=== PATIENT | female | born 1960 | race American Indian/Alaskan Native ===

== ENCOUNTER → 2020-08-25 10:45 | Outpatient (BNVA) | payer MEDICAID, SELFPAY | PROVIDERS: PCP Pediatrics; Visit Provider Internal Medicine Pulmonary Disease | DX: Z01.811 Encounter for preprocedural respiratory examination (principal); J44.9 Chronic obstructive pulmonary disease, unspecified; F17.200 Nicotine dependence, unspecified, uncomplicated; Z79.899 Other long term (current) drug therapy | CPT/HCPCS: 99212 ==

== ENCOUNTER → 2020-10-18 13:41 | Outpatient (BNVA) | payer MEDICAID, SELFPAY | PROVIDERS: PCP Pediatrics; Visit Provider Internal Medicine ==

== ENCOUNTER → 2021-01-17 13:11 | Outpatient (BNVA) | payer MEDICAID, SELFPAY | PROVIDERS: PCP Pediatrics; Visit Provider Internal Medicine Pulmonary Disease | DX: J44.9 Chronic obstructive pulmonary disease, unspecified (principal) | CPT/HCPCS: 99212 ==

== ENCOUNTER 2021-02-10 10:52 | Outpatient (REF) | payer MEDICAID, SELFPAY ==
--- NOTE | ~2021-02-10 | MM_ITS ---
EXAMINATION: MM DIAGNOSTIC DIGITAL BREAST TOMOSYNTHESIS, BILATERAL US DIAGNOSTIC ULTRASOUND BREAST, LEFT CLINICAL INFORMATION: Focal area of palpable concern inferomedial left breast, parasternal region. Due for yearly. The lifetime risk of breast cancer based on the Tyrer-Cuzick Model is 5%. COMPARISON: Mammography: 07/10/2019, 08/05/2015. CT chest 01/19/2020. TECHNIQUE: Digital breast tomosynthesis is performed in both the craniocaudal and mediolateral oblique views along with computer-aided detection (CAD). Synthesized 2D images are generated from the tomosynthesis. Additional bilateral exaggerated CC views are obtained. Ultrasound left breast is targeted to the area of clinical concern inferior medial breast and parasternal region. Patient is able to point to area of concern at time of imaging. Grayscale imaging and color Doppler are performed without and with harmonics. FINDINGS: There are scattered areas of fibroglandular density (ACR BI-RADS breast composition Category b). Parenchymal pattern is similar to prior studies. There is no developing density or interval mass or architectural abnormality. No abnormal calcifications. No mammographic correlate for patient's palpable concern. No skin thickening or coarsening of the Michel's ligaments. The skin contours are smooth. No significant changes. Ultrasound demonstrates no cystic or solid mass or architectural abnormality. The chest wall soft tissues appear normal. No skin thickening or edema tracking in soft tissue planes. No rib exostosis seen by ultrasound nor on review of CT chest 2019. Results are discussed with the patient at time of visit. Patient should be managed based on the clinical impression. If clinically indicated, further evaluation may be considered with surgical consult. Decision to proceed with biopsy should be based on clinical grounds and degree of clinical concern. MM/MM tomosynthesis diagnostic BI IMPRESSION: 1. No mammographic evidence of malignancy. 2. Unremarkable targeted left breast ultrasound. ASSESSMENT: BI-RADS 1: Negative RECOMMENDATION: 1. Patient should be managed based on the clinical impression. If clinically indicated, further evaluation may be considered with surgical consult. 2. Otherwise, routine annual screening mammography. This patient's information was entered into a reminder system with a target due date for their next mammogram.
== END 2021-02-10 10:53 | disposition home or self-care (01) ==
LOC: HO.MAMMO 10:52
PROVIDERS: PCP Pediatrics; Visit Provider Pediatrics
DX: N63.24 Unspecified lump in the left breast, lower inner quadrant (principal)
CPT/HCPCS: 76642; 77062; 77066

== ENCOUNTER → 2021-12-26 11:42 | Outpatient (BNVA) | payer MEDICAID, SELFPAY | PROVIDERS: PCP Pediatrics; Visit Provider Internal Medicine Pulmonary Disease | DX: J44.1 Chronic obstructive pulmonary disease with (acute) exacerbation (principal); Z79.899 Other long term (current) drug therapy; Z87.891 Personal history of nicotine dependence | CPT/HCPCS: 99212 ==

== ENCOUNTER 2022-07-03 14:57 | Inpatient (IN) | payer MEDICARE, SELFPAY ==
[2022-07-03] VITALS (10 sets, daily range): BP systolic 128–176; BP diastolic 76–97; PULSE 87–124; RESP 14–30; TEMP 36.7–37.1; O2SAT 89–96; BMI 25.1
--- NOTE | ~2022-07-03 | CT_ITS ---
EXAMINATION: CT ABDOMEN AND PELVIS WITHOUT CONTRAST CLINICAL INFORMATION: Abdominal pain with abnormal x-ray COMPARISON: None TECHNIQUE: Multidetector volumetric imaging was performed from the superior aspect of the liver through the pubic symphysis. Sagittal and coronal reformatted images were obtained on the technologist's workstation. This CT examination was performed using dose optimization techniques as appropriate, variously including the following: *Automated exposure control *Adjustment of mA and/or kV according to patient size (this includes techniques or standardized protocols for targeted exams where dose is matched to indication/reason for exam; i.e. extremities or head) *Use of iterative reconstruction technique DLP: 435 mGy-cm FINDINGS: LUNG BASES: Heart size is normal. Innumerable tree-in-bud type opacities are seen throughout the lungs. There is some mild bronchial thickening and some mild traction bronchiectasis at the lung bases. These findings are new when compared to the prior 09/08/2015 study. Findings are most suggestive of severe inflammatory/airway disease. Metastatic disease is considered to be much less likely. The previously seen air beneath the hemidiaphragm represents air in the hepatic flexure which is interposed between the liver and the diaphragm (Chilaiditi anatomy). This is not a worrisome finding. LIVER, GALLBLADDER, AND BILIARY TREE: The liver is normal in size, shape, and attenuation. No focal hepatic lesion or biliary ductal dilatation is present. The gallbladder is unremarkable with no evidence of radiopaque gallstones, gallbladder wall thickening, or obvious pericholecystic inflammatory changes. PANCREAS: Unremarkable. SPLEEN: Unremarkable. ADRENAL GLANDS: Unremarkable. KIDNEYS AND URETERS: The kidneys are normal in size, shape, and attenuation. A small 0.9 cm mass with calcification present in the mid right kidney most likely a complex Bosniak class II cyst. Interior measures water density. On the 02/01/2011 study, this appeared larger measuring 1.9 cm. There are benign Bosniak class I cysts present in the left kidney, increased in size from 2011. No suspicious solid renal masses. No hydronephrosis, hydroureter, or calculi seen. No perinephric stranding. BLADDER: Decompressed but unremarkable GASTROINTESTINAL TRACT: The small and large bowel are unremarkable aside from some scattered colonic diverticula without diverticulitis.. The appendix is unremarkable. ABDOMINAL WALL: No significant hernia is appreciated. LYMPH NODES: No retroperitoneal lymphadenopathy. VASCULAR: Marked calcific atherosclerotic change present in the infrarenal aorta and common iliac arteries. No aneurysm. PELVIC VISCERA: The uterus and adnexa are unremarkable aside from a small calcification in the uterus on the right which may be secondary to a small fibroid.. OSSEOUS STRUCTURES: Scoliosis convex to left with degenerative changes throughout the spine. CT/CT abdomen pelvis wo IV con IMPRESSION: 1. A cause for the patient's abdominal pain has not been found. 2. There are innumerable tree-in-bud type opacities seen throughout the lungs with some mild bronchial thickening and traction bronchiectasis. Findings are most suggestive of severe inflammatory/airway disease. Metastatic disease is considered to be much less likely. 3. Incidental note made of bilateral benign Bosniak class I and Bosniak class II renal cysts which need no further follow-up, colonic diverticulosis without diverticulitis and degenerative changes in the spine with scoliosis. 4. The previously seen air beneath the hemidiaphragm represents air in the hepatic flexure which is interposed between the liver and the diaphragm (Chilaiditi anatomy). This is not a worrisome finding. Fleischner guidelines were followed.
--- NOTE | ~2022-07-03 | XR_ITS ---
EXAMINATION: XR CHEST CLINICAL INFORMATION: Shortness of breath COMPARISON: Chest x-ray 09/08/2015. TECHNIQUE: Frontal portable view of the chest was obtained. 1651 hours FINDINGS: Diffuse increased interstitial lung markings new since chest x-ray 09/08/2015. This could be due to an acute interstitial process such as interstitial edema or pneumonia versus chronic interstitial lung disease. Heart size is normal. No significant central pulmonary vascular congestion without present. There is no pleural effusion and no pneumothorax. Levoscoliosis of thoracolumbar spine with multilevel degenerative spondylosis. There is a small bubble of gas under the right diaphragm peripherally in the right upper quadrant of abdomen. This appears to be within a bowel loop rather than free air. This is not well evaluated on plain film however. If clinical concern further imaging of the abdomen with CT can be considered. XR/XR chest 1V IMPRESSION: 1. Diffuse increased interstitial lung markings new since chest x-ray 09/08/2015. Acute interstitial process such as interstitial edema or pneumonia versus chronic interstitial lung disease. Short-term follow-up chest x-ray could be helpful. 2. There is a small bubble of gas under the right diaphragm peripherally in the right upper quadrant of abdomen. Clinically correlate.
--- NOTE | 2022-07-03 15:13 | ECG_ITS ---
Test Reason : UPPER RESP Blood Pressure : / mmHG Vent. Rate : 115 BPM Atrial Rate : 115 BPM P-R Int : 118 ms QRS Dur : 116 ms QT Int : 344 ms P-R-T Axes : 086 222 038 degrees QTc Int : 475 ms Sinus tachycardia Right bundle branch block Inferior infarct , age undetermined cannot exclude Anterior infarct , age undetermined Abnormal ECG When compared with ECG of 08-SEP-2015 12:59, Vent. rate has increased BY 48 BPM Right bundle branch block is now Present possibe Anterior infarct is now Present Inferior infarct is now Present Referred By: Tracie Luong Electronically Signed By:ANA SMYTH
--- NOTE | 2022-07-03 15:20 | ED.SOB ---
HPI - SOB/Dyspnea General Chief Complaint: Upper Respiratory Symptoms Stated Complaint: FLU SYMPTOMS FROM MD OFFICE,SEEN @ [facility] PER EMS Time Seen by Provider: 07/03/22 15:05 Source: patient and EMS Mode of arrival: EMS Limitations: no limitations History of Present Illness HPI Narrative: 61-year-old female former smoker (quit about 8 months ago) known history of emphysema and COPD been seen for by Dr. Sanchez patient is on DuoNeb and theophllline with reasonable control of the symptoms. Patient had recent hospitalization at [facility] for hypoxia and flu infection patient was discharged 4 days ago from the hospital on short course of prednisone with no improvement of patient's symptoms went to see her PCP today for shortness of breath found to be hypoxic and tachypneic in the doctor office and was sent to the ED for further evaluation. In the ED patient is tachypneic and 89% on room air and 92% with 3 L of nasal cannula, patient declined CP. Related Data Home Medications Medication Instructions Recorded Confirmed apixaban 5 mg tablet (Eliquis) 1 tab PO BID 07/03/22 07/03/22 budesonide-formoterol HFA 160 2 puff inhalation BID 07/03/22 07/03/22 mcg-4.5 mcg/actuation aerosol inhaler (Symbicort) buprenorphine 8 mg-naloxone 2 mg 2 strip sublingual DAILY 07/03/22 07/03/22 sublingual film fluticasone propionate 50 1 - 2 spray intranasal DAILY PRN 07/03/22 07/03/22 mcg/actuation nasal Nasal Congestion spray,suspension ibuprofen 600 mg tablet 1 tab PO TID PRN Pain, Mild 07/03/22 07/03/22 lisinopril 30 mg tablet 1 tab PO DAILY 07/03/22 07/03/22 omeprazole 20 mg capsule,delayed 1 cap PO DAILY 07/03/22 07/03/22 release tiotropium bromide 18 mcg capsule 1 cap inhalation DAILY 07/03/22 07/03/22 with inhalation device (Spiriva with HandiHaler) Previous Rx's Medication Instructions Recorded albuterol sulfate 90 mcg/actuation 2 puff inhalation Q4-6H PRN for 11/27/21 aerosol inhaler wheezing #8.5 ea theophylline 600 mg 600 mg PO DAILY 30 days #30 tabs 05/01/22 tablet,extended release 24 hr Allergies Allergy/AdvReac Type Severity Reaction Status Date / Time morphine [MORPHINE] Allergy Intermediate VOMITING, Verified 12/26/21 11:46 ITCHING ibuprofen Allergy Unknown Unknown Verified 12/26/21 11:46 Review of Systems Review of Systems: All other systems are reviewed and are negative Constitutional: Reports as per HPI and Reports no additional constitutional complaints Eyes: Reports as per HPI and Reports no additional eye complaints Reports system reviewed and no additional complaints, except as documented Cardiovascular: Reports as per HPI and Reports no additional cardiovascular complaints Respiratory: Reports as per HPI and Reports no additional respiratory complaints Gastrointestinal: Reports as per HPI and Reports no additional gastrointestinal complaints Genitourinary: Reports no additional female genitourinary complaints Musculoskeletal: Reports no additional musculoskeletal complaints Skin/Breast: Reports system reviewed and no additional complaints, except as docu Psychiatric: Reports no additional psychiatric complaints Endocrine: Reports no additional endocrine complaints Hematologic/Lymphatic: Reports no additional hematologic/lymphatic complaints Allergic/Immunologic: Reports no additional allergic/immunologic complaints Reports system reviewed and no additional complaints, except as documented and Reports Abnormal speech present [facility] Past Medical History Medical History COPD exacerbation Ex-smoker for less than 1 year Hypertension Pulmonary embolism Social History Social History Alcohol intake: never Smoked in Last 30 Days: No Use of substances other than those prescribed or required for medical reasons: No Advance Directives: No Advance Directives Information Provided: Yes Physical Exam Vital Signs: Vital Signs: Last Vital Signs Temp 98.0 F 07/03/22 18:26 Pulse 90 07/03/22 20:19 Resp 14 07/03/22 20:19 BP 130/82 07/03/22 18:26 Pulse Ox 93 07/03/22 18:26 O2 Del Method 07/03/22 18:26 O2 Flow Rate 3 07/03/22 18:26 Oxygen Flow Rate 3 07/03/22 15:15 BMI result Body Mass Index 25.1 Vital signs have been reviewed as appeared to be correct. Blood pressure normal. Heart rate elevated, Respiration rate elevated. Temperature normal. Hypoxic on room air. Appearance: Alert. Oriented X3. Mild respiratory acute distress. Head: Normal external exam. Normocephalic. Atraumatic. No Lamb signs noted. No raccoon eyes noted Eyes: PERRLA. EOMI. Conjunctiva and sclera normal. Eyelids normal. ENT: TM's Normal. Pharynx normal. Uvula midline. Moist mucous membranes. No trismus noted. No drooling noted. No muffled voice noted. Neck: Normal inspection. Neck supple. FROM. No adenopathy. Thyroid Normal. No meningeal signs. No neck mass noted. CVS: Normal heart rate and rhythm. Heart sound normal. No murmurs noted. Pulses normal throughout. Respiratory: No respiratory distress. Painless inspiration. Breath sounds normal. No wheezes/rales/rhonchi noted. Chest nontender. No accessory muscle usage noted or decreased air movement noted. Abdomen: Soft and nontender. Bowel sounds normal in all 4 quadrants. No distention noted. No organomegaly noted. No visible injury noted. Back: No CVA tenderness. Full range of motion noted. Skin: Skin warm and dry. Normal skin color. Normal skin turgor. No rashes/lesions/lacerations noted. Extremities: No lower extremity edema. Extremities exhibit normal range of motion. Extremities nontender. Neuro: Oriented X 3. Cranial nerve exam: II-XII are grossly intact No motor deficit. No sensory deficit. Reflexes normal. Course Course Course Narrative: 61-year-old female with COPD exacerbation and hypoxia no supplemental oxygen at home. Patient feels better with bronchodilator and steroids and antibiotic. Incidental air bubble on the x-ray patient is complaining of generalized abdominal pain from coughing no tenderness in particular in the right upper quadrant area, no nausea, no vomiting CT of the abdomen and pelvis is unremarkable. Will admit the patient patient is requiring 3 L of oxygen to keep O2 sat 93%, leukocytosis likely from recent steroid use. Lactic acidosis likely due to prolonged good COPD with hypoxia. Medications Administered Generic Name Dose Route Start Last Admin Trade Name Freq PRN Reason Stop Dose Admin Albuterol/Ipratropium 3 ml 07/03/22 20:00 07/03/22 20:18 Albuterol/Iprat 2.5/0.5mg 3 Ml Ampul.Neb INHALE 3 ml RQ4H WHILE AWAKE JESSICA Administration Discontinued Medications Generic Name Dose Route Start Last Admin Trade Name Freq PRN Reason Stop Dose Admin Albuterol Sulfate 2.5 mg/ 5 mg 07/03/22 15:13 07/03/22 15:47 Albuterol Sulfate 2.5 mg INHALE 07/03/22 15:14 5 mg ONCE ONE Administration Albuterol/Ipratropium 3 ml 07/03/22 15:13 07/03/22 15:47 Albuterol/Iprat 2.5/0.5mg 3 Ml Ampul.Neb INHALE 07/03/22 15:14 3 ml ONCE ONE Administration Guaifenesin/Codeine Phosphate 10 ml 07/03/22 18:25 07/03/22 18:57 Guaifen/Codeine Sf 200/20/10ml 10 Ml Liquid PO 07/03/22 18:26 10 ml ONCE ONE Administration Magnesium Sulfate 2 gm in 50 mls @ 25 mls/hr 07/03/22 15:13 07/03/22 17:07 Magnesium Sulfate/H2o IV 07/03/22 17:12 Infused ONCE ONE Infusion Levofloxacin 750 mg in 150 mls @ 100 mls/hr 07/03/22 15:13 07/03/22 18:56 Levaquin IV 07/03/22 16:42 Infused ONCE ONE Infusion Methylprednisolone Sodium Succinate 125 mg 07/03/22 15:13 07/03/22 15:29 Methylprednisolone Sod Succ 125 Mg/2 Ml Vial IVPUSH 07/03/22 15:14 125 mg ONCE ONE Administration Medical Decision Making Differential Diagnosis Differential Diagnoses: The differential diagnosis associated with the presentation includes (COPD exacerbation/pneumonia/CHF.) Admission/Observation Consideration of admission/observation: Escalation of care including admission/observation considered Consult Healthcare Provider Management of the patient was discussed with: Hospitalist Dr. Mathis Lab Data MDM Lab Attestation statement: I reviewed the patient's lab results. Result Diagrams: 07/03/22 16:19 07/03/22 17:11 Labs: Lab Results 07/03/22 07/03/22 07/03/22 Range/Units 16:19 16:19 16:19 WBC 16.9 H (4.8-10.8) X10*3/uL RBC 6.04 H (4.20-5.50) X10*6/uL Hgb 14.9 (12.0-16.0) g/dl Hct 47.0 (37.0-47.0) % MCV 77.8 L (80.0-98.0) fL MCH 24.7 L (27.0-33.0) pg MCHC 31.7 (31.0-35.0) g/dl RDW 13.7 (11.0-16.0) % Plt Count 396 (160-400) X10*3/uL MPV 9.8 (9.4-12.3) fL Immature Gran % (Auto) 0.8 H (0.0-0.4) % Neut % (Auto) 77.4 H (45-73) % Lymph % (Auto) 10.3 L (20-40) % [place] % (Auto) 11.3 H (2-11) % Eos % (Auto) 0.0 (0-4) % Baso % (Auto) 0.2 (0-2) % Lymph # (Auto) 1.7 (1.2-4.9) X10*3/uL [place] # (Auto) 1.9 H (0.1-1.2) X10*3/uL Eos # (Auto) 0.0 (0.0-0.4) X10*3/uL Baso # (Auto) 0.0 (0.0-0.2) X10*3/uL Abs Immat Gran (auto) 0.14 H (0.00-0.03) X10*3/uL Absolute Neuts (auto) 13.0 H (2.0-8.3) x10*3/uL Absolute Nucleated RBC 0.000 (0.0-0.012) X10*3/uL Nucleated RBC % (auto) 0.0 (0.0-0.2) /100WBC Smear Tech's Comments VERIFIED Sodium (135-145) mmol/L Potassium (3.3-5.1) mmol/L Chloride (96-108) mmol/L Carbon Dioxide (22-29) mmol/L Anion Gap (12-20) BUN (9-16) mg/dL Creatinine (0.5-1.4) mg/dL Estim Creat Clear Calc Estimated GFR Random Glucose (60-115) mg/dL Lactic Acid (0.5-2.0) mmol/L Lactic Acid F/U @ 2Hr (0.5-2.0) mmol/L Calcium (8.4-10.2) mg/dL Total Bilirubin (0.0-1.0) mg/dL Direct Bilirubin (0.0-0.5) mg/dL AST (5-31) U/L ALT (0-31) U/L Alkaline Phosphatase (39-117) U/L Troponin I High Sens 5.6 (<3.5-17.0) ng/L B-Natriuretic Peptide (<100) pg/mL Total Protein (6.5-8.0) g/dL Albumin (3.5-5.0) g/dL Lipase (8-78) U/L Urine Color Urine Appearance Urine pH (5.0-9.0) Ur Specific [place] (1.005-1.025) Urine Protein (Neg-Trace) mg/dL Urine Glucose (UA) (Negative) mg/dL Urine Ketones (Negative) mg/dL Urine Blood (Negative) Urine Nitrite (Negative) Ur Leukocyte Esterase (Negative) Urine RBC (0-2) /HPF Urine WBC (0-5) /HPF Ur Squamous Epith Cells (0-2) /HPF Urine Bacteria (None Seen) Hyaline Casts (0-2) /LPF Influenza Type A (PCR) NEGATIVE (Negative) Influenza Type B (PCR) NEGATIVE (Negative) RSV RNA Qual (PCR) NEGATIVE (Negative) SARS-CoV-2 RNA (RT-PCR) NEGATIVE (Negative) 07/03/22 07/03/22 07/03/22 Range/Units 16:19 17:11 17:12 WBC (4.8-10.8) X10*3/uL RBC (4.20-5.50) X10*6/uL Hgb (12.0-16.0) g/dl Hct (37.0-47.0) % MCV (80.0-98.0) fL MCH (27.0-33.0) pg MCHC (31.0-35.0) g/dl RDW (11.0-16.0) % Plt Count (160-400) X10*3/uL MPV (9.4-12.3) fL Immature Gran % (Auto) (0.0-0.4) % Neut % (Auto) (45-73) % Lymph % (Auto) (20-40) % [place] % (Auto) (2-11) % Eos % (Auto) (0-4) % Baso % (Auto) (0-2) % Lymph # (Auto) (1.2-4.9) X10*3/uL [place] # (Auto) (0.1-1.2) X10*3/uL Eos # (Auto) (0.0-0.4) X10*3/uL Baso # (Auto) (0.0-0.2) X10*3/uL Abs Immat Gran (auto) (0.00-0.03) X10*3/uL Absolute Neuts (auto) (2.0-8.3) x10*3/uL Absolute Nucleated RBC (0.0-0.012) X10*3/uL Nucleated RBC % (auto) (0.0-0.2) /100WBC Smear Tech's Comments Sodium 140 (135-145) mmol/L Potassium 3.4 (3.3-5.1) mmol/L Chloride 100 (96-108) mmol/L Carbon Dioxide 26 (22-29) mmol/L Anion Gap 17 (12-20) BUN 23 H (9-16) mg/dL Creatinine 0.72 (0.5-1.4) mg/dL Estim Creat Clear Calc 72.2 Estimated GFR > 60 Random Glucose 166 H (60-115) mg/dL Lactic Acid 2.3 H* (0.5-2.0) mmol/L Lactic Acid F/U @ 2Hr (0.5-2.0) mmol/L Calcium 8.6 (8.4-10.2) mg/dL Total Bilirubin 0.6 (0.0-1.0) mg/dL Direct Bilirubin 0.3 (0.0-0.5) mg/dL AST 25 (5-31) U/L ALT 30 (0-31) U/L Alkaline Phosphatase 78 (39-117) U/L Troponin I High Sens (<3.5-17.0) ng/L B-Natriuretic Peptide 138 H (<100) pg/mL Total Protein 6.2 L (6.5-8.0) g/dL Albumin 3.6 (3.5-5.0) g/dL Lipase 8 (8-78) U/L Urine Color Urine Appearance Urine pH (5.0-9.0) Ur Specific [place] (1.005-1.025) Urine Protein (Neg-Trace) mg/dL Urine Glucose (UA) (Negative) mg/dL Urine Ketones (Negative) mg/dL Urine Blood (Negative) Urine Nitrite (Negative) Ur Leukocyte Esterase (Negative) Urine RBC (0-2) /HPF Urine WBC (0-5) /HPF Ur Squamous Epith Cells (0-2) /HPF Urine Bacteria (None Seen) Hyaline Casts (0-2) /LPF Influenza Type A (PCR) (Negative) Influenza Type B (PCR) (Negative) RSV RNA Qual (PCR) (Negative) SARS-CoV-2 RNA (RT-PCR) (Negative) 07/03/22 07/03/22 Range/Units 17:12 19:09 WBC (4.8-10.8) X10*3/uL RBC (4.20-5.50) X10*6/uL Hgb (12.0-16.0) g/dl Hct (37.0-47.0) % MCV (80.0-98.0) fL MCH (27.0-33.0) pg MCHC (31.0-35.0) g/dl RDW (11.0-16.0) % Plt Count (160-400) X10*3/uL MPV (9.4-12.3) fL Immature Gran % (Auto) (0.0-0.4) % Neut % (Auto) (45-73) % Lymph % (Auto) (20-40) % [place] % (Auto) (2-11) % Eos % (Auto) (0-4) % Baso % (Auto) (0-2) % Lymph # (Auto) (1.2-4.9) X10*3/uL [place] # (Auto) (0.1-1.2) X10*3/uL Eos # (Auto) (0.0-0.4) X10*3/uL Baso # (Auto) (0.0-0.2) X10*3/uL Abs Immat Gran (auto) (0.00-0.03) X10*3/uL Absolute Neuts (auto) (2.0-8.3) x10*3/uL Absolute Nucleated RBC (0.0-0.012) X10*3/uL Nucleated RBC % (auto) (0.0-0.2) /100WBC Smear Tech's Comments Sodium (135-145) mmol/L Potassium (3.3-5.1) mmol/L Chloride (96-108) mmol/L Carbon Dioxide (22-29) mmol/L Anion Gap (12-20) BUN (9-16) mg/dL Creatinine (0.5-1.4) mg/dL Estim Creat Clear Calc Estimated GFR Random Glucose (60-115) mg/dL Lactic Acid (0.5-2.0) mmol/L Lactic Acid F/U @ 2Hr 3.0 H* (0.5-2.0) mmol/L Calcium (8.4-10.2) mg/dL Total Bilirubin (0.0-1.0) mg/dL Direct Bilirubin (0.0-0.5) mg/dL AST (5-31) U/L ALT (0-31) U/L Alkaline Phosphatase (39-117) U/L Troponin I High Sens (<3.5-17.0) ng/L B-Natriuretic Peptide (<100) pg/mL Total Protein (6.5-8.0) g/dL Albumin (3.5-5.0) g/dL Lipase (8-78) U/L Urine Color Yellow Urine Appearance Clear Urine pH 6.0 (5.0-9.0) Ur Specific [place] 1.025 (1.005-1.025) Urine Protein Trace (Neg-Trace) mg/dL Urine Glucose (UA) Negative (Negative) mg/dL Urine Ketones Negative (Negative) mg/dL Urine Blood Small (1+) H (Negative) Urine Nitrite Negative (Negative) Ur Leukocyte Esterase Negative (Negative) Urine RBC 3-5 H (0-2) /HPF Urine WBC 0-5 (0-5) /HPF Ur Squamous Epith Cells 0-2 (0-2) /HPF Urine Bacteria None Seen (None Seen) Hyaline Casts 0-2 (0-2) /LPF Influenza Type A (PCR) (Negative) Influenza Type B (PCR) (Negative) RSV RNA Qual (PCR) (Negative) SARS-CoV-2 RNA (RT-PCR) (Negative) Independent Interpretation I performed an independent interpretation of an: Plain X-Ray (Chest: No acute pathology.) and CT Scan (Abdomen: No acute pathology.) Radiology Impression Discussion of test interpretation with radiology: I have reviewed the radiologist's reading. Discharge Plan Discharge Clinical Impression: COPD exacerbation, Acidosis, lactic, Hypoxia Patient Disposition: Admitted As Inpatient
[2022-07-03] MEDS: Magnesium Sulfate/H2O 2 GM/50 ML PIGGYBACK IV (15:29)
[2022-07-03] MEDS: methylPREDNISolone Sod Succ 125 MG/2 ML VIAL IVPUSH (15:29)
--- NOTE | 2022-07-03 15:36 | PC.NURSE ---
pt a&ox3, vss - hypertensive, O2 @ 92% on 3L, 20G IV left forearm placed by EMS, medicated per provider order. tech to bedside to draw labs/EKG.
[2022-07-03] MEDS: Albuterol Sulfate 2.5 MG, Albuterol Sulfate (0.083%) 2.5 MG 5 MG INHALE (15:47)
[2022-07-03] MEDS: Albuterol/Iprat 2.5/0.5MG 3 ML AMPUL.NEB INHALE ×2 (15:47→20:18)
[2022-07-03 16:27] LABS: Basophils Percent Auto 0.2 % (0-2); Hemoglobin 14.9 g/dl (12.0-16.0); Imm Gran Abs Auto 0.14 X10*3/uL (0.00-0.03); Imm Gran Pct Auto 0.8 % (0.0-0.4); Lymphocytes Absolute Auto 1.7 X10*3/uL (1.2-4.9); Lymphocytes Percent Auto 10.3 % (20-40); MANUAL DIFF FLAG SCAN; Mean Corpuscular HGB Conc 31.7 g/dl (31.0-35.0); Mean Corpuscular Hemoglobin 24.7 pg (27.0-33.0); Mean Corpuscular Volume 77.8 fL (80.0-98.0); Mean Platelet Volume 9.8 fL (9.4-12.3); Monocytes Absolute Auto 1.9 X10*3/uL (0.1-1.2); Monocytes Percent Auto 11.3 % (2-11); Neutrophils Percent Auto 77.4 % (45-73); Platelet Count 396 X10*3/uL (160-400); Red Blood Count 6.04 X10*6/uL (4.20-5.50); Red Cell Distribution Width 13.7 % (11.0-16.0); SCAN SMEAR FLAG 1; White Blood Count 16.9 X10*3/uL (4.8-10.8)
[2022-07-03 16:47] LABS: Lactic Acid 2.3 mmol/L (0.5-2.0); SLIDE REVIEW VERIFIED
[2022-07-03 16:53] LABS: Troponin-I High Sensitivity 5.6 ng/L (<3.5-17.0)
[2022-07-03] MEDS: levoFLOXacin/D5W 750 MG/150 ML PIGGYBACK 100 MG IV (17:06)
--- NOTE | 2022-07-03 17:15 | MHC.EDTECH ---
PT WAS HOOKED UP TO [facility]ON FOLDER VITAL SIGN TAKEN ,EKG DONE ,LAB DRAW DONE ,URINE SAMPLE TAKEN FLU RSV SWAB TAKEN WAS SENT TO LAB .
[2022-07-03 17:20] LABS: Influenza A PCR NEGATIVE (Negative); Influenza B PCR NEGATIVE (Negative); Resp Syncy Virus RNA Qual PCR NEGATIVE (Negative); SARS COV2 PCR INHOUSE NEGATIVE (Negative)
[2022-07-03 17:21] LABS: Appearance Urine Clear; Color Urine Yellow; Glucose Urine UA Negative (Negative); Leukocyte Esterase Urine Negative (Negative); Nitrite Urine Negative (Negative); Specific Gravity - Urine 1.025 (1.005-1.025); UMIC TRIGGER UACC YES; Urine Blood Small (1+) (Negative); Urine Ketones Negative (Negative); Urine Protein Trace mg/dL (Neg-Trace)
[2022-07-03 17:31] LABS: Bacteria Urine None Seen (None Seen); Hyaline Casts Urine 0-2 /LPF (0-2); Squamous Epithelial Cell Urine 0-2 /HPF (0-2); WBC Urine 0-5 /HPF (0-5)
[2022-07-03 17:37] LABS: Alanine Aminotransferase 30 U/L (0-31); Albumin Level 3.6 g/dL (3.5-5.0); Alkaline Phosphatase 78 U/L (39-117); Anion Gap 17 (12-20); Aspartate Amino Transferase 25 U/L (5-31); Bilirubin Direct 0.3 mg/dL (0.0-0.5); Bilirubin Total 0.6 mg/dL (0.0-1.0); Blood Urea Nitrogen 23 mg/dL (9-16); Calcium 8.6 mg/dL (8.4-10.2); Carbon Dioxide 26 mmol/L (22-29); Chloride 100 mmol/L (96-108); Creatinine Clr Calc Pharmacy 72.2; Estimated Glomerular Filt Rate > 60; Glucose Random 166 mg/dL (60-115); Lipase 8 U/L (8-78); Potassium 3.4 mmol/L (3.3-5.1); Sodium 140 mmol/L (135-145); Total Protein 6.2 g/dL (6.5-8.0)
[2022-07-03 17:42] LABS: B Type Natriuretic Peptide 138 pg/mL (<100)
--- NOTE | 2022-07-03 17:43 | PHA.MEDREC ---
Pharmacy Consult ? Medication Reconciliation Pharmacy has completed the medication reconciliation. spoke with pt
[2022-07-03 18:23] LABS: Reflex Lactate? Lactic Acid Added
--- NOTE | 2022-07-03 18:27 | MHC.EDTECH ---
pt ask for a марина juan said she was not hungry .
[2022-07-03] MEDS: guaiFEN/Codeine SF 200/20/10ML 10 ML LIQUID PO (18:57)
--- NOTE | 2022-07-03 20:01 | P.HPHOSP_ITS ---
History of Present Illness Date of Service: 07/03/22 Chief Complaint: cough, shortness of breath 61-year-old female with past medical history of COPD, PE on Eliquis, hypertension, on naloxone, presents to the hospital with complaints of persistent cough, shortness of breath, and sputum production. Patient reports that about a week ago she was seen at outside hospital and diagnosed with the flu. She was admitted for 3-4 days, discharged on Saturday, reports that slightly felt better after discharge but symptoms returned on Saturday with cough, shortness of breath, and increased sputum production. Patient reports no fever or chill, denies any chest pain, no palpitations, no nausea or vomiting, no diarrhea constipation, no urinary symptoms and no lower extremity edema. Reports low appetite, decreased urine output. Patient reports that while at outside hospital she was treated for COPD but was not sent home on any medications. On arrival to the ED patient hemodynamically stable found to be 89% on room air with tachypnea of 30, tachycardia of 124 Labs are significant for WBC count of 16.9, lactic acid of 2.3, BNP of 138, UA negative for any acute infection Influenza, RSV as well as COVID-[address] shows tree-in-bud type opacities seen throughout the lungs with some mild bronchial thickening and traction bronchiectasis finding suggestive of severe inflammatory airway disease patient will be admitted for further management Review of Systems Review of Systems: Yes all other systems are reviewed and are negative [facility] Medical History (Updated 07/04/22 @ 07:14 by Umesh Smallwood MD) COPD exacerbation Ex-smoker for less than 1 year Hypertension Pulmonary embolism Family History (Updated 07/04/22 @ 07:12 by Umesh Smallwood MD) Mother CAD (coronary artery disease) Social History Alcohol intake: never Smoked in Last 30 Days: No Use of substances other than those prescribed or required for medical reasons: No Advance Directives: No Advance Directives Information Provided: Yes Meds Allergies Allergy/AdvReac Type Severity Reaction Status Date / Time morphine [MORPHINE] Allergy Intermediate VOMITING, Verified 12/26/21 11:46 ITCHING ibuprofen Allergy Unknown Unknown Verified 12/26/21 11:46 Active Medications: Current Medications Acetaminophen (Acetaminophen 325 Mg Tablet) 650 mg PO Q6H PRN PRN Reason: Pain, Mild (Pain Scale 1-3) Albuterol/Ipratropium (Albuterol/Iprat 2.5/0.5mg 3 Ml Ampul.Neb) 3 ml INHALE RQ4H PRN PRN Reason: Shortness of Breath/Wheezing Albuterol/Ipratropium (Albuterol/Iprat 2.5/0.5mg 3 Ml Ampul.Neb) 3 ml INHALE RQ4H WHILE AWAKE [facility] Docusate Sodium (Docusate Sodium 100 Mg Capsule) 100 mg PO DAILY PRN PRN Reason: Constipation Enoxaparin Sodium (Enoxaparin Sodium 40 Mg/0.4 Ml Syringe) 40 mg SUBCUT Q24H JESSICA Vancomycin HCl 1,500 mg/ (Sodium Chloride) 500 mls @ 333.333 mls/hr IV Q12H JESSICA Piperacillin Sod/Tazobactam (Sod 3.375 gm/ Sodium Chloride) 50 mls @ 100 mls/hr IV Q6H [facility] Methylprednisolone Sodium Succinate (Methylprednisolone Sod Succ 40 Mg/Ml Vial) 40 mg IVPUSH Q12H JESSICA Ondansetron HCl (Ondansetron Hcl 4 Mg/2 Ml Vial) 4 mg IVPUSH Q8H PRN PRN Reason: Nausea and Vomiting Pharmacy Consult (Consult Rx Perform Med Rec) 1 each MISCELLANE ONCE PRN PRN Reason: Consult order Pharmacy Consult (Consult Rx Vancomycin Dosing) 1 each MISCELLANE DAILY PRN PRN Reason: Consult order Sodium Chloride (0.9 % Sodium Chloride Flush 3 Ml Syringe) 3 ml IVFLUSH QSHIFT [facility] Home Medications Medication Instructions Recorded Confirmed Last Taken Type apixaban 5 mg tablet (Eliquis) 1 tab PO BID 07/03/22 07/03/22 07/02/22 History budesonide-formoterol HFA 160 2 puff inhalation BID 07/03/22 07/03/22 07/02/22 History mcg-4.5 mcg/actuation aerosol inhaler (Symbicort) buprenorphine 8 mg-naloxone 2 mg 2 strip sublingual DAILY 07/03/22 07/03/22 07/02/22 History sublingual film fluticasone propionate 50 1 - 2 spray intranasal DAILY PRN 07/03/22 07/03/22 Unknown History mcg/actuation nasal Nasal Congestion spray,suspension ibuprofen 600 mg tablet 1 tab PO TID PRN Pain, Mild 07/03/22 07/03/22 07/02/22 History lisinopril 30 mg tablet 1 tab PO DAILY 07/03/22 07/03/22 07/02/22 History omeprazole 20 mg capsule,delayed 1 cap PO DAILY 07/03/22 07/03/22 07/02/22 History release tiotropium bromide 18 mcg capsule 1 cap inhalation DAILY 07/03/22 07/03/22 07/02/22 History with inhalation device (Spiriva with HandiHaler) Physical Exam Vital Signs and Narrative: Vital Signs: Last Vital Signs Temp 98.0 F 07/03/22 18:26 Pulse 112 H 07/03/22 18:26 Resp 15 07/03/22 18:26 BP 130/82 07/03/22 18:26 Pulse Ox 93 07/03/22 18:26 O2 Del Method 07/03/22 18:26 O2 Flow Rate 3 07/03/22 18:26 Oxygen Flow Rate 3 07/03/22 15:15 BMI result Body Mass Index 25.1 Results Labs CBC and Chem 7: 07/04/22 05:25 07/03/22 17:11 Labs: Laboratory Results - last 24 hr 07/03/22 07/03/22 07/03/22 16:19 16:19 16:19 MCV 77.8 L MCH 24.7 L MCHC 31.7 RDW 13.7 Plt Count 396 MPV 9.8 Immature Gran % (Auto) 0.8 H Neut % (Auto) 77.4 H Lymph % (Auto) 10.3 L [place] % (Auto) 11.3 H Eos % (Auto) 0.0 Baso % (Auto) 0.2 Lymph # (Auto) 1.7 [place] # (Auto) 1.9 H Eos # (Auto) 0.0 Baso # (Auto) 0.0 Abs Immat Gran (auto) 0.14 H Absolute Neuts (auto) 13.0 H Absolute Nucleated RBC 0.000 Nucleated RBC % (auto) 0.0 Smear Tech's Comments VERIFIED Anion Gap Estim Creat Clear Calc Estimated GFR Random Glucose Lactic Acid Lactic Acid F/U @ 2Hr Calcium Total Bilirubin Direct Bilirubin AST ALT Alkaline Phosphatase Troponin I High Sens 5.6 B-Natriuretic Peptide Total Protein Albumin Lipase Urine Color Urine Appearance Urine pH Ur Specific [place] Urine Protein Urine Glucose (UA) Urine Ketones Urine Blood Urine Nitrite Ur Leukocyte Esterase Urine RBC Urine WBC Ur Squamous Epith Cells Urine Bacteria Hyaline Casts Influenza Type A (PCR) NEGATIVE Influenza Type B (PCR) NEGATIVE RSV RNA Qual (PCR) NEGATIVE SARS-CoV-2 RNA (RT-PCR) NEGATIVE 07/03/22 07/03/22 07/03/22 16:19 17:11 17:12 MCV MCH MCHC RDW Plt Count MPV Immature Gran % (Auto) Neut % (Auto) Lymph % (Auto) [place] % (Auto) Eos % (Auto) Baso % (Auto) Lymph # (Auto) [place] # (Auto) Eos # (Auto) Baso # (Auto) Abs Immat Gran (auto) Absolute Neuts (auto) Absolute Nucleated RBC Nucleated RBC % (auto) Smear Tech's Comments Anion Gap 17 Estim Creat Clear Calc 72.2 Estimated GFR > 60 Random Glucose 166 H Lactic Acid 2.3 H* Lactic Acid F/U @ 2Hr Calcium 8.6 Total Bilirubin 0.6 Direct Bilirubin 0.3 AST 25 ALT 30 Alkaline Phosphatase 78 Troponin I High Sens B-Natriuretic Peptide 138 H Total Protein 6.2 L Albumin 3.6 Lipase 8 Urine Color Urine Appearance Urine pH Ur Specific [place] Urine Protein Urine Glucose (UA) Urine Ketones Urine Blood Urine Nitrite Ur Leukocyte Esterase Urine RBC Urine WBC Ur Squamous Epith Cells Urine Bacteria Hyaline Casts Influenza Type A (PCR) Influenza Type B (PCR) RSV RNA Qual (PCR) SARS-CoV-2 RNA (RT-PCR) 07/03/22 07/03/22 17:12 19:09 MCV MCH MCHC RDW Plt Count MPV Immature Gran % (Auto) Neut % (Auto) Lymph % (Auto) [place] % (Auto) Eos % (Auto) Baso % (Auto) Lymph # (Auto) [place] # (Auto) Eos # (Auto) Baso # (Auto) Abs Immat Gran (auto) Absolute Neuts (auto) Absolute Nucleated RBC Nucleated RBC % (auto) Smear Tech's Comments Anion Gap Estim Creat Clear Calc Estimated GFR Random Glucose Lactic Acid Lactic Acid F/U @ 2Hr 3.0 H* Calcium Total Bilirubin Direct Bilirubin AST ALT Alkaline Phosphatase Troponin I High Sens B-Natriuretic Peptide Total Protein Albumin Lipase Urine Color Yellow Urine Appearance Clear Urine pH 6.0 Ur Specific [place] 1.025 Urine Protein Trace Urine Glucose (UA) Negative Urine Ketones Negative Urine Blood Small (1+) H Urine Nitrite Negative Ur Leukocyte Esterase Negative Urine RBC 3-5 H Urine WBC 0-5 Ur Squamous Epith Cells 0-2 Urine Bacteria None Seen Hyaline Casts 0-2 Influenza Type A (PCR) Influenza Type B (PCR) RSV RNA Qual (PCR) SARS-CoV-2 RNA (RT-PCR) Imaging Radiologist's Impressions: Impressions Chest X-Ray 07/03/22 16:55 IMPRESSION: 1. Diffuse increased interstitial lung markings new since chest x-ray 09/08/2015. Acute interstitial process such as interstitial edema or pneumonia versus chronic interstitial lung disease. Short-term follow-up chest x-ray could be helpful. 2. There is a small bubble of gas under the right diaphragm peripherally in the right upper quadrant of abdomen. Clinically correlate. Abdomen/Pelvis CT 07/03/22 18:07 IMPRESSION: 1. A cause for the patient's abdominal pain has not been found. 2. There are innumerable tree-in-bud type opacities seen throughout the lungs with some mild bronchial thickening and traction bronchiectasis. Findings are most suggestive of severe inflammatory/airway disease. Metastatic disease is considered to be much less likely. 3. Incidental note made of bilateral benign Bosniak class I and Bosniak class II renal cysts which need no further follow-up, colonic diverticulosis without diverticulitis and degenerative changes in the spine with scoliosis. 4. The previously seen air beneath the hemidiaphragm represents air in the hepatic flexure which is interposed between the liver and the diaphragm (Chilaiditi anatomy). This is not a worrisome finding. Fleischner guidelines were followed. Assessment and Plan (1) Acute respiratory failure with hypoxia: Status: Acute (2) Pneumonia: Qualifiers: Pneumonia type: due to unspecified organism Laterality: bilateral Lung location: unspecified part of lung Qualified Code(s): J18.9 - Pneumonia, unspecified organism Status: Acute (3) COPD with acute exacerbation: Status: Acute (4) Acidosis, lactic: Status: Acute Plan 61-year-old with past medical history of COPD presents to the hospital after being discharged from recent hospital stay at [facility] for treatment of influenza # acute respiratory failure with hypoxia - likely multifactorial secondary to COPD as well as pneumonia - continue oxygen supplement as required - will treat with Solu-Medrol, and breathing treatment - monitor respiratory status, does not use any oxygen at baseline # pneumonia - possibly hospital-acquired given her recent hospital stay versus community- acquired - will treat with IV antibiotics - follow cultures # COPD with acute exacerbation - treat with Solu-Medrol, breathing treatments - monitor respiratory status # lactic acidosis - likely secondary to above - will treat with IV fluids - trend lactic acid # history of PE - continue Eliquis DVT prophylaxis, Eliquis given patient's acute pneumonia requiring IV antibiotics patient require minimum 2 night inpatient hospital stay Time Spent With Patient Time: Total time managing care of this patient today ____ minutes. Quality Stroke Does the patient have a stroke diagnosis?: No VTE Prior VTE?: No VTE Risk Level:: Medical - moderate - high VTE Device Contraindication: Treatment Not Indicated VTE Drug Contraindication: N/A - Med Ordered
[2022-07-03] MEDS: vancomycin HCL 1,500 MG in 0.9 % Sodium Chloride 500 ML 333.33 MG IV (20:44)
--- NOTE | 2022-07-03 20:56 | PC.NURSE ---
pt a&ox3, vss, medicated per provider order, pm doses of suboxone/lisinopril/eliquis held per pt took medication at home. RN-RN report given to overflow, transport contacted.
[2022-07-03] MEDS: Lactated Ringers 1,000 ML 100 ML IVCONT (20:58)
[2022-07-03 21:19] LABS: Reflex Lactate? 2 Y
[2022-07-03 21:55] LABS: ~Lactic Acid-LAB USE ONLY 3.5 mmol/L (0.5-2.0)
[2022-07-03] MEDS: Acetaminophen 325 MG TABLET 650 MG PO (22:10)
[2022-07-03] MEDS: guaiFENesin DM 100/10/5 ML 5 ML SYRUP PO (23:04)
[2022-07-03] MEDS: 0.9 % Sodium Chloride Flush 3 ML SYRINGE IVFLUSH (23:40)
[2022-07-03] MEDS: Piperacillin Sodium/Tazobactam 3.375 GM in 0.9 % Sodium Chloride 50 ML IV (23:40)
[2022-07-04] VITALS (10 sets, daily range): BP systolic 127–182; BP diastolic 70–98; PULSE 76–105; RESP 14–18; TEMP 36.8–37.3; O2SAT 92–96; BMI 25.1
[2022-07-04] MEDS: Piperacillin Sodium/Tazobactam 3.375 GM in 0.9 % Sodium Chloride 50 ML IV ×3 (05:36→17:52)
[2022-07-04] MEDS: methylPREDNISolone Sod Succ 40 MG/ML VIAL IVPUSH ×2 (05:36→17:53)
[2022-07-04] MEDS: Omeprazole 20 MG CAPSULE.DR PO (05:36)
[2022-07-04] MEDS: Lactated Ringers 1,000 ML 100 ML IVCONT ×2 (05:37→17:27)
[2022-07-04 06:47] LABS: MANUAL DIFF FLAG NO
[2022-07-04 06:55] LABS: Basophils Percent Auto 0.1 % (0-2); Hematocrit 40.1 % (37.0-47.0); Hemoglobin 12.7 g/dl (12.0-16.0); Imm Gran Abs Auto 0.12 X10*3/uL (0.00-0.03); Imm Gran Pct Auto 0.9 % (0.0-0.4); Lymphocytes Absolute Auto 1.1 X10*3/uL (1.2-4.9); Lymphocytes Percent Auto 8.2 % (20-40); Mean Corpuscular HGB Conc 31.7 g/dl (31.0-35.0); Mean Corpuscular Hemoglobin 24.8 pg (27.0-33.0); Mean Corpuscular Volume 78.2 fL (80.0-98.0); Mean Platelet Volume 10.1 fL (9.4-12.3); Monocytes Percent Auto 7.5 % (2-11); Neutrophils Absolute Auto 11.3 x10*3/uL (2.0-8.3); Neutrophils Percent Auto 83.3 % (45-73); Platelet Count 359 X10*3/uL (160-400); Red Blood Count 5.13 X10*6/uL (4.20-5.50); Red Cell Distribution Width 13.6 % (11.0-16.0); White Blood Count 13.6 X10*3/uL (4.8-10.8)
[2022-07-04] MEDS: Albuterol/Iprat 2.5/0.5MG 3 ML AMPUL.NEB INHALE ×5 (07:31→21:58)
[2022-07-04 07:56] LABS: Anion Gap 13 (12-20); Blood Urea Nitrogen 22 mg/dL (9-16); Calcium 8.6 mg/dL (8.4-10.2); Carbon Dioxide 30 mmol/L (22-29); Chloride 100 mmol/L (96-108); Creatinine Clr Calc Pharmacy 83.8; Estimated Glomerular Filt Rate > 60; Glucose Random 131 mg/dL (60-115); Potassium 4.4 mmol/L (3.3-5.1); Sodium 139 mmol/L (135-145)
[2022-07-04] MEDS: Apixaban 5 MG TABLET PO ×2 (10:26→21:34)
[2022-07-04] MEDS: Theophylline Anhydrous ER 300 MG TAB.ER.12H 600 MG PO (10:26)
[2022-07-04] MEDS: lisinopriL 10 MG TABLET 30 MG PO (10:26)
[2022-07-04] MEDS: vancomycin HCL 750 MG in 0.9 % Sodium Chloride 250 ML 265 MG IV ×2 (10:27→21:35)
[2022-07-04] MEDS: 0.9 % Sodium Chloride Flush 3 ML SYRINGE IVFLUSH (10:28)
[2022-07-04] MEDS: Buprenorphine/Naloxone 8/2 mg FILM 2 FILM SUBLINGUAL (10:28)
[2022-07-04 10:29] LABS: Creatinine Clr Calc Pharmacy 73.2; Estimated Glomerular Filt Rate > 60
[2022-07-04] MEDS: guaiFENesin DM 100/10/5 ML 5 ML SYRUP PO ×4 (10:34→21:34)
--- NOTE | 2022-07-04 11:10 | MHC.CM.PN ---
This content writer meet with patient. From home prior to hospitalization, no services in the home. Occasionally uses a walker in the home. HCP completed. Vax'd not boosted. D/C plan- home no services, declines VNA. Has family for transport @ d/c.
--- NOTE | 2022-07-04 16:35 | HO.PM.IMPN ---
Subjective Subjective Date of Service: 07/05/22 Interval History: COPD exacerbation, pneumonia Review of Systems Shortness of breath seems similar to yesterday, also has aggressive cough, denies any chest pain or abdominal pain or nausea vomiting. Physical Exam Vital Signs: Vital Signs: Last Vital Signs Temp 98.3 F 07/04/22 06:00 Pulse 92 07/04/22 14:39 Resp 18 07/04/22 14:39 BP 127/70 07/04/22 13:42 Pulse Ox 92 07/04/22 13:42 O2 Del Method 07/04/22 13:42 O2 Flow Rate 2 07/04/22 13:42 Oxygen Flow Rate 3 07/03/22 15:15 BMI result Body Mass Index 25.1 Appearance: Alert.? Oriented X3.? not in distress.? cvs: [id number], [id number] . res: clear to auscultation ,no rhonchii or wheezing abd: no rebound or guarding ,nt, bs present. ext pulses present , no cyanosis . neuro: axo3 , nonfocal. Objective Data Active Medications Acetaminophen (Acetaminophen 325 Mg Tablet) 650 mg PO Q6H PRN PRN Reason: Pain, Mild (Pain Scale 1-3) Last Admin: 07/03/22 22:10 Dose: 650 mg Documented By: GARLAND Albuterol/Ipratropium (Albuterol/Iprat 2.5/0.5mg 3 Ml Ampul.Neb) 3 ml INHALE Q4H PRN PRN Reason: Shortness of Breath/Wheezing Albuterol/Ipratropium (Albuterol/Iprat 2.5/0.5mg 3 Ml Ampul.Neb) 3 ml INHALE RQ4H WHILE AWAKE [facility] Last Admin: 07/04/22 14:38 Dose: 3 ml Documented By: KEELEY Apixaban (Apixaban 5 Mg Tablet) 5 mg PO BID [facility] Last Admin: 07/04/22 10:26 Dose: 5 mg Documented By: ELIJAH Buprenorphine/Naloxone (Buprenorphine/Naloxone 8/2 Mg Film) 2 film SUBLINGUAL DAILY [facility] Last Admin: 07/04/22 10:28 Dose: 2 film Documented By: ELIJAH Docusate Sodium (Docusate Sodium 100 Mg Capsule) 100 mg PO DAILY PRN PRN Reason: Constipation Guaifenesin/Dextromethorphan (Guaifenesin Dm 100/10/5 Ml 5 Ml Syrup) 5 ml PO Q4H PRN PRN Reason: cough Last Admin: 07/04/22 14:55 Dose: 5 ml Documented By: KAREN Piperacillin Sod/Tazobactam (Sod 3.375 gm/ Sodium Chloride) 50 mls @ 100 mls/hr IV Q6H [facility] Last Admin: 07/04/22 13:58 Dose: 100 mls/hr Documented By: NADYA Lactated Ringer's (Lr) 1,000 mls @ 100 mls/hr IVCONT .Q10H [facility] Last Admin: 07/04/22 05:37 Dose: 100 mls/hr Documented By: MORALES Vancomycin HCl 750 mg/ Sodium (Chloride) 265 mls @ 265 mls/hr IV Q12H [facility] Last Infusion: 07/04/22 11:27 Dose: 0 mls/hr Documented By: NADYA Ibuprofen (Ibuprofen 600 Mg Tablet) 600 mg PO TID PRN PRN Reason: Pain, Mild Lisinopril (Lisinopril 10 Mg Tablet) 30 mg PO DAILY [facility]; Protocol Last Admin: 07/04/22 10:26 Dose: 30 mg Documented By: ELIJAH Methylprednisolone Sodium Succinate (Methylprednisolone Sod Succ 40 Mg/Ml Vial) 40 mg IVPUSH Q12H [facility] Last Admin: 07/04/22 05:36 Dose: 40 mg Documented By: MORALES Omeprazole (Omeprazole 20 Mg Capsule.) 20 mg PO DAILY@0630 [facility] Last Admin: 07/04/22 05:36 Dose: 20 mg Documented By: MORALES Ondansetron HCl (Ondansetron Hcl 4 Mg/2 Ml Vial) 4 mg IVPUSH Q8H PRN PRN Reason: Nausea and Vomiting Pharmacy Consult (Consult Rx Perform Med Rec) 1 each MISCELLANE ONCE PRN PRN Reason: Consult order Pharmacy Consult (Consult Rx Vancomycin Dosing) 1 each MISCELLANE DAILY PRN PRN Reason: Consult order Sodium Chloride (0.9 % Sodium Chloride Flush 3 Ml Syringe) 3 ml IVFLUSH QSHIFT [facility] Last Admin: 07/04/22 10:28 Dose: 3 ml Documented By: ELIJAH Theophylline (Theophylline Anhydrous Er 300 Mg Tab.Er.12h) 600 mg PO DAILY [facility] Last Admin: 07/04/22 10:26 Dose: 600 mg Documented By: ELIJAH Labs CBC & Chem 7: 07/04/22 05:25 07/05/22 07:53 Labs: Laboratory Results - last 24 hr 07/03/22 07/03/22 07/03/22 16:19 16:19 16:19 MCV 77.8 L MCH 24.7 L MCHC 31.7 RDW 13.7 Plt Count 396 MPV 9.8 Immature Gran % (Auto) 0.8 H Neut % (Auto) 77.4 H Lymph % (Auto) 10.3 L Summit % (Auto) 11.3 H Eos % (Auto) 0.0 Baso % (Auto) 0.2 Lymph # (Auto) 1.7 Summit # (Auto) 1.9 H Eos # (Auto) 0.0 Baso # (Auto) 0.0 Abs Immat Gran (auto) 0.14 H Absolute Neuts (auto) 13.0 H Absolute Nucleated RBC 0.000 Nucleated RBC % (auto) 0.0 Smear Tech's Comments VERIFIED Anion Gap Estim Creat Clear Calc Estimated GFR Random Glucose Lactic Acid Lactic Acid F/U @ 2Hr Lactic Acid F/U @ 4Hr Calcium Total Bilirubin Direct Bilirubin AST ALT Alkaline Phosphatase Troponin I High Sens 5.6 B-Natriuretic Peptide Total Protein Albumin Lipase Urine Color Urine Appearance Urine pH Ur Specific Leburn Urine Protein Urine Glucose (UA) Urine Ketones Urine Blood Urine Nitrite Ur Leukocyte Esterase Urine RBC Urine WBC Ur Squamous Epith Cells Urine Bacteria Hyaline Casts Influenza Type A (PCR) NEGATIVE Influenza Type B (PCR) NEGATIVE RSV RNA Qual (PCR) NEGATIVE SARS-CoV-2 RNA (RT-PCR) NEGATIVE 07/03/22 07/03/22 07/03/22 16:19 17:11 17:12 MCV MCH MCHC RDW Plt Count MPV Immature Gran % (Auto) Neut % (Auto) Lymph % (Auto) Summit % (Auto) Eos % (Auto) Baso % (Auto) Lymph # (Auto) Summit # (Auto) Eos # (Auto) Baso # (Auto) Abs Immat Gran (auto) Absolute Neuts (auto) Absolute Nucleated RBC Nucleated RBC % (auto) Smear Tech's Comments Anion Gap 17 Estim Creat Clear Calc 72.2 Estimated GFR > 60 Random Glucose 166 H Lactic Acid 2.3 H* Lactic Acid F/U @ 2Hr Lactic Acid F/U @ 4Hr Calcium 8.6 Total Bilirubin 0.6 Direct Bilirubin 0.3 AST 25 ALT 30 Alkaline Phosphatase 78 Troponin I High Sens B-Natriuretic Peptide 138 H Total Protein 6.2 L Albumin 3.6 Lipase 8 Urine Color Urine Appearance Urine pH Ur Specific [place] Urine Protein Urine Glucose (UA) Urine Ketones Urine Blood Urine Nitrite Ur Leukocyte Esterase Urine RBC Urine WBC Ur Squamous Epith Cells Urine Bacteria Hyaline Casts Influenza Type A (PCR) Influenza Type B (PCR) RSV RNA Qual (PCR) SARS-CoV-2 RNA (RT-PCR) 07/03/22 07/03/22 07/03/22 17:12 19:09 21:31 MCV MCH MCHC RDW Plt Count MPV Immature Gran % (Auto) Neut % (Auto) Lymph % (Auto) Summit % (Auto) Eos % (Auto) Baso % (Auto) Lymph # (Auto) Summit # (Auto) Eos # (Auto) Baso # (Auto) Abs Immat Gran (auto) Absolute Neuts (auto) Absolute Nucleated RBC Nucleated RBC % (auto) Smear Tech's Comments Anion Gap Estim Creat Clear Calc Estimated GFR Random Glucose Lactic Acid Lactic Acid F/U @ 2Hr 3.0 H* Lactic Acid F/U @ 4Hr 3.5 H* Calcium Total Bilirubin Direct Bilirubin AST ALT Alkaline Phosphatase Troponin I High Sens B-Natriuretic Peptide Total Protein Albumin Lipase Urine Color Yellow Urine Appearance Clear Urine pH 6.0 Ur Specific Leburn 1.025 Urine Protein Trace Urine Glucose (UA) Negative Urine Ketones Negative Urine Blood Small (1+) H Urine Nitrite Negative Ur Leukocyte Esterase Negative Urine RBC 3-5 H Urine WBC 0-5 Ur Squamous Epith Cells 0-2 Urine Bacteria None Seen Hyaline Casts 0-2 Influenza Type A (PCR) Influenza Type B (PCR) RSV RNA Qual (PCR) SARS-CoV-2 RNA (RT-PCR) 07/04/22 07/04/22 07/04/22 05:25 05:25 07:20 MCV 78.2 L MCH 24.8 L MCHC 31.7 RDW 13.6 Plt Count 359 MPV 10.1 Immature Gran % (Auto) 0.9 H Neut % (Auto) 83.3 H Lymph % (Auto) 8.2 L [place] % (Auto) 7.5 Eos % (Auto) 0.0 Baso % (Auto) 0.1 Lymph # (Auto) 1.1 L [place] # (Auto) 1.0 Eos # (Auto) 0.0 Baso # (Auto) 0.0 Abs Immat Gran (auto) 0.12 H Absolute Neuts (auto) 11.3 H Absolute Nucleated RBC 0.000 Nucleated RBC % (auto) 0.0 Smear Tech's Comments Anion Gap 13 Estim Creat Clear Calc 83.8 Estimated GFR > 60 Random Glucose 131 H Lactic Acid 1.0 Lactic Acid F/U @ 2Hr Lactic Acid F/U @ 4Hr Calcium 8.6 Total Bilirubin Direct Bilirubin AST ALT Alkaline Phosphatase Troponin I High Sens B-Natriuretic Peptide Total Protein Albumin Lipase Urine Color Urine Appearance Urine pH Ur Specific [place]burn Urine Protein Urine Glucose (UA) Urine Ketones Urine Blood Urine Nitrite Ur Leukocyte Esterase Urine RBC Urine WBC Ur Squamous Epith Cells Urine Bacteria Hyaline Casts Influenza Type A (PCR) Influenza Type B (PCR) RSV RNA Qual (PCR) SARS-CoV-2 RNA (RT-PCR) 07/04/22 10:08 MCV MCH MCHC RDW Plt Count MPV Immature Gran % (Auto) Neut % (Auto) Lymph % (Auto) Summit % (Auto) Eos % (Auto) Baso % (Auto) Lymph # (Auto) Summit # (Auto) Eos # (Auto) Baso # (Auto) Abs Immat Gran (auto) Absolute Neuts (auto) Absolute Nucleated RBC Nucleated RBC % (auto) Smear Tech's Comments Anion Gap Estim Creat Clear Calc 73.2 Estimated GFR > 60 Random Glucose Lactic Acid Lactic Acid F/U @ 2Hr Lactic Acid F/U @ 4Hr Calcium Total Bilirubin Direct Bilirubin AST ALT Alkaline Phosphatase Troponin I High Sens B-Natriuretic Peptide Total Protein Albumin Lipase Urine Color Urine Appearance Urine pH Ur Specific [place] Urine Protein Urine Glucose (UA) Urine Ketones Urine Blood Urine Nitrite Ur Leukocyte Esterase Urine RBC Urine WBC Ur Squamous Epith Cells Urine Bacteria Hyaline Casts Influenza Type A (PCR) Influenza Type B (PCR) RSV RNA Qual (PCR) SARS-CoV-2 RNA (RT-PCR) Assessment and Plan (1) Pneumonia: Status: Acute (2) COPD with acute exacerbation: Status: Acute (3) Acute respiratory failure with hypoxia: Status: Acute (4) Acidosis, lactic: Status: Acute Plan 61-year-old? with past medical history of COPD presents to the hospital after being discharged from recent hospital stay at [facility] for treatment of influenza #? acute respiratory failure with hypoxia -? likely multifactorial secondary to COPD as well as pneumonia -? continue oxygen supplement as required -? will treat with Solu-Medrol, and breathing treatment -? monitor respiratory status, does not use any oxygen at baseline #? pneumonia -? possibly hospital-acquired given her recent hospital stay versus community-acquired blood culture 1/2 -gram positive cocci(contaminant) continue IV antibiotics-vanco/zosyn day2, Vanco trough 8.4. -? follow cultures #? COPD with acute exacerbation -? treat with Solu-Medrol, breathing treatments -? monitor respiratory status #? lactic acidosis -? likely secondary to above -? will treat with IV fluids - ? trend lactic acid #? history of PE -? continue Eliquis ?DVT prophylaxis, Eliquis inpatient need :acute respiratory failure with hypoxia sec to pneumonia/copd excerebation-need iv steriods,antibiotics Time Spent With Patient Time: Total time managing care of this patient today ____ minutes. Quality Stroke Does the patient have a stroke diagnosis?: No VTE Prior VTE?: No VTE Risk Level:: Medical - moderate - high VTE Device Contraindication: Treatment Not Indicated VTE Drug Contraindication: N/A - Med Ordered
--- NOTE | 2022-07-04 17:30 | PC.NURSE ---
PT WITH COUGHING SPELLS THROUGH OUT SHIFT, HAS NEEDED TREATMENTS AND COUGH MEDICATION TO HELP RECOVER, ALSO DIPS TO 87 88% REMAINS ON O2 2L SATS 92-94%
[2022-07-04] MEDS: Acetaminophen 325 MG TABLET 650 MG PO (21:34)
[2022-07-05] VITALS (9 sets, daily range): BP systolic 125–178; BP diastolic 64–90; PULSE 76–107; RESP 16–20; TEMP 36.8–37.4; O2SAT 90–97
[2022-07-05] MEDS: Piperacillin Sodium/Tazobactam 3.375 GM in 0.9 % Sodium Chloride 50 ML IV ×5 (01:01→23:26)
[2022-07-05] MEDS: Lactated Ringers 1,000 ML 100 ML IVCONT ×3 (01:33→21:54)
[2022-07-05] MEDS: guaiFENesin DM 100/10/5 ML 5 ML SYRUP PO ×4 (01:33→21:01)
[2022-07-05] MEDS: Omeprazole 20 MG CAPSULE.DR PO (05:52)
[2022-07-05] MEDS: methylPREDNISolone Sod Succ 40 MG/ML VIAL IVPUSH ×2 (05:52→17:17)
[2022-07-05] MEDS: Apixaban 5 MG TABLET PO ×2 (08:25→21:01)
[2022-07-05] MEDS: Buprenorphine/Naloxone 8/2 mg FILM 2 FILM SUBLINGUAL (08:25)
[2022-07-05] MEDS: amLODIPine Besylate 2.5 MG TABLET PO (08:25)
[2022-07-05] MEDS: lisinopriL 10 MG TABLET 30 MG PO (08:25)
[2022-07-05] MEDS: Theophylline Anhydrous ER 300 MG TAB.ER.12H 600 MG PO (08:25)
[2022-07-05] MEDS: Albuterol/Iprat 2.5/0.5MG 3 ML AMPUL.NEB INHALE ×4 (08:26→19:55)
[2022-07-05 08:27] LABS: Vancomycin Trough 8.4 mcg/mL (10.0-20.0)
[2022-07-05 08:31] LABS: Creatinine Clr Calc Pharmacy 75.3; Estimated Glomerular Filt Rate > 60
--- NOTE | 2022-07-05 08:38 | HE.PHANOTE ---
RE VANCO TROUGH WAS 8.4. SCR IMPROVING. WILL INCREASE DOSE TO 1000MG Q12H, SUSPECTED AUC 471, TROUGH 1304. NEXT LEVEL DUE 07/06@1999 DOLORES
[2022-07-05] MEDS: vancomycin HCL 1,000 MG in 0.9 % Sodium Chloride 250 ML 270 MG IV ×2 (10:09→21:04)
--- NOTE | 2022-07-05 11:47 | MHC.CM.PN ---
PATIENT SYMPTOMS NOT IMPROVING NO PLAN FOR DC TODAY
--- NOTE | 2022-07-05 14:44 | HO.PM.IMPN ---
Subjective Subjective Date of Service: 07/05/22 Interval History: copd excerebation,pneumonia Review of Systems still sob with minimal exertion, has cough no fevers Physical Exam Vital Signs: Vital Signs: Last Vital Signs Temp 99.4 F 07/05/22 07:41 Pulse 101 H 07/05/22 11:37 Resp 18 07/05/22 11:37 BP 178/90 H 07/05/22 07:41 Pulse Ox 94 07/05/22 07:41 O2 Del Method 07/05/22 07:41 O2 Flow Rate 2.0 07/05/22 07:41 Oxygen Flow Rate 3 07/03/22 15:15 BMI result Body Mass Index 25.1 Appearance: Alert.? Oriented X3.? not in distress.? cvs: rrr, [id number] . res: diminshed breath sounds at bases,b/l wheezin abd: no rebound or guarding ,nt, bs present. ext pulses present , no cyanosis . neuro: axo3 , nonfocal. Objective Data Active Medications Acetaminophen (Acetaminophen 325 Mg Tablet) 650 mg PO Q6H PRN PRN Reason: Pain, Mild (Pain Scale 1-3) Last Admin: 07/04/22 21:34 Dose: 650 mg Documented By: PEÑA Albuterol/Ipratropium (Albuterol/Iprat 2.5/0.5mg 3 Ml Ampul.Neb) 3 ml INHALE Q4H PRN PRN Reason: Shortness of Breath/Wheezing Last Admin: 07/04/22 21:58 Dose: 3 ml Documented By: VENKAT Albuterol/Ipratropium (Albuterol/Iprat 2.5/0.5mg 3 Ml Ampul.Neb) 3 ml INHALE RQ4H WHILE AWAKE [facility] Last Admin: 07/05/22 11:36 Dose: 3 ml Documented By: NBA Amlodipine Besylate (Amlodipine Besylate 2.5 Mg Tablet) 2.5 mg PO DAILY [facility]; Protocol Last Admin: 07/05/22 08:25 Dose: 2.5 mg Documented By: ASHLEY Apixaban (Apixaban 5 Mg Tablet) 5 mg PO BID [facility] Last Admin: 07/05/22 08:25 Dose: 5 mg Documented By: ASHLEY Buprenorphine/Naloxone (Buprenorphine/Naloxone 8/2 Mg Film) 2 film SUBLINGUAL DAILY [facility] Last Admin: 07/05/22 08:25 Dose: 2 film Documented By: ASHLEY Docusate Sodium (Docusate Sodium 100 Mg Capsule) 100 mg PO DAILY PRN PRN Reason: Constipation Guaifenesin/Dextromethorphan (Guaifenesin Dm 100/10/5 Ml 5 Ml Syrup) 5 ml PO Q4H PRN PRN Reason: cough Last Admin: 07/05/22 05:52 Dose: 5 ml Documented By: PEÑA Piperacillin Sod/Tazobactam (Sod 3.375 gm/ Sodium Chloride) 50 mls @ 100 mls/hr IV Q6H [facility] Last Infusion: 07/05/22 12:30 Dose: 0 mls/hr Documented By: ASHLEY Lactated Ringer's (Lr) 1,000 mls @ 100 mls/hr IVCONT .Q10H [facility] Last Admin: 07/05/22 11:51 Dose: 100 mls/hr Documented By: ASHLEY Vancomycin HCl 1,000 mg/ (Sodium Chloride) 270 mls @ 270 mls/hr IV Q12H [facility] Last Infusion: 07/05/22 11:22 Dose: 0 mls/hr Documented By: ASHLEY Ibuprofen (Ibuprofen 600 Mg Tablet) 600 mg PO TID PRN PRN Reason: Pain, Mild Lisinopril (Lisinopril 10 Mg Tablet) 30 mg PO DAILY [facility]; Protocol Last Admin: 07/05/22 08:25 Dose: 30 mg Documented By: ASHLEY Methylprednisolone Sodium Succinate (Methylprednisolone Sod Succ 40 Mg/Ml Vial) 40 mg IVPUSH Q12H [facility] Last Admin: 07/05/22 05:52 Dose: 40 mg Documented By: PEÑA Omeprazole (Omeprazole 20 Mg Capsule.) 20 mg PO DAILY@0630 [facility] Last Admin: 07/05/22 05:52 Dose: 20 mg Documented By: PEÑA Ondansetron HCl (Ondansetron Hcl 4 Mg/2 Ml Vial) 4 mg IVPUSH Q8H PRN PRN Reason: Nausea and Vomiting Pharmacy Consult (Consult Rx Perform Med Rec) 1 each MISCELLANE ONCE PRN PRN Reason: Consult order Pharmacy Consult (Consult Rx Vancomycin Dosing) 1 each MISCELLANE DAILY PRN PRN Reason: Consult order Sodium Chloride (0.9 % Sodium Chloride Flush 3 Ml Syringe) 3 ml IVFLUSH QSHIFT [facility] Last Admin: 07/05/22 08:25 Dose: Not Given Documented By: ASHLEY Non-Admin Reason: IV Running Theophylline (Theophylline Anhydrous Er 300 Mg Tab.Er.12h) 600 mg PO DAILY [facility] Last Admin: 07/05/22 08:25 Dose: 600 mg Documented By: ASHLEY Labs CBC & Chem 7: 07/04/22 05:25 07/05/22 07:53 Labs: Laboratory Results - last 24 hr 07/05/22 07/05/22 07:53 07:53 Estim Creat Clear Calc 75.3 Estimated GFR > 60 Vancomycin Trough 8.4 L Microbiology Microbiology Results: Microbiology 07/03/22 16:19 Blood Culture - Preliminary Blood - Venous Prelim: GPC Gram Stain only 07/03/22 16:19 Blood Culture - Preliminary Blood - Venous No growth after 24 hours. Assessment and Plan (1) Pneumonia: Status: Acute (2) COPD with acute exacerbation: Status: Acute (3) Acute respiratory failure with hypoxia: Status: Acute (4) Acidosis, lactic: Status: Acute Plan 61-year-old? with past medical history of COPD presents to the hospital after being discharged from recent hospital stay at [facility] for treatment of influenza #? acute respiratory failure with hypoxia -? likely multifactorial secondary to COPD as well as pneumonia -? continue oxygen supplement as required -? will treat with Solu-Medrol, and breathing treatment -? monitor respiratory status, does not use any oxygen at baseline #? pneumonia -? possibly hospital-acquired given her recent hospital stay versus community-acquired [facility] no fevers check nasal mrsa blood culture 1/2 -gram positive cocci continue IV antibiotics-vanco/zosyn day2, Vanco trough 8.4. -? follow cultures #? COPD with acute exacerbation -? treat with Solu-Medrol, breathing treatments -? monitor respiratory status #? lactic acidosis -? likely secondary to above -? will treat with IV fluids - ? trend lactic acid #? history of PE -? continue Eliquis ?DVT prophylaxis, Eliquis inpatient need :acute respiratory failure with hypoxia sec to pneumonia/copd excerebation-need iv steriods,antibiotics Time Spent With Patient Time: Total time managing care of this patient today ____ minutes. Quality Stroke Does the patient have a stroke diagnosis?: No VTE Prior VTE?: No VTE Risk Level:: Medical - moderate - high VTE Device Contraindication: Treatment Not Indicated VTE Drug Contraindication: N/A - Med Ordered
[2022-07-05 17:28] LABS: MRSA Nasal PCR NEGATIVE (Negative); SA Nasal PCR NEGATIVE (Negative)
[2022-07-06 03:28] VITALS: BP 156/85; PULSE 89; RESP 16; TEMP 37.1; O2SAT 94
[2022-07-06] MEDS: Omeprazole 20 MG CAPSULE.DR PO (05:23)
[2022-07-06] MEDS: Piperacillin Sodium/Tazobactam 3.375 GM in 0.9 % Sodium Chloride 50 ML IV (05:23)
[2022-07-06] MEDS: methylPREDNISolone Sod Succ 40 MG/ML VIAL IVPUSH (05:23)
[2022-07-06] MEDS: guaiFENesin DM 100/10/5 ML 5 ML SYRUP PO (05:29)
[2022-07-06 07:17] LABS: Creatinine Clr Calc Pharmacy 75.3; Estimated Glomerular Filt Rate > 60
[2022-07-06 07:40] VITALS: BP 160/95; PULSE 84; RESP 17; TEMP 36.7; O2SAT 92
[2022-07-06] MEDS: Albuterol/Iprat 2.5/0.5MG 3 ML AMPUL.NEB INHALE ×2 (08:06→11:45)
[2022-07-06 08:07] VITALS: PULSE 90; RESP 18; O2SAT 93
[2022-07-06] MEDS: Theophylline Anhydrous ER 300 MG TAB.ER.12H 600 MG PO (08:40)
[2022-07-06] MEDS: 0.9 % Sodium Chloride Flush 3 ML SYRINGE IVFLUSH (08:41)
[2022-07-06] MEDS: lisinopriL 10 MG TABLET 30 MG PO (08:41)
[2022-07-06] MEDS: Buprenorphine/Naloxone 8/2 mg FILM 2 FILM SUBLINGUAL (08:41)
[2022-07-06] MEDS: Apixaban 5 MG TABLET PO (08:41)
[2022-07-06] MEDS: amLODIPine Besylate 2.5 MG TABLET PO (08:41)
--- NOTE | 2022-07-06 10:24 | PM.DS ---
DS: Providers Provider Date of Service: 07/06/22 Date of admission: 07/03/22 19:54 Primary care physician: Unknown Physician DS: Diagnosis Discharge Diagnosis (1) Pneumonia: Status: Acute (2) COPD with acute exacerbation: Status: Acute (3) Acute respiratory failure with hypoxia: Status: Acute (4) Acidosis, lactic: Status: Acute DS: Summary Hospital Course Hospital Course: 61-year-old female with past medical history of COPD, PE on Eliquis, hypertension, on naloxone, presents to the hospital with complaints of persistent cough, shortness of breath, and sputum production.? Patient reports that about a week ago she was seen at outside hospital? and diagnosed with the flu.? She was admitted for 3-4 days, discharged on Saturday, reports that slightly felt better after discharge but symptoms returned on Saturday with cough, shortness of breath, and increased? sputum production.? Patient reports no fever or chill, denies any chest pain, no palpitations, no nausea or vomiting, no diarrhea constipation, no urinary symptoms and no lower extremity edema.? Reports low appetite, decreased urine output. Patient reports that while at outside hospital she was treated for COPD but was not sent home on any medications.? On arrival to the ED patient hemodynamically stable found to be 89% on room air with tachypnea of 30, tachycardia of 124 Labs are significant for WBC count of? 16.9, lactic acid of 2.3, ? BNP of 138, UA? negative for any acute infection Influenza, RSV as well as COVID-19 negative ?abdomen pelvic CT shows tree-in-bud type opacities seen throughout the lungs with some mild bronchial thickening and traction bronchiectasis finding suggestive of severe inflammatory airway disease ?patient will be admitted for further management hospital course:61-year-old? with past medical history of COPD-patient was admitted for COPD exacerbation and pneumonia: Started on IV antibiotics, steroids, nebs-seems improving: Patient will be going home with p.o. steroids and antibiotics. Added nystatin for oral thrush. Please repeat chest imaging in 3-4 week out patiently to see resolution of pneumonia. Above management discussed with the patient in detail. Assessment and plan coordination time spent 50 minute. Time Spent with Patient Time attestation: Total time managing care of this patient today ____ minutes. Discharge coordination time: Greater than 30 minutes Quality: Safe Use of Opioids Does Pt have an Active Cancer Diagnosis on the Problem List?: No Quality: Stroke Does the patient have a stroke diagnosis?: No Physical Exam Vital Signs: Vital Signs: Last Vital Signs Temp 98.1 F 07/06/22 07:40 Pulse 90 07/06/22 08:07 Resp 18 07/06/22 08:07 BP 160/95 H 07/06/22 07:40 Pulse Ox 92 07/06/22 07:40 O2 Del Method 07/06/22 07:40 O2 Flow Rate 2.0 07/05/22 07:41 Oxygen Flow Rate 3 07/03/22 15:15 BMI result Body Mass Index 25.1 Appearance: Alert.? Oriented X3.? not in distress.? oral: has oral thrush. cvs: rrr, [id number] . res: fair air entry,no rales or wheezin abd: no rebound or guarding ,nt, bs present. ext pulses present , no cyanosis . neuro: axo3 , nonfocal. DS: Data Data Completed and Pending Labs on day of discharge: Laboratory Results - last 24 hr 07/05/22 07/06/22 15:38 05:55 Creatinine 0.69 Estim Creat Clear Calc 75.3 Estimated GFR > 60 Nasal Screen MRSA (PCR) NEGATIVE Nasal S. aureus Screen NEGATIVE Nasal MRSA/S.aureus Interp SEE NOTE Preliminary micro results at discharge 07/03/22 16:19 Blood Culture - Preliminary Blood - Venous No growth after 48 hours. Imaging Chest x-ray: Radiologist's impression: ITS Impressions Chest X-Ray 07/03/22 16:55 IMPRESSION: 1. Diffuse increased interstitial lung markings new since chest x-ray 09/08/2015. Acute interstitial process such as interstitial edema or pneumonia versus chronic interstitial lung disease. Short-term follow-up chest x-ray could be helpful. 2. There is a small bubble of gas under the right diaphragm peripherally in the right upper quadrant of abdomen. Clinically correlate. Abdomen/Pelvis CT 07/03/22 18:07 IMPRESSION: 1. A cause for the patient's abdominal pain has not been found. 2. There are innumerable tree-in-bud type opacities seen throughout the lungs with some mild bronchial thickening and traction bronchiectasis. Findings are most suggestive of severe inflammatory/airway disease. Metastatic disease is considered to be much less likely. 3. Incidental note made of bilateral benign Bosniak class I and Bosniak class II renal cysts which need no further follow-up, colonic diverticulosis without diverticulitis and degenerative changes in the spine with scoliosis. 4. The previously seen air beneath the hemidiaphragm represents air in the hepatic flexure which is interposed between the liver and the diaphragm (Chilaiditi anatomy). This is not a worrisome finding. Fleischner guidelines were followed. Discharge Plan Discharge Anticipated Discharge Date/Time: 07/06/22 10:14 Patient Disposition: Home, Self-Care Discharge Diagnosis: copd excerebation,pneumonia Referrals: Physician,Unknown J [Primary Care Provider] - 1 Week Discharge Medications: New doxycycline monohydrate 100 mg Capsule 100 mg PO Q12H Qty: 14 0RF nystatin 100,000 unit/mL suspension 5 ml PO QID Qty: 200 0RF Rx Instructions: swish and swallow prednisone 20 mg tablet 40 mg PO DAILY Qty: 8 0RF amoxicillin-pot clavulanate 875-125 mg Tablet 875 mg PO Q12H Qty: 14 0RF Continued albuterol sulfate 90 mcg/actuation HFA aerosol inhaler 2 puff inhalation Q4-6H PRN (Reason: for wheezing) Qty: 8.5 1RF theophylline 600 mg tablet extended release 24 hr 600 mg PO DAILY 30 Days Qty: 30 12RF lisinopril 30 mg tablet 1 tab PO DAILY omeprazole 20 mg capsule,delayed release(DR/EC) 1 cap PO DAILY ibuprofen 600 mg tablet 1 tab PO TID PRN (Reason: Pain, Mild) fluticasone propionate 50 mcg/actuation spray,suspension 1 - 2 spray intranasal DAILY PRN (Reason: Nasal Congestion) Spiriva with HandiHaler 18 mcg capsule, w/inhalation device 1 cap inhalation DAILY budesonide-formoterol [Symbicort] 160-4.5 mcg/actuation HFA aerosol inhaler 2 puff INHALATION BID buprenorphine-naloxone 8-2 mg film 2 strip sublingual DAILY Eliquis 5 mg tablet 1 tab PO BID Discharge Orders: Discharge Order (Routine); Ordered 07/06/22 Ordered By: Carlo Mathis Diet: Advance to usual diet Activity on Discharge: As tolerated Stand Alone Forms: Patient Portal Discharge page Care Plan Goals: Patient is being treated for COPD exacerbation and pneumonia started on nebs and steroids, antibiotics seems to be improving-going home with p.o. steroids and antibiotics, in addition patient has oral thrush-added nystatin swish and swallow. Health Concerns: as above. Plan of Treatment: As above. Assessment: As above.
[2022-07-06] MEDS: Amoxicillin/Potassium Clav 875 MG TABLET PO (10:31)
[2022-07-06] MEDS: Doxycycline Monohydrate 100 MG CAPSULE PO (10:31)
[2022-07-06] MEDS: Nystatin Oral Susp 500,000 UNIT/5 ML ORAL.SUSP 200000 UNIT BUCCAL (10:50)
--- NOTE | 2022-07-06 11:07 | MHC.CM.PN ---
IMM 07/06/22 Patient is discharged to home today Self-care. She has arranged for family to provide transportation to home.
[2022-07-06 11:45] VITALS: PULSE 92; RESP 17; O2SAT 94
== END 2022-07-06 13:53 | disposition home or self-care (01) | DRG 193 ==
LOC: HO.ED 18:01 → HO.EDOVER 20:24 → HO.S3 07-04 16:49
PROVIDERS: Admitting Provider Internal Medicine; Emergency Provider Emergency Medicine; PCP Pediatrics; Visit Provider Internal Medicine
DX: J18.9 Pneumonia, unspecified organism (principal); J96.01 Acute respiratory failure with hypoxia; J44.0 Chronic obstructive pulmonary disease with (acute) lower respiratory infection; J44.1 Chronic obstructive pulmonary disease with (acute) exacerbation; B37.0 Candidal stomatitis; Z86.711 Personal history of pulmonary embolism; Z87.891 Personal history of nicotine dependence; Z88.5 Allergy status to narcotic agent; Z88.6 Allergy status to analgesic agent; Z79.01 Long term (current) use of anticoagulants; Z79.51 Long term (current) use of inhaled steroids; Z79.899 Other long term (current) drug therapy
CPT/HCPCS: 0241U; 36415; 71045; 74176; 80048; 80076; 80202; 81001; 82565; 83605; 83690; 83880; 84484; 85025; 87040; 87147; 87205; 87640; 87641; 93005; 94640; 99285; J1956; J2543; J2920; J2930; J3370; J3475

== ENCOUNTER 2022-07-13 11:02 | Outpatient (REF) | payer MEDICARE, SELFPAY | END 2022-07-13 11:03 | disposition home or self-care (01) | LOC: HO.XRAY 11:02 | PROVIDERS: PCP Pediatrics; Visit Provider General Practice | DX: J18.9 Pneumonia, unspecified organism (principal); J44.9 Chronic obstructive pulmonary disease, unspecified | CPT/HCPCS: 71046 ==

== ENCOUNTER → 2023-01-11 15:29 | Outpatient (BNVA) | payer MEDICARE, SELFPAY | PROVIDERS: PCP Pediatrics; Visit Provider Internal Medicine Pulmonary Disease | DX: J44.9 Chronic obstructive pulmonary disease, unspecified (principal); R91.8 Other nonspecific abnormal finding of lung field; Z79.899 Other long term (current) drug therapy | CPT/HCPCS: 99212 ==

== ENCOUNTER 2023-02-07 10:01 | Outpatient (REF) | payer MEDICARE, SELFPAY ==
--- NOTE | 2023-02-07 10:59 | PFT_ITS ---
FLOWS: 1. FEV1 75% of predicted at 1.01 L. 2. FVC 59% of predicted at 2.09 L. 3. FEV1 to FVC ratio of 0.49. 4. Positive bronchodilator response. LUNG VOLUMES: 1. Total lung capacity 96% of predicted at 4.72 L. 2. Residual volume 157% of predicted at 2.56 L. 3. Slow vital capacity 65% of predicted at 2.16 L. 4. Expiratory reserve volume 43% of predicted at 0.48 L. 5. Diffusion capacity is mildly decreased. IMPRESSION: Severe obstructive ventilatory defect with positive bronchodilator response. Increased residual volume suggests air trapping. Decreased diffusion capacity suggests emphysema. Samuel Sanchez MD AP/MODL / [id number]
== END 2023-02-07 10:02 | disposition home or self-care (01) ==
LOC: HO.RESP 10:01
PROVIDERS: PCP Pediatrics; Visit Provider Internal Medicine Pulmonary Disease
DX: J44.9 Chronic obstructive pulmonary disease, unspecified (principal)
CPT/HCPCS: 94010; 94729

== ENCOUNTER → 2023-02-07 10:59 | Outpatient (BNV) | payer MEDICARE, SELFPAY | PROVIDERS: PCP Pediatrics; Visit Provider Internal Medicine Pulmonary Disease | DX: J43.9 Emphysema, unspecified (principal) | CPT/HCPCS: 94060; 94727; 94729 ==

== ENCOUNTER 2023-02-08 10:04 | Outpatient (RCR) | payer MEDICARE, SELFPAY ==
[2023-02-08 10:17] VITALS: BP 128/68; PULSE 89
--- NOTE | 2023-02-08 11:35 | MHC.PR.IN ---
[address] [phone] F: [phone] Pulmonary Rehabilitation Individual Treatment Plan Sofy Nguyen is a 62 year old (F) who was referred to the Pulmonary Rehabilitation program by Samuel Sanchez. This patient who has a primary diagnosis of COPD will begin pulmonary rehabilitation with monitored exercise and education to optimize both physical and social performance, autonomy, increase strength and endurance, and control dypsnea. The following information was gathered from the patient: Smoking History Current smoking status: Former Smoker Years smoked: 2019 Last time smoked: 2019 Quit Date: December Assistance with quitting needed: Past Medical History Medical History: Hypertension Chest Pain COPD Pulmonary Embolism Pneumonia Sleep Apnea Bronchitis Depression Anxiety Surgeries: Past Pulmonary Hospitalizations # of hospitalizations in the past year: 2 times # of ER vists due to breathing troubles in the past year: 2 Current Pulmonary Medications Albuterol Spiriva 18 mg daily fluticosone 50mg BID symbicort dialy 2 puffs Eloquis Lorinopril 30 mg ibuprofen 600 mg 2 x dairy Famotidine 1 daily suboxone 2 strips daily Allergy History Allergies: Current Oxygen Use Supplemental Oxygen Device Used: Liter flow: How often: Pulmonary History Cough: Yes: frequent dry cough Sputum: Yes: sporadically Sleep device: No: Referred to sleep for a sleep study Other pulmonary devices: Peak flow meter: No Nebulizer: Yes: Albuterol 3X daily Suction: Ventilator: Secretion clearance: PEP: Influenza vaccine: Yes Pneumonia vaccine: No Patient Questionaire Scores MRC Dyspnea Scale (mRC): 2 CAT Score: 31 PHQ-9 Score: 16 Pulmonary Function Test and Vital Signs Pulmonary Function Test Date of PFT 01/13/2020 FVC Actual 2.34% FVC Predicted 3.56% FEV1 Actual 0.95% FEV1 Predicted 2.90% FEV1/FVC Actual 41% FEV1/FVC Predicted 82% DLCO 13.52 Vital Signs Heart Rate 89 Blood Pressure 128/68 SpO2 92% Respiratory Rate normal respirations Six Minute Walk Test Supplemental Oxygen O2 L/min: 21% FiO2: Resting Vitals SpO2: 92% BP: 92mmHg HR: 89 bpm Total Distance 1285 Number/ Time of Rests (sec) 0 LUCAS 3 METS 2.83 SpO2 92 HR (bpm) 118 MPH 2.08 Meters/Minute 58 Post-walk Vitals SpO2: 98 BP: 130/72 HR: 130 Performance Observations PT walked unassisted at a moderate pace for 6 minutes. No rests. Pt denies any pain/fatigue/dizziness. Pulmonary Rehabilitation Plan Topic Problem Goal Plan Comment Education Knowledge deficit of disease self management strategies Verbalize adequate disease self-management skills Effective control of dyspnea Advanced directives Exacerbation prevention and management Panic Control Respiratory medication Anatomy and physiology of good lung vs. bad lung reviewed. Hypoxia N/A, no s/s of hypoxemia SpO2 >90 Monitor oxygen saturation with rest and exercise PT educated on how to use pulse oximetry. Instructed with verbal teach back. Psychosocial Anxiety Depression Adequate treatment of depression Verbalizes improved psychosocial coping strategies & mechanisms Review screening results Coping techniques Stress management Educated with handout 1. relaxation techniques. 2. How to manage worry. Activities of Daily Living Impaired ADL management Fear of severe dyspnea ADL management and control of dyspnea ADL performance with pacing and pursed lip breathing Educate on pursed lip breathing and pacing with stairs and activity Education will be ongoing with pursed lip breathing technique, and diaphragmatic breathing. Nutrition & Weight Management Lose weight during program Education classes Dash diet overview. Pt states increase in weight due to steroids. Goal is to lose weight during sessions. Tobacco Managment NA MEt. Pt smoke free since 2019. 30 year pack history Medication N/A, pt reports compliance w/ prescribed medications Adherence to prescribed medications Medications purpose Medication side-effects Prescribed medications Educated on spacer teaching. HOw to use/clean/importance of using. Inhaled Medication N/A Demo of MDI with spacer device Spacer teaching completed. Secretion Management Patient demonstrates effective cough and airway clearance Patient demonstrates effective cough and airway clearance PT states persistant dry cough Exercise & Fitness Knowledge deficit of exercise guidelines & safety Pulmonary Rehab 2-3x/week Weight or resistance training 2-3x/week Aerobic Exercise: 30-60mins x 9 weeks Review benefits & core components of exercise program Review how to measure and monitor dyspnea level Review exercise safety guidelines Review frequency and duration of exercise Review exercise intensity LUCAS RPD 3-4/10 Review home exercise guidelines PT currently walks 1/2 mile daily. Pulmonary rehab 2X weekly on Tuesdays and 's minimum of 31 minutes exercise. Treadmill 1.5 3X RPD 3-4 UBE 3X RPD 3-4 Nustep RPD 3-4 3X Diabetes Management Does patient have DM?: No Diabetes Type: Current Blood Glucose Level: Current A1C Level: Self Check: PT not diabetic at this time. Patient's Goals and Concerns Pt has goal to participate in pulmonary rehab to feel better with fatigue and performing ADL's without getting so short of breath. She would like to become more active. . Sap Functional Analyst Review I have reviewed the outcome assessment, treatment plan, goals, and problem list. The treatment plan and goals support the patient's needs and abilities, and thereby recommend that the exercise plan be completed as documented. Special precautions or modifications to the treatment plan include:
[2023-02-12 10:49] VITALS: BP 112/54; BP 132/72
--- NOTE | 2023-03-06 10:07 | MHC.PR.DC ---
[address] [phone] F: [phone] Pulmonary Rehabilitation Discharge Sofy Nguyen is a 62 year old (F) who was referred to the Pulmonary Rehabilitation program by Samuel Sanchez. This patient who has a primary diagnosis of COPD has completed 2 sessions of the pulmonary rehabilitation program with monitored exercise and education to optimize both physical and social performance, autonomy, increase strength and endurance, and control dypsnea. They were evaluated on . Discharge summary and tests are below. Initial MRC Score: 2 Discharge MRC Score: Six Minute Walk Test Initial 6MWT Discharge 6MWT Supplemental Oxygen O2 L/min: 21% FiO2: O2 L/min: FiO2: Resting Vitals SpO2: 92% BP: 92mmHg HR: 89 bpm SpO2: % BP: mmHg HR: bpm Total Distance (ft) 1285 Number/ Time of Rests (sec) 0 LUCAS 3 Walk Vitals SpO2: 92 HR: 118 SpO2: HR: Post-Walk Vitals SpO2: 98 BP: 130/72 HR: 130 SpO2: BP: HR: Performance Observations PT walked unassisted at a moderate pace for 6 minutes. No rests. Pt denies any pain/fatigue/dizziness. Pt not interested in rehab at this time. Exercise Assessment on : Pre-exercise Post-exercise SpO2 Heart Rate LUCAS METS Exercise Assessment on : Pre-exercise Post-exercise SpO2 Heart Rate LUCAS METS Exercise Assessment on : Pre-exercise Post-exercise SpO2 Heart Rate LUCAS METS Topic Education/Progress Progress Comments Education Hypoxia Current oxygen Use: RA Not able to complete. Pt is not interested in pulmonary rehab at this time. Psychosocial PHQ-9 Score: 16 Activities of Daily Living Nutrition and Weight Managment Current weight: 160 BMI: Weight change: Tobacco Stages of Change: Tobacco Use: Cigerettes/Day: Any nicotine replacement: Any cessation medication: Smoking quit date: Smokeless tobacco use and amount: Medications Inhaled Medications Patient verbalizes correct technique of: MDI: DPI: SMI: NEBULIZER: Secretion Management Patient provides adequate return demonstration of: Controlled cough: Bullard cough: Acapella/ PEP Device: CPT: Sputum management: Exercise and Fitness Aerobic Exercise Frequency: Target heart range: Heart rate range: SpO2 Range: LUCAS RPD: Time (minutes): O2 use with exercise: Current HEP: Discharge Assessment: Discharge Reason: Pt has a lot of pain, and is not interested in pulmonary rehab at this time. Discharge Recommendation: :
== END 2023-03-06 10:08 | disposition home or self-care (01) ==
LOC: HO.PR 10:04
PROVIDERS: PCP Pediatrics; Visit Provider Internal Medicine Pulmonary Disease
DX: J44.9 Chronic obstructive pulmonary disease, unspecified (principal)
CPT/HCPCS: 94625

== ENCOUNTER 2023-03-12 10:10 | Outpatient (REF) | payer OTHER, SELFPAY ==
--- NOTE | ~2023-03-12 | CT_ITS ---
EXAMINATION: CT CHEST WITHOUT CONTRAST CLINICAL INFORMATION: Nonspecific abnormal findings of lung mauricio, abnormal chest x-ray COMPARISON: Chest x-ray of 07/13/[address] of 01/19/2020 TECHNIQUE: Multidetector volumetric CT imaging of the chest was done. Axial MIP volume rendering provided. Sagittal and coronal reformatted images were obtained. This CT examination was performed using dose optimization techniques as appropriate, variously including the following: *Automated exposure control *Adjustment of mA and/or kV according to patient size (this includes techniques or standardized protocols for targeted exams where dose is matched to indication/reason for exam; i.e. 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 No pulmonary mass, nodule or consolidation has developed. The trachea and major bronchi are patent. MEDIASTINUM: There is no hilar or mediastinal mass or adenopathy. CORONARY ARTERY CALCIFICATION: Mild to moderate left and right coronary artery calcifications are present. PLEURA: There is no pleural effusion. No pleural mass or thickening. AXILLA: No lymphadenopathy. UPPER ABDOMEN: Unremarkable. OSSEOUS STRUCTURES: Thoracolumbar scoliosis and associated degenerative changes are noted in the spine. There are no suspicious bone lesions. CT/CT chest wo IV con IMPRESSION: 1. Since prior CT of 01/19/2020, no significant change and no suspicious findings. 2. Mild centrilobular emphysema. Fleischner guidelines were followed.
== END 2023-03-12 10:11 | disposition home or self-care (01) ==
LOC: HO.CT 10:10
PROVIDERS: PCP Pediatrics; Visit Provider Internal Medicine Pulmonary Disease
DX: R91.8 Other nonspecific abnormal finding of lung field (principal)
CPT/HCPCS: 71250

== ENCOUNTER 2023-07-10 09:07 | Outpatient (AMB) | payer MEDICARE, SELFPAY ==
[2023-07-10 09:13] VITALS: BP 154/90; PULSE 100; O2SAT 95; BMI 28.9
--- NOTE | 2023-07-10 09:13 | MHC.OFFVIS ---
Intake Vital Signs 07/10/23 09:13 Height 5 ft 3 in Weight 163 lb 2.273 oz BMI 28.9 BP 154/90 H Blood Pressure Location Lt brachial Position Sitting Pulse 100 Pulse Source Doppler Pulse Oximetry (%) 95 Oxygen Delivery Method Room Air Intake Visit Reasons: copd Allergies morphine [MORPHINE] Allergy (Intermediate, Verified 07/10/23 09:14) VOMITING, ITCHING ibuprofen Adverse Reaction (Unknown, Verified 07/10/23 09:14) Unknown HPI copd HPI Details 62-year-old lady,? former 30+ pack-year smoker, quit 2019, followed for severe COPD.? She continues to use Symbicort, albuterol MDI, and?theophylline 400 now with worsening control of her symptoms. She complains of recent exacerbation, not fully back to baseline at this time. [facility] Medical History COPD exacerbation Ex-smoker for less than 1 year Hypertension Pulmonary embolism Family History (Updated 07/04/22 @ 07:12 by Umesh Smallwood MD) Mother CAD (coronary artery disease) Social History Household Members: None Housing: Apartment Do you presently have visiting nurse or other home services: No Alcohol intake: never Patient Tobacco Use Status: Former Tobacco user Quit Date: 10/10 Tobacco use type: Cigarette Years Smoked: 2019 Second Hand Smoke Exposure: No service: No Current occupational status: retired Review of Systems Const Denies daytime sleepiness, Denies excessive sweating, Denies fatigue, Denies fever(s), Denies lethargy, Denies malaise, Denies night sweats, Denies snoring and Denies weight loss Eyes Denies blurry vision and Denies itchy eyes ENT Denies nasal congestion, Denies post nasal drip, Denies sinus pain, Denies sinus pressure and Denies other ( Thrush) Card Denies chest pain, Denies pedal edema, Denies dyspnea, Reports dyspnea on exertion, Denies orthopnea and Denies paroxysmal nocturnal dyspnea Resp Denies cough, Denies hemoptysis, Denies excessive phlegm production, Denies dyspnea, Reports dyspnea on exertion, Denies snoring and Reports wheezing GI Denies abdominal pain and Denies heartburn Musc Denies myalgias, Denies arthralgias and Denies joint swelling Skin/Breast Denies rash Neuro Denies memory loss and Denies seizure-like activity Psych Denies abnormal sleep pattern, Denies anxiety and Denies memory loss Endo Denies excessive sweating, Denies fatigue and Denies heat intolerance Roger/Lymph Denies easy bruising Aller/Immun Denies itchy eyes, Denies seasonal rhinorrhea and Reports wheezing Physical Exam Vital Signs: Last Vital Signs Pulse 100 07/10/23 09:13 BP 154/90 H 07/10/23 09:13 Pulse Ox 95 07/10/23 09:13 Oxygen Delivery Method Room Air 07/10/23 09:13 BMI result Body Mass Index 28.9 Const General: no acute distress and alert Nutritional Appearance: not obese Orientation/consciousness: Other orientation findings ( oriented) HEENT Head: Yes atraumatic Eyes General: appearance normal, both eyes and all related structures Sclerae: sclerae normal EOM: EOMs intact bilaterally Neck Neck: Yes supple Lymphatic: no lymphadenopathy noted Resp Effort & Inspection: normal respiratory effort and no use of accessory muscles Auscultation: clear to auscultation bilaterally Cardio Rate: regular rate Rhythm: regular rhythm Heart sounds: no gallops, no murmurs and no rubs Skin General skin exam: other ( warm) Extrem General: No clubbing, No cyanosis and No edema Office Procedures 6 Minute Walk Time:: 09:25 SPO2 % at rest: 95 Pulse at rest: 103 SPO2 % during excercise: 91 Pulse during excercise: 116 SPO2 % after excercise: 96 Pulse after excercise: 108 Distance in yards walked: 240 Inna Score: 6 Performance Observations:: Sofy walked on level ground without assistance, she walked on room air for the entire walk. She maintained her SPO2 91-95% no supplemental O2 needed. [id number] - 6 Minute Walk Assessment & Plan Assessment & Plan (1) Severe chronic obstructive pulmonary disease: Code(s): J44.9 - Chronic obstructive pulmonary disease, unspecified Plan: Continue current regimen of Symbicort, Spiriva, albuterol MDI. Will treat acute exacerbation with a course of prednisone and azithromycin. (2) Pulmonary nodules: Code(s): R91.8 - Other nonspecific abnormal finding of lung field Plan: Results of CT chest from February of 2023 reviewed, no suspicious nodules at this time. Continue with yearly screening. Orders: Orders AMB 6 minute walk Today J44.9 - Chronic obstructive pulmonary disease, unspecified Medications: Refilled albuterol sulfate 90 mcg/actuation 2 puffs inhalation Q4-6H PRN 8.5 ea 6RF for wheezing Coding Level of Care Code Est Pt Level 4 (78197) Diagnoses Severe chronic obstructive pulmonary disease J44.9 Pulmonary nodules R91.8 CPT Codes Coding ([id number])
[2023-07-10 09:36] VITALS: PULSE 103; O2SAT 95
== END 2023-07-10 09:42 | disposition home or self-care (01) ==
PROVIDERS: PCP Pediatrics; Visit Provider Internal Medicine Pulmonary Disease
DX: J44.9 Chronic obstructive pulmonary disease, unspecified (principal); R91.8 Other nonspecific abnormal finding of lung field
CPT/HCPCS: 94618; 99214

== ENCOUNTER → 2023-07-10 09:07 | Outpatient (BNVA) | payer MEDICARE, SELFPAY | PROVIDERS: PCP Pediatrics; Visit Provider Internal Medicine Pulmonary Disease | DX: J44.9 Chronic obstructive pulmonary disease, unspecified (principal); R91.8 Other nonspecific abnormal finding of lung field | CPT/HCPCS: 94618; 99212 ==

== ENCOUNTER 2023-08-21 13:10 | Emergency (ER) | payer MEDICARE, MEDICAID, SELFPAY ==
--- NOTE | ~2023-08-21 | XR_ITS ---
EXAMINATION: XR CHEST CLINICAL INFORMATION: Shortness of breath COMPARISON: Chest x-ray July 13, 2022 TECHNIQUE: Frontal portable view of the chest was obtained. 1:40 PM FINDINGS: No significant abnormality is noted involving the heart, lungs, mediastinum, bony thorax or soft tissues. XR/XR chest 1V IMPRESSION: Unremarkable examination.
[2023-08-21 13:12] VITALS: BP 161/86; PULSE 135; RESP 20; TEMP 37; O2SAT 94; BMI 29.2
--- NOTE | 2023-08-21 13:13 | ECG_ITS ---
Test Reason : HEART PALPITATIONS Blood Pressure : / mmHG Vent. Rate : 136 BPM Atrial Rate : 136 BPM P-R Int : 132 ms QRS Dur : 120 ms QT Int : 294 ms P-R-T Axes : 079 213 031 degrees QTc Int : 442 ms Poor data quality Sinus tachycardia Possible Left atrial enlargement Possible Right ventricular hypertrophy Inferior infarct (cited on or before 03-JUL-2022) Anterolateral infarct (cited on or before 03-JUL-2022) Marked ST abnormality, possible septal subendocardial injury Abnormal ECG When compared with ECG of 03-JUL-2022 16:56, Poor data quality in current ECG precludes serial comparison Referred By: Stas Goodman Electronically Signed By:CHAUNCEY MUNOZ MD
--- NOTE | 2023-08-21 13:15 | ED_ITS ---
HPI - General Adult General Chief complaint: Arrhythmia/Palpitations Stated complaint: SOB Heart Palpitations Time Seen by Provider: 08/21/23 16:06 Source: patient and family Mode of arrival: ambulatory Limitations: no limitations History of Present Illness HPI narrative: 62-year-old female with a past medical history of severe COPD presents emergency department, with her , for complaints of chest palpitations starting around 830 this morning those increased shortness of breath. She reports she woke around 230 this morning feeling dyspneic. She reports she was able to go back to sleep, however; that she began feeling as if her heart was ?racing? this morning. She states she was hoping that the sensation would resolve itself but when it did not she came in for evaluation. She states symptoms have mildly improved since arriving in the emergency department and she no longer feels palpitations. She denies any current shortness of breath, chest pain, recent illnesses, fever, chills, abdominal pain, nausea, vomiting, constipation, diarrhea, dizziness, lightheadedness, or changing in range of motion Pertinent positives and negatives discussed in HPI Onset (ago): hour(s) Related Data Home Medications Medication Instructions Recorded Confirmed apixaban 5 mg tablet (Eliquis) 1 tab PO BID 07/03/22 07/03/22 budesonide-formoterol HFA 160 2 puff inhalation BID 07/03/22 07/03/22 mcg-4.5 mcg/actuation aerosol inhaler (Symbicort) buprenorphine 8 mg-naloxone 2 mg 2 strip sublingual DAILY 07/03/22 07/03/22 sublingual film fluticasone propionate 50 1 - 2 spray intranasal DAILY PRN 07/03/22 07/03/22 mcg/actuation nasal Nasal Congestion spray,suspension ibuprofen 600 mg tablet 1 tab PO TID PRN Pain, Mild 07/03/22 07/03/22 lisinopril 30 mg tablet 1 tab PO DAILY 07/03/22 07/03/22 omeprazole 20 mg capsule,delayed 1 cap PO DAILY 07/03/22 07/03/22 release tiotropium bromide 18 mcg capsule 1 cap inhalation DAILY 07/03/22 07/03/22 with inhalation device (Spiriva with HandiHaler) Previous Rx's Medication Instructions Recorded amoxicillin 875 mg-potassium 875 mg PO Q12H #14 tabs 07/06/22 clavulanate 125 mg tablet doxycycline monohydrate 100 mg 100 mg PO Q12H #14 caps 07/06/22 capsule nystatin 100,000 unit/mL oral 5 ml PO QID #200 mL 07/06/22 suspension albuterol sulfate 90 mcg/actuation 2 puff inhalation Q4-6H PRN for 07/10/23 aerosol inhaler wheezing #8.5 ea azithromycin 250 mg tablet See Rx Instructions PO .COMPLEX #6 07/11/23 tabs prednisone 20 mg tablet 40 mg (2 x 20 mg) PO DAILY 5 days 07/11/23 #10 tabs theophylline 600 mg 600 mg PO DAILY #30 tabs 07/16/23 tablet,extended release 24 hr Allergies Allergy/AdvReac Type Severity Reaction Status Date / Time morphine [MORPHINE] Allergy Intermediate VOMITING, Verified 08/21/23 13:15 ITCHING ibuprofen AdvReac Unknown Unknown Verified 08/21/23 13:15 Review of Systems 2 Review of Systems: Yes all other systems are reviewed and are negative [facility] Past Medical History Medical History COPD exacerbation Ex-smoker for less than 1 year Hypertension Pulmonary embolism Family History Family History (Updated 07/04/22 @ 07:12 by Umesh Smallwood MD) Mother CAD (coronary artery disease) Social History Social History Household Members: None Housing: Apartment Do you presently have visiting nurse or other home services: No Alcohol intake: never Patient Tobacco Use Status: Former Tobacco user Quit Date: 10/10 Tobacco use type: Cigarette Years Smoked: 2020 Smoked in Last 30 Days: No Second Hand Smoke Exposure: No Use of substances other than those prescribed or required for medical reasons: No Substance Use Type: Former Substance User Advance Directives: Yes Advance Directives on File: Yes Advance Directives Date on File: 07/05/22 service: No Current occupational status: retired Physical Exam ED Vital Signs: Vital Signs - 24 hr 08/21/23 13:12 08/21/23 13:50 08/21/23 16:33 Temperature 98.6 F 98.1 F 97.7 F Pulse Rate 135 H 124 H 96 Respiratory Rate 20 22 H 15 Blood Pressure 161/86 H 142/90 H 116/68 Pulse Oximetry 94 95 97 Oxygen Delivery Method Room Air Room Air Room Air BMI result Body Mass Index 29.2 Nursing notes and vital signs reviewed. GENERAL APPEARANCE: A&0 x 4, generally well appearing, no acute distress HENMT: Normal to inspection, atraumatic, face symmetrical. Normal external ears, nose, and oropharynx clear. EYE: PERRLA, EOM intact, structures appear normal NECK: Supple without lymphadenopathy. No stiffness or restricted ROM. CHEST: Normal to inspection HEART: Normal rate and regular rhythm, normal S1/S2, no M/R/G LUNGS: LS diminished throughout. Able to speak in complete sentences. No crackles, wheezes, or rhonchi auscultated ABDOMEN: Soft, nontender, nondistended. Normal bowel sounds noted BACK: No CVAT, no obvious deformity EXTREMITIES: Moving all extremities without difficulty. No cyanosis, clubbing, or edema. Normal capillary refill. NEUROLOGICAL: Alert and oriented, moving all 4 extremities with equal strength. CN not formally tested but appearing grossly intact. Observed to ambulate with normal gait. Cognition normal SKIN: Warm and dry without any lesions, rash, or visible sores PSYCH: Cooperative, normal affect, normal thought process Course Course Course Narrative: RME: 62 yold female with pmh of COPD presents he has sensation of heart palpitations and SOB. patietn HR 134 in triage. EKG ordered and labs ordered. BRought to the ED Medications Administered Discontinued Medications Generic Name Dose Route Start Last Admin Trade Name Freq PRN Reason Stop Dose Admin Aspirin 325 mg 08/21/23 15:38 08/21/23 15:45 Aspirin Enteric Coated 325 Mg Tablet.Dr LAROSE 08/21/23 15:39 325 mg ONCE ONE Administration Medical Decision Making Medical Decision Making MDM Narrative: Old records reviewed for previous imaging, lab studies, ECGs, and notes and additional HPI obtained from pt's spouse. Patient was assessed the emergency department. No acute distress or toxicity noted. An EKG was completed showing sinus tachycardia with a RBBB at a rate of 136 on initial EKG and repeat EKG with rate reduced to 102 with no signs of acute ischemia or ectopy. Chest x-ray was completed which I have independently interpreted acute infection. Blood work showed mild leukocytosis with WBC 11.7 with evidence of electrolyte imbalance or kidney dysfunction. Troponin was undetectable and heart score was 3, indicating low risk for ACS at this time. Based on HPI, PE, and diagnostics there is a low suspicion at this time for ACS, PE, pneumonia, atrial fibrillation, vtach, sepsis, or malignancy. Patient is safe for discharge at this time with plan for [id number] Tylenol and/or NSAID such as ibuprofen or naproxen for fever/discomfort with dosing as per packaging. HPI, PE, diagnostics, and plan discussed with patient and family with no unanswered questions at this time. Strict return precautions given to return to the emergency department with new, worsening, or concerning emergent symptoms. Recommended to follow-up with there primary care provider in addition to cardiology in 24-48 hours for further treatment and management. Differential Diagnosis Differential Diagnoses: The differential diagnosis associated with the presentation includes But not limited to ACS, PE, pneumonia, COPD exacerbation, CHF, sepsis, malignancy Lab Data 08/21/23 13:27 08/21/23 13:27 Labs: Lab Results 08/21/23 08/21/23 08/21/23 Range/Units 13:26 13:27 13:30 WBC 11.7 H (4.8-10.8) X10*3/uL RBC 6.00 H (4.20-5.50) X10*6/uL Hgb 14.9 (12.0-16.0) g/dl Hct 48.7 H D (37.0-47.0) % MCV 81.2 (80.0-98.0) fL MCH 24.8 L (27.0-33.0) pg MCHC 30.6 L (31.0-35.0) g/dl RDW 13.5 (11.0-16.0) % Plt Count 381 (160-400) X10*3/uL MPV 10.0 (9.4-12.3) fL Immature Gran % (Auto) 0.4 (0.0-0.4) % Neut % (Auto) 76.3 H (45-73) % Lymph % (Auto) 16.9 L (20-40) % [place] % (Auto) 5.6 (2-11) % Eos % (Auto) 0.5 (0-4) % Baso % (Auto) 0.3 (0-2) % Lymph # (Auto) 2.0 (1.2-4.9) X10*3/uL [place] # (Auto) 0.7 (0.1-1.2) X10*3/uL Eos # (Auto) 0.1 (0.0-0.4) X10*3/uL Baso # (Auto) 0.0 (0.0-0.2) X10*3/uL Abs Immat Gran (auto) 0.05 H (0.00-0.03) X10*3/uL Absolute Neuts (auto) 8.9 H (2.0-8.3) x10*3/uL Absolute Nucleated RBC 0.000 (0.0-0.012) X10*3/uL Nucleated RBC % (auto) 0.0 (0.0-0.2) /100WBC PT 14.0 H (11.1-13.3) SEC INR 1.2 H (0.9-1.1) APTT 39.5 H (26.0-36.8) SEC D-Dimer High Sensitivty < 150 NG/ML Sodium 144 (135-145) mmol/L Potassium 3.7 (3.3-5.1) mmol/L Chloride 107 (96-108) mmol/L Carbon Dioxide 25 (22-29) mmol/L Anion Gap 16 (12-20) BUN 10 (9-16) mg/dL Creatinine 0.76 (0.5-1.4) mg/dL Estim Creat Clear Calc 72.4 Estimated GFR > 60 Random Glucose 125 H (60-115) mg/dL Calcium 9.9 D (8.4-10.2) mg/dL Total Bilirubin 0.4 (0.0-1.0) mg/dL AST 12 (5-31) U/L ALT 10 (0-31) U/L Alkaline Phosphatase 82 (39-117) U/L Troponin I High Sens < 2.7 (<3.5-17.0) ng/L B-Natriuretic Peptide 133 H (<100) pg/mL Total Protein 7.6 (6.5-8.0) g/dL Albumin 4.6 (3.5-5.0) g/dL TSH 0.59 (0.32-4.0) uIU/mL Urine Color Yellow Urine Appearance Clear Urine pH 6.0 (5.0-9.0) Ur Specific [place] <= 1.005 (1.005-1.025) Urine Protein Negative (Neg-Trace) mg/dL Urine Glucose (UA) Negative (Negative) mg/dL Urine Ketones Negative (Negative) mg/dL Urine Blood Negative (Negative) Urine Nitrite Negative (Negative) Ur Leukocyte Esterase Negative (Negative) COVID-19 ([facility]) Negative (Negative) COVID-19 Clin Com See Note Influenza Type A ([facility]) Negative (Negative) Influenza Type B ([facility]) Negative (Negative) Influenza A & B Note See Note Discharge Plan Discharge Clinical Impression: Palpitations Patient Disposition: Home, Self-Care Instructions: Heart Palpitations (ED) Additional Instructions: Your seen in the emergency department for concerns of chest palpitations. Your workup showed no evidence pneumonia, heart attack, or active infection. It is recommended that you follow-up with cardiology and contact information has been provided to you. Please call to make an appointment within 24-48 hours. You are safe for discharge at this time with plan for management of fever or discomfort with [id number] Tylenol and/or NSAID such as ibuprofen or naproxen with dosing as per packaging. Please return to the emergency department with new, worsening, or concerning emergent symptoms. Recommended to follow-up with your primary care provider in 24-48 hours for further treatment and management. Thank you for choosing [email or web address]. Prescriptions: No Action prednisone 20 mg tablet 40 mg PO DAILY 5 Days Qty: 10 0RF azithromycin 250 mg tablet See Rx Instructions PO .COMPLEX Qty: 6 0RF Rx Instructions: For 250 mg dose pack: take 500 mg today (day 1), then 250 mg for 4 days (days 2-5) PO theophylline 600 mg tablet extended release 24 hr 600 mg PO DAILY Qty: 30 3RF lisinopril 30 mg tablet 1 tab PO DAILY omeprazole 20 mg capsule,delayed release(DR/EC) 1 cap PO DAILY ibuprofen 600 mg tablet 1 tab PO TID PRN (Reason: Pain, Mild) fluticasone propionate 50 mcg/actuation spray,suspension 1 - 2 spray intranasal DAILY PRN (Reason: Nasal Congestion) Spiriva with HandiHaler 18 mcg capsule, w/inhalation device 1 cap inhalation DAILY budesonide-formoterol [Symbicort] 160-4.5 mcg/actuation HFA aerosol inhaler 2 puff INHALATION BID buprenorphine-naloxone 8-2 mg film 2 strip sublingual DAILY Eliquis 5 mg tablet 1 tab PO BID doxycycline monohydrate 100 mg Capsule 100 mg PO Q12H Qty: 14 0RF amoxicillin-pot clavulanate 875-125 mg Tablet 875 mg PO Q12H Qty: 14 0RF nystatin 100,000 unit/mL suspension 5 ml PO QID Qty: 200 0RF Rx Instructions: swish and swallow albuterol sulfate 90 mcg/actuation HFA aerosol inhaler 2 puff inhalation Q4-6H PRN (Reason: for wheezing) Qty: 8.5 6RF Referrals: Margaux Pena MD [Primary Care Provider] - Bar Moreno MD [Physician] - 08/22/23 Interventions: ED Discharge Assessment Last Done: 08/21/23 19:16 Discharge Date/Time: 08/21/23 19:17 Print Language: Mohawk
[2023-08-21 13:35] LABS: MANUAL DIFF FLAG NO
[2023-08-21 13:37] LABS: Basophils Percent Auto 0.3 % (0-2); Eosinophils Absolute Auto 0.1 X10*3/uL (0.0-0.4); Eosinophils Percent Auto 0.5 % (0-4); Hematocrit 48.7 % (37.0-47.0); Hemoglobin 14.9 g/dl (12.0-16.0); Imm Gran Abs Auto 0.05 X10*3/uL (0.00-0.03); Imm Gran Pct Auto 0.4 % (0.0-0.4); Lymphocytes Percent Auto 16.9 % (20-40); Mean Corpuscular HGB Conc 30.6 g/dl (31.0-35.0); Mean Corpuscular Hemoglobin 24.8 pg (27.0-33.0); Mean Corpuscular Volume 81.2 fL (80.0-98.0); Monocytes Absolute Auto 0.7 X10*3/uL (0.1-1.2); Monocytes Percent Auto 5.6 % (2-11); Neutrophils Absolute Auto 8.9 x10*3/uL (2.0-8.3); Neutrophils Percent Auto 76.3 % (45-73); Platelet Count 381 X10*3/uL (160-400); Red Cell Distribution Width 13.5 % (11.0-16.0); White Blood Count 11.7 X10*3/uL (4.8-10.8)
[2023-08-21 13:40] LABS: Appearance Urine Clear; Color Urine Yellow; Glucose Urine UA Negative (Negative); Leukocyte Esterase Urine Negative (Negative); Nitrite Urine Negative (Negative); Specific Gravity - Urine <= 1.005 (1.005-1.025); Urine Blood Negative (Negative); Urine Ketones Negative (Negative); Urine Protein Negative (Neg-Trace)
[2023-08-21 13:43] LABS: INTERNATIONAL NORM RATIO 1.2 (0.9-1.1)
[2023-08-21 13:46] LABS: Partial Thromboplastin Time 39.5 SEC (26.0-36.8)
[2023-08-21 13:50] VITALS: BP 142/90; PULSE 124; RESP 22; TEMP 36.7; O2SAT 95
[2023-08-21 13:54] LABS: Alanine Aminotransferase 10 U/L (0-31); Albumin Level 4.6 g/dL (3.5-5.0); Alkaline Phosphatase 82 U/L (39-117); Anion Gap 16 (12-20); Aspartate Amino Transferase 12 U/L (5-31); Bilirubin Total 0.4 mg/dL (0.0-1.0); Blood Urea Nitrogen 10 mg/dL (9-16); Calcium 9.9 mg/dL (8.4-10.2); Carbon Dioxide 25 mmol/L (22-29); Chloride 107 mmol/L (96-108); Creatinine Clr Calc Pharmacy 72.4; Estimated Glomerular Filt Rate > 60; Glucose Random 125 mg/dL (60-115); Potassium 3.7 mmol/L (3.3-5.1); Sodium 144 mmol/L (135-145); Total Protein 7.6 g/dL (6.5-8.0)
--- NOTE | 2023-08-21 13:55 | PC.NURSE ---
Pt awake, alert and oriented. Breathing slightly elevated, able to speak in full sentences with no difficulty. Pt reports rapid irregular heart beat, pounding in her chest and chest pressure since 930AM. Pt reports similar episode 1 week ago but resolved on its own. Pt also reports symptoms of SOB intermittent, nausea, general malaise and lower back pain. Pt denies recent illnesses or falls. Pt placed on bedside patient monitor, HR between 110-130.
[2023-08-21 13:56] LABS: IDNOW Serial# 152EDE1D
[2023-08-21 13:57] LABS: COVID-19 Test Negative (Negative); IDNOW Serial# 08D9AD1C; Influenza A Negative (Negative); Influenza B2 Negative (Negative)
[2023-08-21 14:00] LABS: B Type Natriuretic Peptide 133 pg/mL (<100)
[2023-08-21 14:01] LABS: Troponin-I High Sensitivity < 2.7 ng/L (<3.5-17.0)
[2023-08-21 14:15] LABS: TSH reflex Free T4 0.59 uIU/mL (0.32-4.0)
[2023-08-21] MEDS: Aspirin Enteric Coated 325 MG TABLET.DR PO (15:45)
--- NOTE | 2023-08-21 16:20 | ECG_ITS ---
Test Reason : ARRYTHMIA Blood Pressure : / mmHG Vent. Rate : 102 BPM Atrial Rate : 102 BPM P-R Int : 160 ms QRS Dur : 122 ms QT Int : 376 ms P-R-T Axes : 079 212 047 degrees QTc Int : 490 ms Sinus tachycardia Right bundle branch block Inferior infarct (cited on or before 03-JUL-2022) Anterior infarct (cited on or before 03-JUL-2022) Abnormal ECG When compared with ECG of 21-AUG-2023 13:17, Questionable change in initial forces of Anterolateral leads Referred By: Selena Chaudhary Electronically Signed By:CHAUNCEY MUNOZ MD
[2023-08-21 16:33] VITALS: BP 116/68; PULSE 96; RESP 15; TEMP 36.5; O2SAT 97
--- NOTE | 2023-08-21 18:37 | PC.NURSE ---
pt reports feeling overall better, feels hungry at this time, wants to leave. No resp distress noted
[2023-08-21 18:39] LABS: D Dimer High Sensitivity < 150 NG/ML
== END 2023-08-21 19:17 | disposition home or self-care (01) ==
PROVIDERS: Nurse Practitioner Family; Physician Assistant; Student in an Organized Health Care Education/Training Program; Emergency Provider Emergency Medicine; PCP Pediatrics
DX: R00.2 Palpitations (principal); R00.0 Tachycardia, unspecified; I45.10 Unspecified right bundle-branch block; R06.02 Shortness of breath; Z11.52 Encounter for screening for COVID-19; I10 Essential (primary) hypertension; Z86.711 Personal history of pulmonary embolism; Z79.01 Long term (current) use of anticoagulants; F11.20 Opioid dependence, uncomplicated; Z79.899 Other long term (current) drug therapy
CPT/HCPCS: 36415; 71045; 80053; 81003; 83880; 84443; 84484; 85025; 85379; 85610; 85730; 87502; 87635; 93005; 99283; 99285

== ENCOUNTER → 2023-08-21 13:13 | Outpatient (BNV) | payer MEDICARE, SELFPAY | PROVIDERS: Emergency Provider Emergency Medicine; PCP Pediatrics; Visit Provider Internal Medicine Cardiovascular Disease | DX: R00.2 Palpitations (principal); R00.0 Tachycardia, unspecified; I45.10 Unspecified right bundle-branch block | CPT/HCPCS: 93010 ==

== ENCOUNTER 2023-09-10 13:22 | Outpatient (AMB) | payer MEDICARE, SELFPAY ==
--- NOTE | 2023-09-10 13:40 | A.OFFVIS_ITS ---
Intake Vital Signs 09/10/23 13:41 09/10/23 14:11 Height 5 ft 3 in Weight 153 lb 7.068 oz BMI 27.2 BP 140/72 H 128/88 Blood Pressure Location Lt brachial Lt femoral Position Sitting Sitting Pulse 103 H 108 H Pulse Source Pulse Oximeter Intake [place] [facility] [place] (KM[place] Intake Note: pt its here [place] [facility] [place] Palpitations pt states that she its fine. palpitations come and goes. 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 Accompanied by: Self / Same As Patient Allergies morphine [MORPHINE] Allergy (Intermediate, Verified 08/21/23 13:15) VOMITING, ITCHING ibuprofen Adverse Reaction (Unknown, Verified 08/21/23 13:15) Unknown Medication List - Last Reconciled 09/10/23 by Scarlett Herr NP albuterol sulfate 90 mcg/actuation 2 puffs inhalation Q4-6H PRN amlodipine 5 mg PO DAILY apixaban (Eliquis) 1 tab PO BID budesonide-formoterol 160-4.5 mcg/actuation (Symbicort) 2 puffs inhalation BID buprenorphine-naloxone 8-2 mg 2 strips sublingual DAILY fluticasone propionate 50 mcg/actuation 1 - 2 sprays intranasal DAILY PRN ibuprofen 1 tab PO TID PRN lisinopril 1 tab PO DAILY montelukast 10 mg PO DAILY theophylline ER 600 mg PO DAILY tiotropium bromide (Spiriva with HandiHaler) 1 cap inhalation DAILY HPI HPI Comments History of Present Illness Details 62-year-old female presents today. She w as in the emergency department on 08/21/23 for palpitations / tachycardia. They have been going on for about one month where her heart feels like it is beating fast and for the last four months her heart rate has been over 100 bpm. She has a medical history of COPD, Pulmonary embolism, ex-smoker, and HTN. She quit smoking almost 2 years ago. She is on eliquis for a PE which was about 2-3 years ago. She denies dizziness and chest pains. When these episodes occur she feels anxious and short of breath. She drinks 4-5 cups of black tea a day. She reports family history of cardiac problems but only notes HTN and a history of a heart murmur when she was a child. States she seen a tape edge machine operator once before who states he didnt hear a murmur and that was the only visit. [facility] Medical History Sinus tachycardia Pulmonary embolism Hypertension Ex-smoker for less than 1 year COPD exacerbation Family History Mother CAD (coronary artery disease) Sister Cardiomyopathy Brother Cardiomyopathy Pacemaker Heart attack Social History Household Members: None Housing: Apartment Do you presently have visiting nurse or other home services: No Alcohol intake: never Patient Tobacco Use Status: Former Tobacco user Quit Date: 10/10 Tobacco use type: Cigarette Years Smoked: 2019 Second Hand Smoke Exposure: No Substance Use Type: Former Substance User Advance Directives Date on File: 07/05/22 service: No Current occupational status: retired Review of Systems Const Denies chills, Denies fatigue, Denies fever(s), Denies frequent falls, Denies weakness, Denies weight gain and Denies weight loss ENT Denies dizziness Card Denies chest pain, Denies leg edema, Denies lightheadedness, Denies palpitations, Denies dyspnea, Denies dyspnea on exertion and Denies orthopnea Resp Denies cough, Denies dyspnea and Denies dyspnea on exertion GI Denies bloating and Denies change in bowel habits Musc Denies muscle weakness, Denies numbness and Denies tingling Neuro Denies dizziness, Denies frequent falls, Denies numbness, Denies tingling and Denies weakness Endo Denies fatigue and Denies palpitations Physical Exam Vital Signs: Last Vital Signs Pulse 108 H 09/10/23 14:11 BP 128/88 09/10/23 14:11 BMI result Body Mass Index 27.2 Const General: healthy appearing and no acute distress Orientation/consciousness: patient oriented x3 HEENT Head: Yes normal to inspection Eyes General: appearance normal, both eyes and all related structures Neck Neck: Yes normal visual inspection Chest Chest palpation & inspection: normal inspection of the chest Resp Effort & Inspection: normal respiratory effort Auscultation: clear to auscultation bilaterally Cardio Jugular venous distension: no JVD Palpation: normal PMI Rate: regular rate Rhythm: regular rhythm Heart sounds: S1 normal heart sound present, S2 normal heart sound present, no click, no gallops, no murmurs and no rubs GI Inspection: Yes normal to inspection Palpation (GI): Soft to palpation Skin General skin exam: no rashes or lesions noted Neuro General: patient oriented x3 Extrem General: Yes normal to inspection Psych Appearance: grossly normal Assessment & Plan Assessment & Plan (1) Hypertension: Code(s): I10 - Essential (primary) hypertension (2) Palpitations: Code(s): R00.2 - Palpitations Plan Blood pressure on arrival elevated. Rechecked by me and improved. Heart rate elevated. Will get three day holter to assess for arrhythmias. Echocardiogram to assess for any structural abnormality. Sustained high heart rates seek ED care. Avoid caffeine. Log episodes and possible triggers. Stress mitigation and good sleep hygiene discussed. Follow-up after testing. Orders: Orders CA echo transthoracic complete 09/10/23 I10 - Essential (primary) hypertension, R00.2 - Palpitations ECG 3 day holter monitor 09/10/23 R00.2 - Palpitations Coding Level of Care Code New Pt Level 3 (51841) Diagnoses Hypertension I10 Palpitations R00.2
[2023-09-10 13:41] VITALS: BP 140/72; PULSE 103; BMI 27.2
[2023-09-10 14:11] VITALS: BP 128/88; PULSE 108
== END 2023-09-10 14:19 | disposition home or self-care (01) ==
PROVIDERS: PCP Pediatrics; Visit Provider Nurse Practitioner
DX: I10 Essential (primary) hypertension (principal); R00.2 Palpitations
CPT/HCPCS: 99203

== ENCOUNTER → 2023-09-10 13:22 | Outpatient (BNVA) | payer MEDICARE, SELFPAY | PROVIDERS: PCP Pediatrics; Visit Provider Nurse Practitioner | DX: R00.2 Palpitations (principal); I10 Essential (primary) hypertension | CPT/HCPCS: 99202 ==

== ENCOUNTER → 2023-10-10 13:06 | Outpatient (REF) | payer MEDICARE, SELFPAY ==
--- NOTE | 2023-10-10 13:08 | CA_ITS ---
Transthoracic Echocardiogram Patient (Last, First, Middle): Sofy Nguyen R Gender: Female Date of : 1960 Age: 63 Procedure Date: 10/10/2023 Procedure Type: Transthoracic Echocardiogram Location: OP Height: 160.02 cm Weight: 72.58 kg BSA: 1.76 m2 Heart Rate: bpm BP: 138 / 89 mmHg Language Arts Teacher: MIGUEL Referring MD: Scarlett Herr NP Symptoms: R00.2 - Palpitations Study Quality: Adequate ECG Rhythm: Sinus Conclusions: - The left ventricular systolic function is normal. The calculated ejection fraction is 69% by biplane method. - No obvious valvular pathology seen on this study. Findings Left Ventricle Normal left ventricular cavity size. There is normal left ventricular wall thickness. The left ventricular systolic function is normal. The calculated ejection fraction is 69% by biplane method. There is no evidence of regional wall motion abnormalities. Diastolic function is normal for age. LV peak GLS -19.8%. Right Ventricle Normal right ventricular cavity size and systolic function. Atria Both atria are normal in size. Aortic Valve There is a normal trileaflet aortic valve. There is mild calcification of the aortic valve. There is no aortic valve stenosis. There is no aortic valve regurgitation. Mitral Valve The mitral valve appears normal. There is no mitral valve regurgitation. There is no mitral valve stenosis. Pulmonic Valve The pulmonic valve is likely normal. Tricuspid Valve Normal tricuspid valve structure. There is trace tricuspid valve regurgitation. There is no evidence of pulmonary hypertension. Great Vessels The asc aorta is normal in size. Venous The inferior vena cava is normal in size and collapses greater than 50% with inspiration. Pericardium/Pleural There is no evidence of pericardial effusion. Prior Study Comparison No prior study available for comparison. Recommendations, Care & Conclusions No obvious valvular pathology seen on this study. Measurements 2D Linear Measurements IVSd: 1.02 0.6-0.9/0.6-1.0 cm LVIDd: 4.05 3.9-5.3/4.2-5.9 cm LVIDd Index: 2.30 2.4-3.2/2.2-3.1 cm/m2 LVIDs: 2.47 2.0-3.6 cm LVPWd: 1.01 0.7-1.1 cm LA Diam: 3.50 2.7-3.8/3.0-4.0 cm LAIDs Index: 1.99 1.5-2.3 cm/m2 LV Mass: 164.66 67-162/88-224 g LV Mass Index: 93.56 43-95/49-115 g/m2 LVOT Diam: 2.10 3.0+(-)1.3 cm 2D Systolic Function EF 4C: 65.30 >55% EF 2C: 71.60 >55% EF BiP: 68.80 >55% Mitral Valve MV Pk E: 0.77 MV PK A: 0.83 MV Decel Time: 195.00 E/A: 0.90 E'Lateral: 10.20 E'Medial: 7.72 E/E' Med: 10.00 E/E' Lat: 7.60 PHT: 57.00 MVA PHT: 3.86 Decel [place]assen: 3.96 Aortic Valve AoV Pk Omar: 1.66 AoV Mn Omar: 1.00 AoV VTI: 0.31 AoV Pk Grad: 11.00 Aov Mn Grad: 5.00 DENI Cont.VTI: 3.14 LVOT LVOT Pk Omar: 1.49 LVOT Mn Omar: 0.89 LVOT VTI: 0.28 LVOT Pk Grad: 9.00 LVOT Mn Grad: 4.00 LVOT Diam: 2.10 LVOT Area: 3.46 Diastolic Function MV Pk E: 0.77 MV Pk A: 0.83 E/A: 0.90 E'Medial: 7.72 E/E' Med: 10.00 E' Laterial: 10.20 E/E' Lat: 7.60 Right Ventricle TAPSE (mm): 19.10 TVS' Omar: 12.60 Tricuspid Valve RA Press: 3.00 Great Vessels Aorta Sinus of Valsalva: 3.31 2.0-3.[address] [place]: 2.56 1.7-3.4 cm Ao Asc: 3.10 2.1-3.4 cm Updated in Other Vendor System with Status of Final Bar Moreno MD electronically signed on 10/12/2023 10:59:41 AM with status of Final
--- NOTE | 2023-10-10 13:08 | HM_ITS ---
Conclusion: 1. Patient was monitored for total period of 2 days and 21 hours 2. Baseline was normal sinus rhythm with average heart of 85 beats per minute 3. No significant pauses noted 4. Occasional PACs noted 5. Patient reported 1 event as a sharp jab in the chest correlated with sinus rhythm MTDD
== END ==
LOC: HO.CARD 13:06
PROVIDERS: PCP Pediatrics; Visit Provider Nurse Practitioner
DX: R00.2 Palpitations (principal); I10 Essential (primary) hypertension
CPT/HCPCS: 93242; 93306; 93356

== ENCOUNTER → 2023-10-10 13:08 | Outpatient (BNV) | payer MEDICARE, SELFPAY | PROVIDERS: PCP Pediatrics; Visit Provider Internal Medicine | DX: I49.1 Atrial premature depolarization (principal) | CPT/HCPCS: 93244; 93306; 93356 ==

== ENCOUNTER 2023-11-12 13:08 | Outpatient (AMB) | payer MEDICARE, SELFPAY ==
[2023-11-12 13:39] VITALS: BP 138/70; PULSE 100; O2SAT 99; BMI 26.6
--- NOTE | 2023-11-12 13:39 | MHC.OFFVIS ---
Vital Signs 11/12/23 13:39 11/12/23 14:01 Height 5 ft 3 in Weight 149 lb 14.629 oz BMI 26.6 BP 138/70 122/78 Blood Pressure Location Lt brachial Lt brachial Position Sitting Pulse 100 Pulse Source Pulse Oximeter Pulse Oximetry (%) 99 Oxygen Delivery Method Room Air Intake Visit Reasons: 8 wk s/pl holter and echo Intake Note: follow up with holter and echo pt feels good Allergies morphine [MORPHINE] Allergy (Intermediate, Verified 08/21/23 13:15) VOMITING, ITCHING ibuprofen Adverse Reaction (Unknown, Verified 08/21/23 13:15) Unknown HPI Comments Details: 63-year-old female presents today for a follow-up after testing. She reports she has been doing well. She is finishing a course of prednisone due to sciatic pain. She was in the emergency department on 08/21/23 for palpitations / tachycardia. They have been going on for about one month where her heart feels like it is beating fast and for the last four months her heart rate has been over 100 bpm. She has a medical history of COPD, Pulmonary embolism, ex-smoker, and HTN. She quit smoking almost 2 years ago. She is on eliquis for a PE which was about 2-3 years ago. She denies dizziness and chest pains. She states she has still been getting palpitations. [facility] Medical History Sinus tachycardia Pulmonary embolism Hypertension Ex-smoker for less than 1 year COPD exacerbation Family History Mother CAD (coronary artery disease) Sister Cardiomyopathy Brother Cardiomyopathy Pacemaker Heart attack Social History Household Members: None Housing: Apartment Do you presently have visiting nurse or other home services: No Alcohol intake: never Patient Tobacco Use Status: Former Tobacco user Quit Date: 10/10 Tobacco use type: Cigarette Years Smoked: 2019 Second Hand Smoke Exposure: No Substance Use Type: Former Substance User Advance Directives Date on File: 07/05/22 service: No Current occupational status: retired Review of Systems Const Denies weakness ENT Denies dizziness Card Denies chest pain, Denies chest pain with activity, Denies syncope, Denies rapid heart rate, Denies pedal edema, Denies edema, Denies leg edema, Denies lightheadedness, Denies palpitations, Denies dyspnea, Denies dyspnea on exertion and Denies orthopnea Resp Denies cough, Denies dyspnea and Denies dyspnea on exertion GI Denies hematochezia and Denies change in stool character Musc Denies abnormal gait, Denies muscle cramps, Denies muscle weakness, Denies numbness, Denies radiating pain into limb and Denies tingling Neuro Denies abnormal gait, Denies dizziness, Denies syncope, Denies numbness, Denies tingling and Denies weakness Endo Denies palpitations Physical Exam Vital Signs: Last Vital Signs Pulse 100 11/12/23 13:39 BP 122/78 11/12/23 14:01 Pulse Ox 99 11/12/23 13:39 Oxygen Delivery Method Room Air 11/12/23 13:39 BMI result Body Mass Index 26.6 Results Reviewed Results Reviewed: Holter Conclusion: 1. Patient was monitored for total period of 2 days and 21 hours 2. Baseline was normal sinus rhythm with average heart of 85 beats per minute 3. No significant pauses noted 4. Occasional PACs noted 5. Patient reported 1 event as a sharp jab in the chest correlated with sinus rhythm Echo Conclusions: - The left ventricular systolic function is normal. The calculated ejection fraction is 69% by biplane method. - No obvious valvular pathology seen on this study. Assessment & Plan Assessment & Plan (1) Hypertension: Code(s): I10 - Essential (primary) hypertension Category: Medical (2) Sinus tachycardia: Code(s): R00.0 - Tachycardia, unspecified Category: Medical Plan Blood pressure within range today. Heart rate borderline. Sustained high heart rates seek ED care. Avoid caffeine. Log episodes and possible triggers. Stress mitigation and good sleep hygiene discussed. Holter showed average heart rate 85 bpm rare PACs. Echocardiogram showed Normal left ventricular cavity size, normal left ventricular wall thickness. LV systolic function is normal. EF is 69% by biplane method. There is no evidence of regional wall motion abnormalities. Diastolic function is normal for age. Coding Level of Care Code Est Pt Level 3 (32559) Diagnoses Hypertension I10 Sinus tachycardia R00.0
[2023-11-12 14:01] VITALS: BP 122/78
== END 2023-11-12 14:04 | disposition home or self-care (01) ==
PROVIDERS: PCP Pediatrics; Visit Provider Nurse Practitioner
DX: I10 Essential (primary) hypertension (principal); R00.0 Tachycardia, unspecified
CPT/HCPCS: 99213

== ENCOUNTER → 2023-11-12 13:08 | Outpatient (BNVA) | payer MEDICARE, SELFPAY | PROVIDERS: PCP Pediatrics; Visit Provider Nurse Practitioner | DX: I10 Essential (primary) hypertension (principal); R00.0 Tachycardia, unspecified | CPT/HCPCS: 99212 ==

== ENCOUNTER 2023-12-13 10:37 | Outpatient (AMB) | payer MEDICARE, SELFPAY ==
[2023-12-13 10:38] VITALS: BP 130/78; PULSE 111; O2SAT 96; BMI 27.0
--- NOTE | 2023-12-13 10:38 | MHC.OFFVIS ---
Vital Signs 12/13/23 10:38 Height 5 ft 3 in Weight 152 lb 4 oz BMI 27.0 BP 130/78 Blood Pressure Location Lt brachial Position Sitting Pulse 111 H Pulse Source Pulse Oximeter Pulse Oximetry (%) 96 Oxygen Delivery Method Room Air Intake Visit Reasons: shortness of breath and wheeze Allergies morphine [MORPHINE] Allergy (Intermediate, Verified 12/13/23 10:42) VOMITING, ITCHING ibuprofen Adverse Reaction (Unknown, Verified 12/13/23 10:42) Unknown HPI HPI shortness of breath and wheeze: Details: Sofy is a pleasant 63 year old,? former 30+ pack-year smoker, quit 2019, with underlying severe COPD.? At baseline, she uses Symbicort, albuterol MDI, duoneb and?theophylline 600 mg. Today she presents for an acute visit. She reports symptoms started Saturday with worsening dyspnea, wheezing, dry cough. She denies any fever, chills, or sick contacts. She reports using her albuterol MDI and duo neb TID-QID with minimal effect. [facility] Medical History Sinus tachycardia Pulmonary embolism Hypertension Ex-smoker for less than 1 year COPD exacerbation Family History Mother CAD (coronary artery disease) Sister Cardiomyopathy Brother Cardiomyopathy Pacemaker Heart attack Social History Household Members: None Housing: Apartment Do you presently have visiting nurse or other home services: No Alcohol intake: never Patient Tobacco Use Status: Former Tobacco user Quit Date: 10/10 Tobacco use type: Cigarette Years Smoked: 2019 Second Hand Smoke Exposure: No Substance Use Type: Former Substance User Advance Directives Date on File: 07/05/22 service: No Current occupational status: retired Review of Systems Const Denies chills, Denies excessive sweating, Denies fever(s), Denies headache(s) and Denies night sweats Eyes Denies dry eyes, Denies irritation and Denies itchy eyes ENT Reports Normal hearing present, Denies headache(s), Denies nasal congestion, Denies nasal discharge, Denies post nasal drip and Denies sore throat Card Denies chest pain, Denies chest pain at rest, Denies chest pain with activity, Denies claudication, Denies leg edema, Denies orthopnea and Denies paroxysmal nocturnal dyspnea Resp Denies chest congestion, Denies excessive phlegm production, Denies pain on inspiration, Denies pain with cough and Denies stridor Musc Denies myalgias Neuro Reports Normal hearing present and Denies headache(s) Endo Denies excessive sweating Roger/Lymph Denies lymphadenopathy Aller/Immun Denies itchy eyes and Denies seasonal rhinorrhea Physical Exam Vital Signs: Last Vital Signs Pulse 111 H 12/13/23 10:38 BP 130/78 12/13/23 10:38 Pulse Ox 96 12/13/23 10:38 Oxygen Delivery Method Room Air 12/13/23 10:38 BMI result Body Mass Index 27.0 Const General: cooperative, no acute distress, well developed and alert Orientation/consciousness: patient oriented x3 Limitations: no limitations HEENT Head: Yes normal to inspection, Yes normocephalic and Yes atraumatic Ears: hearing grossly normal bilaterally and external ears normal Eyes General: appearance normal, both eyes and all related structures Eyelids: Yes eyelids normal Sclerae: sclerae normal EOM: EOMs intact bilaterally Neck Neck: Yes normal visual inspection and Yes no lymphadenopathy Lymphatic: no lymphadenopathy noted Chest Chest palpation & inspection: normal inspection of the chest Resp Effort & Inspection: normal respiratory effort, able to speak in complete sentences, no audible wheezes, no cough, no stridor, not tachypneic, no tripod positioning and no use of accessory muscles Auscultation: wheezes and diminished lung sounds Cardio Jugular venous distension: no JVD Rate: regular rate Rhythm: regular rhythm Skin Other: warm, dry General skin exam: no rashes or lesions noted Neuro General: patient oriented x3 Cranial nerves: Yes Normal hearing present Cognition (Neuro): normal cognition Gait exam (Neuro): Normal gait present Extrem General: Yes normal to inspection, Yes capillary refill normal, Yes no clubbing, cyanosis or edema and Yes no pedal edema Psych Appearance: grossly normal and well kempt Speech and movement: Normal speech and movement present and Clear speech present Affect: normal affect Attitude: cooperative Thought process: Normal thought process present Thought content: Normal thought content present Insight: Good insight present (Psych) Judgement: Good judgement present (Psych) Assessment & Plan Assessment & Plan (1) Severe chronic obstructive pulmonary disease: Code(s): J44.9 - Chronic obstructive pulmonary disease, unspecified Category: Medical Plan On exam patient with expiratory wheezes throughout, will send in prednisone. Advised to continue current regimen. All questions were answered and patient is in agreement of plan. Will follow up with Dr. Sanchez for regularly scheduled appointment or sooner if needed. Medications: New ipratropium-albuterol 0.5 mg-3 mg(2.5 mg base)/3 mL 3 mL inhalation Q6H PRN 180 mL 3RF wheezing eedrqfoiars-bbtguciij-tasbimby 200-62.5-25 mcg (Trelegy Ellipta) 1 inh inhalation DAILY 60 ea 6RF prednisone see taper instructions; 40 mg Daily x3 days, 30 mg daily x3 days, 20 mg daily x3 days, 10 mg daily x3 days 10 mg PO DIRECTED 30 tabs 0RF Coding Level of Care Code Est Pt Level 3 (40853) Diagnoses Severe chronic obstructive pulmonary disease J44.9
== END 2023-12-13 11:21 | disposition home or self-care (01) ==
PROVIDERS: PCP General Practice; Visit Provider Nurse Practitioner Family
DX: J44.9 Chronic obstructive pulmonary disease, unspecified (principal)
CPT/HCPCS: 99213

== ENCOUNTER → 2023-12-13 10:37 | Outpatient (BNVA) | payer MEDICARE, SELFPAY | PROVIDERS: PCP General Practice; Visit Provider Nurse Practitioner Family | DX: J44.9 Chronic obstructive pulmonary disease, unspecified (principal) | CPT/HCPCS: 99212 ==

== ENCOUNTER 2024-01-06 12:12 | Outpatient (REF) | payer MEDICARE, SELFPAY ==
--- NOTE | ~2024-01-06 | XR_ITS ---
EXAMINATION: XR LUMBOSACRAL SPINE CLINICAL INFORMATION: Low back pain COMPARISON: None available. TECHNIQUE: Three views of the lumbosacral spine. FINDINGS: There is on levoscoliosis of lumbar spine and multilevel degenerative spondylosis with narrowing cough intervertebral disc spaces but no evidence of spondylolysis or listhesis. There are multiple bridging osteophytes mostly on the left. XR/XR lumbar spine 2-3V IMPRESSION: Scoliosis and multilevel degenerative changes.
--- NOTE | ~2024-01-06 | XR_ITS ---
EXAMINATION: XR HIP, LEFT CLINICAL INFORMATION: Left hip pain COMPARISON: None available. TECHNIQUE: Two views of the left hip. FINDINGS: There appears to bone demineralization. Alignment is anatomic. Hip joint space is maintained. No acute fracture or dislocation. Soft tissues are unremarkable. XR/XR hip LT min 2V IMPRESSION: No evidence of acute osseous abnormality.
== END 2024-01-06 12:13 | disposition home or self-care (01) ==
LOC: HO.XRAY 12:12
PROVIDERS: PCP General Practice; Visit Provider Internal Medicine
DX: M54.32 Sciatica, left side (principal); M54.50 Low back pain, unspecified
CPT/HCPCS: 72100; 73502

== ENCOUNTER 2024-01-21 10:59 | Outpatient (AMB) | payer MEDICARE, SELFPAY ==
[2024-01-21 11:05] VITALS: BP 124/62; PULSE 108; O2SAT 95; BMI 26.9
--- NOTE | 2024-01-21 11:05 | A.OFFVIS_ITS ---
Vital Signs 01/21/24 11:05 Height 5 ft 3 in Weight 152 lb 1.903 oz BMI 26.9 BP 124/62 Blood Pressure Location Rt brachial Position Sitting Pulse 108 H Pulse Source Doppler Pulse Oximetry (%) 95 Oxygen Delivery Method Room Air Intake Visit Reasons: COPD Allergies morphine [MORPHINE] Allergy (Intermediate, Verified 12/13/23 10:42) VOMITING, ITCHING ibuprofen Adverse Reaction (Unknown, Verified 12/13/23 10:42) Unknown HPI HPI COPD: Details: 63-year-old lady,? former 30+ pack-year smoker, quit 2019, followed for severe COPD.? She has been switched to Trelegy and continues to use albuterol MDI, duo nebs, and theophylline 600 with reasonable baseline control of his symptoms. Now she complains of an acute exacerbation symptomatic with productive cough and dyspnea. [facility] Medical History Sinus tachycardia Pulmonary embolism Hypertension Ex-smoker for less than 1 year COPD exacerbation Family History Mother CAD (coronary artery disease) Sister Cardiomyopathy Brother Cardiomyopathy Pacemaker Heart attack Social History Household Members: None Housing: Apartment Do you presently have visiting nurse or other home services: No Alcohol intake: never Patient Tobacco Use Status: Former Tobacco user Tobacco use type: Cigarette Years Smoked: 2019 Second Hand Smoke Exposure: No Substance Use Type: Former Substance User Advance Directives Date on File: 07/05/22 service: No Current occupational status: retired Review of Systems Const Denies daytime sleepiness, Denies excessive sweating, Denies fatigue, Denies fever(s), Denies lethargy, Denies malaise, Denies night sweats, Denies snoring a nd Denies weight loss Eyes Denies blurry vision and Denies itchy eyes ENT Denies nasal congestion, Denies post nasal drip, Denies sinus pain, Denies sinus pressure and Denies other ( Thrush) Card Denies chest pain, Denies pedal edema, Denies dyspnea, Reports dyspnea on exertion, Denies orthopnea and Denies paroxysmal nocturnal dyspnea Resp Reports cough, Denies hemoptysis, Reports excessive phlegm production, Denies dyspnea, Reports dyspnea on exertion, Denies snoring and Denies wheezing GI Denies abdominal pain and Denies heartburn Musc Denies myalgias, Denies arthralgias and Denies joint swelling Skin/Breast Denies rash Neuro Denies memory loss and Denies seizure-like activity Psych Denies abnormal sleep pattern, Denies anxiety and Denies memory loss Endo Denies excessive sweating, Denies fatigue and Denies heat intolerance Roger/Lymph Denies easy bruising Aller/Immun Denies itchy eyes, Denies seasonal rhinorrhea and Denies wheezing Physical Exam Vital Signs: Last Vital Signs Pulse 108 H 01/21/24 11:05 BP 124/62 01/21/24 11:05 Pulse Ox 95 01/21/24 11:05 Oxygen Delivery Method Room Air 01/21/24 11:05 BMI result Body Mass Index 26.9 Const General: no acute distress and alert Nutritional Appearance: not obese Orientation/consciousness: Other orientation findings ( oriented) HEENT Head: Yes atraumatic Eyes General: appearance normal, both eyes and all related structures Sclerae: sclerae normal EOM: EOMs intact bilaterally Neck Neck: Yes supple Lymphatic: no lymphadenopathy noted Resp Effort & Inspection: normal respiratory effort and no use of accessory muscles Auscultation: other (Poor bilateral air movement) Cardio Rate: regular rate Rhythm: regular rhythm Heart sounds: no gallops, no murmurs and no rubs Skin General skin exam: other ( warm) Extrem General: No clubbing, No cyanosis and No edema Assessment & Plan Assessment & Plan (1) COPD with acute exacerbation: Code(s): J44.1 - Chronic obstructive pulmonary disease with (acute) exacerbation Category: Medical Plan: Now with an acute exacerbation, will treat with a course of prednisone and azithromycin. Continue baseline regimen of Trelegy, DuoNebs, theophylline, and albuterol MDI. (2) Pulmonary nodules: Code(s): R91.8 - Other nonspecific abnormal finding of lung field Category: Medical Plan: Results of CT chest from February of 2023 reviewed no worrisome nodules at this time. Continue with yearly screening, next in February of 2024, ordered. Orders: Orders CT lung screening 02/21/24 Z87.891 - Personal history of nicotine dependence Medications: New prednisone 40 mg (2 x 20 mg) PO DAILY 10 tabs 0RF azithromycin For 250 mg dose pack: take 500 mg today (day 1), then 250 mg for 4 days (days 2-5) PO 6 tabs 0RF Discontinued prednisone see taper instructions; 40 mg Daily x3 days, 30 mg daily x3 days, 20 mg daily x3 days, 10 mg daily x3 days Discontinued Reason: Doctor's Order 10 mg PO DIRECTED 30 tabs 0RF Coding Level of Care Code Est Pt Level 4 (87404) Diagnoses COPD with acute exacerbation J44.1 Pulmonary nodules R91.8
== END 2024-01-21 11:22 | disposition home or self-care (01) ==
PROVIDERS: PCP General Practice; Visit Provider Internal Medicine Pulmonary Disease
DX: J44.1 Chronic obstructive pulmonary disease with (acute) exacerbation (principal); R91.8 Other nonspecific abnormal finding of lung field
CPT/HCPCS: 99214

== ENCOUNTER → 2024-01-21 10:59 | Outpatient (BNVA) | payer MEDICARE, SELFPAY | PROVIDERS: PCP General Practice; Visit Provider Internal Medicine Pulmonary Disease | DX: J44.1 Chronic obstructive pulmonary disease with (acute) exacerbation (principal); R91.8 Other nonspecific abnormal finding of lung field | CPT/HCPCS: 99212 ==

== ENCOUNTER 2024-02-27 14:32 | Outpatient (REF) | payer OTHER, SELFPAY ==
--- NOTE | ~2024-02-27 | US_ITS ---
EXAMINATION: US VENOUS ULTRASOUND WITH DOPPLER LOWER EXTREMITY, LEFT CLINICAL INFORMATION: Left lower extremity edema COMPARISON: None available. TECHNIQUE: Ultrasound of the deep veins is performed from the hip to the calf with compression sonography and color and pulse Doppler assessment. Spectral analysis with color-flow imaging is performed. FINDINGS: There is normal venous compression and respiratory variation and augmented flow. The visualized common femoral vein, superficial femoral vein, profunda femoral vein, popliteal vein, and the trifurcation region shows no evidence of deep venous thrombosis. There is no significant popliteal fossa cyst. The right common femoral vein appeared normal. If the patient's symptoms persist, followup ultrasound in 5 days 7 days might be of value to exclude proximal propagation from a non-visualized calf vein. US/US venous duplex LE IMPRESSION: No DVT demonstrated in the left lower extremity.
== END 2024-02-27 14:33 | disposition home or self-care (01) ==
LOC: HO.US 14:32
PROVIDERS: PCP General Practice; Visit Provider Student in an Organized Health Care Education/Training Program
DX: R60.0 Localized edema (principal)
CPT/HCPCS: 93971

== ENCOUNTER 2024-03-05 12:15 | Outpatient (REF) | payer OTHER, SELFPAY ==
[2024-03-05 13:09] LABS: MANUAL DIFF FLAG NO
[2024-03-05 13:14] LABS: Basophils Percent Auto 0.2 % (0-2); Hematocrit 46.5 % (37.0-47.0); Hemoglobin 14.8 g/dl (12.0-16.0); Lymphocytes Absolute Auto 1.3 X10*3/uL (1.2-4.9); Lymphocytes Percent Auto 6.3 % (20-40); Mean Corpuscular HGB Conc 31.8 g/dl (31.0-35.0); Mean Corpuscular Hemoglobin 26.3 pg (27.0-33.0); Mean Corpuscular Volume 82.7 fL (80.0-98.0); Mean Platelet Volume 9.8 fL (9.4-12.3); Monocytes Absolute Auto 0.4 X10*3/uL (0.1-1.2); Neutrophils Absolute Auto 18.2 x10*3/uL (2.0-8.3); Neutrophils Percent Auto 89.5 % (45-73); Platelet Count 394 X10*3/uL (160-400); Red Blood Count 5.62 X10*6/uL (4.20-5.50); Red Cell Distribution Width 14.8 % (11.0-16.0); White Blood Count 20.3 X10*3/uL (4.8-10.8)
[2024-03-05 13:23] LABS: D Dimer High Sensitivity < 150 NG/ML
[2024-03-05 13:34] LABS: B Type Natriuretic Peptide 192 pg/mL (<100)
[2024-03-05 13:44] LABS: Alanine Aminotransferase 15 U/L (0-31); Albumin Level 4.2 g/dL (3.5-5.0); Alkaline Phosphatase 67 U/L (39-117); Anion Gap 14 (12-20); Aspartate Amino Transferase 8 U/L (5-31); Bilirubin Total 0.3 mg/dL (0.0-1.0); Blood Urea Nitrogen 14 mg/dL (9-16); Calcium 9.9 mg/dL (8.4-10.2); Carbon Dioxide 32 mmol/L (22-29); Chloride 101 mmol/L (96-108); Estimated Glomerular Filt Rate 60; Glucose Random 136 mg/dL (60-115); Sodium 143 mmol/L (135-145); Total Protein 6.7 g/dL (6.5-8.0)
== END 2024-03-05 12:16 | disposition home or self-care (01) ==
LOC: HO.HHCL 12:15
PROVIDERS: Visit Provider Student in an Organized Health Care Education/Training Program
DX: Z13.89 Encounter for screening for other disorder (principal)
CPT/HCPCS: 36415; 80053; 83880; 85025; 85379

== ENCOUNTER 2024-04-09 10:56 | Outpatient (REF) | payer OTHER, SELFPAY ==
--- NOTE | ~2024-04-09 | CT_ITS ---
EXAMINATION: CT LOW-DOSE SCREENING CHEST WITHOUT CONTRAST CLINICAL INFORMATION: Personal history of nicotine dependence. Former smoker. The patient has a 45 pack-year history of smoking, having quit 4 years ago. COMPARISON: X-ray chest August 21, 2023. CT chest March 12, 2023. TECHNIQUE: Multidetector volumetric CT imaging of the chest is performed on a Siemens SOMATOM Definition scanner without contrast using low dose technique. Additional 2D coronal and sagittal reformatted images and axial 3D maximum intensity projection (MIP) images are generated on the CT workstation. This CT examination was performed using dose optimization techniques as appropriate, variously including the following: *Automated exposure control *Adjustment of mA and/or kV according to patient size (this includes techniques or standardized protocols for targeted exams where dose is matched to indication/reason for exam; i.e. extremities or head) *Use of iterative reconstruction technique TOTAL EXAM DLP: 49 mGy-cm. CTDIvol: 1.40 mGy. FINDINGS: PULMONARY NODULES: No suspicious pulmonary nodules. LUNGS: Lungs bilaterally symmetrically expanded. There is mild diffuse emphysema along with [id number] diffuse bronchial thickening. There are a few areas of inspissated mucus within bronchi for example right lower lobe (5:384). No effusion or pneumothorax. Central airways patent. MEDIASTINUM: No mediastinal, hilar or axillary adenopathy or free fluid collection. CORONARY ARTERY CALCIFICATION: Moderate. THYROID GLAND: Unremarkable to the extent seen. CARDIOVASCULAR STRUCTURES: Aortic and heart size normal. No pericardial effusion. CHEST WALL/AXILLA: Unremarkable. UPPER ABDOMEN: Included portions of the solid organs in the upper abdomen unremarkable on noncontrast imaging. A benign left upper pole 3.0 cm Bosniak class I renal cyst is noted which requires no additional imaging or follow up. No solid renal masses are seen. OSSEOUS STRUCTURES: No suspicious focal findings. CT/CT lung screening IMPRESSION: No finding seen suspicious for malignancy. ASSESSMENT: 1. Lung-RADS Category 1: Negative. There are no nodules or there are definitely benign nodules. N/A 2. Lung-RADS Category S: Negative. There are no clinically significant or potentially clinically significant findings not related to the lungs requiring urgent additional evaluation. RECOMMENDATION: Continued routine annual low-dose CT lung screening in 1 year is recommended. An order for CT CHEST LOW DOSE CANCER SCREENING ([id number]) can be placed. Electronically signed by: Tobias Mcdaniels MD 05/29/2024 04:03 PM WHITNEY CARRASCO
--- NOTE | 2024-04-09 11:49 | CA_ITS ---
Transthoracic Echocardiogram Patient (Last, First, Middle): Sofy Nguyen R Gender: Female Date of : 1960 Age: 63 Procedure Date: 04/09/2024 Procedure Type: Transthoracic Echocardiogram Location: OP Height: 160.02 cm Weight: 72.58 kg BSA: 1.76 m2 Heart Rate: 87 bpm BP: 120 / 76 mmHg Retail Shift Supervisor: SB Referring MD: Pilar Victor MD Product Management Manager: Delroy Matthews MD Symptoms: LOW EXT EDEMA R60.0 ELEVATED BNP R79.89 Study Quality: Fair ECG Rhythm: Sinus Conclusions: - 1. Hyperdynamic LV ejection fraction greater than 70% 2. Normal cardiac valvular Dopplers Findings Left Ventricle Normal left ventricular cavity size. There is normal left ventricular wall thickness. The left ventricular systolic function is hyperdynamic. The visually estimated ejection fraction is >70%. Spectral Doppler is indicative of a normal filling pattern. Right Ventricle Normal right ventricular cavity size and systolic function. Atria Both atria are normal in size. Interatrial shunt cannot be excluded. Aortic Valve The aortic valve was not well visualized. There is mild calcification of the aortic valve. There is no aortic valve stenosis. There is no aortic valve regurgitation. Mitral Valve Normal mitral valve structure and function. There is no mitral valve regurgitation. There is no mitral valve stenosis. Pulmonic Valve The pulmonic valve was not well visualized. Tricuspid Valve Likely normal tricuspid valve structure and function. Tricuspid regurgitation envelope is inadequate for calculation of right ventricular systolic pressure. Normal right atrial pressure. Great Vessels The aorta was not well visualized. The pulmonary artery was not well visualized. There is no dilatation of the ascending aorta measuring 3.10 cm. Venous The inferior vena cava is normal in size and collapses greater than 50% with inspiration. Pericardium/Pleural There is no evidence of pericardial effusion. Prior Study Comparison No significant change compared to prior study dated: 10/10/2023. Measurements 2D Linear Measurements IVSd: 1.00 0.6-0.9/0.6-1.0 cm LVIDd: 4.66 3.9-5.3/4.2-5.9 cm LVIDd Index: 2.65 2.4-3.2/2.2-3.1 cm/m2 LVIDs: 2.70 2.0-3.6 cm LVPWd: 0.85 0.7-1.1 cm LA Diam: 3.00 2.7-3.8/3.0-4.0 cm LAIDs Index: 1.70 1.5-2.3 cm/m2 LV Mass: 181.42 67-162/88-224 g LV Mass Index: 103.08 43-95/49-115 g/m2 LVOT Diam: 2.10 3.0+(-)1.3 cm 2D Systolic Function EF 4C: 71.70 >55% EF 2C: 72.70 >55% EF BiP: 73.00 >55% Mitral Valve MV Pk E: 1.04 MV PK A: 0.67 MV Decel Time: 151.00 E/A: 1.50 E'Lateral: 8.59 E'Medial: 7.18 E/E' Med: 14.50 E/E' Lat: 12.10 PHT: 44.00 MVA PHT: 5.00 Decel Boyle: 6.87 Aortic Valve AoV Pk Omar: 1.62 AoV Pk Grad: 10.00 DENI: 3.86 LVOT LVOT Pk Omar: 1.69 LVOT Mn Omar: 1.08 LVOT VTI: 0.30 LVOT Pk Grad: 11.00 LVOT Mn Grad: 6.00 LVOT Diam: 2.10 LVOT Area: 3.46 Diastolic Function MV Pk E: 1.04 MV Pk A: 0.67 E/A: 1.50 E'Medial: 7.18 E/E' Med: 14.50 E' Laterial: 8.59 E/E' Lat: 12.10 Right Ventricle TAPSE (mm): 21.70 TVS' Omar: 11.70 Tricuspid Valve RA Press: 3.00 Great Vessels Aorta Sinus of Valsalva: 2.90 2.0-3.5 cm Ao Asc: 3.10 2.1-3.4 cm Pulmonary Valve PV Pk Omar: 1.29 Peak PV Grad: 7.00 Updated in Other Vendor System with Status of Final Delroy Matthews MD electronically signed on 04/10/2024 9:37:28 AM with status of Final
== END 2024-04-09 10:57 | disposition home or self-care (01) ==
LOC: HO.CT 10:56
PROVIDERS: PCP General Practice; Visit Provider Internal Medicine Pulmonary Disease
DX: Z12.2 Encounter for screening for malignant neoplasm of respiratory organs (principal); Z87.891 Personal history of nicotine dependence; R79.89 Other specified abnormal findings of blood chemistry; R60.0 Localized edema
CPT/HCPCS: 71271; 93306

== ENCOUNTER → 2024-04-09 11:49 | Outpatient (BNV) | payer OTHER, SELFPAY | PROVIDERS: PCP General Practice; Visit Provider Internal Medicine Cardiovascular Disease | DX: I35.8 Other nonrheumatic aortic valve disorders (principal) | CPT/HCPCS: 93306 ==

== ENCOUNTER 2024-04-27 13:02 | Outpatient (AMB) | payer OTHER, SELFPAY ==
[2024-04-27 13:07] VITALS: BP 122/80; PULSE 93; BMI 26.3
--- NOTE | 2024-04-27 13:07 | MHC.OFFVIS ---
Vital Signs 04/27/24 13:07 Height 5 ft 3 in Weight 148 lb 9.465 oz BMI 26.3 BP 122/80 Blood Pressure Location Lt brachial Position Sitting Pulse 93 Pulse Source Monitor Intake Visit Reasons: f/up Hospitalist Medical Director Required: No Allergies morphine [MORPHINE] Allergy (Intermediate, Verified 04/27/24 13:09) VOMITING, ITCHING ibuprofen Adverse Reaction (Unknown, Verified 04/27/24 13:09) Unknown Medication List - Last Reconciled 04/27/24 by Senait Owens NP-C albuterol sulfate 90 mcg/actuation 2 puffs inhalation Q4-6H PRN amlodipine 5 mg PO DAILY apixaban (Eliquis) 1 tab PO BID buprenorphine-naloxone 8-2 mg 2 strips sublingual DAILY fluticasone propionate 50 mcg/actuation 1 - 2 sprays intranasal DAILY PRN xkrmpbasvqb-hskqkkofc-nbqlslpc 200-62.5-25 mcg (Trelegy Ellipta) 1 inh inhalation DAILY ipratropium-albuterol 0.5 mg-3 mg(2.5 mg base)/3 mL 3 mL inhalation Q6H PRN lisinopril 40 mg PO QAM montelukast 10 mg PO DAILY theophylline ER 600 mg PO DAILY HPI HPI f/up: Details: Sofy is a 63-year-old female with past medical history of hypertension, prior smoking, COPD who has been evaluated for heart palpitations without concerning findings, she now presents for follow-up. Today she reports that she is having some increased shortness of breath which she relates to her COPD. She has notice some swelling in her ankles. Her primary care doctor did a repeat echocardiogram on her for the symptoms. She has not had chest discomfort at rest or with activity. She does feel rapid heart beating at times which does cause her concern. Her daughter noticed that she had some asymmetry to her smile and was concerned that her mother had a stroke. Patient reports no facial numbness, ptosis, speech disturbances, swallowing difficulties, numbness or tingling of her arms and legs. She describes having Botox injections around her eyes 2 weeks ago and wonders if this could have contributed. She has a call out to her provider. She is on Eliquis for prior pulmonary embolism. She has no bleeding issues. She tries to remain active and is able to do a flight of stairs but does have some shortness of breath. She is drinking a total of 3 caffeinated beverages per day. [facility] Medical History Sinus tachycardia Pulmonary embolism Hypertension Ex-smoker for less than 1 year COPD exacerbation Family History Mother CAD (coronary artery disease) Sister Cardiomyopathy Brother Cardiomyopathy Pacemaker Heart attack Social History Household Members: None Housing: Apartment Do you presently have visiting nurse or other home services: No Alcohol intake: never Patient Tobacco Use Status: Former Tobacco user Tobacco use type: Cigarette Years Smoked: 2019 Second Hand Smoke Exposure: No Substance Use Type: Former Substance User Advance Directives Date on File: 07/05/22 service: No Current occupational status: retired Review of Systems Const Details: mouth assymetry All systems reviewed & are unremarkable except as noted in HPI and below ENT Denies dizziness Card Details: ankle swelling Denies chest pain, Denies chest pain at rest, Denies chest pain with activity, Reports rapid heart rate, Denies pedal edema, Denies edema, Denies leg edema, Denies lightheadedness, Denies palpitations, Denies dyspnea, Reports dyspnea on exertion and Denies orthopnea Resp Denies cough, Denies dyspnea and Reports dyspnea on exertion GI Denies hematochezia and Denies change in stool character Musc Denies abnormal gait, Denies limited range of motion, Denies muscle cramps, Denies muscle weakness, Denies numbness, Denies radiating pain into limb, Denies stiffness and Denies tingling Neuro Denies abnormal gait, Denies dizziness, Denies numbness and Denies tingling Endo Denies palpitations Physical Exam Vital Signs: Last Vital Signs Pulse 98 04/27/24 13:07 BP 122/80 04/27/24 13:07 BMI result Body Mass Index 26.3 Const General: cooperative, healthy appearing, comfortable and no acute distress Orientation/consciousness: patient oriented x3 Neck Neck: Yes normal visual inspection and Yes no JVD Resp Other: diminished lung sounds Effort & Inspection: normal respiratory effort Auscultation: no rales, no rhonchi and no wheezes Cardio Jugular venous distension: no JVD Rate: regular rate Rhythm: regular rhythm Heart sounds: S1 normal heart sound present, S2 normal heart sound present, no murmurs and no rubs Neuro General: patient oriented x3 Extrem General: Yes normal to inspection, No no pedal edema and No calf tenderness Psych Appearance: grossly normal Mental Status: mental status grossly normal Speech and movement: Normal speech and movement present Office Procedures EKG Details: Today, read by me, normal sinus rhythm, right bundle branch block, rate 93, QTC 484 millisecond [id number]-[id number], Complete Assessment & Plan Assessment & Plan (1) Palpitations: Code(s): R00.2 - Palpitations Category: Medical Plan: Report of heart palpitations like her heart is beating fast and strong. Evaluation earlier this year with Holter monitor on 10/10/2023 for 3 days shows sinus rhythm with average heart rate 85, heart rate range 62 to 126, occasional PACs, 18.34% of time heart rate greater than 100. An echocardiogram done 10/10/2023 showed EF 69%, no regional wall motion abnormalities and no valve abnormalities. She does have COPD and uses albuterol and is on theophylline each of which can contribute to sinus tachycardia. She currently drinks 3 caffeinated beverages per day. Today she reports that she is still having heart palpitations which are causing her concern. Her description sounds most like sinus tachycardia. She does have a slightly asymmetrical lip line with right side less prominent than left at rest. Her smile is symmetrical. No other neurological type changes reported or observed. She did have Botox injections around her eyes 2 weeks ago for eyelashes that flip inward. There is a possibility this can be contributing to her mouth asymmetry that is seen. Did offer CT scan to assess for remotely possible CVA and she declines. Will order a cardiac event monitor to ensure there is no paroxysmal atrial fibrillation. Instructed to maintain good hydration, get adequate rest, reduce the amount of caffeine intake. Emergency care if needed for sustained rapid palpitations or any new neurological symptoms. Cardiology follow-up 3 months, sooner if needed. (2) Sinus tachycardia: Code(s): R00.0 - Tachycardia, unspecified Category: Medical Plan: As above (3) Hypertension: Code(s): I10 - Essential (primary) hypertension Category: Medical Plan: Well controlled at this time. No med changes made. (4) Severe chronic obstructive pulmonary disease: Code(s): J44.9 - Chronic obstructive pulmonary disease, unspecified Category: Medical Plan: Follows with pulmonology. (5) RBBB: Code(s): I45.10 - Unspecified right bundle-branch block Category: Medical Plan: Noted on EKGs since 2021. Plan Time spent on chart review, documentation, interview and assessment Coding Level of Care Code Est Pt Level 4 (02976) Complex EM visit Add On G2211 Diagnoses Palpitations R00.2 Sinus tachycardia R00.0 Hypertension I10 Severe chronic obstructive pulmonary disease J44.9 RBBB I45.10 CPT Codes EKG - CPT: 56494-[id number], Complete ([id number]) Time Spent (min) 36
== END 2024-04-27 13:43 | disposition home or self-care (01) ==
PROVIDERS: PCP General Practice; Visit Provider Nurse Practitioner Family
DX: R00.2 Palpitations (principal); R00.0 Tachycardia, unspecified; I10 Essential (primary) hypertension; J44.9 Chronic obstructive pulmonary disease, unspecified; I45.10 Unspecified right bundle-branch block
CPT/HCPCS: 93010; 99214; G2211

== ENCOUNTER → 2024-04-27 13:02 | Outpatient (BNVA) | payer OTHER, SELFPAY | PROVIDERS: PCP General Practice; Visit Provider Nurse Practitioner Family | DX: I10 Essential (primary) hypertension (principal); J44.9 Chronic obstructive pulmonary disease, unspecified; R00.2 Palpitations; R00.0 Tachycardia, unspecified; I45.10 Unspecified right bundle-branch block | CPT/HCPCS: 93005; 99212 ==

== ENCOUNTER → 2024-05-06 13:52 | Outpatient (REF) | payer OTHER, SELFPAY ==
--- NOTE | 2024-05-06 13:55 | HM_ITS ---
* Total procedure length 30 days. Wear time 25 days. * Underlying rhythm is sinus with an average rate of 84/Min. About 40% of the time, rate > 100/min. * Rare supraventricular ectopy. Short runs noted. * Ventricular ectopy with a burden of 1.3%. * Symptoms noted include chest pain, shortness of breath. Correlates with sinus rhythm, sinus tachycardia, supraventricular/ventricular ectopy. MTDD
== END ==
LOC: HO.CARD 13:52
PROVIDERS: PCP General Practice; Visit Provider Nurse Practitioner Family
DX: R00.2 Palpitations (principal)
CPT/HCPCS: 93270

== ENCOUNTER → 2024-05-06 13:55 | Outpatient (BNV) | payer OTHER, SELFPAY | PROVIDERS: PCP General Practice; Visit Provider Internal Medicine | DX: I47.10 Supraventricular tachycardia, unspecified (principal) | CPT/HCPCS: 93272 ==

== ENCOUNTER 2024-05-20 14:53 | Outpatient (AMB) | payer OTHER, MEDICAID, SELFPAY ==
--- NOTE | 2024-05-20 15:03 | A.OFFVIS_ITS ---
Vital Signs 05/20/24 15:05 Height 5 ft 3 in Weight 148 lb 12.992 oz BMI 26.4 BP 120/62 Blood Pressure Location Rt brachial Position Sitting Pulse 108 H Pulse Source Doppler Pulse Oximetry (%) 93 Oxygen Delivery Method Room Air Intake Visit Reasons: COPD/CT Follow Up Allergies morphine [MORPHINE] Allergy (Intermediate, Verified 04/27/24 13:09) VOMITING, ITCHING ibuprofen Adverse Reaction (Unknown, Verified 04/27/24 13:09) Unknown HPI HPI COPD/CT Follow Up: Details: 63-year-old lady,? former 30+ pack-year smoker, quit 2019, followed for severe COPD.? She has been switched to Trelegy and continues to use albuterol MDI, duo nebs, and theophylline 600 with reasonable baseline control of her symptoms, though still with complains of dyspnea on exertion. She denies recent acute exacerbations. [facility] Medical History (Updated 05/21/24 @ 10:53 by Samuel Sanchez MD) Sinus tachycardia Pulmonary embolism Hypertension Ex-smoker for less than 1 year COPD exacerbation Family History Mother CAD (coronary artery disease) Sister Cardiomyopathy Brother Cardiomyopathy Pacemaker Heart attack Social History Household Members: None Housing: Apartment Do you presently have visiting nurse or other home services: No Alcohol intake: never Patient Tobacco Use Status: Former Tobacco user Tobacco use type: Cigarette Years Smoked: 2019 Second Hand Smoke Exposure: No Substance Use Type: Former Substance User Advance Directives Date on File: 07/05/22 service: No Current occupational status: retired Review of Systems Const Denies daytime sleepiness, Denies excessive sweating, Denies fatigue, Denies fever(s), Denies lethargy, Denies malaise, Denies night sweats, Denies snoring and Denies weight loss Eyes Denies blurry vision and Denies itchy eyes ENT Denies nasal congestion, Denies post nasal drip, Denies sinus pain, Denies sinus pressure and Denies other ( Thrush) Card Denies chest pain, Denies pedal edema, Denies dyspnea, Reports dyspnea on exertion, Denies orthopnea and Denies paroxysmal nocturnal dyspnea Resp Denies cough, Denies hemoptysis, Denies excessive phlegm production, Denies dyspnea, Reports dyspnea on exertion, Denies snoring and Denies wheezing GI Denies abdominal pain and Denies heartburn Musc Denies myalgias, Denies arthralgias and Denies joint swelling Skin/Breast Denies rash Neuro Denies memory loss and Denies seizure-like activity Psych Denies abnormal sleep pattern, Denies anxiety and Denies memory loss Endo Denies excessive sweating, Denies fatigue and Denies heat intolerance Roger/Lymph Denies easy bruising Aller/Immun Denies itchy eyes, Denies seasonal rhinorrhea and Denies wheezing Physical Exam Vital Signs: Last Vital Signs Pulse 108 H 05/20/24 15:05 BP 120/62 05/20/24 15:05 Pulse Ox 93 05/20/24 15:05 Oxygen Delivery Method Room Air 05/20/24 15:05 BMI result Body Mass Index 26.4 Const General: no acute distress and alert Nutritional Appearance: not obese Orientation/consciousness: Other orientation findings ( oriented) HEENT Head: Yes atraumatic Eyes General: appearance normal, both eyes and all related structures Sclerae: sclerae normal EOM: EOMs intact bilaterally Neck Neck: Yes supple Lymphatic: no lymphadenopathy noted Resp Effort & Inspection: normal respiratory effort and no use of accessory muscles Auscultation: clear to auscultation bilaterally Cardio Rate: regular rate Rhythm: regular rhythm Heart sounds: no gallops, no murmurs and no rubs Skin General skin exam: other ( warm) Extrem General: No clubbing, No cyanosis and No edema Office Procedures 6 Minute Walk Time:: 15:15 SPO2 % at rest: 94 Pulse at rest: 105 SPO2 % during excercise: 91 Pulse during excercise: 115 SPO2 % after excercise: 95 Pulse after excercise: 118 Distance in yards walked: 200 Inna Score: 7 Performance Observations:: Sofy walked on level ground unassisted, she walked on room air the entire walk. She maintained her SPO2 91-93%, no supplemental O2 needed. [address] - 6 Minute Walk Assessment & Plan Assessment & Plan (1) Severe chronic obstructive pulmonary disease: Code(s): J44.9 - Chronic obstructive pulmonary disease, unspecified Category: Medical Plan: Reasonable baseline control on current regimen of Trelegy, DuoNeb, theophylline, and albuterol MDI. Continue current regimen. (2) Dyspnea on exertion: Code(s): R06.09 - Other forms of dyspnea Category: Medical Plan: 6 minute walk test/supplemental oxygen evaluation performed. Patient does not require supplemental oxygen at this time. She does have significant dyspnea with tachycardia. Will request cardiopulmonary exercise test. (3) Personal history of nicotine dependence: Code(s): Z87.891 - Personal history of nicotine dependence Category: Medical Plan: Lung cancer screening CT chest is pending. Orders: Orders CA cardiopulmonary stress test 05/20/24 AMB 6 minute walk 05/20/24 J44.9 - Chronic obstructive pulmonary disease, unspecified Coding Level of Care Code Est Pt Level 4 (65848) Complex EM visit Add On G2211 Diagnoses Severe chronic obstructive pulmonary disease J44.9 Dyspnea on exertion R06.09 Personal history of nicotine dependence Z87.891 CPT Codes Coding ([id number])
[2024-05-20 15:05] VITALS: BP 120/62; PULSE 108; O2SAT 93; BMI 26.4
[2024-05-20 15:33] VITALS: PULSE 105; O2SAT 94
== END 2024-05-20 15:31 | disposition home or self-care (01) ==
LOC: HO.HPS 14:54
PROVIDERS: PCP General Practice; Visit Provider Internal Medicine Pulmonary Disease
DX: J44.9 Chronic obstructive pulmonary disease, unspecified (principal); Z87.891 Personal history of nicotine dependence
CPT/HCPCS: 94618; 99214; G2211

== ENCOUNTER → 2024-05-20 14:53 | Outpatient (BNVA) | payer OTHER, MEDICAID, SELFPAY | PROVIDERS: PCP General Practice; Visit Provider Internal Medicine Pulmonary Disease | DX: J44.9 Chronic obstructive pulmonary disease, unspecified (principal); R06.09 Other forms of dyspnea; Z87.891 Personal history of nicotine dependence | CPT/HCPCS: 94618; 99212 ==

== ENCOUNTER 2024-08-11 10:21 | Outpatient (AMB) | payer OTHER, MEDICAID, SELFPAY ==
[2024-08-11 10:24] VITALS: BP 164/82; PULSE 112; O2SAT 96; BMI 26.4
--- NOTE | 2024-08-11 10:24 | A.OFFVIS_ITS ---
Vital Signs 08/11/24 10:24 Height 5 ft 3 in Weight 149 lb BMI 26.4 BP 164/82 H Blood Pressure Location Rt brachial Position Sitting Pulse 112 H Pulse Source Doppler Pulse Oximetry (%) 96 Oxygen Delivery Method Room Air Intake Visit Reasons: COPD Allergies morphine [MORPHINE] Allergy (Intermediate, Verified 04/27/24 13:09) VOMITING, ITCHING ibuprofen Adverse Reaction (Unknown, Verified 04/27/24 13:09) Unknown HPI HPI COPD: Details: 63-year-old lady,? former 30+ pack-year smoker, quit 2019, followed for severe COPD.? She has been switched to Trelegy and continues to use albuterol MDI, duo nebs, and theophylline 600 with worsening baseline control of her symptoms. Patient denies recent exacerbations. She did complete her lung cancer screening CT chest that did not demonstrate worrisome pulmonary nodules. She did complete her cardiopulmonary exercise testing that showed combined pulmonary and cardiac limitation to her exercise tolerance. [facility] Medical History (Updated 05/21/24 @ 10:53 by Samuel Sanchez MD) Sinus tachycardia Pulmonary embolism Hypertension Ex-smoker for less than 1 year COPD exacerbation Family History Mother CAD (coronary artery disease) Sister Cardiomyopathy Brother Cardiomyopathy Pacemaker Heart attack Social History Household Members: None Housing: Apartment Do you presently have visiting nurse or other home services: No Alcohol intake: never Patient Tobacco Use Status: Former Tobacco user Tobacco use type: Cigarette Years Smoked: 2019 Second Hand Smoke Exposure: No Substance Use Type: Former Substance User Advance Directives Date on File: 07/05/22 service: No Current occupational status: retired Review of Systems Const Denies daytime sleepiness, Denies excessive sweating, Denies fatigue, Denies fever(s), Denies lethargy, Denies malaise, Denies night sweats, Denies snoring and Denies weight loss Eyes Denies blurry vision and Denies itchy eyes ENT Denies nasal congestion, Denies post nasal drip, Denies sinus pain, Denies sinus pressure and Denies other ( Thrush) Card Denies chest pain, Denies pedal edema, Denies dyspnea, Reports dyspnea on exertion, Denies orthopnea and Denies paroxysmal nocturnal dyspnea Resp Denies cough, Denies hemoptysis, Denies excessive phlegm production, Denies dyspnea, Reports dyspnea on exertion, Denies snoring and Denies wheezing GI Denies abdominal pain and Denies heartburn Musc Denies myalgias, Denies arthralgias and Denies joint swelling Skin/Breast Denies rash Neuro Denies memory loss and Denies seizure-like activity Psych Denies abnormal sleep pattern, Denies anxiety and Denies memory loss Endo Denies excessive sweating, Denies fatigue and Denies heat intolerance Roger/Lymph Denies easy bruising Aller/Immun Denies itchy eyes, Denies seasonal rhinorrhea and Denies wheezing Physical Exam Vital Signs: Last Vital Signs Pulse 112 H 08/11/24 10:24 BP 164/82 H 08/11/24 10:24 Pulse Ox 96 08/11/24 10:24 Oxygen Delivery Method Room Air 08/11/24 10:24 BMI result Body Mass Index 26.4 Const General: no acute distress and alert Nutritional Appearance: not obese Orientation/consciousness: Other orientation findings ( oriented) HEENT Head: Yes atraumatic Eyes General: appearance normal, both eyes and all related structures Sclerae: sclerae normal EOM: EOMs intact bilaterally Neck Neck: Yes supple Lymphatic: no lymphadenopathy noted Resp Effort & Inspection: normal respiratory effort and no use of accessory muscles Auscultation: clear to auscultation bilaterally Cardio Rate: regular rate Rhythm: regular rhythm Heart sounds: no gallops, no murmurs and no rubs Skin General skin exam: other ( warm) Extrem General: No clubbing, No cyanosis and No edema Assessment & Plan Assessment & Plan (1) Severe chronic obstructive pulmonary disease: Code(s): J44.9 - Chronic obstructive pulmonary disease, unspecified Category: Medical Plan: Slowly worsening control on essentially maximal inhaled therapy including Trelegy, duo nebs, and albuterol MDI. Patient is also on theophylline. Will add Ohtuvayre. (2) Personal history of nicotine dependence: Code(s): Z87.891 - Personal history of nicotine dependence Category: Medical Plan: Results of lung cancer screening CT chest reviewed, no worrisome nodules, continue with yearly screening, next in March of 2025. Orders: Orders CT lung screening 04/11/25 Z87.891 - Personal history of nicotine dependence Medications: New ensifentrine (Ohtuvayre) 2.5 mL inhalation BID 150 mL 6RF Coding Level of Care Code Est Pt Level 4 (74585) Diagnoses Severe chronic obstructive pulmonary disease J44.9 Personal history of nicotine dependence Z87.891
== END 2024-08-11 10:46 | disposition home or self-care (01) ==
PROVIDERS: PCP General Practice; Visit Provider Internal Medicine Pulmonary Disease
DX: J44.9 Chronic obstructive pulmonary disease, unspecified (principal); Z87.891 Personal history of nicotine dependence
CPT/HCPCS: 99214

== ENCOUNTER → 2024-08-11 10:21 | Outpatient (BNVA) | payer OTHER, MEDICAID, SELFPAY | PROVIDERS: PCP General Practice; Visit Provider Internal Medicine Pulmonary Disease | DX: J44.9 Chronic obstructive pulmonary disease, unspecified (principal); Z79.899 Other long term (current) drug therapy; Z87.891 Personal history of nicotine dependence | CPT/HCPCS: 99212 ==

== ENCOUNTER 2024-10-22 10:34 | Outpatient (REF) | payer MEDICARE, SELFPAY ==
--- NOTE | ~2024-10-22 | MM_ITS ---
EXAMINATION: DXA BONE DENSITY AXIAL HISTORY: Estrogen deficiency TECHNIQUE: [employer] Dual energy absorptiometry (DEXA) of the lumbar spine, total left hip, and femoral neck was performed. COMPARISON: Comparison is made with the prior examination dated 08/05/2015. FINDINGS: The bone mineral density of the lumbar spine is 1.048 with a T-score of -1.1, and a Z-score of 0.4. This is indicative of osteopenia. This represents a BMD change of -13.2% compared to the prior exam. This is statistically significant. The bone mineral density of the left total hip is 0.845 with a T-score of -1.3, and a Z-score of -0.1. This is indicative of osteopenia. This represents a BMD change of -10.6% compared to the prior exam. This is not statistically significant. The bone mineral density of the left femoral neck is 0.781 with a T-score of -1.8, and a Z-score of -0.4. This is indicative of osteopenia. This represents a BMD change of -15.0% compared to the prior exam. FRACTURE RISK: The FRAX index suggests a ten year probability of major osteoporotic fracture of 13.4%, and of hip fracture 2.1%. MM/XR DEXA axial skeleton IMPRESSION: Based on bone mineral density, and according to World Health Organization (WHO) criteria, the diagnosis is consistent with osteopenia. All bone density values are in grams per centimeter squared (g/cm2). Statistically, 68% of repeat scans fall within 1 SD (+/- 0.010 g/cm2 for AP spine L1-L4) and 1 SD (+/- 0.012 g/cm2 for femur total) FRAX is a trademark of the [employer]'s [facility] Metabolic Bone Disease, a World Health Organization (WHO) Collaborating Center. Electronically signed by: Leonardo Barbour MD 10/22/2024 01:03 PM EDT
--- OUTSIDE RECORDS SUMMARY | 2024-10-22 11:42 | XMS_ITS | Encounter Summary ---
Author Organization [employer] Address [address] [place] [address] Care Team Providers Care Furrier Designer Name Role Phone Ashanti Meyer MD Primary Care Provider [phone] Reason for Visit * Reason Onset Date Comments Med request 10/13/2024 Encounter Details Date Type Department Care Team (Late st Contact Info) Description 10/13/2024 Telephone [facility] [address], [place] [phone] Ashanti Meyer MD [address], [place] [phone] Med request Social History Tobacco Use Types Packs/Day Years Used Date Smoking Tobacco: Never Smokeless Tobacco: Never Alcohol Use Standard Drinks/Week Comments Never 0 (1 standard drink = 0.6 oz pur e alcohol) Depression Answer Date Recorded Patient Health Questionnaire-9 Score 14 09/25/2024 Patient Health Questionnaire-9 Score 14 09/25/2024 Last PHQ-9: Questionnaire Data Not on file 0 09/25/2024 Housing Stability Answer Date Recorded What is your housing situation today? I have [place] 11/07/[address] you li ve. Do you have problems with any of the following? None of the above 11/07/2023 Food Insecurity Answer Date Recorded Within the past 12 months, y ou worried that your food would run out before you got money to buy more: Never True 08/13/2024 Within the past 12 months,th e food you bought just didn't last and you didn't have enough money to get more: Never True Transportation Answer Date Recorded In the past 12 months, has l ack of transportation kept you from medical appts, meetings, work or from getting things needed for daily living? No 11/22/2023 Utilities Answer Date Recorded In the past 12 months, has t he electric, gas, oil or water company threatened to shut off services in your home? No 08/13/2024 Depression Answer Date Recorded Patient Health Questionnaire-2 Score 2 09/25/2024 Internet Access Answer Date Recorded Internet Access Q1 Yes 08/13/2024 Internet Access Q2 Not on file 08/13/2024 Comments Unknown Sex and Gender Information Value Date Recorded Sex Assigned at Female 05/21/2022 10:20 AM EDT Legal Sex Female 10:20 AM EDT Gender Identity Female 05/21/2022 10:20 AM EDT Sexual Orientation Straight 05/21/2022 10 :20 AM EDT documented as of this encounter Miscellaneous Notes * Telephone Encounter - Anuradha Garner - 10/13/2024 10:00 AM EDT Tc from pt requesting medication meclizine (Antivert) 25 MG tablet as pt went to pharmacy and was told needs a new script documented in this encounter Plan of Treatment Not on file documented as of this encounter Visit Diagnoses Not on filedocumented in this encounter Additional Health Concerns Assessment Noted Time PHQ-9 Depression Total Score: 14 025 10:15 AM EST documented as of this encounter Care Teams Furrier Designer Relationship Specialty Start Date End Date Ashanti Meyer MD [address] [place] [address] PCP - General Family Medicine 11/19/23 documented as of this encounter
--- OUTSIDE RECORDS SUMMARY | 2024-10-22 11:42 | XMS_ITS | Clinical Summary ---
Author Organization [employer] Address [address] [facility] 7t [place] [address] Care Team Providers Care Butter Liquefier Name Role Phone Ashanti Meyer MD Primary Care Provider [phone] Allergies Active Allergy Reactions Criticality Noted Date Comments Ibuprofen Rash Low 08/03/2010 Morphine 07/16/2012 Other reaction(s): Ibuprofen allergy Pt. state allergy to dose >800 Medications acetaminophen (Tylenol) 500 MG tablet Take 1 tablet by mouth if needed for fever or pain. Every 6 to 8 hours. Not to exceed 8 tablets per 24 hours 12/07/19 22 Active Buprenorphine HCl-Naloxone HCl (Suboxone) 8-[address] 2 Film under the tongue 1 (one) time each day. Active nystatin (Mycostatin) 884499 UNIT/ML suspension SWISH AND SPIT 5MLS BY MOUTH 4 TIMES DAILY NEEDED FOR THRUSH 10/08/19 24 Active amLODIPine (Norvasc) 5 MG tablet Take 1 tablet (5 mg) by mouth Once per day. 90 tablet 3 11/15/19 24 Active gabapentin (Neurontin) 100 MG capsule Take 2 capsules (200 mg) by mouth if needed at bedtime (nerve pain). 180 capsule 3 11/15/19 24 025 Active promethazine- dextromethorp miller (Phenergan-DM ) 6.25-15 MG/5ML syrup TAKE 5 ML ORALLY EVERY 4 HOURS NEEDED 118 mL 3 11/15/19 24 Active cyclobenzapri ne (Flexeril) 5 MG tablet Take 1 tablet (5 mg) by mouth if needed in the morning, at noon, and at bedtime (back pain). 30 tablet 11/22/19 24 Active Additional Information Patient not taking.Reported on 02/25/2024 apixaban (Eliquis) 5 MG tablet TAKE 1 TABLET BY MOUTH TWICE A DAY 180 tablet 3 12/31/19 24 Active Trelegy Ellipta 200-62.5-25 MCG/ACT aerosol powder Inhale 1 puff Once per day. 01/24/20 24 Active montelukast (Singulair) 10 MG tablet TAKE 1 TABLET BY MOUTH DAILY IN EVENING 90 tablet 3 02/07/20 24 Active benzonatate (Tessalon) 100 MG capsule Take 1 capsule (100 mg) by mouth if needed in the morning, at noon, and at bedtime for cough. Do not crush or chew. 30 capsule 3 02/07/20 24 Active albuterol 108 (90 Base) MCG/ACT inhaler Inhale 2 puffs every 4 (four) hours if needed for wheezing. 18 g 2 02/25/20 24 Active fluticasone (Flonase) 50 MCG/ACT nasal spray SPRAY 1 - 2 SPRAY BY INTRANASAL ROUTE EVERY DAY IN EACH NOSTRIL NEEDED 48 mL 1 03/18/20 24 Active theophylline ER (Uniphyl) 600 MG 24 hr tablet TAKE 1 TABLET BY MOUTH EVERY DAY. DO NOT CRUSH OR CHEW. 90 tablet 3 03/19/20 24 Active ibuprofen 600 MG tabletIndicat ions:Pain TAKE 1 TABLET BY MOUTH THREE TIMES A DAY WITH FOOD NEEDED 90 tablet 3 03/26/20 24 Active hydrOXYzine pamoate (Vistaril) 25 MG capsuleIndica tions:Anxiety TAKE 1 CAPSULE BY MOUTH TWICE A DAY NEEDED FOR ANXIETY 180 capsule 1 08/24/19 25 Active lisinopril 40 MG tablet TAKE 1 TABLET BY MOUTH EVERY DAY IN THE MORNING 90 tablet 3 09/08/19 25 Active ipratropium-a lbuterol (Duo-Neb) 0.5-2.5 mg/3 mL nebulizer solution TAKE 3 ML BY NEBULIZATION ROUTE IN THE MORNING, AT NOON AND BEDTIME NEEDED FOR WHEEZING 90 mL 6 09/08/19 25 Active loratadine (Claritin) 10 MG tabletIndicat ions:Middle ear effusion, right Take 1 tablet (10 mg) by mouth Once per day. 30 tablet 11 09/26/19 25 026 Active predniSONE (Deltasone) 20 MG tablet PLEASE SEE ATTACHED FOR DETAILED DIRECTIONS 09/04/19 25 Active Spiriva HandiHaler 18 MCG inhalation capsule INHALE THE CONTENTS OF 1 CAPSULE USING HANDIHALER DEVICE ORALLY ONCE DAILY 09/09/19 25 Active omeprazole (PriLOSEC) [address] capsule TAKE 1 CAPSULE BY MOUTH EVERY DAY BEFORE A MEAL 90 capsule 3 10/07/19 25 Active meclizine (Antivert) 25 MG tablet TAKE 1-2 TABLETS BY MOUTH 3 TIMES A DAY NEEDED FOR DIZZINESS 60 tablet 10/14/19 25 Active omeprazole (PriLOSEC) [address] capsule TAKE 1 CAPSULE BY MOUTH EVERY DAY BEFORE A MEAL 90 capsule 3 10/04/19 24 025 Discontinued carbamide peroxide (Debrox) 6.5 % otic solutionIndic ations:Middle ear effusion, right Administer 5-10 drops into affected ear(s) 2 times daily for 4 days. 30 mL 09/26/19 25 025 meclizine (Antivert) 25 MG tablet TAKE 1 TABLET BY MOUTH 3 TIMES A DAY FOR 5 DAYS NEEDED FOR DIZZINESS 09/14/19 25 025 Discontinued(R eorder (will not trigger notification to Pharmacy)) Hospital, Clinic, or Other Facility Administered Medication Ordered Dose Route Frequency Start Date End Date Status ipratropium-albuterol (Duo-Neb) 0.5-2.5 mg/3 mL nebulizer solution 3 mLIndications:COPD exacerbation ([facility]) 3 mL NEBULIZATION Once 02/25/2024 Active Active Problems Problem Noted Date Diagnosed Date Osteopenia with high risk of fracture 09/25/2024 Other emphysema 09/25/2024 Assessment & Plan (09/25/2024 2:03 PM EST): Slowly worsening control on essentially maximal inhaled therapy including Trelegy, duo nebs, and albuterol MDI. Patient is also on theophylline. History of multiple exacerbations this winter Winded/SOB after minimal exertion Pulm ordered O[place]--> [facility] to deliver [facility] Bilateral lower extremity edema 02/25/2024 Assessment & Plan (02/25/2024 9:04 PM EDT): L>R lower extremity edema , no calf tenderness ,no erythema ,soft TTE 09/2023 LVF wnl, EF 69% Noo obvious valvular pathology , normal RV cavity Pt c/o on AC so seems less likely from DVT,possible venous insuff , fluid retention on ongoing steroids? -Doppler venous STAT US Sciatica of left side 11/28/2023 Assessment & Plan (09/25/2024 2:01 PM EST): Consider acupuncture and other treatments for sciatica Assessment & Plan (02/09/2024 6:37 PM EDT): Patient with waxing and waning symptoms, responsive to steroid courses and then remitting afterwards She is continuing home PT exercises and recommend continuing to do so with small flares Consider MRI or referral to Pain mgmt for consideration of other modalities depending on symptom course in the coming months and interference with patient life Assessment & Plan (01/02/2024 2:29 PM EDT): Patient here with c/o left sided low back pain that radiates to left glute, hip and lower extremity on and off since September, Never before. [facility], symptoms went away completely only to come back in October, exact same symptoms seen by PCP prescribed Prednisone and PT with excellent results, symptoms went away completely after 6 PT sessions ( Insurance will not pay any more sessions ) . This past Saturday pain came back and then went away and 2 days ago back again after bending. Right now pain described as 7/10 . No red flags on neuro exam. Pt is quite tender on her lumbar spine and left hip. Plan: Pt already taking muscle relaxants, tylenol and Ibuprofen around the clock Will Prescribed another Prednisone Taper. Will also obtaain plain films of her lumbar spine and left hip. Rule out compression fractures ( pt COPD numerous steroid courses in the past ) unfortunately her insurance will not cover anymore PT sessions. Pending on medical course and results of initial x-rays further recommendations. Might need an MRI of her LS spine if symptoms fail to improve. There might be a component of radiculitis. She may also need to be seen at [facility] Follow up with PCP if no improvement. Pt agreeable with plan Encounter to establish care with new doctor 10/22 Acidosis, lactic 11/15/2023 Ex-smoker for less than 1 year 11/15/2023 Hypoxia 11/15/2023 Palpitations 11/15/2023 Pulmonary nodules 11/15/2023 Urine incontinence 09/20/2023 Shortness of breath 07/03/2022 Benign essential hypertension 07/27/2015 Buprenorphine dependence 07/27/2015 Pulmonary thromboembolism 07/27/2015 Anxiety 02/02/2013 Tobacco abuse 02/02/2013 Depressive disorder 04/03/2012 Hypertension 04/03/2012 Assessment & Plan (02/25/2024 9:00 PM EDT): Elevated BP today ,possible reactive -advised to monitor BP at home and bring readings to PCP at next apt Resolved Problems Problem Noted Date Diagnosed Date Resolved Date Pneumonia due to infectious organism 07/13/2022 09/25/2024 Severe chronic obstructive pulmonary disease 3 09/25/2024 Assessment & Plan (02/25/2024 9:00 PM EDT): Pt symptoms and physical findings are consistent w COPD exacerbation, Noted mild 1+ pitting edema in left leg and trace in right , no calf tenderness , no erythema here in office rechecked O2 sat bw 89 yo 96% for long period 07/2023 ProBNP 133 mild elevated ,CBC w mild leukocytosis at 11.7 ,normal chem Most likely COPD but w known elevated ProBNP in the past and noted edema in LE that per pt is possible new may need to consider also CHF? , PE? Given pt has been in ED and mx Mds visit for recurrent issue and ongoing SOB rec pt to go to ED to have reevaluation and imaging but pt refuse . Pt states to understand risk but states wants to try outpt management and if not improving by tonight and tomorrow will go to ED.Pt express understanding of risk of quick deterioration from respiratory compromise Covid 19/Flu today neg -EKG today NSR ,sinus tachy HR 109x', QTC 474 PVC ,possible inferior infarct? RBBB -CXR 02/22/2024 done showing mild blunting of left costophrenic angle possible trace effusion . -From cards records EKG 07/2023 NSR Qtc 490, RBBB reported possible inferior infact /anterior infacrt -cards 10/2023 told to be ok , TTE 09/2023 LVF wnl, EF 69% Noo obvious valvular pathology , normal RV cavity , Holter 09/2023 Occasional PACs -Order today D dimer,sputum cx,cbc,chem, probnp-if elevated again ProBNP will refer for TTE again and if D dimer will need CTA -will increase and prolong steroid taper w Prednisone 60 mg x 3 days then drop by 10 mg every 3 days to finish 5 mg for 4 days -so aprox a total of 3 weeks of steroid taper -resume montelukats -I called her pharmacy and confirmed pt can pick pulling machine tender med -refilled theophyline for another 30 days until can get px from national investigative producer -Complete ATB tomorrow -pt recently on Quinolones and Doxy before--if no better will need to consider Levaquin 750 mg daily for actual pseudomonas coverage dose + again doxy for SA, also if no better will need to consider PJP eval on prolong steroid course but hold for now w no actual hypoxemia -Duoneb here x1--exam after and symptoms better after tx here -CXR order today to reveal trace effusion in recent image -sent for CT lung ca screening by her national investigative producer -states for this month schedule already -f w pulm to call to rescheudle for earlier apt -alarm signs and symptoms discussed in length w pt today Assessment & Plan (02/09/2024 6:39 PM EDT): Continue baseline Trelelgy and Theophyline - increase Duoneb usage to every 4-6 hours - if this does not decrease SOB and cough after 24 hours, to begin prednsione 40mg x 5 days - discuss with pulm followup plan and need for antibiotics (doxycycline prescribed) - ER precautions for worsening dyspnea, sats <92%, fever Encounters Date Type Department Care Team Description 10/13/2024 Refill [facility] [address] [place] [address] Ashanti Meyer MD 10/13/2024 Telephone [facility] [address] [place] [address] Ashanti Meyer MD Med request 10/06/2024 Refill [facility] [address] [place] [address] Margaux Pena MD 09/25/2024 9:30 AM EST Office Visit [facility] [address] [place] [phone] Ashanti Meyer MD Other emphysema ([facility]) (Primary Dx); Osteopenia with high risk of fracture; Middle ear effusion, right; Encounter for immunization; Buprenorphine dependence ([facility]); Pulmonary thromboembolism ([facility]); Dietary counseling; Exercise counseling; Overweight; Sciatica of left side 09/25/2024 Travel 09/08/2024 Telephone [facility] [address] [place] [phone] Ashanti Meyer MD Nurse Triage 09/08/[address] [address] Ashanti Meyer MD Med Refill 09/08/2024 Refill [facility] [address] [place] [address] Jesus Manuel Wevaer MD 08/22/2024 Refill [facility] [address] [place] [phone] Ashanti Meyer MD Anxiety 08/13/2024 Patient Outreach [facility] [address] [place] [phone] Ashanti Meyer MD Pre-visit Planning (SDOH screening negative and tobacco screening negative) from Last 3 Months Immunizations Name Administration Dates Next Due Influenza injectable quadriv alent IIV4 with preservative 05/28/2019,06/06/2017 Influenza injectable quadriv alent preservative free 10/03/2023,08/07/2018,07/13/2015 Influenza, IIV3, injectable 04/21/2014, 5 Influenza, seasonal, injecta ble, preservative free 09/25/2024 Moderna Covid-19 Vaccine 12+ 11/21/2020,10/25/19 21 Pfizer Covid-19 Vaccine 12+ 09/25/2024 Pneumococcal Conjugate PCV 20 10/03/2023 TD (adult), 2 Lf tetanus tox oid, preservative free, adsorbed 06/06/2017 Td (adult), unspecified 01/20/2002 Tdap 08/07/2018,01/20/2002 Social History Tobacco Use Types Packs/Day Years Used Date Smoking Tobacco: Never Smokeless Tobacco: Never Tobacco Cessation:Counseling Given: Not Answered Alcohol Use Standard Drinks/Week Comments Never 0 (1 standard drink = 0.6 oz pur e alcohol) Depression Answer Date Recorded Patient Health Questionnaire-9 Score 14 09/25/2024 Patient Health Questionnaire-9 Score 14 09/25/2024 Last PHQ-9: Questionnaire Data Not on file 0 09/25/2024 Housing Stability Answer Date Recorded What is your housing situation today? I have lakeshia abad 11/07/[address] you li [...] Orientation Straight 05/21/2022 10 :20 AM EDT Last Filed Vital Signs Vital Sign Reading Time Taken Comments Blood Pressure 133/82 09/25/2024 9:37 AM EST Pulse 95 09/25/2024 9:37 AM EST Temperature 36.6 ??C (97.9 ??F) 09/25/2024 9:37 AM ES T Respiratory Rate 17 09/25/2024 9:37 AM EST Oxygen Saturation 96% 09/25/2024 9:37 AM EST Inhaled Oxygen Concentration - - Weight 69.5 kg (153 lb 3.2 oz) 09/25/2024 9:37 A M EST Height 160 cm (5' 3 ) 09/25/2024 9:37 AM EST Body Mass Index 27.14 09/25/2024 9:37 AM EST Plan of Treatment Health Maintenance Due Date Last Done Comments CT Colonography 1958 Colonoscopy 1958 Colorectal Cancer Screening 1958 FIT DNA/Cologuard 1958 FIT 1958 FOBT 1958 Sigmoidoscopy 1958 Hepatitis C Screening 1976 Zoster Vaccines (1 of 2) 2008 RSV Patients and Patients Aged 60 years or older (1 - Risk 60-74 years 1-dose series) 2018 Mammogram 02/10/2023 02/10/2021, 07/13/2019 Alcohol/Substance Use Screening 11/14/2024 11/15/2023 Depression Monitoring (PHQ-9) 03/28/2025 09/25/2024, 09/25/2024 SDOH Screening 08/13/2025 08/13/2024 Depression Screening 09/25/2025 09/25/2024, 09/26/19 25 Tobacco Screening 09/25/2025 09/25/2024 Lipid Panel 12/06/2026 12/06/2021 DTaP/Tdap/Td Vaccines (4 - Td or Tdap) 08/07/2028 08/07/2018, 06/06/2017, 01/20/2002, Additional history exists Pneumococcal Vaccine: 50+ Years Completed 10/03/2023 COVID-19 Vaccine Completed 09/25/2024, 09/2020, 10/24/2020 Influenza Vaccine Completed 09/25/2024, , 05/28/2019, Additional history exists HIB Vaccines Aged Out No longer eligi ble based on patient's age to complete this topic HPV Vaccines Aged Out No longer eligi ble based on patient's age to complete this topic Hepatitis A Vaccines Aged Out No long er eligible based on patient's age to complete this topic Hepatitis B Vaccines Aged Out No long er eligible based on patient's age to complete this topic IPV Vaccines Aged Out No longer eligi ble based on patient's age to complete this topic Meningococcal Vaccine Aged Out No clint jona eligible based on patient's age to complete this topic RSV under 20 months Aged Out No longe r eligible based on patient's age to complete this topic Rotavirus Vaccines Aged Out No longer eligible based on patient's age to complete this topic Procedures Procedure Name Priority Date/Time Associated Diagnosis Comments LIPID PANEL, STANDARD Routine 12/06/2021 11:48 AM EDT MAMMOGRAM GENERIC Routine 02/10/2021 11: 00 AM EDT from Last 3 Months or Most Recently Relevant to Health Maintenance Results * (ABNORMAL) LIPID PANEL, STANDARD (12/06/2021 11:48 AM EDT) Chol/HDLC Ratio 4.3 <5.0 (calc) [facility] Cholesterol, Total 217(H) <200 mg/dL [facility] HDL Cholesterol 51 > OR = 50 mg/dL [facility] LDL Cholesterol 146(H) mg/dL (calc) [facility] Comment: Reference range: <100 ?? Desirable range <100 mg/dL for primary prevention; ?? <70 mg/dL for patients with CHD or diabetic patients ?? with > or = 2 CHD risk factors. ?? LDL-C is now calculated using the Jaime ?? calculation, which is a validated novel method providing ?? better accuracy than the Friedewald equation in the ?? estimation of LDL-C. ?? Vinny CARRASCO et al. BASHIR. 2013;310(19): 5765-0113 ?? (http://education.[employer]/faq/CCK644) Non-HDL Cholesterol 166(H) <130 mg/dL (calc) [facility] Comment: For patients with diabetes plus 1 major ASCVD risk ?? factor, treating to a non-HDL-C goal of <100 mg/dL ?? (LDL-C of <70 mg/dL) is considered a therapeutic ?? option. Triglycerides 96 <150 mg/dL [facility] 12/06/2021 11:4 8 AM EDT Margaux Pena MD LAB BLOOD ORDERABLES Final Re sult [facility] [address] * Mammography Report 1 (02/10/2021 11:00 AM EDT) Anatomical Region Laterality Modality Breast Bilateral Mammography 02/10/2021 11:0 0 AM EDT Narrative 02/10/2021 2:10 PM EDT Refer to the Notes tab for result details [facility] Procedure: Mammography Report 1 Procedure Note ProviderRhonda MD - 10/14/2022 Refer to the Notes tab for result details [facility] Procedure: Mammography Report 1 Margaux Pena MD IMG BI PROCEDURES Final Resul t from Last 3 Months or Most Recently Relevant to Health Maintenance Insurance [facility] ST[facility] DUAL COMPLETE Thu [place] Thu Zun[place] Thu [place]un[place] Care Teams Butter Liquefier Relationship Specialty Start Date End Date Ashanti Meyer MD [address] [place] [id number] PCP - General Family Medicine 11/19/23
--- OUTSIDE RECORDS SUMMARY | 2024-10-22 11:42 | XMS_ITS | Encounter Summary ---
Author Organization [employer] Address [address] [facility] 7 [place] [address] Care Team Providers Care Director Nicu Name Role Phone Margaux Pena MD Primary Care Provider [phone] Ashanti Meyer MD Primary Care Provider Reason for Visit * Reason Comments Med Refill Encounter Details Date Type Department Care Team ([facility] st Contact Info) Description 04/07/2023 Refill [facility] [address] [place] [address] Margaux Pena MD [address] [place] [address] Social History Tobacco Use Types Packs/Day Years Used Date Smoking Tobacco: Never Smokeless Tobacco: Never Alcohol Use Standard Drinks/Week Comments Never 0 (1 standard drink = 0.6 oz pur e alcohol) Depression Answer Date Recorded Patient Health Questionnaire-2 Score 0 07/13/2022 Comments Unknown Sex and Gender Information Value Date Recorded Sex Assigned at Female 05/21/2022 10:20 AM EDT Legal Sex Female 10:20 AM EDT Gender Identity Female 05/21/2022 10:20 AM EDT Sexual Orientation Straight 05/21/2022 10 :20 AM EDT documented as of this encounter Plan of Treatment Not on file documented as of this encounter Visit Diagnoses Not on filedocumented in this encounter Care Teams Director Nicu Relationship Specialty Start Date End Date Margaux Pena MD [address] [place] [address] PCP - General Family Medicine 01/20/13 11/18/23 Ashanti Meyer MD [facility] [place] [address] PCP - General Family Medicine 11/19/23 documented as of this encounter
--- OUTSIDE RECORDS SUMMARY | 2024-10-22 11:42 | XMS_ITS | Encounter Summary ---
Author Organization [employer] Address [address] [facility] [address]t [place] [address] Care Team Providers Care Dehorner Name Role Phone Margaux Pena MD Primary Care Provider [phone] Ashanti Meyer MD Primary Care Provider [phone] Reason for Visit * Reason Onset Date Comments Durable Medical Equipment 09/17/2023 Encounter Details Date Type Department Care Team ([facility] st Contact Info) Description 09/17/2023 Telephone [facility] [address] [place], [place] [phone] Margaux Pena MD [address] [place] [address] Durable Medical Equipment Social History Tobacco Use Types Packs/Day Years Used Date Smoking Tobacco: Never Smokeless Tobacco: Never Alcohol Use Standard Drinks/Week Comments Never 0 (1 standard drink = 0.6 oz pur e alcohol) Housing Stability Answer Date Recorded What is your housing situation today? I have lakeshia abad 05/17/[address] you li ve. Do you have problems with any of the following? None of the above 05/17/2023 Food Insecurity Answer Date Recorded Within the past 12 months, y ou worried that your food would run out before you got money to buy more: Never True 05/17/2023 Within the past 12 months,th e food you bought just didn't last and you didn't have enough money to get more: Never True Transportation Answer Date Recorded In the past 12 months, has l ack of transportation kept you from medical appts, meetings, work or from getting things needed for daily living? Yes, it has kept me from medical appointments or getting medications. 04/28/2023 Utilities Answer Date Recorded In the past 12 months, has t he electric, gas, oil or water company threatened to shut off services in your home? No 05/17/2023 Depression Answer Date Recorded Patient Health Questionnaire-2 Score 0 07/13/2022 Comments Unknown Sex and Gender Information Value Date Recorded Sex Assigned at Female 05/21/2022 10:20 AM EDT Legal Sex Female 10:20 AM EDT Gender Identity Female 05/21/2022 10:20 AM EDT Sexual Orientation Straight 05/21/2022 10 :20 AM EDT documented as of this encounter Miscellaneous Notes * Telephone Encounter - Ayaka Victor LPN - 09/20/2023 3:47 PM EST Rx generated faxed to [facility] as requested * Telephone Encounter - Ayaka Victor LPN - 09/18/2023 9:31 AM EST Please review message below and advise. If agreed please provide DX * Telephone Encounter - Gillian Mack - 09/17/2023 1:37 PM EST Jeevan tucker with [facility] requesting DME supplies to be sent to fax [phone] -shower chair -disposable briefs with moderate absorbency with refills documented in this encounter Plan of Treatment Not on file documented as of this encounter Visit Diagnoses Not on filedocumented in this encounter Care Teams Dehorner Relationship Specialty Start Date End Date Margaux Pena MD [address] [place] [id number] PCP - General Family Medicine 01/20/13 11/18/23 Ashanti Meyer MD [address] [place] [address] PCP - General Family Medicine 11/19/23 documented as of this encounter
--- OUTSIDE RECORDS SUMMARY | 2024-10-22 11:42 | XMS_ITS ---
Author Name Brandee Mckeon NP Address [address] [place] [address] Phone [phone] [facility] Care Team Providers Care Grades 1 Thru 6 Visiting Teacher Name Role Phone Brandee Mckeon Unavailable [phone] Unavailable Unavailable Unavailable Nickolas Strong Unavailable [phone] Unavailable Unavailable [phone] YESSY WADE Unavailable [phone] JOSE DE JESUS RING Unavailable [phone] GABI EDWARDS Unavailable MARITZA BREWER Unavailable [phone] Reason for Referral Not Available Allergies, adverse reactions, alerts Allergen Type Reaction Severity Status Onset Date Morphine Allergy to substance (disorder) Unknown Active N/A History of medication use Medication Class Instructions Start Date End Date Ibuprofen 600 mg Tab TAKE 1 TABLET BY [facility] THREE TIMES A DAY WITH FOOD NEEDED 2022-04-23 No Data Available Buprenorphine HCl-Naloxone 8 /2 mg Film DISSOLVE 2 FILMS UNDER THE TONGUE DAILY 2022-06-20 No Data Available Spiriva HandiHaler [address] 1 CA PSULE (18 MCG) INTO INHALER AND INHALE IN THE MORNING 2022-02-27 2022-12-12 Fluticasone Propionate 50 MCG/ACT Suspension SPRAY 1 - 2 SPRAY BY INTRANASAL ROUTE EVERY DAY IN EACH NOSTRIL NEEDED 2022-04-23 No Data Available Omeprazole 20 mg Cap delayed rel TAKE 1 CAPSULE BY MOUTH EVERY DAY BEFORE A MEAL 2021-12-06 No Data Available Benzonatate 200 mg Cap TAKE 1 CAPSULE BY MOUTH 3 TIMES A DAY 2022-06-29 No Data Available Oseltamivir Phosphate 75 mg Cap TAKE 1 CAPSULE BY MOUTH TWICE A DAY 2022-06-29 No Data Available predniSONE 20 mg Tab TAKE 1 TAB BY MOUTH 3X DAILY X5 DAYS, THEN 1 TAB 2X A DAYX2 DAYS, THEN 1 TABLET IN AM X2 DAYS. 2022-06-29 2022-12-12 Ipratropium-Albuterol 0.5-2. 5 (3) MG/3ML Solution Inhalation USE 1 VIAL VIA NEBULIZER 4 TIMES A DAY 2021-12-06 No Data Available Albuterol Sulfate HFA 108 (9 0 Base) MCG/ACT Aerosol Solution INHALE 2 PUFFS BY MOUTH EVERY 4 HOURS NEEDED 2022-03-15 No Data Available Amoxicillin-Pot Clavulanate 875/125 mg Tab TAKE 1 TABLET BY MOUTH EVERY 12 HOURS 2022-07-06 No Data Available Doxycycline Monohydrate 100 mg Cap TAKE 1 CAPSULE BY MOUTH EVERY 12 HOURS 2022-07-06 No Data Available Nystatin 676855 UNIT/ML Suspension TAKE 5 MLS ORALLY 4 TIMES A DAY SWISH AND SWALLOW 2022-07-06 No Data Available Lisinopril 40 mg Tab TAKE 1 TABLET BY [facility] EVERY DAY IN THE MORNING 2022-04-23 No Data Available Theophylline ER 600 mg Tab E R 24hr TAKE 1 TABLET BY MOUTH EVERY DAY FOR 30 DAYS 2022-05-01 No Data Available Eliquis 5 mg Tab [facility] 2022-06-12 No Data Available Acetaminophen Extra Strength 500 mg Tab TAKE 1 TABLET BY MOUTH EVERY 6 TO 8 HOURS NEEDED FOR PAIN /FEVER NO MORE THAN 8 TABS DAILY 2021-12-06 No Data Available hydrOXYzine Pamoate 25 mg Cap TAKE 1 CAP POPPY BY MOUTH TWICE A DAY NEEDED FOR ANXIETY 2022-08-16 No Data Available Cetirizine 10 mg Tab TAKE 1 TABLET BY [facility] EVERY DAY 2021-12-06 No Data Available Azithromycin 250 mg Tab TAKE 2 TABLETS B Y MOUTH TODAY, THEN TAKE 1 TABLET DAILY FOR 4 DAYS 2022-10-25 No Data Available Buprenorphine HCl-Naloxone 8 /2 mg Film Sublingual 1 film buccally 2 times per day 2022-12-12 No Data Available Symbicort 160-4.5 MCG/ACT Aerosol Inhalation inhale 2 puffs by mouth twice daily 2022-12-12 2024-09-08 Acetaminophen 500 mg Tab 1 tablets orall y every 6 hours as needed for pain 2022-12-12 No Data Available Spiriva HandiHaler 18 MCG Ca p Inhalation inhale the contents of once capsule orally once daily 2022-08-01 2024-09-08 Ibuprofen 600 mg Tab 1 tablet orally ashely ry 8 hours with food or milk as needed for pain 2022-12-12 No Data Available Macrobid 100 mg Cap Take 1 tablet PO twi ce daily for 7 days. 2023-01-02 No Data Available Pyridium 100 mg Tab 1 tablets orally 3 t imes per day for 3 days after meals 2023-01-02 No Data Available amLODIPine Besylate 2.5 mg Tab TAKE 1 TABLET DAILY 09-25-15 No Data Available Bactrim DS 800/160 mg Tab Take 1 tablet PO twice daily 2023-01-15 No Data Available [facility] Covid-19 At Home Test Ki t Kit In Vitro test one daily 2023-01-18 No Data Available Augmentin 875mg Tab 1 tablet PO BID x 7days 2023-04-09 No Data Available Promethazine-DM 6.25/15 mg/5 ML Syrup 5 ml orally every 4 hours as needed 2023-04-17 2024-05-13 Amoxicillin-Pot Clavulanate 875/125 mg Tab Take 1 tablet PO twice daily for 5 days 2023-04-17 No Data Available predniSONE 50 mg Tab 1 tablet orally daily x5d 2023-01 No Data Available Azelastine-Fluticasone 137-5 0 MCG/ACT Suspension Nasal SPRAY 1 SPRAY INTO EACH NOSTRIL TWICE A DAY 2023-04-19 2023-09-02 Doxycycline Hyclate 100 mg Cap 1 capsule orally every 12 hours for 10 days 2023-05-02 No Data Available predniSONE 20 mg Tab Take 2 tablets twic e daily for 3 days, 1 tablet twice daily for 2 days, and 1 tablet daily for 2 days. 2023-05-02 No Data Available Doxycycline Hyclate 100 mg Tab Take 1 ta blet PO twice daily for 7 days. 2023-06-18 2023-09-04 Medrol 4 mg Tab Therapy Pack take as directed No Data Available Benzonatate 100 mg Cap Take 1 tablet PO TID as needed for cough. 2023-06-18 2024-09-08 Montelukast Sodium 10 mg Tab 1 tablet or ally QD for allergies and to prevent bronchospasm 2023-06-18 2023-09-02 Cyclobenzaprine 5 mg Tab No Data Available 2023-08-31 No Data Available amLODIPine Besylate 2.5 mg Tab Take 1 tablet daily. 20 14-09-11 2023-09-09 Montelukast Sodium 10 mg Tab TAKE 1 TABL ET BY MOUTH DAILY IN EVENING 2023-09-02 No Data Available amLODIPine Besylate 5 mg Tab TAKE 1 TABLET DAILY 09-09 No Data Available Nystatin 268260 UNIT/ML Suspension Mouth/Throat 5ml PO QID Swish and Spit PRN thrush 2023-10-08 No Data Available Cyclobenzaprine 5 mg Tab 1 tablets orall y 3 times per day as needed pain 2023-10-11 No Data Available Medrol 4 mg Tab Therapy Pack take as directed 2023-11-18 predniSONE 20 mg Tab TAKE 2 TABLETS (40M G) BY MOUTH ONCE DAILY FOR 5 DAYS 2023-10-30 No Data Available Mucinex 600 mg Tab ER 12hr 1 tablets ora lly every 12 hours as needed 2024-05-08 No Data Available Gabapentin 100 mg Cap TAKE 2 CAPSULES BY MOUTH IF NEEDED AT BEDTIME FOR NERVE PAIN 2023-11-15 No Data Available Vvjfcgqb-Noouktoqa-Pmyeojyk 3.5-63074-0.1 Suspension INSTILL 1 DROP INTO BOTH EYES FOUR TIMES A DAY USE FOR 2 WEEKS 2024-04-08 2024-05-13 Trelegy Ellipta 200-62.5-25 MCG/ACT Aerosol Powder Breath Activated INHALE 1 PUFF DAILY 2023-12-13 No Data Available levoFLOXacin 500 mg Tab TAKE 1 TABLET (5 00 MG) BY MOUTH ONCE DAILY FOR 5 DAYS. 2024-02-21 No Data Available predniSONE 20 mg Tab Take 2 tablets twic e daily for 3 days, 1 tablet twice daily for 2 days, and 1 tablet daily for 2 days. 2024-09-04 No Data Available Doxycycline Hyclate 100 mg Cap Take 1 ta b PO q12h x 7 days 2024-09-04 2024-09-17 Spiriva HandiHaler 18 MCG Ca p Inhalation inhale the contents of 1 capsule using handihaler device orally once daily 2024-09-08 No Data Available Benzonatate 100 mg Cap Take 1 tablet TID daily as needed for cough. 2024-09-17 No Data Available Amoxicillin 500 mg Cap 1 capsule orally every 12 hours for 10 days 2024-09-17 No Data Available Meclizine 25 mg Tab TAKE 1 TABLET BY THERESA 3 TIMES A DAY PRN for dizziness 2024-09-14 No Data Available Problem List Problem Status Onset Date Resolved Date GERD (gastroesophageal reflux disease) Active 12-12-23 N/A Chronic pulmonary embolism Active 2022-12-12 N /A Entropion of both lower eyelids Active 2022-12-20 4 N/A UTI (urinary tract infection) Resolved 2023-01-02 2023-05-07 Acute bacterial bronchitis Resolved 2023-04-17 2 Other problems related to [facility] facilities and other health care Active 2023-09-04 N/A Oral yvette Resolved 2023-10-08 2023-11-18 Buprenorphine use Active 2022-12-12 N/A Essential hypertension Active 2022-12-12 N/A Interstitial pulmonary disease, unspecified Active 2022-12-12 N/A ROSANNA (generalized anxiety disorder) Active 12-12 N/A Sciatic leg pain Active 2023-10-11 N/A COPD exacerbation Active 2023-11-13 N/A COPD (chronic obstructive pu lmonary disease) with chronic bronchitisAllergies Active 2022-12-12 N/A Acute pharyngitisAcute pain of both earsCough Active 2024-09-17 N/A Encounters Encounters Type Facility Date of Service Diagnosis/Co mplaint New patient, 30-44min 1 stable chronic or 2 minor; add modifier 95 for video, modifier 93 for [employer] [facility]22 Opioid dependence, uncomplicatedChronic pulmonary embolismChronic obstructive pulmonary disease, unspecifiedInterstitial pulmonary disease, unspecifiedEssential (primary) hypertensionGeneralized anxiety disorderGastro-esophageal reflux disease without esophagitis New patient, 30-44min 1 stable chronic or 2 minor; add modifier 95 for video, modifier 93 for [facility] [employer] [facility] [place] 12[place]12/2022 New patient, 30-44min 1 stable chronic or 2 minor; add modifier 95 for video, modifier 93 [facility] [place] [facility] New patient, 30-44min 1 stable chronic or 2 minor; add modifier 95 for video, modifier 93 for [facility] [employer] [facility] ([place] 12/12/20[place] New patient, 30-44min 1 stable chronic or 2 minor; add modifier 95 for video, modifier 93 for phone [facility] [place] New patient, 30-44min 1 stable chronic or 2 minor; add modifier 95 for video, modifier 93 for phone [facility] [place] New patient, 30-44min 1 stable chronic or 2 minor; add modifier 95 for video, modifier 93 for phone [facility] [place] New patient, 30-44min 1 stable chronic or 2 minor; add modifier 95 for video, modifier 93 for phone [facility] [place]2022 No Data Available [facility] [place]2023 Urinary tract infection, sit e not specifiedUnspecified entropion of right lower eyelidUnspecified entropion of left lower eyelidEssential (primary) hypertension No Data Available [facility] [place]2023 No Data Available [facility] [place]2023 No Data Available [facility] [place]2023 Opioid dependence, uncomplicatedChronic pulmonary embolismChronic obstructive pulmonary disease, unspecifiedInterstitial pulmonary disease, unspecifiedEssential (primary) hypertensionGeneralized anxiety disorderGastro-esophageal reflux disease without esophagitisUrinary tract infection, site not specifiedUnspecified entropion of right lower eyelidUnspecified entropion of left lower eyelid No Data Available [facility] [place]/04[place]2023 No Data Available [facility] [place]/04[place]2023 No Data Available [facility] [place]/04[place]2023 No Data Available [facility] [place]/04[place]2023 No Data Available [facility] [place]04[place]2023 No Data Available [facility] [place]2023 Urinary tract infection, sit e not specified No Data Available [facility] [place]/15/2023 No Data Available [facility] [place]2023 No Data Available [facility] [place]18[place]2023 Opioid dependence, uncomplicatedChronic pulmonary embolismChronic obstructive pulmonary disease, unspecifiedInterstitial pulmonary disease, unspecifiedEssential (primary) hypertensionGeneralized anxiety disorderGastro-esophageal reflux disease without esophagitisUrinary tract infection, site not specifiedUnspecified entropion of right lower eyelidUnspecified entropion of left lower eyelid No Data Available [facility] [place] 01[place]18[place]2023 No Data Available [facility] [place] 01/18[place]2023 No Data Available [facility] [place] 01/18[place]2023 No Data Available [facility] [place]/18/2023 No Data Available [facility] [place]/18[place]2023 No Data Available [facility] [place]/18[place]2023 No Data Available [facility] [place]2023 Acute bronchitis due to othe r specified organismsOth bacterial agents as the cause of diseases classd elswhr No Data Available [facility] [place] 04[place]19[place]2023 Interstitial pulmonary disea se, unspecified No Data Available [facility] [place] 04[place]19[place]2023 No Data Available [facility] [place] 04/19/2023 No Data Available [facility] [place] 05/02[place]2023 Chronic obstructive pulmonar y disease, unspecified No Data Available [facility] [place]2023 Opioid dependence, uncomplicatedChronic pulmonary embolismChronic obstructive pulmonary disease, unspecifiedInterstitial pulmonary disease, unspecifiedEssential (primary) hypertensionGeneralized anxiety disorderGastro-esophageal reflux disease without esophagitisUnspecified entropion of right lower eyelidUnspecified entropion of left lower eyelidAcute bronchitis due to other specified organismsOth bacterial agents as the cause of diseases classd elswhr No Data Available [facility] [place] 05[place]07/2023 No Data Available [facility] [place]/07[place]2023 No Data Available [facility] [place]07/2023 No Data Available [facility] [place] 06[place]18[place]2023 Chronic obstructive pulmonar y disease, unspecifiedAllergy, unspecified, initial encounter No Data Available [facility] 06[place]/2023 Chronic obstructive pulmonar y disease, unspecifiedAllergy, unspecified, initial encounterAcute bronchitis due to other specified organismsOth bacterial agents as the cause of diseases classd elswhr No Data Available [facility] 06[place]19/2023 No Data Available [facility]2023 No Data Available [facility]20[place] No Data Available [facility]20[place] Estab. patient 30-39min; chronic exacerbation, 2 stable chronic or 1 acute illness add add modifier 95 for video, (do not use for phone, instead use [id number]) [facility] [place]2023 Opioid dependence, uncomplicatedChronic pulmonary embolismChronic obstructive pulmonary disease, unspecifiedInterstitial pulmonary disease, unspecifiedAllergy, unspecified, initial encounterEssential (primary) hypertensionGeneralized anxiety disorderGastro-esophageal reflux disease without esophagitisUnspecified entropion of right lower eyelidUnspecified entropion of left lower eyelid Estab. patient 30-39min; chronic exacerbation, 2 stable chronic or 1 acute illness add add modifier 95 for video, (do not use for phone, instead use [id number]) [facility] [place]/20[place] Estab. patient 30-39min; chronic exacerbation, 2 stable chronic or 1 acute illness add add modifier 95 for video, (do not use for phone, instead use [id number]) [facility] [place] Estab. patient 30-39min; chronic exacerbation, 2 stable chronic or 1 acute illness add add modifier 95 for video, (do not use for phone, instead use [id number]) [facility] [place] 09[place]02/20[place] Estab. patient 30-39min; chronic exacerbation, 2 stable chronic or 1 acute illness add add modifier 95 for video, (do not use for phone, instead use [id number]) [facility] [place]/20[place] Estab. patient 30-39min; chronic exacerbation, 2 stable chronic or 1 acute illness add add modifier 95 for video, (do not use for phone, instead use [id number]) [facility]20[place] Estab. patient 30-39min; chronic exacerbation, 2 stable chronic or 1 acute illness add add modifier 95 for video, (do not use for phone, instead use [id number]) [facility] 09[place]/20[place] Estab. patient 30-39min; chronic exacerbation, 2 stable chronic or 1 acute illness add add modifier 95 for video, (do not use for phone, instead use [id number]) [facility] 09/02/2023 No Data Available [facility]/04[place]2023 Essential (primary) hypertensionOther problems related to medical facilities and other health care No Data Available [facility]/04/2023 No Data Available [facility]/04[place]2023 No Data Available [facility] 09[place]04[place]2023 No Data Available [facility]2023 Opioid dependence, uncomplicatedChronic pulmonary embolismChronic obstructive pulmonary disease, unspecifiedAllergy, unspecified, initial encounterInterstitial pulmonary disease, unspecifiedEssential (primary) hypertensionGeneralized anxiety disorderGastro-esophageal reflux disease without esophagitisUnspecified entropion of right lower eyelidUnspecified entropion of left lower eyelidOther problems related to medical facilities and other health care No Data Available [facility]/09/2023 No Data Available [facility] [place]2023 No Data Available [facility] 09/09/2023 No Data Available [facility] [place]2023 No Data Available [facility] [place] 09[place]09/2023 No Data Available [facility] [place]2023 No Data Available [facility]/2023 No Data Available [facility]2023 Essential (primary) hypertensionOther problems related to medical facilities and other health care No Data Available [facility] 10/03/2023 No Data Available [facility] [place]2023 No Data Available [facility] [place]/03[place]2023 No Data Available [facility] [place]/03[place]2023 No Data Available [facility] [place]/03[place]2023 No Data Available [facility] [place] 10[place]08/2023 Candidal stomatitis No Data Available [facility] [place] 10[place]2023 Sciatica, unspecified side No Data Available [facility] [place] 10[place]11/2023 No Data Available [facility] [place] 10[place]/2023 Opioid dependence, uncomplicatedChronic pulmonary embolismChronic obstructive pulmonary disease, unspecifiedAllergy, unspecified, initial encounterInterstitial pulmonary disease, unspecifiedEssential (primary) hypertensionGeneralized anxiety disorderGastro-esophageal reflux disease without esophagitisUnspecified entropion of right lower eyelidUnspecified entropion of left lower eyelidOther problems related to medical facilities and other health careCandidal stomatitisSciatica, unspecified side No Data Available [facility] [place]2023 No Data Available [facility] [place] 10[place]/2023 No Data Available [facility] [place] 10/[place]/2023 No Data Available [facility] [place]2023 No Data Available [facility] [place] 10[place]/2023 No Data Available [facility] [place]20[place] Chronic obstructive pulmonar y disease with (acute) exacerbationSciatica, unspecified side No Data Available [facility] [place]18[place]2023 Chronic obstructive pulmonar y disease with (acute) exacerbationAllergy, unspecified, subsequent encounterEssential (primary) hypertensionSciatica, unspecified sideOther problems related to medical facilities and other health care No Data Available [facility] [place]18[place]2023 No Data Available [facility] [place]/18[place]2023 No Data Available [facility] [place]/18[place]2023 No Data Available [facility] [place] No Data Available [facility] [place]/18[place]2023 No Data Available [facility] [place] Chronic obstructive pulmonar y disease with (acute) exacerbation No Data Available [facility] [place]/08[place]20[place] No Data Available [facility] [place]/08/2024 No Data Available [facility] [place]/08/2024 No Data Available [facility] [place]12/2024 Chronic obstructive pulmonar y disease, unspecifiedAllergy, unspecified, initial encounterEssential (primary) hypertensionOther problems related to medical facilities and other health care No Data Available [facility] [place]12/2024 No Data Available [facility] [place] 05/12/2024 No Data Available [facility] [place] 05/12/2024 No Data Available [facility] [place]20[place] Chronic obstructive pulmonar y disease with (acute) exacerbation No Data Available [facility] [place]/2024 No Data Available [facility] [place] Estab. patient 10-29min; 1 minor problem; add add modifier 95 for video, modifier 93 for phone [facility] [place]04[place]2024 Other specified chronic obstructive pulmonary diseaseAllergy, unspecified, initial encounterOld myocardial infarction Estab. patient 10-29min; 1 minor problem; add add modifier 95 for video, modifier 93 for phone [facility] [place]/04[place]20[place] Estab. patient 10-29min; 1 minor problem; add add modifier 95 for video, modifier 93 for phone [facility] [place]/04/20[place] Estab. patient 10-29min; 1 minor problem; add add modifier 95 for video, modifier 93 for phone [facility] [place]/04/20[place] Estab. patient 20-29min; 1 stable chronic or 2 minor; add add modifier 95 for video, modifier 93 for phone [facility] [place] 09/08/2024 Opioid use, unspecified, uncomplicatedChronic pulmonary embolismInterstitial pulmonary disease, unspecifiedChronic obstructive pulmonary disease, unspecifiedAllergy, unspecified, initial encounterEssential (primary) hypertensionGeneralized anxiety disorderGastro-esophageal reflux disease without esophagitisUnspecified entropion of right lower eyelidUnspecified entropion of left lower eyelidOther problems related to medical facilities and other health careSciatica, unspecified sideChronic obstructive pulmonary disease with (acute) exacerbation Estab. patient 20-29min; 1 stable chronic or 2 minor; add add modifier 95 for video, modifier 93 for phone [facility] [place]20[place] Estab. patient 20-29min; 1 stable chronic or 2 minor; add add modifier 95 for video, modifier 93 for phone [facility] 09/08/20[place] Estab. patient 20-29min; 1 stable chronic or 2 minor; add add modifier 95 for video, modifier 93 for phone [facility] [place] 09/08/2024 Estab. patient 20-29min; 1 stable chronic or 2 minor; add add modifier 95 for video, modifier 93 for phone [facility] [place] 09/08/2024 Estab. patient 20-29min; 1 stable chronic or 2 minor; add add modifier 95 for video, modifier 93 for phone [facility] [place] 09/08/2024 Estab. patient 20-29min; 1 stable chronic or 2 minor; add add modifier 95 for video, modifier 93 for phone [facility] [place]/08/2024 Estab. patient 20-29min; 1 stable chronic or 2 minor; add add modifier 95 for video, modifier 93 for phone [facility] Estab. patient 20-29min; 1 stable chronic or 2 minor; add add modifier 95 for video, modifier 93 for phone [facility] Estab. patient 10-29min; 1 minor problem; add add modifier 95 for video, modifier 93 for phone [facility] 09[place]17[place]2024 Acute pharyngitis, unspecifiedOtalgia, bilateralCough, unspecified Estab. patient 10-29min; 1 minor problem; add add modifier 95 for video, modifier 93 for phone [facility]17[place] Estab. patient 10-29min; 1 minor problem; add add modifier 95 for video, modifier 93 for phone [facility] 09[place]17[place] Estab. patient 10-29min; 1 minor problem; add add modifier 95 for video, modifier 93 for phone [facility] 09[place]21/2024 Acute pharyngitis, unspecifiedOtalgia, bilateralCough, unspecifiedOther problems related to medical facilities and other health care Estab. patient 10-29min; 1 minor problem; add add modifier 95 for video, modifier 93 for phone [facility] 09/21/2024 Estab. patient 10-29min; 1 minor problem; add add modifier 95 for video, modifier 93 for phone [facility] 09[place]24/2024 Chronic obstructive pulmonar y disease, unspecifiedAllergy, unspecified, initial encounterEssential (primary) hypertensionOther problems related to medical facilities and other health careAcute pharyngitis, unspecifiedOtalgia, bilateralCough, unspecified Estab. patient 10-29min; 1 minor problem; add add modifier 95 for video, modifier 93 for phone [facility] 09/24/2024 Vital Signs Date of Collection Vitals 2022-12-12 13:25:57 Height - 160.02 cmWe ight - 68.04 kgBody Mass Index (BMI) - 26.57 kg/m2Pain Scale - 0.0 {score} 2023-01-02 07:08:58 BP Diastolic - 103.0 mm[Hg]BP Systolic - 157.0 mm[Hg] 2023-01-04 07:43:49 BP Diastolic - 100.0 mm[Hg]BP Systolic - 135.0 mm[Hg] 2023-01-18 08:22:37 BP Diastolic - 85.0 mm[Hg]BP Systolic - 122.0 mm[Hg] 2023-09-02 13:20:49 Height - 160.02 cmWe ight - 74.84 kgBody Mass Index (BMI) - 29.23 kg/m2BP Diastolic - 116.0 mm[Hg]BP Systolic - 164.0 mm[Hg] 2023-10-03 11:15:16 BP Diastolic - 87.0 mm[Hg]BP Systolic - 136.0 mm[Hg]Pain Scale - 0.0 {score} 2023-10-30 13:39:59 BP Diastolic - 89.0 mm[Hg]BP Systolic - 134.0 mm[Hg]Pain Scale - 4.0 {score} 2023-11-18 08:01:17 BP Diastolic - 79.0 mm[Hg]BP Systolic - 129.0 mm[Hg]Pain Scale - 4.0 {score} 2024-05-08 12:56:13 BP Diastolic - 89.0 mm[Hg]BP Systolic - 117.0 mm[Hg]Heart Rate - 108.0 /minO2 % BldC Oximetry - 92.0 % 2024-05-12 08:56:03 BP Diastolic - 87.0 mm[Hg]BP Systolic - 128.0 mm[Hg] 2024-07-12 08:06:06 BP Diastolic - 110.0 mm[Hg]BP Systolic - 157.0 mm[Hg]Heart Rate - 118.0 /minO2 % BldC Oximetry - 92.0 % 2024-09-04 12:33:48 Weight - 74.84 kgBod y Mass Index (BMI) - 29.23 kg/m2Pain Scale - 0.0 {score} 2024-09-08 10:26:28 Weight - 74.84 kgBod y Mass Index (BMI) - 29.23 kg/m2BP Diastolic - 85.0 mm[Hg]BP Systolic - 130.0 mm[Hg]Pain Scale - 0.0 {score} 2024-09-17 06:13:37 Pain Scale - 8.0 {sc ore} Social History Social History Social History Observation Description Effec tive Time Current Smoking Status Former smoker 3 Sex Female History of Procedures Procedures Service Procedure code Service date Servicing provider Phone# New patient, 30-44min 1 stable chronic or 2 minor; add modifier 95 for video, modifier 93 for phone [id number] 2022-12-12 No Data Available No Data Available Medication List Documented (1159F) 1159F 2022-12-12 No Data Available No Data Rox ilable Medication Review by prescribing provider or pharmacist documented (1160F) 1160F 2022-12-12 No Data Available No Data Rox ilable Functional Status Assessed (1170F) 1170F 2022-12-12 No Data Available No Data Avail able Pain Assessment - NO pain present (1126F) 1126F 2022-12-12 No Data Available No Data A vailable Advance Care Directive Advance care planning discussion documented in the medical record (1158F) 1158F 2022-12-12 No Data Available No Data Availa ble BMI obtained (3008F) 3008F 2022-12-12 No Data Availab le No Data Available Advance care planning discussed and documented ? advance care plan or surrogate decision-maker was documented in the medical record. (1123F) 1123F 2022-12-12 No Data Available No Data Availa ble No Data Available [id number] 2023-01-02 No Data Available No Data Available SBP >= 140 3077F 2023-01-02 No Data Available No Data Available DBP >=90 3080F 2023-01-02 No Data Available No Data Available No Data Available [id number] 2023-01-04 No Data Available No Data Available Functional Status Assessed (1170F) 1170F 2023-01-04 No Data Available No Data Avail able Pain Assessment - NO pain present (1126F) 1126F 2023-01-04 No Data Available No Data A vailable SBP 130-139 (3075F) 3075F 2023-01-04 No Data Availabl e No Data Available DBP >=90 3080F 2023-01-04 No Data Available No Data Available Advance Care Directive Advance care planning discussion documented in the medical record (1158F) 1158F 2023-01-04 No Data Available No Data Availa ble No Data Available [id number] 2023-01-15 No Data Available No Data Available Medication List Documented (1159F) 1159F 2023-01-15 No Data Available No Data Rox ilable Pain Assessment - NO pain present (1126F) 1126F 2023-01-15 No Data Available No Data A vailable No Data Available [id number] 2023-01-18 No Data Available No Data Available SBP < 130 (3074F) 3074F 2023-01-18 No Data Available No Data Available DBP 80-89 (3079F) 3079F 2023-01-18 No Data Available No Data Available Functional Status Assessed (1170F) 1170F 2023-01-18 No Data Available No Data Avail able Pain Assessment - NO pain present (1126F) 1126F 2023-01-18 No Data Available No Data A vailable Medication List Documented (1159F) 1159F 2023-01-18 No Data Available No Data Rox ilable Advance Care Directive Advance care planning discussion documented in the medical record (1158F) 1158F 2023-01-18 No Data Available No Data Availa ble No Data Available 2023-04-17 No Data Available No Data Available No Data Available 2023-04-19 No Data Available No Data Available Medication List Documented (1159F) 1159F 2023-04-19 No Data Available No Data Rox ilable Pain Assessment - NO pain present (1126F) 1126F 2023-04-19 No Data Available No Data A vailable No Data Available 2023-05-02 No Data Available No Data Available No Data Available 2023-05-07 No Data Available No Data Available Medication List Documented (1159F) 1159F 2023-05-07 No Data Available No Data Rox ilable Functional Status Assessed (1170F) 1170F 2023-05-07 No Data Available No Data Avail able Advance Care Directive Advance care planning discussion documented in the medical record (1158F) 1158F 2023-05-07 No Data Available No Data Availa ble No Data Available 2023-06-18 No Data Available No Data Available No Data Available 2023-06-19 No Data Available No Data Available Medication List Documented (1159F) 1159F 2023-06-19 No Data Available No Data Rxo ilable Functional Status Assessed (1170F) 1170F 2023-06-19 No Data Available No Data Avail able Pain Assessment - NO pain present (1126F) 1126F 2023-06-19 No Data Available No Data A vailable Advance Care Directive Advance care planning discussion documented in the medical record (1158F) 1158F 2023-06-19 No Data Available No Data Availa ble Estab. patient 30-39min; chronic exacerbation, 2 stable chronic or 1 acute illness add add modifier 95 for video, (do not use for phone, instead use [id number]) 36480 2023-09-02 No Data Available No Data Availa ble Functional Status Assessed (1170F) 1170F 2023-09-02 No Data Available No Data Avail able Medication List Documented (1159F) 1159F 2023-09-02 No Data Available No Data Rox ilable Medication Review by prescribing provider or pharmacist documented (1160F) 1160F 2023-09-02 No Data Available No Data Rox ilable BMI obtained (3008F) 3008F 2023-09-02 No Data Availab le No Data Available Advance Care Directive Advance care planning discussion documented in the medical record (1158F) 1158F 2023-09-02 No Data Available No Data Availa ble SBP >= 140 3077F 2023-09-02 No Data Available No Data Available DBP >=90 3080F 2023-09-02 No Data Available No Data Available No Data Available [id number] 2023-09-04 No Data Available No Data Available Medication List Documented (1159F) 1159F 2023-09-04 No Data Available No Data Rox ilable SBP >= 140 3077F 2023-09-04 No Data Available No Data Available DBP >=90 3080F 2023-09-04 No Data Available No Data Available No Data Available [id number] 2023-09-09 No Data Available No Data Available Medication List Documented (1159F) 1159F 2023-09-09 No Data Available No Data Rox ilable SBP >= 140 3077F 2023-09-09 No Data Available No Data Available DBP >=90 3080F 2023-09-09 No Data Available No Data Available Advance Care Directive Advance care planning discussion documented in the medical record (1158F) 1158F 2023-09-09 No Data Available No Data Availa ble Functional Status Assessed (1170F) 1170F 2023-09-09 No Data Available No Data Avail able Pain Assessment - NO pain present (1126F) 1126F 2023-09-09 No Data Available No Data A vailable Advance care planning discussed and documented ? advance care plan or surrogate decision-maker was documented in the medical record. (1123F) 1123F 2023-09-09 No Data Available No Data Availa ble No Data Available [id number] 2023-10-03 No Data Available No Data Available SBP 130-139 (3075F) 3075F 2023-10-03 No Data Availabl e No Data Available DBP 80-89 (3079F) 3079F 2023-10-03 No Data Available No Data Available Pain Assessment - NO pain present (1126F) 1126F 2023-10-03 No Data Available No Data A vailable Medication List Documented (1159F) 1159F 2023-10-03 No Data Available No Data Rox ilable Functional Status Assessed (1170F) 1170F 2023-10-03 No Data Available No Data Avail able No Data Available 2023-10-08 No Data Available No Data Available No Data Available 2023-10-11 No Data Available No Data Available Medication List Documented (1159F) 1159F 2023-10-11 No Data Available No Data Rox ilable No Data Available 2023-10-30 No Data Available No Data Available SBP 130-139 (3075F) 3075F 2023-10-30 No Data Availabl e No Data Available DBP 80-89 (3079F) 3079F 2023-10-30 No Data Available No Data Available Pain Assessment - Pain Documented on a Pain Scale (1125F) 1125F 2023-10-30 No Data Available No Data Rox ilable Medication List Documented (1159F) 1159F 2023-10-30 No Data Available No Data Rox ilable Functional Status Assessed (1170F) 1170F 2023-10-30 No Data Available No Data Avail able No Data Available 2023-11-13 No Data Available No Data Available No Data Available 2023-11-18 No Data Available No Data Available Pain Assessment - Pain Documented on a Pain Scale (1125F) 1125F 2023-11-18 No Data Available No Data Rox ilable Functional Status Assessed (1170F) 1170F 2023-11-18 No Data Available No Data Avail able Medication List Documented (1159F) 1159F 2023-11-18 No Data Available No Data Rox ilable SBP < 130 (3074F) 3074F 2023-11-18 No Data Available No Data Available DBP <80 (3078F) 3078F 2023-11-18 No Data Available No Data Available No Data Available [id number] 2024-05-08 No Data Available No Data Available Medication List Documented (1159F) 1159F 2024-05-08 No Data Available No Data Rox ilable SBP < 130 (3074F) 3074F 2024-05-08 No Data Available No Data Available DBP 80-89 (3079F) 3079F 2024-05-08 No Data Available No Data Available No Data Available [id number] 2024-05-12 No Data Available No Data Available SBP < 130 (3074F) 3074F 2024-05-12 No Data Available No Data Available DBP 80-89 (3079F) 3079F 2024-05-12 No Data Available No Data Available Medication List Documented (1159F) 1159F 2024-05-12 No Data Available No Data Rox ilable No Data Available [id number] 2024-07-12 No Data Available No Data Available SBP >= 140 3077F 2024-07-12 No Data Available No Data Available DBP >=90 3080F 2024-07-12 No Data Available No Data Available Estab. patient 10-29min; 1 minor problem; add add modifier 95 for video, modifier 93 for phone [id number] 2024-09-04 No Data Available No Data Availa ble Medication List Documented (1159F) 1159F 2024-09-04 No Data Available No Data Rox ilable Functional Status Assessed (1170F) 1170F 2024-09-04 No Data Available No Data Avail able Pain Assessment - NO pain present (1126F) 1126F 2024-09-04 No Data Available No Data A vailable Estab. patient 20-29min; 1 stable chronic or 2 minor; add add modifier 95 for video, modifier 93 for phone [id number] 2024-09-08 No Data Available No Data Availa ble Medication List Documented (1159F) 1159F 2024-09-08 No Data Available No Data Rox ilable Medication Review by prescribing provider or pharmacist documented (1160F) 1160F 2024-09-08 No Data Available No Data Rox ilable Functional Status Assessed (1170F) 1170F 2024-09-08 No Data Available No Data Avail able Advance Care Directive Advance care planning discussion documented in the medical record (1158F) 1158F 2024-09-08 No Data Available No Data Availa ble Advance care planning discussed and documented ? advance care plan or surrogate decision-maker was documented in the medical record. (1123F) 1123F 2024-09-08 No Data Available No Data Availa ble Pain Assessment - NO pain present (1126F) 1126F 2024-09-08 No Data Available No Data A vailable SBP 130-139 (3075F) 3075F 2024-09-08 No Data Availabl e No Data Available DBP 80-89 (3079F) 3079F 2024-09-08 No Data Available No Data Available Estab. patient 10-29min; 1 minor problem; add add modifier 95 for video, modifier 93 for phone [id number] 2024-09-17 No Data Available No Data Availa ble Pain Assessment - Pain Documented on a Pain Scale (1125F) 1125F 2024-09-17 No Data Available No Data Rox ilable Medication List Documented (1159F) 1159F 2024-09-17 No Data Available No Data Rox ilable Estab. patient 10-29min; 1 minor problem; add add modifier 95 for video, modifier 93 for phone [id number] 2024-09-21 No Data Available No Data Availa ble Medication List Documented (1159F) 1159F 2024-09-21 No Data Available No Data Rox ilable Estab. patient 10-29min; 1 minor problem; add add modifier 95 for video, modifier 93 for phone [id number] 2024-09-24 No Data Available No Data Availa ble Medication List Documented (1159F) 1159F 2024-09-24 No Data Available No Data Rox ilable Functional Status Functional Category Effective Dates ADL: Bathing Needs Assistanc e , Dressing Independent , Eating Independent , Ambulation Needs Assistance , Transferring Needs Assistance and Toileting Needs Assistance 2022-12-12 IADL: Medication Needs Chana tance , Meal Prep Needs Assistance , Shopping Needs Assistance , Driving or Public Transport Needs Assistance , Housework Needs Assistance and Finances Independent 2022-12-12 Falls in last 6 Months: No 2022-12-12 Social Supports - # of Inter actions with Friends/Family in a typical week: Daily 2022-12-12 Uses shower chair 2023-09-02 Uses cane at times 2023-09-02 Mental Status Status Date Cognition Status: Oriented to Person, Pl kathia and Time 2022-12-12 Forgetful often 2023-09-02 Assessments Date of Service Assessments 2022-12-12 13:25:57 Buprenorphine depend enceChronic pulmonary embolismCOPD (chronic obstructive pulmonary disease) with chronic bronchitisInterstitial pulmonary disease, unspecifiedEssential hypertensionGAD (generalized anxiety disorder)GERD (gastroesophageal reflux disease) 2023-01-02 07:08:58 Follow up plan for a cute symptoms: 01/04/23 f/u with APPUTI (urinary tract infection)Entropion of both lower eyelidsEssential hypertension 2023-01-04 07:43:49 Buprenorphine depend enceTaking Buprenorphine routinely with refills obtained. Will need to slowly wean to avoid withdrawal symptoms.Chronic pulmonary embolismEliquis Continue to follow up with Pulmonology and PCP. Mild bleeding gum here and thereCOPD (chronic obstructive pulmonary disease) with chronic bronchitisAlbuterol Inhaler, Fluticasone, Ipratropium-Albuterol via Nebulizer, Symbicort, Theophylline, SpirivaFormer Smoker Avoid allergens and triggersContinue to follow up with Pulmonology and PCP. Contingency plan:1. Start antibiotic(Azithromycin, doxycycline, or levaquin), prednisone 40 mg *5 days 2. Increase Neb treatments/MDI use to q4h x3 days3. ??Call CB at the first sign of SOB or increased cough and sputum production. ??4. Schedule f/u with primary RESEARCH FELLOW in 1-2 days.??Interstitial pulmonary disease, unspecifiedAlbuterol Inhaler, Fluticasone, Ipratropium-Albuterol via Nebulizer, Symbicort, Theophylline, Spiriva Former Smoker Avoid allergens and triggersContinue to follow up with Pulmonology and PCP.Essential hypertensionLisinopril Recommend low sodium diet. Followed by PCP. 01/02/23 - b/p 157/103 this AM. Is taking lisinopril. Denies any dizziness, confusion, blurry vision, h/a. States has not been sleeping well, very anxious - d/t UTI. Discussed monitoring sodium intake, drink water and increase activity. f/u 01/04/23 with DOMENICO.01/04/23 BP 135/100, not at goal. On lisinopril 40 mg daily. Has been running in this range for 1-2 months. SBP 135-160, DBP over 100 Open to add amlodipine 2.5 mg to regimen, FU in two weeks, want to add today, PCP doesn't call me back ROSANNA (generalized anxiety disorder)Hydroxyzine Continue to follow up with PCP. StableGERD (gastroesophageal reflux disease)Omeprazole Avoid spicy, greasy, fried, fatty foods. Continue to follow up with PCP.UTI (urinary tract infection)Urine smells, pain/pressure when urinating with urination, frequent small amts of urine x 1 month. Drinking water and cranberry juiceWill start nitrofurantoin and pyridium.Wipe front to backFrequent urination and increase water intake. Continue cranberry juiceVoid after sex.No CVA tenderness, nausea but did not start till today (might be something I ate). No chills, no fever, no blood in urine, some lower abd pressure, but no buring, no retention, continue to push fluidsEntropion of both lower eyelidsWears tape on lower lids, otherwise eyelashes poke into eyeballs. Needs referral - having trouble finding someone who is in network and taking new pts.Referred to the oculoplastic surgeon. 2023-01-15 09:01:07 Follow up plan for a cute symptoms:UTI (urinary tract infection) 2023-01-18 08:22:37 Buprenorphine depend enceTaking Buprenorphine routinely with refills obtained. Will need to slowly wean to avoid withdrawal symptoms.Chronic pulmonary embolismEliquis Continue to follow up with Pulmonology and PCP. Mild bleeding gum here and thereCOPD (chronic obstructive pulmonary disease) with chronic bronchitisAlbuterol Inhaler, Fluticasone, Ipratropium-Albuterol via Nebulizer, Symbicort, Theophylline, SpirivaFormer Smoker Avoid allergens and triggersContinue to follow up with Pulmonology and PCP. Contingency plan:1. Start antibiotic(Azithromycin, doxycycline, or levaquin), prednisone 40 mg *5 days 2. Increase Neb treatments/MDI use to q4h x3 days3. ??Call CB at the first sign of SOB or increased cough and sputum production. ??4. Schedule f/u with primary RESEARCH FELLOW in 1-2 days.??Recently seen pulmo.Interstitial pulmonary disease, unspecifiedAlbuterol Inhaler, Fluticasone, Ipratropium-Albuterol via Nebulizer, Symbicort, Theophylline, Spiriva Former Smoker Avoid allergens and triggersContinue to follow up with Pulmonology and PCP.Contingency plan:1. Start antibiotic(Azithromycin, doxycycline, or levaquin) Prednisone 40 mg daily for 5 days 2. Increase Neb treatments/MDI use to q4h x3 days3. ??Call CB at the first sign of SOB or increased cough and sputum production. ??4. Schedule f/u with primary RESEARCH FELLOW in 1-2 days.??Essential hypertensionLisinopril Recommend low sodium diet. Followed by PCP. 01/02/23 - b/p 157/103 this AM. Is taking lisinopril. Denies any dizziness, confusion, blurry vision, h/a. States has not been sleeping well, very anxious - d/t UTI. Discussed monitoring sodium intake, drink water and increase activity. f/u 01/04/23 with DOMENICO.01/04/23 BP 135/100, not at goal. On lisinopril 40 mg daily. Has been running in this range for 1-2 months. SBP 135-160, DBP over 100 Open to add amlodipine 2.5 mg to regimen, FU in two weeks, want to add today, PCP doesn't call me back 01/18/23 very happy with BP control after added amlodipine 2.5 mg. 122/85 stable. Refill, please inform PCP with change.ROSANNA (generalized anxiety disorder)Hydroxyzine Continue to follow up with PCP. StableGERD (gastroesophageal reflux disease)Omeprazole Avoid spicy, greasy, fried, fatty foods. Continue to follow up with PCP.UTI (urinary tract infection)start bactrim and be sure to complete entire coursepyridium prnWipe front to backFrequent urination and increase water intake. Continue cranberry juiceVoid after sex.01/18/23 improved, still lower abd pressure, no pain. No nausea, no vomiting, no fever or chills. No CVA tenderness. Push fluidsEntropion of both lower eyelidsWears tape on lower lids, otherwise eyelashes poke into eyeballs. Needs referral - having trouble finding someone who is in network and taking new pts.Referred to the oculoplastic surgeon. [facility]. [phone], faxed and accept new patients, they called they are also out of network. Will continue to try. 2023-04-17 09:54:25 Follow up plan for a cute symptoms:Acute bacterial bronchitis 2023-04-19 11:20:39 Interstitial pulmona ry disease, unspecifiedAlbuterol Inhaler, Ipratropium-Albuterol via Nebulizer, Symbicort, Theophylline, Spiriva Former Smoker Avoid allergens and triggersContinue to follow up with Pulmonology and PCP.Contingency plan:1. Start antibiotic(Azithromycin, doxycycline, or levaquin) Prednisone 40 mg daily for 5 days 2. Increase Neb treatments/MDI use to q4h x3 days3. ??Call CB at the first sign of SOB or increased cough and sputum production. ??4. Schedule f/u with primary RESEARCH FELLOW in 1-2 days.??Nasal discharge, PND, drips in treachea. Please use nasal rinse, fiber picker Dymista. Continue with mucinex, humidifier. Call us anytime if does not continue to improve. Refilled duo neb. 2023-05-02 08:11:53 Follow up plan for a cute symptoms: 05/07/23 with APPCOPD (chronic obstructive pulmonary disease) with chronic bronchitis 2023-05-07 09:39:55 Buprenorphine depend enceTaking Buprenorphine routinely with refills obtained. Will need to slowly wean to avoid withdrawal symptoms.Chronic pulmonary embolismEliquis Continue to follow up with Pulmonology and PCP. Mild bleeding gum here and thereCOPD (chronic obstructive pulmonary disease) with chronic bronchitisAlbuterol Inhaler, Fluticasone, Ipratropium-Albuterol via Nebulizer, Symbicort, Theophylline, SpirivaFormer Smoker Avoid allergens and triggersContinue to follow up with Pulmonology and PCP. Contingency plan:1. Start antibiotic(Azithromycin, doxycycline, or levaquin), prednisone 40 mg *5 days 2. Increase Neb treatments/MDI use to q4h x3 days3. ??Call CB at the first sign of SOB or increased cough and sputum production. ??4. Schedule f/u with primary RESEARCH FELLOW in 1-2 days.??Recently seen pulmo. 04/19/23 COPD exacerbation was treated on 04/17/23 with augmentin and prednisone. Feeling much better today, no fever, no chills, breathing much better. No wheezing, no SOB, still have some effort when breathing. 05/02/23: Cough/wheeze. States she felt better when she last spoke with DOMENICO but then got worse the next day and has not improved. Will start doxycycline BID, prednisone taper, increase nebs to 4 times daily (only doing BID). F/U with DOMENICO 05/07/23.05/07/23 no cough, no wheezing, no SOB. felt much better, O2 on room air 95%. Neb twice daily. Finishing doxycycline. Samson back to normal Interstitial pulmonary disease, unspecifiedAlbuterol Inhaler, Ipratropium-Albuterol via Nebulizer, Symbicort, Theophylline, Spiriva Former Smoker Avoid allergens and triggersContinue to follow up with Pulmonology and PCP.Essential hypertensionLisinopril Recommend low sodium diet. Followed by PCP. 01/02/23 - b/p 157/103 this AM. Is taking lisinopril. Denies any dizziness, confusion, blurry vision, h/a. States has not been sleeping well, very anxious - d/t UTI. Discussed monitoring sodium intake, drink water and increase activity. f/u 01/04/23 with DOMENICO.01/04/23 BP 135/100, not at goal. On lisinopril 40 mg daily. Has been running in this range for 1-2 months. SBP 135-160, DBP over 100 Open to add amlodipine 2.5 mg to regimen, FU in two weeks, want to add today, PCP doesn't call me back 01/18/23 very happy with BP control after added amlodipine 2.5 mg. 122/85 stable. Refill, please inform PCP with change. 05/07/23 BP slightly elevated to 150s, on oral steroid.ROSANNA (generalized anxiety disorder)Hydroxyzine Continue to follow up with PCP. StableGERD (gastroesophageal reflux disease)Omeprazole Avoid spicy, greasy, fried, fatty foods. Continue to follow up with PCP.Entropion of both lower eyelidsWears tape on lower lids, otherwise eyelashes poke into eyeballs. Needs referral - having trouble finding someone who is in network and taking new pts.Referred to the oculoplastic surgeon. [facility]. [phone], faxed and accept new patients, they called they are also out of network. Will continue to try.Acute bacterial bronchitis04/17/23:- Cont. with Nebulizer q2-3h PRN - Promethazine-DM cough syrup PRN- Extend Augmentin x5 more days. - Prednisone 50mg burst x5d- Follow up scheduled Saturday afternoon with primary DOMENICO. 2023-06-18 09:13:03 Follow up plan for a cute symptoms:COPD (chronic obstructive pulmonary disease) with chronic bronchitisAllergies 2023-06-19 06:16:30 COPD (chronic obstru ctive pulmonary disease) with chronic bronchitisAllergiescontinue plan of care for chronic disease monitoring and managementpt has maintenance and prn plan of carecontinue conservative measures- avoid irritantsfollow up with PCP, pulm as indicated/instructed hx: 04/17/23:- Cont. with Nebulizer q2-3h PRN - Promethazine-DM cough syrup PRN- Extend Augmentin x5 more days. - Prednisone 50mg burst x5d- Follow up scheduled Saturday afternoon with primary DOMENICO.Albuterol Inhaler, Fluticasone, Ipratropium-Albuterol via Nebulizer, Symbicort, Theophylline, SpirivaFormer Smoker Avoid allergens and triggersContinue to follow up with Pulmonology and PCP. Contingency plan:1. Start antibiotic(Azithromycin, doxycycline, or levaquin), prednisone 40 mg *5 days 2. Increase Neb treatments/MDI use to q4h x3 days3. ??Call CB at the first sign of SOB or increased cough and sputum production. ??4. Schedule f/u with primary RESEARCH FELLOW in 1-2 days.??Recently seen pulmo. 04/19/23 COPD exacerbation was treated on 04/17/23 with augmentin and prednisone. Feeling much better today, no fever, no chills, breathing much better. No wheezing, no SOB, still have some effort when breathing. 05/02/23: Cough/wheeze. States she felt better when she last spoke with DOMENICO but then got worse the next day and has not improved. Will start doxycycline BID, prednisone taper, and increase nebs to 4 times daily (only doing BID). 05/07/23 no cough, no wheezing, no SOB. felt much better, O2 on room air 95%. Neb twice daily. Finishing doxycycline. Samson back to normal 06/19/23 productive cough with thick yellow sputum, headache, runny nose, post nasal drip, sore throat, SOB. O2 sat 94-95%. Baseline, taking doxy and medro dosepak. Take with food to decrease chance to upset stomach. call anytime please if fail to continue to improve.Acute bacterial xxhojjjpav82/29/23:- Cont. with Nebulizer q2-3h PRN - Promethazine-DM cough syrup PRN- Prednisone - 2023-09-02 13:20:49 Buprenorphine depend enceChronic pulmonary embolismCOPD (chronic obstructive pulmonary disease) with chronic bronchitisAllergiesInterstitial pulmonary disease, unspecifiedEssential hypertensionGAD (generalized anxiety disorder)GERD (gastroesophageal reflux disease)Entropion of both lower eyelids 2023-09-04 13:35:46 Essential hypertensi onLisinopril and amlodipine. Recommend low sodium diet. Followed by PCP. 01/02/23 - b/p 157/103 this AM. Is taking lisinopril. Denies any dizziness, confusion, blurry vision, h/a. States has not been sleeping well, very anxious - d/t UTI. Discussed monitoring sodium intake, drink water and increase activity. f/u 01/04/23 with DOMENICO.01/04/23 BP 135/100, not at goal. On lisinopril 40 mg daily. Has been running in this range for 1-2 months. SBP 135-160, DBP over 100 Open to add amlodipine 2.5 mg to regimen, FU in two weeks, want to add today, PCP doesn't call me back 01/18/23 very happy with BP control after added amlodipine 2.5 mg. 122/85 stable. Refill, please inform PCP with change. 05/07/23 BP slightly elevated to 150s, on oral steroid. 09/02/23BP remains elevated. Was started on Amlodipine 2.5mg, advised to take an additional dose today as BP is 163/116 during [facility]. Recheck in 1 hour. Educated on symptoms to monitor for such as dizziness, headache, blurred vision, chest pain. Patient denies current symptoms. Reports has been very elevated over the past several weeks. Awaiting a return call from PCP for appt. 09/04/23 seeing PCP in two days, BP 160/100s, sometimes to 110, no headache, no dizziness, no facial flashing. Lisinopril 40 mg daily and amlodipine 2.5 mg daily. Can take lisinopril in pm, amlodipine am. Can increase amlodipine to 5 mg daily, member wish to wait till see PCP. FU appointment made on Saturday, bring BP cuff to PCP and see if accurate, if accurate, and PCP did not increase medication, will increase amlodipine to 5 mg daily ContingencyIf BP over 160/90, headache, facial flashing, can take amlodipine 2.5 mg now, retake in one hour. Call CB for any concerns.Other problems related to medical facilities and other health care.When member to call: 1. If bp is elevated sbp>150; dbp>90 or symptomatic-h/a, dizziness, cp, sob. 2. if there is a fall 3. if BS >300 or BS<90 or symptomatic; i.e., dizzy, off balance , shaky, general weakness. 4. if UTI symptoms arise-urinary frequency, dysuria, low abd pain. 5. if pain in knees increases/ or joint pain increased Please [facility]. [facility] with [facility] as needed for any acute or disease education needs that may arise 11/02.what should be done when the member calls: see each individual diagnosis for contingency plan 2023-09-09 14:31:48 Buprenorphine depend enceTaking Buprenorphine routinely with refills obtained. Will need to slowly wean to avoid withdrawal symptoms.Chronic pulmonary embolismEliquis Continue to follow up with Pulmonology and PCP. Mild bleeding gum here and thereCOPD (chronic obstructive pulmonary disease) with chronic bronchitisAllergiescontinue plan of care for chronic disease monitoring and managementpt has maintenance and prn plan of carecontinue conservative measures- avoid irritantsfollow up with PCP, pulm as indicated/instructed hx: 04/17/23:- Cont. with Nebulizer q2-3h PRN - Promethazine-DM cough syrup PRN- Extend Augmentin x5 more days. - Prednisone 50mg burst x5d- Follow up scheduled Saturday afternoon with primary DOMENICO.Albuterol Inhaler, Fluticasone, Ipratropium-Albuterol via Nebulizer, Symbicort, Theophylline, SpirivaFormer Smoker Avoid allergens and triggersContinue to follow up with Pulmonology and PCP. Contingency plan:1. Start antibiotic(Azithromycin, doxycycline, or levaquin), prednisone 40 mg *5 days 2. Increase Neb treatments/MDI use to q4h x3 days3. ??Call CB at the first sign of SOB or increased cough and sputum production. ??4. Schedule f/u with primary RESEARCH FELLOW in 1-2 days.??Recently seen pulmo. 04/19/23 COPD exacerbation was treated on 04/17/23 with augmentin and prednisone. Feeling much better today, no fever, no chills, breathing much better. No wheezing, no SOB, still have some effort when breathing. 05/02/23: Cough/wheeze. States she felt better when she last spoke with DOMENICO but then got worse the next day and has not improved. Will start doxycycline BID, prednisone taper, and increase nebs to 4 times daily (only doing BID). 05/07/23 no cough, no wheezing, no SOB. felt much better, O2 on room air 95%. Neb twice daily. Finishing doxycycline. Samson back to normal 06/19/23 productive cough with thick yellow sputum, headache, runny nose, post nasal drip, sore throat, SOB. O2 sat 94-95%. Baseline, taking doxy and medro dosepak. Take with food to decrease chance to upset stomach. call anytime please if fail to continue to improve.09/19/23 resolvedInterstitial pulmonary disease, unspecifiedAlbuterol Inhaler, Ipratropium-Albuterol via Nebulizer, Symbicort, Theophylline, Spiriva Former Smoker Avoid allergens and triggersContinue to follow up with Pulmonology and PCP.Essential hypertensionLisinopril and amlodipine. Recommend low sodium diet. Followed by PCP. 01/02/23 - b/p 157/103 this AM. Is taking lisinopril. Denies any dizziness, confusion, blurry vision, h/a. States has not been sleeping well, very anxious - d/t UTI. Discussed monitoring sodium intake, drink water and increase activity. f/u 01/04/23 with DOMENICO.01/04/23 BP 135/100, not at goal. On lisinopril 40 mg daily. Has been running in this range for 1-2 months. SBP 135-160, DBP over 100 Open to add amlodipine 2.5 mg to regimen, FU in two weeks, want to add today, PCP doesn't call me back 01/18/23 very happy with BP control after added amlodipine 2.5 mg. 122/85 stable. Refill, please inform PCP with change. 05/07/23 BP slightly elevated to 150s, on oral steroid. 09/02/23BP remains elevated. Was started on Amlodipine 2.5mg, advised to take an additional dose today as BP is 163/116 during [facility]. Recheck in 1 hour. Educated on symptoms to monitor for such as dizziness, headache, blurred vision, chest pain. Patient denies current symptoms. Reports has been very elevated over the past several weeks. Awaiting a return call from PCP for appt. 09/04/23 seeing PCP in two days, BP 160/100s, sometimes to 110, no headache, no dizziness, no facial flashing. Lisinopril 40 mg daily and amlodipine 2.5 mg daily. Can take lisinopril in pm, amlodipine am. Can increase amlodipine to 5 mg daily, member wish to wait till see PCP. FU appointment made on Saturday, bring BP cuff to PCP and see if accurate, if accurate, and PCP did not increase medication, will increase amlodipine to 5 mg daily 09/09/23 tracked BP for 5 days, still at 155/90, increase amlodipine to 5 mg daily, sent. FU in a month. ContingencyIf BP over 160/90, headache, facial flashing, can take amlodipine 2.5 mg now, retake in one hour. Call CB for any concerns.ROSANNA (generalized anxiety disorder)Hydroxyzine Continue to follow up with PCP. StableGERD (gastroesophageal reflux disease)Omeprazole Avoid spicy, greasy, fried, fatty foods. Continue to follow up with PCP.Entropion of both lower eyelidsWears tape on lower lids, otherwise eyelashes poke into eyeballs. Needs referral - having trouble finding someone who is in network and taking new pts.Referred to the oculoplastic surgeon. [facility]. [phone], faxed and accept new patients, they called they are also out of network. Will continue to try.Other problems related to medical facilities and other health care.When member to call: 1. If bp is elevated sbp>150; dbp>90 or symptomatic-h/a, dizziness, cp, sob. 2. if there is a fall 3. if BS >300 or BS<90 or symptomatic; i.e., dizzy, off balance , shaky, general weakness. 4. if UTI symptoms arise-urinary frequency, dysuria, low abd pain. 5. if pain in knees increases/ or joint pain increased Please remember to call CBContinue to see PCP. Follow-up with [facility] as needed for any acute or disease education needs that may arise 11/02.what should be done when the member calls: see each individual diagnosis for contingency plan 2023-10-03 11:15:16 Essential hypertensi onLisinopril 40 and amlodipine 5. amlodipine is now 5 mg daily. BP under 140/90, or close to it. much better controlled. ContingencyIf BP over 160/90, headache, facial flashing, can take amlodipine 2.5 mg now, retake in one hour. Call CB for any concerns.Other problems related to medical facilities and other health care.When member to call: 1. If bp is elevated sbp>150; dbp>90 or symptomatic-h/a, dizziness, cp, sob. 2. if there is a fall 3. if BS >300 or BS<90 or symptomatic; i.e., dizzy, off balance , shaky, general weakness. 4. if UTI symptoms arise-urinary frequency, dysuria, low abd pain. 5. if pain in knees increases/ or joint pain increased Please remember to call CBContinue to see PCP. [facility] or disease education needs that may arise 11/02.what should be done when the member calls: see each individual diagnosis for contingency plan 2023-10-08 10:43:06 Follow up plan for andrew cute symptoms:Oral yvette 2023-10-11 07:46:36 Sciatic leg painRx M edrol dose packRefilled cyclobenzaprine 5 mg todayAdvised to take cyclobenzaprine at night only and prednisone during the dayDiscussed stretches to reduce sciatic nerve pain and that symptoms can take a week or longer to improveCall CB back if no improvement or any questions/concerns 2023-10-30 13:39:59 Buprenorphine depend enceTaking Buprenorphine routinely with refills obtained. Will need to slowly wean to avoid withdrawal symptoms.Chronic pulmonary embolismEliquis Continue to follow up with Pulmonology and PCP. Mild bleeding gum here and thereCOPD (chronic obstructive pulmonary disease) with chronic bronchitisAllergiescontinue plan of care for chronic disease monitoring and managementpt has maintenance and prn plan of carecontinue conservative measures- avoid irritantsfollow up with PCP, pulm as indicated/instructed hx: 04/17/23:- Cont. with Nebulizer q2-3h PRN - Promethazine-DM cough syrup PRN- Extend Augmentin x5 more days. - Prednisone 50mg burst x5d- Follow up scheduled Saturday afternoon with primary DOMENICO.Albuterol Inhaler, Fluticasone, Ipratropium-Albuterol via Nebulizer, Symbicort, Theophylline, SpirivaFormer Smoker Avoid allergens and triggersContinue to follow up with Pulmonology and PCP. Contingency plan:1. Start antibiotic(Azithromycin, doxycycline, or levaquin), prednisone 40 mg *5 days 2. Increase Neb treatments/MDI use to q4h x3 days3. ??Call CB at the first sign of SOB or increased cough and sputum production. ??4. Schedule f/u with primary RESEARCH FELLOW in 1-2 days.??Recently seen pulmo. 04/19/23 COPD exacerbation was treated on 04/17/23 with augmentin and prednisone. Feeling much better today, no fever, no chills, breathing much better. No wheezing, no SOB, still have some effort when breathing. 05/02/23: Cough/wheeze. States she felt better when she last spoke with DOMENICO but then got worse the next day and has not improved. Will start doxycycline BID, prednisone taper, and increase nebs to 4 times daily (only doing BID). 05/07/23 no cough, no wheezing, no SOB. felt much better, O2 on room air 95%. Neb twice daily. Finishing doxycycline. Samson back to normal 06/19/23 productive cough with thick yellow sputum, headache, runny nose, post nasal drip, sore throat, SOB. O2 sat 94-95%. Baseline, taking doxy and medro dosepak. Take with food to decrease chance to upset stomach. call anytime please if fail to continue to improve.09/19/23 resolvedInterstitial pulmonary disease, unspecifiedAlbuterol Inhaler, Ipratropium-Albuterol via Nebulizer, Symbicort, Theophylline, Spiriva Former Smoker Avoid allergens and triggersContinue to follow up with Pulmonology and PCP.Essential hypertensionLisinopril and amlodipine. amlodipine is now 5 mg daily. BP under 140/90, much better controlled. ContingencyIf BP over 160/90, headache, facial flashing, can take amlodipine 2.5 mg now, retake in one hour. Call CB for any concerns.ROSANNA (generalized anxiety disorder)Hydroxyzine Continue to follow up with PCP. StableGERD (gastroesophageal reflux disease)Omeprazole Avoid spicy, greasy, fried, fatty foods. Continue to follow up with PCP.Entropion of both lower eyelidsWears tape on lower lids, otherwise eyelashes poke into eyeballs. Needs referral - having trouble finding someone who is in network and taking new pts.Referred to the oculoplastic surgeon. [facility]. [phone], faxed and accept new patients, they called they are also out of network. Will continue to try.Other problems related to medical facilities and other health care.When member to call: 1. If bp is elevated sbp>150; dbp>90 or symptomatic-h/a, dizziness, cp, sob. 2. if there is a fall 3. if BS >300 or BS<90 or symptomatic; i.e., dizzy, off balance , shaky, general weakness. 4. if UTI symptoms arise-urinary frequency, dysuria, low abd pain. 5. if pain in knees increases/ or joint pain increased Please remember to call [facility] to see PCP. Follow-up with [facility] as needed for any acute or disease education needs that may arise 11/02.what should be done when the member calls: see each individual diagnosis for contingency planOral candidaPatient using advair inhaler but was not near a place to rinse her mouth. White coating covering tongue, roof of mouth, and cheeks. PResent x 3 days. Tried to rinse often, but not improving.Ordered Nystatin swish and swallow. Advised on use. Instructed if no symptoms improvement in next 24 hours after starting treatment to contact CB.Sciatic leg pain10/30/23 Pain in LBP, shooting down to left buttock and left thigh. Today 10/29. Improved with medrol dosepak 3rd day of medro dose but not enough improvement. Last medro dosepack in September. No fall, no twisting, no injury. Still has hard time ambulating. Wish to seek alternative. STOP medro, start prednisone 40 mg daily for 5 days. Heat pack. Discussed stretches to reduce sciatic nerve pain and that symptoms can take a week or longer to improveCall CB back if no improvement or any questions/concerns 2023-11-13 07:56:34 COPD exacerbationRx Doxycycline, Benzonatate and Promethazine DM Discussed how to take medicationDiscussed treatment options with patient and the Doxycycline works the best for herContinue nebulizer treatments every 4-6 hours Has f/u appt with PCP 11/15/23f/u with LAWRENCE Rollins 11/18/23Sciatic leg pain10/30/23 Pain in LBP, shooting down to left buttock and left thigh. Today 10/29. Improved with medrol dosepak 3rd day of medro dose but not enough improvement. Last medro dosepack in September. No fall, no twisting, no injury. Still has hard time ambulating. Wish to seek alternative. STOP medro, start prednisone 40 mg daily for 5 days. Heat pack. Discussed stretches to reduce sciatic nerve pain and that symptoms can take a week or longer to improveCall CB back if no improvement or any questions/concerns 11/13/23Rx PrednisoneDiscussed how to take medicationThis dose of prednisone works well for her Has PCP appt 11/15/23 2023-11-18 08:01:17 COPD (chronic obstru ctive pulmonary disease) with chronic bronchitisAllergiescontinue plan of care for chronic disease monitoring and managementpt has maintenance and prn plan of carecontinue conservative measures- avoid irritantsfollow up with PCP, pulm as indicated/instructed hx: 04/17/23:- Cont. with Nebulizer q2-3h PRN - Promethazine-DM cough syrup PRN- Extend Augmentin x5 more days. - Prednisone 50mg burst x5d- Follow up scheduled Saturday afternoon with primary DOMENICO.Albuterol Inhaler, Fluticasone, Ipratropium-Albuterol via Nebulizer, Symbicort, Theophylline, SpirivaFormer Smoker Avoid allergens and triggersContinue to follow up with Pulmonology and PCP. Contingency plan:1. Start antibiotic(Azithromycin, doxycycline, or levaquin), prednisone 40 mg *5 days 2. Increase Neb treatments/MDI use to q4h x3 days3. ??Call CB at the first sign of SOB or increased cough and sputum production. ??4. Schedule f/u with primary RESEARCH FELLOW in 1-2 days.??Recently seen pulmo. 04/19/23 COPD exacerbation was treated on 04/17/23 with augmentin and prednisone. Feeling much better today, no fever, no chills, breathing much better. No wheezing, no SOB, still have some effort when breathing. 05/02/23: Cough/wheeze. States she felt better when she last spoke with DOMENICO but then got worse the next day and has not improved. Will start doxycycline BID, prednisone taper, and increase nebs to 4 times daily (only doing BID). 05/07/23 no cough, no wheezing, no SOB. felt much better, O2 on room air 95%. Neb twice daily. Finishing doxycycline. Samson back to normal 06/19/23 productive cough with thick yellow sputum, headache, runny nose, post nasal drip, sore throat, SOB. O2 sat 94-95%. Baseline, taking doxy and medro dosepak. Take with food to decrease chance to upset stomach. call anytime please if fail to continue to improve.09/19/23 resolved 11/18/23 FU on COPD exacerbation. Finished steroid and doxycycline., feeling much better. Recommended to change Symbicort to treztri or trilogy for better COPD control, stated will make appointment with pulmonology to requestEssential hypertensionLisinopril and amlodipine. amlodipine is now 5 mg daily. BP under 140/90, much better controlled. 11/18/23 129/79Contingency If BP over 160/90, headache, facial flashing, can take amlodipine 2.5 mg now, retake in one hour. Call CB for any concerns.Other problems related to medical facilities and other health care.When member to call: 1. If bp is elevated sbp>150; dbp>90 or symptomatic-h/a, dizziness, cp, sob. 2. if there is a fall 3. if BS >300 or BS<90 or symptomatic; i.e., dizzy, off balance , shaky, general weakness. 4. if UTI symptoms arise-urinary frequency, dysuria, low abd pain. 5. if pain in knees increases/ or joint pain increased Please remember to call [facility] to see PCP. [facility] or disease education needs that may arise 11/02.what should be done when the member calls: see each individual diagnosis for contingency planSciatic leg pain10/30/23 Pain in LBP, shooting down to left buttock and left thigh. Today 10/29. Improved with medrol dosepak 3rd day of medro dose but not enough improvement. Last medro dosepack in September. No fall, no twisting, no injury. Still has hard time ambulating. Wish to seek alternative. STOP medro, start prednisone 40 mg daily for 5 days. Heat pack. Discussed stretches to reduce sciatic nerve pain and that symptoms can take a week or longer to improveCall CB back if no improvement or any questions/concerns 11/13/23Rx PrednisoneDiscussed how to take medicationThis dose of prednisone works well for her Has PCP appt went to PCP on 11/15/23 giving another course of steroid sandhya, has not fiber picker yet, and does not know the dose. Samson that as soon as prednisone is stopped, pain returned. Recommended PT, member stated PCP have ordered it. Pain today in left leg -11/28.COPD exacerbationRx Doxycycline, Benzonatate and Promethazine DM Discussed how to take medicationDiscussed treatment options with patient and the Doxycycline works the best for herContinue nebulizer treatments every 4-6 hours Has f/u appt with PCP 11/15/23f/u with LAWRENCE Rollins Recommended to change Symbicort to treztri or trilogy for better COPD control. member offered to have symbicort changed, stated wish to speak to pulm. Please talk to your blast furnace helper for advice. She had a lot of COPD exacerbations in the past year 2024-05-08 12:56:13 Follow up plan for a cute symptoms:COPD exacerbation 2024-05-12 08:56:03 COPD (chronic obstru ctive pulmonary disease) with chronic bronchitisAllergiescontinue plan of care for chronic disease monitoring and managementpt has maintenance and prn plan of carecontinue conservative measures- avoid irritantsfollow up with PCP, pulm as indicated/instructed hx: 04/17/23:- Cont. with Nebulizer q2-3h PRN - Promethazine-DM cough syrup PRN- Extend Augmentin x5 more days. - Prednisone 50mg burst x5d- Follow up scheduled Saturday afternoon with primary DOMENICO.Albuterol Inhaler, Fluticasone, Ipratropium-Albuterol via Nebulizer, Symbicort, Theophylline, SpirivaFormer Smoker Avoid allergens and triggersContinue to follow up with Pulmonology and PCP. Contingency plan:1. Start antibiotic(Azithromycin, doxycycline, or levaquin), prednisone 40 mg *5 days 2. Increase Neb treatments/MDI use to q4h x3 days3. ??Call CB at the first sign of SOB or increased cough and sputum production. ??4. Schedule f/u with primary RESEARCH FELLOW in 1-2 days.??Recently seen pulmo. 04/19/23 COPD exacerbation was treated on 04/17/23 with augmentin and prednisone. Feeling much better today, no fever, no chills, breathing much better. No wheezing, no SOB, still have some effort when breathing. 05/02/23: Cough/wheeze. States she felt better when she last spoke with DOMENICO but then got worse the next day and has not improved. Will start doxycycline BID, prednisone taper, and increase nebs to 4 times daily (only doing BID). 05/07/23 no cough, no wheezing, no SOB. felt much better, O2 on room air 95%. Neb twice daily. Finishing doxycycline. Samson back to normal 06/19/23 productive cough with thick yellow sputum, headache, runny nose, post nasal drip, sore throat, SOB. O2 sat 94-95%. Baseline, taking doxy and medro dosepak. Take with food to decrease chance to upset stomach. call anytime please if fail to continue to improve.09/19/23 resolved 11/18/23 FU on COPD exacerbation. Finished steroid and doxycycline., feeling much better. Recommended to change Symbicort to treztri or trilogy for better COPD control, stated will make appointment with pulmonology to [id number]/22/24 Taking all these RxNew predniSONE 20 mg Tab Take 1 tablet twice daily New levoFLOXacin 500 mg Tab 1 tablet orally daily [id number] Ipratropium-Albuterol 0.5-2.5 (3) MG/3ML Solution Inhalation USE 1 VIAL VIA NEBULIZER 4 TIMES A DAYNew Mucinex 600 mg Tab ER 12hr 1 tablets orally every 12 hours as needed Doing well. No cough, no SOB, no wheezing, able to sleep, no sinus drainage, no chills or fever.Essential hypertensionLisinopril and amlodipine. amlodipine is now 5 mg daily. BP under 140/90, much better controlled. stableContingency If BP over 160/90, headache, facial flashing, can take amlodipine 2.5 mg now, retake in one hour. Call CB for any concerns.Other problems related to medical facilities and other health care.When member to call: 1. If bp is elevated sbp>150; dbp>90 or symptomatic-h/a, dizziness, cp, sob. 2. if there is a fall 3. if BS >300 or BS<90 or symptomatic; i.e., dizzy, off balance , shaky, general weakness. 4. if UTI symptoms arise-urinary frequency, dysuria, low abd pain. 5. if pain in knees increases/ or joint pain increased Please remember to call CBContinue to see PCP. Follow-up with [facility] as needed for any acute or disease education needs that may arise 11/02.what should be done when the member calls: see each individual diagnosis for contingency plan 2024-07-12 08:06:06 COPD exacerbation 2024-09-04 12:33:48 Follow up plan for a cute symptoms:COPD (chronic obstructive pulmonary disease) with chronic bronchitisAllergies 2024-09-08 10:26:28 Other problems relat ed to medical facilities and other health care<Add contingency plans here>Buprenorphine useTaking Buprenorphine routinely with refills obtained. Will need to slowly wean to avoid withdrawal symptoms.Chronic pulmonary embolismEliquis Continue to follow up with Pulmonology and PCP. Mild bleeding gum here and thereInterstitial pulmonary disease, unspecifiedAlbuterol Inhaler, Ipratropium-Albuterol via Nebulizer, Symbicort, Theophylline, Spiriva Former Smoker Avoid allergens and triggersContinue to follow up with Pulmonology and PCP.COPD (chronic obstructive pulmonary disease) with chronic bronchitisAllergiesIpratropium-Albuterol 0.5-2.5 (3) MG/3ML Solution Inhalation sig: USE 1 VIAL VIA NEBULIZER 4 TIMES A DAYTheophylline ER 600 mg Tab ER 24hr sig: TAKE 1 TABLET BY MOUTH EVERY DAY FOR 30 DAYSTrelegy Ellipta 200-62.5-25 MCG/ACT Aerosol Powder Breath Activated sig: INHALE 1 PUFF DAILYMontelukast Sodium 10 mg Tab sig: TAKE 1 TABLET BY MOUTH DAILY IN EVENINGSpiriva, refilled Contingency plan:1. Start antibiotic(Azithromycin, doxycycline, or levaquin), prednisone 40 mg *5 days 2. Increase Neb treatments/MDI use to q4h x3 days3. ??Call CB at the first sign of SOB or increased cough and sputum production. ??4. Schedule f/u with primary RESEARCH FELLOW in 1-2 days.??09/04/24-patient seen for acute visit. She reports a pounding headache, chest congestion, nasal congestion, fatigue, sore throat, Productive cough with yellow mucous. Member states body is aching all over. Has nausea a couple of days ago. Denies diarrhea. Member has had the chills. Feels weak. She reports recent sick contact when her daughter and gd came over to check on her. Patient to increase fluid intake for adequate hydration and to help thin mucus, bland diet if experiences nausea, Rx for prednisone and doxycycline sent to preferred pharmacy. 09/08/24 Prednisone taper and doxycycline received, taking, and improving. Sore throat, cough slowed down. Continue with medication prescribed. Mild SOB, no fever, no chills. Steam, fluids, mucinex.Essential hypertensionLisinopril and amlodipine. amlodipine is now 5 mg daily. BP under 140/90, much better controlled. stableContingency If BP over 160/90, headache, facial flashing, can take amlodipine 2.5 mg now, retake in one hour. Call CB for any concerns.ROSANNA (generalized anxiety disorder)Hydroxyzine Continue to follow up with PCP. Stable, has not taken for long time, mood stableGERD (gastroesophageal reflux disease)Omeprazole Avoid spicy, greasy, fried, fatty foods. Continue to follow up with PCP.Entropion of both lower eyelidsWears tape on lower lids, otherwise eyelashes poke into eyeballs. Needs referral - having trouble finding someone who is in network and taking new pts.Referred to the oculoplastic surgeon. [facility]. [phone], faxed and accept new patients, they called they are also out of network. Will continue to try.Other problems related to medical facilities and other health care.When member to call: 1. If bp is elevated sbp>150; dbp>90 or symptomatic-h/a, dizziness, cp, sob. 2. if there is a fall 3. if BS >300 or BS<90 or symptomatic; i.e., dizzy, off balance , shaky, general weakness. 4. if UTI symptoms arise-urinary frequency, dysuria, low abd pain. 5. if pain in knees increases/ or joint pain increased Please [facility]. [facility] or disease education needs that may arise 11/02.what should be done when the member calls: see each individual diagnosis for contingency planSciatic leg pain10/30/23 Pain in LBP, shooting down to left buttock and left thigh. Today 10/29. Improved with medrol dosepak 3rd day of medro dose but not enough improvement. Last medro dosepack in September. No fall, no twisting, no injury. Still has hard time ambulating. Wish to seek alternative. STOP medro, start prednisone 40 mg daily for 5 days. Heat pack. Discussed stretches to reduce sciatic nerve pain and that symptoms can take a week or longer to improveCall CB back if no improvement or any questions/concerns 09/08/24 No pain.COPD exacerbationpredniSONE 20 mg Tab Take 1 tablet twice daily for 5 days. #10 tablet [id number]-Szu Clavulanate 875/125 mg Tab Take 1 tablet PO twice daily for 7 days #14 tablet [id number] 100 mg Cap Take 1 tablet TID daily as needed for cough. #30 capsule [id number] Q 4 hrs prnRest and hydrate09/08/24 Prednisone taper and doxycycline received, taking, and improving. Sore throat, cough slowed down. Continue with medication prescribed. Mild SOB, no fever, no chills. Steam, fluids, mucinex. 2024-09-17 06:13:37 Acute pharyngitisAcu te pain of both earsCough 2024-09-21 11:07:55 Acute pharyngitisAcu te pain of both earsCoughOther problems related to medical facilities and other health care 2024-09-24 10:21:12 COPD (chronic obstru ctive pulmonary disease) with chronic bronchitisAllergiesIpratropium-Albuterol 0.5-2.5 (3) MG/3ML Solution Inhalation sig: USE 1 VIAL VIA NEBULIZER 4 TIMES A DAYTheophylline ER 600 mg Tab ER 24hr sig: TAKE 1 TABLET BY MOUTH EVERY DAY FOR 30 DAYSTrelegy Ellipta 200-62.5-25 MCG/ACT Aerosol Powder Breath Activated sig: INHALE 1 PUFF DAILYMontelukast Sodium 10 mg Tab sig: TAKE 1 TABLET BY MOUTH DAILY IN EVENINGSpiriva, refilled Contingency plan:1. Start antibiotic(Azithromycin, doxycycline, or levaquin), prednisone 40 mg *5 days 2. Increase Neb treatments/MDI use to q4h x3 days3. ??Call CB at the first sign of SOB or increased cough and sputum production. ??4. Schedule f/u with primary RESEARCH FELLOW in 1-2 days.??09/04/24-patient seen for acute visit. She reports a pounding headache, chest congestion, nasal congestion, fatigue, sore throat, Productive cough with yellow mucous. Member states body is aching all over. Has nausea a couple of days ago. Denies diarrhea. Member has had the chills. Feels weak. She reports recent sick contact when her daughter and gd came over to check on her. Patient to increase fluid intake for adequate hydration and to help thin mucus, bland diet if experiences nausea, Rx for prednisone and doxycycline sent to preferred pharmacy. 09/08/24 Prednisone taper and doxycycline received, taking, and improving. Sore throat, cough slowed down. Continue with medication prescribed. Mild SOB, no fever, no chills. Steam, fluids, mucinex. 09/24/24 Took amoxicillin bid for 10 days, benzonatate. Doing well, no cough, no throat pain, no SOB.Essential hypertensionLisinopril and amlodipine. amlodipine is now 5 mg daily. BP under 140/90, much better controlled. stableContingency If BP over 160/90, headache, facial flashing, can take amlodipine 2.5 mg now, retake in one hour. Call CB for any concerns.Other problems related to medical facilities and other health care.When member to call: 1. If bp is elevated sbp>150; dbp>90 or symptomatic-h/a, dizziness, cp, sob. 2. if there is a fall 3. if BS >300 or BS<90 or symptomatic; i.e., dizzy, off balance , shaky, general weakness. 4. if UTI symptoms arise-urinary frequency, dysuria, low abd pain. 5. if pain in knees increases/ or joint pain increased Please remember to call CBContinue to see PCP. Follow-up with [facility] as needed for any acute or disease education needs that may arise 11/02.what should be done when the member calls: see each individual diagnosis for contingency planAcute pharyngitisAcute pain of both earsCoughAcute encounter 09/17/24:Reports she woke up with sore throat yesterday-continues to have pain/swelling in throat-hard to swallow, nasal congestion. Throat is swollen with white pustules. Also reports pain in both ears, denies any era discharge. Denies difficulty hearing. Was in ER a few days ago for vertigo-suspects she may have been exposed to strep throat at that time. Was given Meclizine for Vertigo and feeling better now. No fever. Has been taking Advil. Reports some wet cough. Tx sent today:Benzonatate 100 mg Cap Take 1 tablet TID daily as needed for coughNew Amoxicillin 500 mg Cap 1 capsule orally every 12 hours for 10 days Advised to increase fluid intake, rest.Warm water and salt gargles.Monitor symptoms. If symptoms worsen, no improvement or any new symptoms develop, please contact us 11/02.Follow up scheduled with DOMENICO on 09/21/2024. 09/24/24 Member reports improvement in symptoms. Sore throat is mild to none, she can now swallow without pain. Denies fever, chills, increased SOB from baseline COPD. Plan of Care Date of Service Plans 2022-12-12 13:25:57 BMI obtained (3008F) Televideo new patient, 30-44min 1 stable chronic or 2 minor; add modifier 95Advance Care Directive Advance care planning discussion documented in the medical record (1158F)Advance care planning discussed and documented ? advance care plan or surrogate decision-maker was documented in the medical record. (1123F)Pain Assessment - NO pain documented (1126F)Medication List Documented (1159F)Medication Review by prescribing provider or pharmacist documented (1160F)Functional Status Assessed (1170F)Continue to see PCP. Follow-up with [facility] as needed for any acute or disease education needs that may arise 11/02.Taking Buprenorphine routinely with refills obtained. Will need to slowly wean to avoid withdrawal symptoms.Eliquis Continue to follow up with Pulmonology and PCP.Albuterol Inhaler, Fluticasone, Ipratropium-Albuterol via Nebulizer, Symbicort, Theophylline, SpirivaFormer Smoker Avoid allergens and triggersContinue to follow up with Pulmonology and PCP.Albuterol Inhaler, Fluticasone, Ipratropium-Albuterol via Nebulizer, Symbicort, Theophylline, Spiriva Former Smoker Avoid allergens and triggersContinue to follow up with Pulmonology and PCP.Lisinopril Recommend low sodium diet. Followed by PCP.Hydroxyzine Continue to follow up with PCP.Omeprazole Avoid spicy, greasy, fried, fatty foods. Continue to follow up with PCP.At least 50% of time spent counseling patient, discussing diagnosis, treatment plan, compliance, and coordinating follow up care. 2023-01-02 07:08:58 Phone (patient, pare nt, or guardian); 11-20 minutes of medical discussion (no modifier 95)Continue to see PCP. Follow-up with [facility] as needed for any acute or disease education needs that may arise 11/02.Urine smells, pain/pressure when urinating with urination, frequent small amts of urine x 1 month. Drinking water and cranberry juiceWill start nitrofurantoin and pyridium.Wipe front to backFrequent urination and increase water intake. Continue cranberry juiceVoid after sex.F/U with primary DOMENICO on 01/04/23.Wears tape on lower lids, otherwise eyelashes poke into eyeballs. Needs referral - having trouble finding someone who is in network and taking new pts.Lisinopril Recommend low sodium diet. Followed by PCP. 01/02/23 - b/p 157/103 this AM. Is taking lisinopril. Denies any dizziness, confusion, blurry vision, h/a. States has not been sleeping well, very anxious - d/t UTI. Discussed monitoring sodium intake, drink water and increase activity. f/u 01/04/23 with DOMENICO. 2023-01-04 07:43:49 New amLODIPine Besyl ate 2.5 mg Tab Take 1 tablet daily. #30 tablet [id number] (patient, parent, or guardian); 11-20 minutes of medical discussion (no modifier 95)Continue to see PCP. Follow-up with [facility] as needed for any acute or disease education needs that may arise 11/02.Remember toContinue seeing providers as recommenedTake all medications as prescribed2:Call me ifYou feel sick or illYou notice a change in behaviorYou have questions or concerns3:Keep it upBeing as independent as possible, but allow caregivers to assist where needed. 2023-01-15 09:01:07 Phone (patient, pare nt, or guardian); 5-10 minutes of medical discussion (no modifier 95)Continue to see PCP. Follow-up with [facility] as needed for any acute or disease education needs that may arise 11/02.start bactrim and be sure to complete entire coursepyridium prnWipe front to backFrequent urination and increase water intake. Continue cranberry juiceVoid after sex. 2023-01-18 08:22:37 Refill amLODIPine Be sylate 2.5 mg Tab Take 1 tablet daily. #90 tablet HYk3Toy [facility] Covid-19 At Home Test Kit Kit In Vitro test one daily #4 each [id number] (patient, parent, or guardian); 11-20 minutes of medical discussion (no modifier 95)Continue to see PCP. Follow-up with [facility] as needed for any acute or disease education needs that may arise 11/02. 2023-04-17 09:54:25 Phone (patient, pare nt, or guardian); 5-10 minutes of medical discussion (no modifier 95)Continue to see PCP. Follow-up with [facility] as needed for any acute or disease education needs that may arise 11/02.04/17/23:- Cont. with Nebulizer q2-3h PRN - Promethazine-DM cough syrup PRN- Extend Augmentin x5 more days. - Prednisone 50mg burst x5d- Follow up scheduled Saturday with primary DOMENICO. 2023-04-19 11:20:39 New Chandana 137-50 M CG/ACT Suspension Nasal 1 spray intranasally 2 times per day in each nostril #1 each [id number] Ipratropium-Albuterol 0.5-2.5 (3) MG/3ML Solution Inhalation USE 1 VIAL VIA NEBULIZER 4 TIMES A DAY #90 milliliter RFx0 Do NOT substitute - OTONIEL.Phone (patient, parent, or guardian); 5-10 minutes of medical discussion (no modifier 95)Continue to see PCP. Follow-up with [facility] as needed for any acute or disease education needs that may arise 11/02. 2023-05-02 08:11:53 Phone (patient, pare nt, or guardian); 5-10 minutes of medical discussion (no modifier 95)Continue to see PCP. Follow-up with [facility] as needed for any acute or disease education needs that may arise 11/02.Albuterol Inhaler, Fluticasone, Ipratropium-Albuterol via Nebulizer, Symbicort, Theophylline, SpirivaFormer Smoker Avoid allergens and triggersContinue to follow up with Pulmonology and PCP. Contingency plan:1. Start antibiotic(Azithromycin, doxycycline, or levaquin), prednisone 40 mg *5 days 2. Increase Neb treatments/MDI use to q4h x3 days3. ??Call CB at the first sign of SOB or increased cough and sputum production. ??4. Schedule f/u with primary RESEARCH FELLOW in 1-2 days.??Recently seen pulmo. 04/19/23 COPD exacerbation was treated on 04/17/23 with augmentin and prednisone. Feeling much better" today, no fever, no chills, breathing much better. No wheezing, no SOB, still have some effort when breathing. 05/02/23: Cough/wheeze. States she felt better when she last spoke with DOMENICO but then got worse the next day and has not improved. Will start doxycycline BID, prednisone taper, increase nebs to 4 times daily (only doing BID). F/U with DOMENICO 05/07/23. 2023-05-07 09:39:55 Phone (patient, pare nt, or guardian); 5-10 minutes of medical discussion (no modifier 95)Continue to see PCP. Follow-up with [facility] as needed for any acute or disease education needs that may arise 11/02. 2023-06-18 09:13:03 Phone (patient, pare nt, or guardian); 5-10 minutes of medical discussion (no modifier 95)Continue to see PCP. Follow-up with [facility] as needed for any acute or disease education needs that may arise 11/02.continue plan of care for chronic disease monitoring and managementpt has maintenance and prn plan of carecontinue conservative measures- avoid irritantsfollow up with PCP, pulm as indicated/instructed. 06/18/2023eRx New Benzonatate 100 mg Cap Take 1 tablet PO TID as needed for cough. #30 capsule [id number] New Montelukast Sodium 10 mg Tab 1 tablet orally QD for allergies and to prevent bronchospasm #30 tablet [id number] New Doxycycline Hyclate 100 mg Tab Take 1 tablet PO twice daily for 7 days. #14 tablet [id number] New Medrol 4 mg Tab Therapy Pack take as directed #21 tab [id number]: 04/17/23:- Cont. with Nebulizer q2-3h PRN - Promethazine-DM cough syrup PRN- Extend Augmentin x5 more days. - Prednisone 50mg burst x5d- Follow up scheduled Saturday afternoon with primary DOMENICO.Albuterol Inhaler, Fluticasone, Ipratropium-Albuterol via Nebulizer, Symbicort, Theophylline, SpirivaFormer Smoker Avoid allergens and triggersContinue to follow up with Pulmonology and PCP. Contingency plan:1. Start antibiotic(Azithromycin, doxycycline, or levaquin), prednisone 40 mg *5 days 2. Increase Neb treatments/MDI use to q4h x3 days3. Call CB at the first sign of SOB or increased cough and sputum production. 4. Schedule f/u with primary RESEARCH FELLOW in 1-2 days. Recently seen pulmo. 04/19/23 COPD exacerbation was treated on 04/17/23 with augmentin and prednisone. Feeling much better today, no fever, no chills, breathing much better. No wheezing, no SOB, still have some effort when breathing. 05/02/23: Cough/wheeze. States she felt better when she last spoke with DOMENICO but then got worse the next day and has not improved. Will start doxycycline BID, prednisone taper, increase nebs to 4 times daily (only doing BID). F/U with DOMENICO 05/07/23.05/07/23 no cough, no wheezing, no SOB. felt much better, O2 on room air 95%. Neb twice daily. Finishing doxycycline. Samson back to normal 2023-06-19 06:16:30 Phone (patient, pare nt, or guardian); 5-10 minutes of medical discussion (no modifier 95)Continue to see PCP. Follow-up with [facility] as needed for any acute or disease education needs that may arise 11/02. 2023-09-02 13:20:49 Medication Review by prescribing provider or pharmacist documented (1160F)Medication List Documented (1159F)Functional Status Assessed (1170F)Advance Care Directive Advance care planning discussion documented in the medical record (1158F)BMI obtained (3008F)sbdbTelevideo 30-39min; chronic exacerbation, 2 stable chronic or 1 acute illness add modifier 95Advance care planning discussed and documented ? advance care plan or surrogate decision-maker was documented in the medical record. (1123F)Advance care planning discussed and documented in the medical record ? beneficiary/patient did not wish to or was unable to provide an advance care plan or name a surrogate decision-maker. (1124F)Pain Assessment - NO pain documented (1126F)Continue to see PCP. Follow-up with [facility] as needed for any acute or disease education needs that may arise.Taking Buprenorphine routinely with refills obtained. Will need to slowly wean to avoid withdrawal symptoms.Eliquis Continue to follow up with Pulmonology and PCP. Mild bleeding gum here and therecontinue plan of care for chronic disease monitoring and managementpt has maintenance and prn plan of carecontinue conservative measures- avoid irritantsfollow up with PCP, pulm as indicated/instructed hx: 04/17/23:- Cont. with Nebulizer q2-3h PRN - Promethazine-DM cough syrup PRN- Extend Augmentin x5 more days. - Prednisone 50mg burst x5d- Follow up scheduled Saturday afternoon with primary DOMENICO.Albuterol Inhaler, Fluticasone, Ipratropium-Albuterol via Nebulizer, Symbicort, Theophylline, SpirivaFormer Smoker Avoid allergens and triggersContinue to follow up with Pulmonology and PCP. Contingency plan:1. Start antibiotic(Azithromycin, doxycycline, or levaquin), prednisone 40 mg *5 days 2. Increase Neb treatments/MDI use to q4h x3 days3. ??Call CB at the first sign of SOB or increased cough and sputum production. ??4. Schedule f/u with primary RESEARCH FELLOW in 1-2 days.??Recently seen pulmo. 04/19/23 COPD exacerbation was treated on 04/17/23 with augmentin and prednisone. Feeling much better today, no fever, no chills, breathing much better. No wheezing, no SOB, still have some effort when breathing. 05/02/23: Cough/wheeze. States she felt better when she last spoke with DOMENICO but then got worse the next day and has not improved. Will start doxycycline BID, prednisone taper, and increase nebs to 4 times daily (only doing BID). 05/07/23 no cough, no wheezing, no SOB. felt much better, O2 on room air 95%. Neb twice daily. Finishing doxycycline. Samson back to normal 06/19/23 productive cough with thick yellow sputum, headache, runny nose, post nasal drip, sore throat, SOB. O2 sat 94-95%. Baseline, taking doxy and medro dosepak. Take with food to decrease chance to upset stomach. call anytime please if fail to continue to improve.Albuterol Inhaler, Ipratropium-Albuterol via Nebulizer, Symbicort, Theophylline, Spiriva Former Smoker Avoid allergens and triggersContinue to follow up with Pulmonology and PCP.Lisinopril Recommend low sodium diet. Followed by PCP. 01/02/23 - b/p 157/103 this AM. Is taking lisinopril. Denies any dizziness, confusion, blurry vision, h/a. States has not been sleeping well, very anxious - d/t UTI. Discussed monitoring sodium intake, drink water and increase activity. f/u 01/04/23 with DOMENICO.01/04/23 BP 135/100, not at goal. On lisinopril 40 mg daily. Has been running in this range for 1-2 months. SBP 135-160, DBP over 100 Open to add amlodipine 2.5 mg to regimen, FU in two weeks, want to add today, PCP doesn't call me back 01/18/23 very happy with BP control after added amlodipine 2.5 mg. 122/85 stable. Refill, please inform PCP with change. 05/07/23 BP slightly elevated to 150s, on oral steroid. 09/02/23BP remains elevated. Was started on Amlodipine 2.5mg, advised to take an additional dose today as BP is 163/116 during ECCA. Recheck in 1 hour. Educated on symptoms to monitor for such as dizziness, headache, blurred vision, chest pain. Patient denies current symptoms. Reports has been very elevated over the past several weeks. Awaiting a return call from PCP for appt.Hydroxyzine Continue to follow up with PCP. StableOmeprazole Avoid spicy, greasy, fried, fatty foods. Continue to follow up with PCP.Wears tape on lower lids, otherwise eyelashes poke into eyeballs. Needs referral - having trouble finding someone who is in network and taking new pts.Referred to the oculoplastic surgeon. [facility]. [phone], faxed and accept new patients, they called they are also out of network. Will continue to try. 2023-09-04 13:35:46 Phone (patient, pare nt, or guardian); 5-10 minutes of medical discussion (no modifier 95)Continue to see PCP. Follow-up with [facility] as needed for any acute or disease education needs that may arise 24/7. 2023-09-09 14:31:48 New amLODIPine Besyl ate 5 mg Tab Take 1 tablet daily. #90 tablet [id number] (patient, parent, or guardian); 5-10 minutes of medical discussion (no modifier 95)Continue to see PCP. Follow-up with [facility] as needed for any acute or disease education needs that may arise 11/02. 2023-10-03 11:15:16 Phone (patient, pare nt, or guardian); 5-10 minutes of medical discussion (no modifier 95)Continue to see PCP. Follow-up with [facility] as needed for any acute or disease education needs that may arise 11/02. 2023-10-08 10:43:06 Phone (patient, pare nt, or guardian); 5-10 minutes of medical discussion (no modifier 95)Continue to see PCP. Follow-up with [facility] as needed for any acute or disease education needs that may arise 11/02.Patient using advair inhaler but was not near a place to rinse her mouth. White coating covering tongue, roof of mouth, and cheeks. PResent x 3 days. Tried to rinse often, but not improving.Ordered Nystatin swish and swallow. Advised on use. Instructed if no symptoms improvement in next 24 hours after starting treatment to contact CB. 2023-10-11 07:46:36 New Cyclobenzaprine 5 mg Tab 1 tablet orally 3 times per day PRN #20 tablet THg5Iik Medrol 4 mg Tab Therapy Pack take as directed #1 packet [id number] (patient, parent, or guardian); 5-10 minutes of medical discussion (no modifier 95)Continue to see PCP. Follow-up with [facility] as needed for any acute or disease education needs that may arise 11/02. 2023-10-30 13:39:59 New Prednisone 40 mg 1 daily x 5 days #5 tablet [id number] (patient, parent, or guardian); 5-10 minutes of medical discussion (no modifier 95)Continue to see PCP. Follow-up with [facility] as needed for any acute or disease education needs that may arise 11/02. 2023-11-13 07:56:34 New Doxycycline Hycl ate 100 mg Tab Take 1 tablet PO twice daily for 10 days. #20 tablet SOm5Zuv Benzonatate 100 mg Cap Take 1 tablet twice daily as needed for cough. #20 capsule LDm7Ari predniSONE 20 mg Tab Take 2 tablet once daily for 5 days. #10 tablet YNg5Kxl Promethazine-DM 6.25/15 mg/5ML Syrup 5 ml orally every 4 hours as needed #150 milliliter YCf7Cqzug (patient, parent, or guardian); 5-10 minutes of medical discussion (no modifier 95)Continue to see PCP. Follow-up with [facility] as needed for any acute or disease education needs that may arise 11/02. 2023-11-18 08:01:17 Phone (patient, pare nt, or guardian); 5-10 minutes of medical discussion (no modifier 95)Continue to see PCP. Follow-up with [facility] as needed for any acute or disease education needs that may arise 11/02. 2024-05-08 12:56:13 Phone (patient, pare nt, or guardian); 5-10 minutes of medical discussion (no modifier 95)Continue to see PCP. Follow-up with [facility] as needed for any acute or disease education needs that may arise 11/02.Member with persistent cough, shortness of breath and increased sputum production x 2 weeksStart levofloxacin 500mg PO QD x 7 daysPrednisone 20mg PO BID x 5 daysRefilled duo-nebs, can continue this and inhaler PRN for shortness of breath and wheezingRx sent for mucinex to help with congestionEncouraged fluids and rest for supportive care.DOMENICO f/u scheduled for 05/12/24Encourage to call back sooner if any new or worsening symptoms. 2024-05-12 08:56:03 Phone (patient, pare nt, or guardian); 5-10 minutes of medical discussion (no modifier 95)Continue to see PCP. Follow-up with [facility] as needed for any acute or disease education needs that may arise 11/02.Doing well. No cough, no SOB, no wheezing, able to sleep 2024-07-12 08:06:06 Phone (patient, pare nt, or guardian); 5-10 minutes of medical discussion (no modifier 95)Continue to see PCP. Follow-up with [facility] as needed for any acute or disease education needs that may arise 11/02.predniSONE 20 mg Tab Take 1 tablet twice daily for 5 days. #10 tablet [id number]-Qwb Clavulanate 875/125 mg Tab Take 1 tablet PO twice daily for 7 days #14 tablet BUs3Aukddmleyoc 100 mg Cap Take 1 tablet TID daily as needed for cough. #30 capsule YUm4Xkxt Q 4 hrs prnRest and hydrate 2024-09-04 12:33:48 Televideo 10-29min; 1 minor problem; add add modifier 95 for video, modifier 93 for phoneContinue to see PCP. Follow-up with [facility] as needed for any acute or disease education needs that may arise 11/02.Contingency plan:1. Start antibiotic(Azithromycin, doxycycline, or levaquin), prednisone 40 mg *5 days 2. Increase Neb treatments/MDI use to q4h x3 days3. ??Call CB at the first sign of SOB or increased cough and sputum production. ??4. Schedule f/u with primary RESEARCH FELLOW in 1-2 days.??05/12/24 Taking all these RxNew predniSONE 20 mg Tab Take 1 tablet twice daily New levoFLOXacin 500 mg Tab 1 tablet orally daily h1Bvlabq Ipratropium-Albuterol 0.5-2.5 (3) MG/3ML Solution Inhalation USE 1 VIAL VIA NEBULIZER 4 TIMES A DAYNew Mucinex 600 mg Tab ER 12hr 1 tablets orally every 12 hours as needed Doing well. No cough, no SOB, no wheezing, able to sleep, no sinus drainage, no chills or fever. 09/04/24-patient seen for acute visit. She reports a pounding headache, chest congestion, nasal congestion, fatigue, sore throat, Productive cough with yellow mucous. Member states body is aching all over. Has nausea a couple of days ago. Denies diarrhea. Member has had the chills. Feels weak. She reports recent sick contact when her daughter and gd came over to check on her. Patient to increase fluid intake for adequate hydration and to help thin mucus, bland diet if experiences nausea, Rx for prednisone and doxycycline sent to preferred pharmacy. 2024-09-08 10:26:28 New Spiriva HandiHal er 18 MCG Cap Inhalation inhale the contents of 1 capsule using handihaler device orally once daily #30 capsule [id number] Status Assessed (1170F)Advance Care Directive Advance care planning discussion documented in the medical record (1158F)Advance care planning discussed and documented ? advance care plan or surrogate decision-maker was documented in the medical record. (1123F)SBP 130-139 (3075F)Estab. patient 20-29min; 1 stable chronic or 2 minor; add add modifier 95 for video, modifier 93 for phoneMedication List Documented (1159F)Medication Review by prescribing provider or pharmacist documented (1160F)Pain Assessment - NO pain present (1126F)DBP 80-89 (3079F)Continue to see PCP. Follow-up with [facility] as needed for any acute or disease education needs that may arise.Call if you have any questions, comments, or concerns.Keep taking your medications as prescribed. 2024-09-17 06:13:37 Televideo 10-29min; 1 minor problem; add add modifier 95 for video, modifier 93 for phonePain Assessment - Pain Documented on a Pain Scale (1125F)Continue to see PCP. Follow-up with [facility] as needed for any acute or disease education needs that may arise 11/02.Acute encounter 09/17/24:Reports she woke up with sore throat yesterday-continues to have pain/swelling in throat-hard to swallow, nasal congestion. Throat is swollen with white pustules. Also reports pain in both ears, denies any era discharge. Denies difficulty hearing. Was in ER a few days ago for vertigo-suspects she may have been exposed to strep throat at that time. Was given Meclizine for Vertigo and feeling better now. No fever. Has been taking Advil. Reports some wet cough. Tx sent today:Benzonatate 100 mg Cap Take 1 tablet TID daily as needed for coughNew Amoxicillin 500 mg Cap 1 capsule orally every 12 hours for 10 days Advised to increase fluid intake, rest.Warm water and salt gargles.Monitor symptoms. If symptoms worsen, no improvement or any new symptoms develop, please contact us 11/02.Follow up scheduled with DOMENICO on 09/21/2024. 2024-09-21 11:07:55 Estab. patient 10-29 min; 1 minor problem; add add modifier 95 for video, modifier 93 for phoneContinue to see PCP. Follow-up with [facility] as needed for any acute or disease education needs that may arise 11/02.Acute encounter 09/17/24:Reports she woke up with sore throat yesterday-continues to have pain/swelling in throat-hard to swallow, nasal congestion. Throat is swollen with white pustules. Also reports pain in both ears, denies any era discharge. Denies difficulty hearing. Was in ER a few days ago for vertigo-suspects she may have been exposed to strep throat at that time. Was given Meclizine for Vertigo and feeling better now. No fever. Has been taking Advil. Reports some wet cough. Tx sent today:Benzonatate 100 mg Cap Take 1 tablet TID daily as needed for coughNew Amoxicillin 500 mg Cap 1 capsule orally every 12 hours for 10 days Advised to increase fluid intake, rest.Warm water and salt gargles.Monitor symptoms. If symptoms worsen, no improvement or any new symptoms develop, please contact us 11/02.Follow up scheduled with DOMENICO on 09/21/2024. 09/21/24 Acute Follow Up: Member reports improvement in symptoms. Sore throat is mild, she can now swallow without severe pain. Pustules resolved. Denies fever, chills, increased SOB from baseline COPD..When member to call: 1. If bp is elevated sbp>150; dbp>90 or symptomatic-h/a, dizziness, cp, sob. 2. if there is a fall 3. if BS >300 or BS<90 or symptomatic; i.e., dizzy, off balance , shaky, general weakness. 4. if UTI symptoms arise-urinary frequency, dysuria, low abd pain. 5. if pain in knees increases/ or joint pain increased [facility] Follow[facility] with [facility] as needed for any acute or disease education needs that may arise 11/02.what should be done when the member calls: see each individual diagnosis for contingency plan 2024-09-24 10:21:12 Refill Meclizine 25 mg Tab TAKE 1 TABLET BY MOUTH 3 TIMES A DAY PRN for dizziness #20 each RFx0 Do NOT substitute - OTONIEL.Estab. patient 10-29min; 1 minor problem; add add modifier 95 for video, modifier 93 for phoneContinue to see PCP. Follow-up with [facility] as needed for any acute or disease education needs that may arise 11/02.Call if you have any questions, comments, or concerns.Keep taking your medications as prescribed. Goals Date Goal 2022-12-12 Continue taking medi cations as directed and keep all follow up appointments with established PCP and Specialist. 2023-01-04 Referral task to ocu loplastic surgeon sent. 2023-01-04 Add amlodipine 2.5 m g daily, FU in two weeks, track BP daily 2023-01-04 .1: 2023-01-15 Fu already scheduled with primary domenico for the 2023-01-18 Sent refill for amlo dipine 2.5 mg 2023-01-18 Asked for COVID kits 2023-01-18 Continue to monitor UTI, if still symptomatic after finishing abx, call anytime. If nausea, fever, chills, pain in back, call anytime. 2023-01-18 Try another surgeon for Entropion repair referral 2023-06-19 Call anytime if fail to improve. Medro may not be enough for member, will increase to prednisone 50 mg daily for 5 days if persist. 2023-09-02 Remember to1. Contin ue seeing provider as recommended2. Take all medication as prescribedCall me if1. You feel sick or ill2. You notice a change in behavior3. You have questions or concernsKeep it up1. Continue allowing family and caregivers to assist with meeting needs2. Remain positive about health. At least 50% of time spent counseling patient, discussing diagnosis, treatment plan, complicance, and coordinating follow up care. 2023-09-04 FU on Saturday, if not changed to amlodipine 10 mg daily, I will increase for member 2023-09-09 Increased amlodipine to 5 mg daily, FU in a month. 2023-10-03 Bp finally in good c ontrol 2023-10-30 STOP medro, start pr ednisone 40 mg daily for 5 days, take early in am. Gentle strech, heat, consider PT once resolved and please let us know if needs referral 2023-11-18 [facility] control, she had a lot of COPD exacerbations in the past year, decided to talk to pulm for advice first. Sciatica pain returned as soon as steroid finished, PCP ordered PT. 2023-11-18 COPD exacerbation go ne, breathing just fine, no cough or SOB. 2024-05-12 Taking all these RxN ew predniSONE 20 mg Tab Take 1 tablet twice daily New levoFLOXacin 500 mg Tab 1 tablet orally daily t4Hrephc Ipratropium-Albuterol 0.5-2.5 (3) MG/3ML Solution Inhalation USE 1 VIAL VIA NEBULIZER 4 TIMES A DAYNew Mucinex 600 mg Tab ER 12hr 1 tablets orally every 12 hours as needed #20 tablet 2024-09-08 Remember to follow u p with PCP and specialists as directed. 2024-09-17 Monitor symptoms. If symptoms worsen, no improvement or any new symptoms develop, please contact us 11/02. 2024-09-17 Follow up scheduled with DOMENICO on 09/21/2024. 2024-09-24 Remember to follow u p with PCP and specialists as directed. Health Concerns Date Concern 2024-09-24 Visit completed via audio by telephone. Patient/Guardian agreed to visit via telehealth.FU 2024-09-24 Most recent hospital stay(s) or ER visit(s) and precipitating factors: 09/14/24 at [facility], URI symptoms 2024-09-24 HEDIS review: brendon mooney 2024-09-24 Took amoxicillin bid for 10 days, benzonatate.
--- OUTSIDE RECORDS SUMMARY | 2024-10-22 11:42 | XMS_ITS | Encounter Summary ---
Author Organization [employer] Address [address] [facility] 7t [place] [address] Care Team Providers Care Product Development Chemist Name Role Phone Ashanti Meyer MD Primary Care Provider [phone] Reason for Visit * Reason Comments Med Refill Encounter Details Date Type Department Care Team ([facility] st Contact Info) Description 07/07/2024 Refill [facility] MED & PEDS [address] [place], [place] [phone] Ashanti Meyer MD [address] [place] [address] Pain Social History Tobacco Use Types Packs/Day Years Used Date Smoking Tobacco: Never Smokeless Tobacco: Never Alcohol Use Standard Drinks/Week Comments Never 0 (1 standard drink = 0.6 oz pur e alcohol) Depression Answer Date Recorded Patient Health Questionnaire-9 Score 10 11/22/2023 Patient Health Questionnaire-9 Score 10 11/22/2023 Last PHQ-9: Questionnaire Data Not on file 0 11/22/2023 Housing Stability Answer Date Recorded What is your housing situation today? I have [place] ab[place] 11/07/[address] you li ve. Do you have problems with any of the following? None of the above 11/07/2023 Food Insecurity Answer Date Recorded Within the past 12 months, y ou worried that your food would run out before you got money to buy more: Often true 11/22/2023 Within the past 12 months,th e food you bought just didn't last and you didn't have enough money to get more: Often true 09/2023 Transportation Answer Date Recorded In the past 12 months, has l ack of transportation kept you from medical appts, meetings, work or from getting things needed for daily living? No 11/22/2023 Utilities Answer Date Recorded In the past 12 months, has t he electric, gas, oil or water company threatened to shut off services in your home? Yes 11/15/2023 Depression Answer Date Recorded Patient Health Questionnaire-2 Score 1 11/22/2023 Comments Unknown Sex and Gender Information Value Date Recorded Sex Assigned at Female 05/21/2022 10:20 AM EDT Legal Sex Female 10:20 AM EDT Gender Identity Female 05/21/2022 10:20 AM EDT Sexual Orientation Straight 05/21/2022 10 :20 AM EDT documented as of this encounter Plan of Treatment Not on file documented as of this encounter Visit Diagnoses Diagnosis Pain Generalized pain documented in this encounter Additional Health Concerns Assessment Noted Time PHQ-9 Depression Total Score: 10 024 1:47 PM EDT documented as of this encounter Care Teams Product Development Chemist Relationship Specialty Start Date End Date Ashanti Meyer MD [address] [place] [address] PCP - General Family Medicine 11/19/23 documented as of this encounter
--- OUTSIDE RECORDS SUMMARY | 2024-10-22 11:42 | XMS_ITS | Encounter Summary ---
Author Organization [employer] Address [address] [facility] [address] [place] [address] Care Team Providers Care Building Custodial Supervisor Name Role Phone Margaux Pena MD Primary Care Provider [phone] Ashanti Meyer MD Primary Care Provider [phone] Reason for Visit * Reason Comments Med Change Request Encounter Details Date Type Department Care Team ([facility] Contact Info) Description 10/25/2022 Refill [facility] MED & PEDS [address] [place], [place] [phone] Margaux Pena MD [address] [place] [address] Social History Tobacco Use Types Packs/Day Years [...] Orientation Straight 05/21/2022 10 :20 AM EDT COVID-19 Exposure Response Date Recorded In the last 10 days, have yo u been in contact with someone who was confirmed or suspected to have Coronavirus/COVID-19? No / Unsure 10/25/2022 10:40 AM EDT documented as of this encounter Plan of Treatment Not on file documented as of this encounter Visit Diagnoses Not on filedocumented in this encounter Care Teams Building Custodial Supervisor Relationship Specialty Start Date End Date Margaux Pena MD [address] [place] [address] PCP - General Family Medicine 01/20/13 11/18/23 Ashanti Meyer MD [address] [place] [address] PCP - General Family Medicine 11/19/23 documented as of this encounter
--- OUTSIDE RECORDS SUMMARY | 2024-10-22 11:42 | XMS_ITS | Encounter Summary ---
Author Organization [employer] Address [address] [facility] 7t [place] [address] Care Team Providers Care Administrative Specialist Name Role Phone Ashanti Meyer MD Primary Care Provider [phone] Reason for Visit * Reason Onset Date Comments Med Refill 09/08/2024 Encounter Details Date Type Department Care Team (Late st Contact Info) Description 09/08/2024 Telephone [facility] MEDICINE [address] [place], [place] [phone] Ashanti Meyer MD [address] [place], [place] [phone] Med Refill Social History Tobacco Use Types Packs/Day Years [...] Recorded Patient Health Questionnaire-2 Score 1 11/22/2023 Internet Access Answer Date Recorded Internet Access [...] encounter Miscellaneous Notes * Telephone Encounter - Gabriela Gordon LPN - 09/08/2024 9:21 AM EST Medication pended to PCP. * Telephone Encounter - Jacob Jeff - 09/08/2024 9:11 AM EST TC from pt requesting medication refill. Medications needing refill : ipratropium-albuterol (Duo-Neb) 0.5-2.5 mg/3 mL nebulizer solution 3 mL To be sent to: [facility]/pharmacy [address] [place] [address] documented in this encounter Plan of Treatment Not on file documented as of this encounter Visit Diagnoses Not on filedocumented in this encounter Additional Health Concerns Assessment Noted Time PHQ-9 Depression Total Score: 10 024 1:47 PM EDT documented as of this encounter Care Teams Administrative Specialist Relationship Specialty Start Date End Date Ashanti Meyer MD [address] [place] [address] PCP - General Family Medicine 11/19/23 documented as of this encounter
--- OUTSIDE RECORDS SUMMARY | 2024-10-22 11:42 | XMS_ITS | Encounter Summary ---
Author Organization [employer] Address [address] [facility] 7 [place] [address] Care Team Providers Care Zookeeper Name Role Phone Margaux Pena MD Primary Care Provider [phone] Ashanti Meyer MD Primary Care Provider [phone] Encounter Details Date Type Department Care Team (Late st Contact Info) Description 08/16/2022 Orders Only [facility] MEDICINE [address] [place] [address] Lorena Hardin LPN Social History Tobacco Use Types Packs/Day Years [...] on filedocumented in this encounter Care Teams Zookeeper Relationship Specialty Start Date End Date aMrgaux Pena MD [address] [place] [address] PCP - General Family Medicine 01/20/13 11/18/23 Ashanti Meyer MD [address] [place] [address] PCP - General Family Medicine 11/19/23 documented as of this encounter
--- OUTSIDE RECORDS SUMMARY | 2024-10-22 11:42 | XMS_ITS | Encounter Summary ---
Author Organization [employer] Address [address] [facility] [address] [place] [address] Care Team Providers Care Roll Winder Name Role Phone Ashanti Meyer MD Primary Care Provider [phone] Reason for Visit * Reason Comments Med Refill Encounter Details Date Type Department Care Team ([facility] Contact Info) Description 03/07/[address] [facility] MED & PEDS [address] [place] [address] Margaux Pena MD [address] [place] [address] Social History Tobacco Use Types Packs/Day Years [...] documented as of this encounter Care Teams Roll Winder Relationship Specialty Start Date End Date Ashanti Meyer MD [address] [place] [address] PCP - General Family Medicine 11/19/23 documented as of this encounter
--- OUTSIDE RECORDS SUMMARY | 2024-10-22 11:42 | XMS_ITS | Encounter Summary ---
Author Organization [employer] Address [address] [facility] [address] [place] [address] Care Team Providers Care Machine Lead Burner Name Role Phone Margaux Pena MD Primary Care Provider [phone] Ashanti Meyer MD Primary Care Provider [phone] Reason for Visit * Reason Comments Med Refill Encounter Details Date Type Department Care Team ([facility] Contact Info) Description 10/08/2023 Refill [facility] MED & PEDS [address] [place], [place] [phone] Margaux Pena MD [address] [place] [address] Social History Tobacco Use Types Packs/Day Years [...] on filedocumented in this encounter Care Teams Machine Lead Burner Relationship Specialty Start Date End Date Margaux Pena MD [address] [place] [address] PCP - General Family Medicine 01/20/13 11/18/23 Ashanti Meyer MD [address] [place] [address] PCP - General Family Medicine 11/19/23 documented as of this encounter
--- OUTSIDE RECORDS SUMMARY | 2024-10-22 11:42 | XMS_ITS | Encounter Summary ---
Author Organization [employer] Address [address] [facility] [address] [place] [address] Care Team Providers Care Press Service Reader Name Role Phone Margaux Pena MD Primary Care Provider [phone] Ashanti Meyer MD Primary Care Provider Reason for Visit * Reason Comments Med Refill Encounter Details Date Type Department Care Team ([facility] st Contact Info) Description 01/18/2023 Refill [facility] MED & PEDS [address] [place], [place] [phone] Ann-Marie Chirinos MD [address] [place], [place] [phone] Anxiety Social History Tobacco Use Types Packs/Day Years [...] as of this encounter Visit Diagnoses Diagnosis Anxiety Anxiety state, unspecified documented in this encounter Care Teams Press Service Reader Relationship Specialty Start Date End Date Margaux Pena MD [address] [place] [address] PCP - General Family Medicine 01/20/13 11/18/23 Ashanti Meyer MD [address] [place] [address] PCP - General Family Medicine 11/19/23 documented as of this encounter
--- OUTSIDE RECORDS SUMMARY | 2024-10-22 11:42 | XMS_ITS | Encounter Summary ---
Author Organization [employer] Address [address] [facility] 7 [place] [address] Care Team Providers Care Extruding Press Adjuster Name Role Phone Margaux Pena MD Primary Care Provider [phone] Ashanti Meyer MD Primary Care Provider [phone] Reason for Visit * Reason Comments Med Refill Encounter Details Date Type Department Care Team ([facility] st Contact Info) Description 04/05/2023 Refill [facility] [address] [place] [address] Margaux Pena MD [address] [place] [address] Social History Tobacco Use Types Packs/Day Years [...] on filedocumented in this encounter Care Teams Extruding Press Adjuster Relationship Specialty Start Date End Date Margaux Pena MD [address] [place] [address] PCP - General Family Medicine 01/20/13 11/18/23 Ashanti Meyer MD [facility] [place] [address] PCP - General Family Medicine 11/19/23 documented as of this encounter
== END 2024-10-22 10:35 | disposition home or self-care (01) ==
LOC: HO.MAMMO 10:34
PROVIDERS: PCP General Practice; Visit Provider General Practice
DX: Z13.820 Encounter for screening for osteoporosis (principal); M85.80 Other specified disorders of bone density and structure, unspecified site; E28.39 Other primary ovarian failure
CPT/HCPCS: 77080

== ENCOUNTER → 2024-10-22 11:00 | Outpatient (BNV) | payer MEDICARE, SELFPAY | PROVIDERS: PCP General Practice; Visit Provider Radiology Diagnostic Radiology | DX: E28.39 Other primary ovarian failure (principal) | CPT/HCPCS: 77080 ==

== ENCOUNTER 2025-01-14 13:46 | Outpatient (AMB) | payer MEDICARE, SELFPAY ==
[2025-01-14 14:00] VITALS: BP 122/67; PULSE 84; O2SAT 95; BMI 27.1
--- NOTE | 2025-01-14 14:00 | A.OFFVIS_ITS ---
Vital Signs 01/14/25 14:00 Height 5 ft 3 in Weight 153 lb BMI 27.1 BP 122/67 Blood Pressure Location Rt brachial Position Sitting Pulse 84 Pulse Source Pulse Oximeter Pulse Oximetry (%) 95 Oxygen Delivery Method Room Air Intake Visit Reasons: copd Allergies morphine (MORPHINE) Allergy (Intermediate, Verified 01/14/25 14:05) VOMITING, ITCHING ibuprofen Adverse Reaction (Unknown, Verified 01/14/25 14:05) Unknown HPI HPI copd: Details: 64-year-old lady,? former 30+ pack-year smoker, quit 2019, followed for severe COPD.? She continues on Trelegy, DuoNebs, Ohtuvayre, and albuterol MDI, though she had difficulties getting refills on her theophylline 600 with reasonable control of her symptoms. Patient denies recent exacerbations. [facility] Medical History (Updated 05/21/24 @ 10:53 by Samuel Sanchez MD) Sinus tachycardia Pulmonary embolism Hypertension Ex-smoker for less than 1 year COPD exacerbation Family History Mother CAD (coronary artery disease) Sister Cardiomyopathy Brother Cardiomyopathy Pacemaker Heart attack Social History Household Members: None Housing: Apartment Do you presently have visiting nurse or other home services: No Alcohol intake: never Patient Tobacco Use Status: Former Tobacco user Tobacco use type: Cigarette Years Smoked: 2019 Second Hand Smoke Exposure: No Substance Use Type: Former Substance User Advance Directives Date on File: 07/05/22 service: No Current occupational status: retired Review of Systems Const Denies daytime sleepiness, Denies excessive sweating, Denies fatigue, Denies fever(s), Denies lethargy, Denies malaise, Denies night sweats, Denies snoring and Denies weight loss Eyes Denies blurry vision and Denies itchy eyes ENT Denies nasal congestion, Denies post nasal drip, Denies sinus pain, Denies sinus pressure and Denies other ( Thrush) Card Denies chest pain, Denies pedal edema, Denies dyspnea, Denies orthopnea and Denies paroxysmal nocturnal dyspnea Resp Denies cough, Denies hemoptysis, Denies excessive phlegm production, Denies dyspnea, Denies snoring and Denies wheezing GI Denies abdominal pain and Denies heartburn Musc Denies myalgias, Denies arthralgias and Denies joint swelling Skin/Breast Denies rash Neuro Denies memory loss and Denies seizure-like activity Psych Denies abnormal sleep pattern, Denies anxiety and Denies memory loss Endo Denies excessive sweating, Denies fatigue and Denies heat intolerance Roger/Lymph Denies easy bruising Aller/Immun Denies itchy eyes, Denies seasonal rhinorrhea and Denies wheezing Physical Exam Vital Signs: Last Vital Signs Pulse 84 01/14/25 14:00 BP 122/67 01/14/25 14:00 Pulse Ox 95 01/14/25 14:00 Oxygen Delivery Method Room Air 01/14/25 14:00 BMI result Body Mass Index 27.1 Const General: no acute distress and alert Nutritional Appearance: not obese Orientation/consciousness: Other orientation findings ( oriented) HEENT Head: Yes atraumatic Eyes General: appearance normal, both eyes and all related structures Sclerae: sclerae normal EOM: EOMs intact bilaterally Neck Neck: Yes supple Lymphatic: no lymphadenopathy noted Resp Effort & Inspection: normal respiratory effort and no use of accessory muscles Auscultation: clear to auscultation bilaterally Cardio Rate: regular rate Rhythm: regular rhythm Heart sounds: no gallops, no murmurs and no rubs Skin General skin exam: other ( warm) Extrem General: No clubbing, No cyanosis and No edema Assessment & Plan Assessment & Plan (1) Severe chronic obstructive pulmonary disease: Code(s): J44.9 - Chronic obstructive pulmonary disease, unspecified Category: Medical Plan: Reasonable control on current regimen of trilogy, duo nebs, theophylline 600, Ohtuvayre, and albuterol MDI. Continue current regimen. (2) Personal history of nicotine dependence: Code(s): Z87.891 - Personal history of nicotine dependence Category: Medical Plan: Results of lung cancer screening CT chest reviewed, no worrisome nodules. Continue with yearly screening, next in March of 2025, ordered. Coding Level of Care Code Est Pt Level 4 (45669) Diagnoses Severe chronic obstructive pulmonary disease J44.9 Personal history of nicotine dependence Z87.891
--- OUTSIDE RECORDS SUMMARY | 2025-01-14 16:38 | XMS_ITS | Encounter Summary ---
Author Organization [employer] Address [address] [facility] [address] [place] [address] Care Team Providers Care Spice Mixer Name Role Phone Ashanti Meyer MD Primary Care Provider [phone] Encounter Details Date Type Department Care Team ([facility] st Contact Info) Description 10/28/2024 Orders Only [facility] [address] [place], [place] [phone] Ashanti Meyer MD [address] [place], [place] [phone] Social History Tobacco Use Types Packs/Day Years [...] as of this encounter Plan of Treatment Upcoming Encounters Date Type Department Care Team (Late st Contact Info) Description 01/26/2025 9:15 AM EDT Procedure Visit [facility] [address] [place] [phone] Ashanti Meyer MD [address] [place] [phone] 03/01/2025 2:00 PM EDT Office Visit [facility] [address] [place] [phone] Ashanti Meyer MD [address] [place] [phone] documented as of this encounter Visit Diagnoses Not on filedocumented in this encounter Additional Health Concerns Assessment Noted Time PHQ-9 Depression Total Score: 14 025 10:15 AM EST documented as of this encounter Care Teams Spice Mixer Relationship Specialty Start Date End Date Ashanti Meyer MD [address] [place] [address] [phone] PCP - General Family Medicine 11/19/23 documented as of this encounter
== END 2025-01-14 14:22 | disposition home or self-care (01) ==
LOC: HO.HPS 13:47
PROVIDERS: PCP General Practice; Visit Provider Internal Medicine Pulmonary Disease
DX: J44.9 Chronic obstructive pulmonary disease, unspecified (principal); Z87.891 Personal history of nicotine dependence
CPT/HCPCS: 99214

== ENCOUNTER → 2025-01-14 13:46 | Outpatient (BNVA) | payer MEDICARE, SELFPAY | PROVIDERS: PCP General Practice; Visit Provider Internal Medicine Pulmonary Disease | DX: J44.9 Chronic obstructive pulmonary disease, unspecified (principal); Z87.891 Personal history of nicotine dependence | CPT/HCPCS: 99212 ==

== ENCOUNTER 2025-02-08 09:49 | Outpatient (REF) | payer MEDICARE, SELFPAY ==
--- NOTE | ~2025-02-08 | MR_ITS ---
EXAMINATION: MR BRAIN WITHOUT IV CONTRAST HISTORY: vertigo, persistent for 7 days with CASTRO TECHNIQUE: Sagittal T1, and axial T1, FLAIR, T2, gradient echo, and diffusion weighted MR images of the brain were obtained. COMPARISON: There are no prior studies available for comparison. FINDINGS: The pituitary is normal in size. The cerebellar tonsils are normally located. There are scattered periventricular and subcortical white matter hyperintensities on the FLAIR and T2-weighted images which are nonspecific, but can be seen in the setting of small vessel ischemic disease. There is no mass effect or midline shift. No intra or extra-axial fluid collections are identified. There are no foci of restricted diffusion. Normal vascular flow voids are noted in the basilar and carotid arteries. There is fluid in the right sphenoid sinus. MR/MR head/brain wo con IMPRESSION: 1. Findings suggestive of small vessel ischemic disease of the white matter. There is no evidence of an acute infarct. 2. Fluid in the right sphenoid sinus, compatible with sinusitis. Electronically signed by: Leonardo Barbour MD 02/08/2025 11:07 AM EDT
--- OUTSIDE RECORDS SUMMARY | 2025-02-08 10:31 | XMS_ITS | Encounter Summary ---
Author Organization [employer] Address [address] [facility] [address] [place] [address] Care Team Providers Care Clinical Review Specialist Name Role Phone Ashanti Meyer MD Primary Care Provider [phone] Encounter Details Date Type Department Care Team ([facility] st Contact Info) Description 10/28/2024 Orders Only [facility] [address] [place], [place] [phone] Ashanti Meyer MD [address] [place], [place] [phone] Social History Tobacco Use Types Packs/Day Years [...] Care Team (Late st Contact Info) Description 03/01/2025 2:00 PM EDT Office Visit [facility] [address] [place] [address] Ashanti Meyer MD [address] [place] [address] documented as of this encounter Visit Diagnoses Not on filedocumented in this encounter Additional Health Concerns Assessment Noted Time PHQ-9 Depression Total Score: 14 025 10:15 AM EST documented as of this encounter Care Teams Clinical Review Specialist Relationship Specialty Start Date End Date Ashanti Meyer MD [address] [place] [address] PCP - General Family Medicine 11/19/23 documented as of this encounter
--- OUTSIDE RECORDS SUMMARY | 2025-02-08 10:31 | XMS_ITS ---
Author Name Brandee Mckeon NP Address [address] [place] [address] Phone [phone] [facility] Care Team Providers Care Trash Man Name Role Phone Brandee Mckeon Unavailable [phone] SOURAV BARRERA Unavailable [phone] Unavailable Unavailable Unavailable Nickolas Strong Unavailable [phone] Unavailable Unavailable [phone] YESSY WADE Unavailable [phone] JOSE DE JESUS RING Unavailable [phone] GABI EDWARDS Unavailable MARITZA BREWER Unavailable [phone] Reason for Referral Not Available Allergies, adverse reactions, alerts Allergen Type Reaction Severity Status Onset Date Morphine Allergy to substance (disorder) Unknown Active N/A History of medication use Medication Class Instructions Start Date End Date Ibuprofen 600 mg Tab TAKE 1 TABLET BY MO UT THREE TIMES A DAY WITH FOOD NEEDED [...] 12 HOURS 2022-07-06 No Data Available Nystatin 248006 UNIT/ML Suspension TAKE 5 MLS ORALLY 4 TIMES A DAY SWISH AND SWALLOW 2022-07-06 No Data Available Lisinopril 40 mg Tab TAKE 1 TABLET BY MO UTH EVERY DAY IN THE MORNING 2022-04-23 No Data Available Theophylline ER 600 mg Tab E R 24hr TAKE 1 TABLET BY MOUTH EVERY DAY FOR 30 DAYS 2022-05-01 No Data Available Eliquis 5 mg Tab TAKE 1 TABLET BY THERESA TH TWICE A DAY 2022-06-12 No Data Available [...] 2.5 mg Tab Take 1 tablet daily. 14-09-11 2023-09-09 Montelukast Sodium 10 mg Tab TAKE 1 TABL ET BY MOUTH DAILY IN EVENING 2023-09-02 No Data Available amLODIPine Besylate 5 mg Tab TAKE 1 TABLET DAILY 09-09 No Data Available Nystatin 155735 UNIT/ML Suspension Mouth/Throat 5ml PO QID Swish [...] FOR NERVE PAIN 2023-11-15 No Data Available Jvrwlkoo-Vdgrfrsoo-Efwcwbef 3.5-44127-6.1 Suspension INSTILL 1 DROP INTO BOTH EYES [...] mg Tab TAKE 1 TABLET BY THERESA TH 3 TIMES A DAY PRN for dizziness 2024-09-14 No Data Available [facility] Drops 6.5 % Solution ADMINISTER 5-10 DROPS INTO AFFECTED EAR(S) 2 TIMES DAILY FOR 4 DAYS 2024-09-25 No Data Available Loratadine 10 mg Tab TAKE 1 TABLET (10 M G) BY MOUTH ONCE PER DAY. 2024-09-25 No Data Available Ohtuvayre 3 mg/2.5ML Suspension No Data Available 2024-08-14 No Data Available CALCIUM 600 MG-VIT D3 10MCG TB TAKE 1 TA BLET BY MOUTH TWICE A DAY 2024-10-28 No Data Available Celecoxib 50 mg Cap TAKE 1 CAPSULE BY MO UTH 2 TIMES DAILY 2024-11-02 No Data Available Problem List Problem Status Onset Date Resolved Date Synopsis GERD (gastroesophageal reflux disease) Active 2022-12-12 N/A Omeprazole Avoid spicy, greasy, fried, fatty foods. Continue to follow up with PCP. Chronic pulmonary embolism Active 2022-12-12 N/A Eliquis Continue to follow up with Pulmonology and PCP. Mild bleeding gum here and there Entropion of both lower eyelids Active 2023-01-02 N/A Wears tape on lo wer lids, otherwise eyelashes poke into eyeballs. Needs referral - having trouble finding someone who is in network and taking new pts.Referred to the oculoplastic surgeon. [facility] [employer] Account Assistant. [phone], faxed and accept new patients, they called they are also out of network. Will continue to try. UTI (urinary tract infection) Resolved 2023-01-02 2023-05-07 start bactrim an d be sure to complete entire coursepyridium prnWipe front to backFrequent urination and increase water intake. Continue cranberry juiceVoid after sex.01/18/23 improved, still lower abd pressure, no pain. No nausea, no vomiting, no fever or chills. No CVA tenderness. Push fluids Acute bacterial bronchitis Resolved 2023-04-17 2023-08-22 2 06/19/23:- Cont. with Nebulizer q2-3h PRN - Promethazine-DM cough syrup PRN- Prednisone - Other problems related to medical facilities and other health care Active 2023-09-04 N/A .When member t o call: 1. If bp is elevated sbp>150; [...] see each individual diagnosis for contingency plan Oral yvette Resolved 2023-10-08 2023-11-18 Patient usin jabier advair inhaler but was not near a place to rinse her mouth. White coating covering tongue, roof of mouth, and cheeks. PResent x 3 days. Tried to rinse often, but not improving.Ordered Nystatin swish and swallow. Advised on use. Instructed if no symptoms improvement in next 24 hours after starting treatment to contact CB. Buprenorphine use Active 2022-12-12 N/A Taking Buprenorphine routinely with refills obtained. Will need to slowly wean to avoid withdrawal symptoms. Essential hypertension Active 2022-12-12 N/A Li sinopril and amlodipine. amlodipine is now 5 mg daily. BP under 140/90, much better controlled. stable ContingencyIf BP over 160/90, headache, facial flashing, can take amlodipine 2.5 mg now, retake in one hour. Call CB for any concerns. Interstitial pulmonary disease, unspecified Active 2022-12-12 N/A Albuterol I nhaler, Ipratropium-Albuterol via Nebulizer, trelegy, Theophylline, Spiriva Former Smoker Avoid allergens and triggersContinue to follow up with Pulmonology and PCP. ROSANNA (generalized anxiety disorder) Active 2022-12-12 N/A Hydroxyzine Cont inue to follow up with PCP. Stable, has not taken for long time, mood stable Sciatic leg pain Active 2023-10-11 N/A 10/30/23 Pain in LBP, shooting down to left [...] no improvement or any questions/concerns 09/08/24 No pain. COPD exacerbation Active 2023-11-13 N/A predniS ONE 20 mg Tab Take 1 tablet twice daily for 5 days. #10 tablet [id number]-Rjd Clavulanate 875/125 mg Tab Take 1 tablet PO twice daily for 7 days #14 tablet [id number] 100 mg Cap Take 1 tablet TID daily as needed for cough. #30 capsule [id number] Q 4 hrs prnRest and hydrate09/08/24 Prednisone taper and doxycycline received, taking, and improving. Sore throat, cough slowed down. Continue with medication prescribed. Mild SOB, no fever, no chills. Steam, fluids, mucinex. COPD (chronic obstructive pulmonary disease) with chronic bronchitisAllergies Active 2022-12-12 N/A Ipra tropium-Albuterol 0.5-2.5 (3) MG/3ML Solution Inhalation sig: USE 1 VIAL VIA NEBULIZER 4 TIMES A DAYTheophylline ER 600 mg Tab ER 24hr sig: TAKE 1 TABLET BY MOUTH EVERY DAY FOR 30 DAYSTrelegy Ellipta 200-62.5-25 MCG/ACT Aerosol Powder Breath Activated sig: INHALE 1 PUFF DAILYMontelukast Sodium 10 mg Tab sig: TAKE 1 TABLET BY MOUTH DAILY IN EVENINGSpiriva, refilled Cont ingency plan:1. Start antibiotic(Azithromycin, doxycycline, or levaquin), prednisone 40 mg *5 days 2. Increase Neb treatments/MDI use to q4h x3 days3. Call CB at the first sign of SOB or increased cough and sputum production. 4. Schedule f/u with primary BAR HOSTESS in 1-2 days. 09/04/24-patient seen for acute visit. She reports [...] well, no cough, no throat pain, no SOB. Acute pharyngitisAcute pain of both earsCough Active 2024-09-17 N/A Acute encounte r 09/17/24:Reports she woke up with sore throat [...] fever, chills, increased SOB from baseline COPD. Encounters Encounters Type Facility Date of Service Diagnosis/Co mplaint New patient, 30-44min 1 stable chronic or 2 minor; add modifier 95 for video, modifier 93 for phone [facility] [place] Opioid dependence, uncomplicatedChronic pulmonary embolismChronic obstructive pulmonary disease, unspecifiedInterstitial pulmonary disease, unspecifiedEssential (primary) hypertensionGeneralized anxiety disorderGastro-esophageal reflux disease without esophagitis New patient, 30-44min 1 stable chronic or 2 minor; add modifier 95 for video, modifier 93 for phone [facility] New patient, 30-44min 1 stable chronic or 2 minor; add modifier 95 for video, modifier 93 for phone [facility] [place] New patient, 30-44min 1 stable chronic or 2 minor; add modifier 95 for video, modifier 93 for phone [facility] [place] [...] phone [facility] [place]2022 No Data Available [facility] [place]2023 Urinary tract infection, sit e not specifiedUnspecified entropion of right lower eyelidUnspecified entropion of left lower eyelidEssential (primary) hypertension No Data Available [facility] [place]/02[place]2023 No Data Available [facility] [place]20[place] No Data Available [facility] [place]2023 Opioid dependence, uncomplicatedChronic pulmonary embolismChronic obstructive pulmonary disease, unspecifiedInterstitial pulmonary disease, unspecifiedEssential (primary) hypertensionGeneralized anxiety disorderGastro-esophageal reflux disease without esophagitisUrinary tract infection, site not specifiedUnspecified entropion of right lower eyelidUnspecified entropion of left lower eyelid No Data Available [facility] [place] 01/04/2023 No Data Available [facility] [place] 01/04/2023 No Data Available [facility] [place] 01[place]04[place]2023 No Data Available [facility] [place]2023 No Data Available [facility] [place]/04[place]2023 No Data Available [facility] [place]/2023 Urinary tract infection, sit e not specified No Data Available [facility] [place] 01/15/2023 No Data Available [facility] [place] 01/15/2023 No Data Available [facility] [place] 01/18/2023 Opioid dependence, uncomplicatedChronic pulmonary embolismChronic obstructive pulmonary disease, unspecifiedInterstitial pulmonary disease, unspecifiedEssential (primary) hypertensionGeneralized anxiety disorderGastro-esophageal reflux disease without esophagitisUrinary tract infection, site not specifiedUnspecified entropion of right lower eyelidUnspecified entropion of left lower eyelid No Data Available [facility] ([place] 01/18/2023 No Data Available [facility] [place] 01/18/2023 No Data Available [facility] [place] 01/18/2023 No Data Available [facility] [place] 01/18/2023 No Data Available [facility] [place] 01/18/2023 No Data Available [facility] [place] 01/18/2023 No Data Available [facility] [place] 04/17/2023 Acute bronchitis due to othe r specified organismsOth bacterial agents as the cause of diseases classd elswhr No Data Available [facility] [place] 04/19/2023 Interstitial pulmonary disea se, unspecified No Data Available [facility] [place] 04/19/[address] [facility] [place] 04[place] [facility] [place]2023 Chronic obstructive pulmonar y disease, unspecified No Data Available [facility] [place]2023 Opioid dependence, uncomplicatedChronic pulmonary embolismChronic obstructive pulmonary disease, unspecifiedInterstitial pulmonary disease, unspecifiedEssential (primary) hypertensionGeneralized anxiety disorderGastro-esophageal reflux disease without esophagitisUnspecified entropion of right lower eyelidUnspecified entropion of left lower eyelidAcute bronchitis due to other specified organismsOth bacterial agents as the cause of diseases classd elswhr No Data Available [facility] [place] 05[place] [facility] [place] [facility] [place] [facility] [place] Chronic obstructive pulmonar y disease, unspecifiedAllergy, unspecified, initial encounter No Data Available [facility] [place]2023 Chronic obstructive pulmonar y disease, unspecifiedAllergy, unspecified, initial encounterAcute bronchitis due to other specified organismsOth bacterial agents as the cause of diseases classd elswhr No Data Available [facility] [place] 06[place] [facility] [place] [facility] [place] 06[place] [facility] [place] Estab. patient 30-39min; chronic exacerbation, 2 stable chronic or 1 acute illness add add modifier 95 for video, (do not use for phone, instead use [id number]) [facility] [place]2023 Opioid dependence, uncomplicatedChronic pulmonary embolismChronic obstructive pulmonary disease, unspecifiedInterstitial pulmonary disease, unspecifiedAllergy, unspecified, initial encounterEssential (primary) hypertensionGeneralized anxiety disorderGastro-esophageal reflux disease without esophagitisUnspecified entropion of right lower eyelidUnspecified entropion of left lower eyelid Estab. patient 30-39min; chronic exacerbation, 2 stable chronic or 1 acute illness add add modifier 95 for video, (do not use for phone, instead use [id number]) [facility] [place] Estab. patient 30-39min; chronic exacerbation, 2 stable chronic or 1 acute illness add add modifier 95 for video, (do not use for phone, instead use [id number]) [facility] [place] Estab. patient 30-39min; chronic exacerbation, 2 stable chronic or 1 acute illness add add modifier 95 for video, (do not use for phone, instead use [id number]) [facility] [place]20[place] Estab. patient 30-39min; chronic exacerbation, 2 stable chronic or 1 acute illness add add modifier 95 for video, (do not use for phone, instead use 09100-52) [facility] [place] Estab. patient 30-39min; chronic exacerbation, 2 stable chronic or 1 acute illness add add modifier 95 for video, (do not use for phone, instead use 86347-25) [facility] [place] Estab. patient 30-39min; chronic exacerbation, 2 stable chronic or 1 acute illness add add modifier 95 for video, (do not use for phone, instead use 11722-11) [facility] [place]20[place] Estab. patient 30-39min; chronic exacerbation, 2 stable chronic or 1 acute illness add add modifier 95 for video, (do not use for phone, instead use 05872-86) [facility] [place] [facility] [place]23 Essential (primary) hypertensionOther problems related to medical facilities and other health care No Data Available [facility] [place] 09/[place] [facility] [place] [facility] [place] 09[place] [facility] [place]2023 Opioid dependence, uncomplicatedChronic pulmonary embolismChronic obstructive pulmonary disease, unspecifiedAllergy, unspecified, initial encounterInterstitial pulmonary disease, unspecifiedEssential (primary) hypertensionGeneralized anxiety disorderGastro-esophageal reflux disease without esophagitisUnspecified entropion of right lower eyelidUnspecified entropion of left lower eyelidOther problems related to medical facilities and other health care No Data Available [facility] [place] No Data Available [facility] [place] No Data Available [facility] [place] No Data Available [facility] [place] No Data Available [facility] [place] No Data Available [facility] [place] No Data Available [facility] [place] No Data Available [facility] [place]23 Essential (primary) hypertensionOther problems related to medical facilities and other health care No Data Available [facility] [place]/03[place]2023 No Data Available [facility] [place]/03[place]2023 No Data Available [facility] [place]/03[place]2023 No Data Available [facility] [place]2023 No Data Available [facility] [place] No Data Available [facility] [place] 10[place]08[place]2023 Candidal stomatitis No Data Available [facility] [place] 10[place]11/2023 Sciatica, unspecified side No Data Available [facility] [place] 10[place]2023 No Data Available [facility] [place] 10[place]30/2023 Opioid dependence, uncomplicatedChronic pulmonary embolismChronic obstructive pulmonary disease, unspecifiedAllergy, unspecified, initial encounterInterstitial pulmonary disease, unspecifiedEssential (primary) hypertensionGeneralized anxiety disorderGastro-esophageal reflux disease without esophagitisUnspecified entropion of right lower eyelidUnspecified entropion of left lower eyelidOther problems related to medical facilities and other health careCandidal stomatitisSciatica, unspecified side No Data Available [facility] [place] 10[place]2023 No Data Available [facility] [place] 10[place]20[place] No Data Available [facility] [place]20[place] No Data Available [facility] [place] No Data Available [facility] [place] No Data Available [facility] [place]20[place] Chronic obstructive pulmonar y disease with (acute) exacerbationSciatica, unspecified side No Data Available [facility] [place]18[place]2023 Chronic obstructive pulmonar y disease with (acute) exacerbationAllergy, unspecified, subsequent encounterEssential (primary) hypertensionSciatica, unspecified sideOther problems related to medical facilities and other health care No Data Available [facility] [...] disease with (acute) exacerbation No Data Available [facility] [place] 05[place] No Data Available [facility] [place] No Data Available [facility] [place] No Data Available [facility] [place]2024 Chronic obstructive pulmonar y disease, unspecifiedAllergy, unspecified, initial encounterEssential (primary) hypertensionOther problems related to medical facilities and other health care No Data Available [facility] [place] 05[place]12[place] No Data Available [facility] [place] No Data Available [facility] [place] No Data Available [facility] [place]20[place] Chronic obstructive pulmonar y disease with (acute) exacerbation No Data Available [facility] [place]/12[place]2024 [facility] [place] Estab. patient 10-29min; 1 minor problem; add add modifier 95 for video, modifier 93 for phone [facility] [place]2024 Other specified chronic obstructive pulmonary diseaseAllergy, unspecified, initial encounterOld myocardial infarction Estab. patient 10-29min; 1 minor problem; add add modifier 95 for video, modifier 93 for phone [facility] [place] Estab. patient 10-29min; 1 minor problem; add add modifier 95 for video, modifier 93 for phone [facility] [place] 09[place]04/20[place] Estab. patient 10-29min; 1 minor problem; add add modifier 95 for video, modifier 93 for phone [facility] [place]/04/20[place] Estab. patient 20-29min; 1 stable chronic or 2 minor; add add modifier 95 for video, modifier 93 for phone [facility] [place] 09/08/2024 Opioid use, unspecified, uncomplicatedChronic pulmonary [...] 95 for video, modifier 93 for phone [facility] [place] 09/08/20[place] Estab. patient 20-29min; 1 stable chronic or 2 minor; add add modifier 95 for video, modifier 93 for phone [facility] [place] 09/08/20[place] Estab. patient 20-29min; 1 stable chronic or 2 minor; add add modifier 95 for video, modifier 93 for phone [facility] [place] 09/08/2024 Estab. patient 20-29min; 1 stable chronic or 2 minor; add add modifier 95 for video, modifier 93 for phone [facility] [place] Estab. patient 20-29min; 1 stable chronic or 2 minor; add add modifier 95 for video, modifier 93 for phone [facility] [place]20[place] Estab. patient 20-29min; 1 stable [...] for phone [facility] [place] 09/17/2024 Estab. patient 10-29min; 1 minor problem; add add modifier 95 for video, modifier 93 for phone [facility] [place] 09/17/2024 Estab. patient 10-29min; 1 minor problem; add add modifier 95 for video, modifier 93 for phone [facility] [place] 09/[place]/2024 Acute pharyngitis, unspecifiedOtalgia, bilateralCough, unspecifiedOther problems related to medical facilities and other health care Estab. patient 10-29min; 1 minor problem; add add modifier 95 for video, modifier 93 for phone [facility] [place] 09/21/2024 Estab. patient 10-29min; 1 minor problem; add add modifier 95 for video, modifier 93 for phone [facility] [place] 09/24/2024 Chronic obstructive pulmonar y disease, unspecifiedAllergy, unspecified, initial encounterEssential (primary) hypertensionOther problems related to medical facilities and other health careAcute pharyngitis, unspecifiedOtalgia, bilateralCough, unspecified Estab. patient 10-29min; 1 minor problem; add add modifier 95 for video, modifier [address] [facility], ([place]) 09/24/2024 Vital Signs Date of Collection Vitals [...] tive Time Current Smoking Status Former smoker 2025-01-20 1 Sex Female History of Procedures Procedures Service Procedure code Service date Servicing provider Phone# New patient, 30-44min 1 stable chronic or 2 minor; add modifier 95 for video, modifier 93 for phone [id number] 2022-12-12 No Data Available No Data Available [...] Available Advance care planning discussed and documented advance care plan or surrogate decision-maker was documented in the medical record. (1123F) 1123F 2022-12-12 No Data Available No Data Availa ble No Data Available [id number] 2023-01-02 No Data Available No Data Available SBP >= 140 3077F 2023-01-02 No Data Available No Data Available DBP >=90 3080F 2023-01-02 No Data Available No Data Available No Data Available [id number] 2023-01-04 No Data Available No Data Available [...] No Data Availa ble No Data Available 2023-01-15 No Data Available No Data Available Medication List Documented (1159F) 1159F 2023-01-15 No Data Available No Data Rox ilable Pain Assessment - NO pain present (1126F) 1126F 2023-01-15 No Data Available No Data A vailable No Data Available 2023-01-18 No Data Available No Data Available [...] No Data Availa ble No Data Available [id number] 2023-06-18 No Data Available No Data Available No Data Available [id number] 2023-06-19 No Data Available No Data Available Medication List Documented (1159F) 1159F 2023-06-19 No Data Available No Data Rox ilable Functional Status Assessed (1170F) 1170F 2023-06-19 [...] (do not use for phone, instead use [id number]) [id number] 2023-09-02 No Data Available No Data Availa [...] Available No Data Available No Data Available [id number] 2023-09-04 No Data Available No Data Available Medication List Documented (1159F) 1159F 2023-09-04 No Data Available No Data Rox ilable SBP >= 140 3077F 2023-09-04 No Data Available No Data Available DBP >=90 3080F 2023-09-04 No Data Available No Data Available No Data Available 2023-09-09 No Data Available No Data Available [...] vailable Advance care planning discussed and documented advance care plan or surrogate decision-maker was documented in the medical record. (1123F) 1123F 2023-09-09 No Data Available No Data Availa ble No Data Available 2023-10-03 No Data Available No Data Available [...] No Data Avail able No Data Available [id number] 2023-10-08 No Data Available No Data Available No Data Available 2023-10-11 No Data Available No Data Available Medication List Documented (1159F) 1159F 2023-10-11 No Data Available No Data Rox ilable No Data Available [id number] 2023-10-30 No Data Available No Data Available [...] Available No Data Available No Data Available 2024-05-08 No Data Available No Data Available Medication List Documented (1159F) 1159F 2024-05-08 No Data Available No Data Rox ilable SBP < 130 (3074F) 3074F 2024-05-08 No Data Available No Data Available DBP 80-89 (3079F) 3079F 2024-05-08 No Data Available No Data Available No Data Available 2024-05-12 No Data Available No Data Available SBP < 130 (3074F) 3074F 2024-05-12 No Data Available No Data Available DBP 80-89 (3079F) 3079F 2024-05-12 No Data Available No Data Available Medication List Documented (1159F) 1159F 2024-05-12 No Data Available No Data Rox ilable No Data Available 2024-07-12 No Data Available No Data Available SBP >= 140 3077F 2024-07-12 No Data Available No Data Available DBP >=90 3080F 2024-07-12 No Data Available No Data Available Estab. patient 10-29min; 1 minor problem; add add modifier 95 for video, modifier 93 for phone [id number] 2024-09-04 No Data Available No Data Availa [...] 95 for video, modifier 93 for phone [id number] 2024-09-08 No Data Available No Data Availa [...] ble Advance care planning discussed and documented advance care plan or surrogate decision-maker was [...] 95 for video, modifier 93 for phone [id number] 2024-09-17 No Data Available No Data Availa ble Pain Assessment - Pain Documented on a Pain Scale (1125F) 1125F 2024-09-17 No Data Available No Data Rox ilable Medication List Documented (1159F) 1159F 2024-09-17 No Data Available No Data Rox ilable Estab. patient 10-29min; 1 minor problem; add add modifier 95 for video, modifier 93 for phone [id number] 2024-09-21 No Data Available No Data Availa ble Medication List Documented (1159F) 1159F 2024-09-21 No Data Available No Data Rox ilable Estab. patient 10-29min; 1 minor problem; add add modifier 95 for video, modifier 93 for phone [id number] 2024-09-24 No Data Available No Data Availa [...] sputum production. 4. Schedule f/u with primary BAR HOSTESS in 1-2 days. Interstitial pulmonary disease, unspecifiedAlbuterol Inhaler, Fluticasone, Ipratropium-Albuterol via [...] sputum production. 4. Schedule f/u with primary BAR HOSTESS in 1-2 days. Recently seen pulmo.Interstitial pulmonary disease, unspecifiedAlbuterol Inhaler, Fluticasone, [...] sputum production. 4. Schedule f/u with primary BAR HOSTESS in 1-2 days. Essential hypertensionLisinopril Recommend low sodium diet. Followed by [...] taking new pts.Referred to the oculoplastic surgeon. [facility] [employer] Account Assistant. [phone], faxed and accept new patients, they called [...] sputum production. 4. Schedule f/u with primary BAR HOSTESS in 1-2 days. Nasal discharge, PND, drips in [place]. 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 Continue with mucinex, humidifier. Call us [...] sputum production. 4. Schedule f/u with primary BAR HOSTESS in 1-2 days. Recently seen pulmo. 04/19/23 [...] air 95%. Neb twice daily. Finishing doxycycline. [place] back to normal Interstitial pulmonary disease, unspecifiedAlbuterol [...] taking new pts.Referred to the oculoplastic surgeon. [facility] [employer] Account Assistant. [phone], faxed and accept new patients, they called they are also out of network. Will continue to try.Acute bacterial bronchitis04/17/23:- Cont. with Nebulizer q2-3h PRN - Promethazine-DM cough syrup PRN- Extend Augmentin x5 more days. - Prednisone 50mg burst x5d- Follow up scheduled Saturday with primary DOMENICO. 2023-06-18 09:13:03 Follow up [...] sputum production. 4. Schedule f/u with primary BAR HOSTESS in 1-2 days. Recently seen pulmo. 04/19/23 [...] air 95%. Neb twice daily. Finishing doxycycline. [place] back to normal 06/19/23 productive cough with thick yellow sputum, headache, runny nose, post nasal drip, sore throat, SOB. O2 sat 94-95%. Baseline, taking doxy and medro dosepak. Take with food to decrease chance to upset stomach. call anytime please if fail to continue to improve.Acute bacterial sgopunetsz74/29/23:- Cont. with Nebulizer q2-3h PRN - Promethazine-DM [...] call CBContinue to see PCP. [facility] [...] sputum production. 4. Schedule f/u with primary BAR HOSTESS in 1-2 days. Recently seen pulmo. 04/19/23 [...] air 95%. Neb twice daily. Finishing doxycycline. [place] back to normal 06/19/23 productive cough with [...] taking new pts.Referred to the oculoplastic surgeon. [facility] [employer] Account Assistant. [phone], faxed and accept new patients, they called [...] joint pain increased [facility]. [facility] as needed for any acute or disease education needs that may arise 11/02.what should be done when the member calls: see each individual diagnosis for contingency plan 2023-10-08 10:43:06 Follow up plan for nadrew doziere symptoms:Oral yvette 2023-10-11 07:46:36 Sciatic leg painRx [...] sputum production. 4. Schedule f/u with primary BAR HOSTESS in 1-2 days. Recently seen pulmo. 04/19/23 [...] air 95%. Neb twice daily. Finishing doxycycline. [place] back to normal 06/19/23 productive cough with [...] taking new pts.Referred to the oculoplastic surgeon. [facility] [employer] Account Assistant. [phone], faxed and accept new patients, they called [...] call CBContinue to see PCP. Follow-up with [facility] as needed for any acute or disease [...] sputum production. 4. Schedule f/u with primary BAR HOSTESS in 1-2 days. Recently seen pulmo. 04/19/23 [...] air 95%. Neb twice daily. Finishing doxycycline. [place] back to normal 06/19/23 productive cough with [...] joint pain increased [facility]. 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 [place] that as soon as prednisone is stopped, [...] speak to pulm. Please talk to your machine ironer for advice. She had a lot of COPD exacerbations in the past year 2024-05-08 12:56:13 Follow up plan for andrew campos symptoms:COPD exacerbation 2024-05-12 08:56:03 COPD (chronic obstru [...] sputum production. 4. Schedule f/u with primary BAR HOSTESS in 1-2 days. Recently seen pulmo. 04/19/23 [...] air 95%. Neb twice daily. Finishing doxycycline. [place] back to normal 06/19/23 productive cough with [...] stated will make appointment with pulmonology to yhlzqjn85/22/24 Taking all these RxNew predniSONE 20 mg Tab Take 1 tablet twice daily New levoFLOXacin 500 mg Tab 1 tablet orally daily u2Cdgrqw Ipratropium-Albuterol 0.5-2.5 (3) MG/3ML Solution Inhalation USE [...] sputum production. 4. Schedule f/u with primary BAR HOSTESS in 1-2 days. 09/04/24-patient seen for acute visit. She reports [...] taking new pts.Referred to the oculoplastic surgeon. [facility] [employer] Account Assistant. [phone], faxed and accept new patients, they called [...] joint pain increased [facility]. Follow[facility] with [facility] [...] twice daily for 5 days. #10 tablet MXy7Xkffgzbmyhj-Gpt Clavulanate 875/125 mg Tab Take 1 tablet PO twice daily for 7 days #14 tablet ENb9Inalrrfxzmc 100 mg Cap Take 1 tablet TID daily as needed for cough. #30 capsule IMi6Vtxb Q 4 hrs prnRest and hydrate09/08/24 Prednisone [...] sputum production. 4. Schedule f/u with primary BAR HOSTESS in 1-2 days. 09/04/24-patient seen for acute visit. She reports [...] call CBContinue to see PCP. Follow-up with [facility] as [...] record (1158F)Advance care planning discussed and documented advance care plan or surrogate decision-maker was [...] Tab Take 1 tablet daily. #30 tablet YOp8Eidxp (patient, parent, or guardian); 11-20 minutes of [...] Tab Take 1 tablet daily. #90 tablet PXg9Dlw [facility] Covid-19 At Home Test Kit Kit In Vitro test one daily #4 each PTt5Ndpzm (patient, parent, or guardian); 11-20 minutes of [...] Saturday with primary DOMENICO. 2023-04-19 11:20:39 New Josesta 137-50 M CG/ACT Suspension Nasal 1 spray intranasally 2 times per day in each nostril #1 each SUp8Urkgvs Ipratropium-Albuterol 0.5-2.5 (3) MG/3ML Solution Inhalation USE [...] sputum production. 4. Schedule f/u with primary BAR HOSTESS in 1-2 days. Recently seen pulmo. 04/19/23 [...] TID as needed for cough. #30 capsule AYo8nIl New Montelukast Sodium 10 mg Tab 1 tablet orally QD for allergies and to prevent bronchospasm #30 tablet PVj3eNv New Doxycycline Hyclate 100 mg Tab Take 1 tablet PO twice daily for 7 days. #14 tablet WKj0sEs New Medrol 4 mg Tab Therapy Pack [...] sputum production. 4. Schedule f/u with primary BAR HOSTESS in 1-2 days. Recently seen pulmo. 04/19/23 [...] air 95%. Neb twice daily. Finishing doxycycline. [place] back to normal 2023-06-19 06:16:30 Phone (patient, [...] modifier 95Advance care planning discussed and documented advance care plan or surrogate decision-maker was documented in the medical record. (1123F)Advance care planning discussed and documented in the medical record beneficiary/patient did not wish to or was unable to provide an advance care plan or name a surrogate decision-maker. (1124F)Pain Assessment - NO pain documented (1126F)Continue to see PCP. [facility] [...] sputum production. 4. Schedule f/u with primary BAR HOSTESS in 1-2 days. Recently seen pulmo. 04/19/23 [...] air 95%. Neb twice daily. Finishing doxycycline. [place] back to normal 06/19/23 productive cough with [...] taking new pts.Referred to the oculoplastic surgeon. [facility] [employer] Account Assistant. [phone], faxed and accept new patients, they called they are also out of network. Will continue to try. 2023-09-04 13:35:46 Phone (patient, pare nt, or guardian); 5-10 minutes of medical discussion (no modifier 95)Continue to see PCP. Follow-up with [facility] as needed for any acute or disease education needs that may arise 11/02. 2023-09-09 14:31:48 New amLODIPine Besyl ate 5 mg Tab Take 1 tablet daily. #90 tablet EPm6Exurc (patient, parent, or guardian); 5-10 minutes of [...] 3 times per day PRN #20 tablet LEz9Dbq Medrol 4 mg Tab Therapy Pack take as directed #1 packet DEw9Ydhlc (patient, parent, or guardian); 5-10 minutes of medical discussion (no modifier 95)Continue to see PCP. Follow-up with [facility] as needed for any acute or disease education needs that may arise 11/02. 2023-10-30 13:39:59 New Prednisone 40 mg 1 daily x 5 days #5 tablet RZg5Moccq (patient, parent, or guardian); 5-10 minutes of medical discussion (no modifier 95)Continue to see PCP. Follow-up with [facility] as needed for any acute or disease education needs that may arise 11/02. 2023-11-13 07:56:34 New Doxycycline Hycl ate 100 mg Tab Take 1 tablet PO twice daily for 10 days. #20 tablet HHr8Sls Benzonatate 100 mg Cap Take 1 tablet twice daily as needed for cough. #20 capsule VVr7Pnz predniSONE 20 mg Tab Take 2 tablet once daily for 5 days. #10 tablet TEw3Amb Promethazine-DM 6.25/15 mg/5ML Syrup 5 ml orally every 4 hours as needed #150 milliliter HBa6Ecntp (patient, parent, or guardian); 5-10 minutes of [...] twice daily for 5 days. #10 tablet ITe6Ecqnlzhwqig-Gxs Clavulanate 875/125 mg Tab Take 1 tablet PO twice daily for 7 days #14 tablet EVm6Tovajkpbgzw 100 mg Cap Take 1 tablet TID daily as needed for cough. #30 capsule WNh5Zmsq Q 4 hrs prnRest and hydrate 2024-09-04 12:33:48 Televideo 10-29min; 1 minor problem; add add modifier 95 for video, modifier 93 for phoneContinue to see PCP. Follow-up with [facility] as needed for any acute or disease education needs that may arise 11/02.Contingency plan:1. Start antibiotic(Azithromycin, doxycycline, or levaquin), prednisone 40 mg *5 days 2. Increase Neb treatments/MDI use to q4h x3 days3. Call CB at the first sign of SOB or increased cough and sputum production. 4. Schedule f/u with primary BAR HOSTESS in 1-2 days. 05/12/24 Taking all these RxNew predniSONE 20 mg Tab Take 1 tablet twice daily New levoFLOXacin 500 mg Tab 1 tablet orally daily o7Kswiya Ipratropium-Albuterol 0.5-2.5 (3) MG/3ML Solution Inhalation USE [...] handihaler device orally once daily #30 capsule TUu9Zntmnobsmj Status Assessed (1170F)Advance Care Directive Advance care planning discussion documented in the medical record (1158F)Advance care planning discussed and documented advance care plan or surrogate decision-maker was documented in the medical record. (1123F)SBP 130-139 (3075F)Estab. patient 20-29min; 1 stable chronic or 2 minor; add add modifier 95 for video, modifier 93 for phoneMedication List Documented (1159F)Medication Review by prescribing provider or pharmacist documented (1160F)Pain Assessment - NO pain present (1126F)DBP 80-89 (3079F)Continue to see PCP. Follow-up with [facility] as needed for any acute or disease education needs that may arise.Call if you have any questions, comments, or concerns.Keep taking your medications as prescribed. 2024-09-17 06:13:37 Televideo 10-29min; 1 minor problem; add add modifier 95 for video, modifier 93 for phonePain Assessment - Pain Documented on a Pain Scale (1125F)Continue to see PCP. Follow-up with [facility] as [...] any new symptoms develop, please contact us 24/.Follow up scheduled with DOMENICO on 09/21/2024. 2024-09-21 11:07:55 Estab. patient 10-29 min; 1 minor problem; add add modifier 95 for video, modifier 93 for phoneContinue to see PCP. [facility] [...] any new symptoms develop, please contact us /.Follow up scheduled with DOMENICO on 09/21/2024. 09/21/24 [...] joint pain increased [facility]. [facility] with [facility] as needed for any acute or disease [...] for phoneContinue to see PCP. Follow-up with [facility] as needed for any acute or disease [...] referral 2023-11-18 Recommended to shivani Vela to [facility] or [facility] for better COPD control, she [...] 500 mg Tab 1 tablet orally daily q0Xyeyvp Ipratropium-Albuterol 0.5-2.5 (3) MG/3ML Solution Inhalation USE [...] ER visit(s) and precipitating factors: 09/14/24 at [facility], URI symptoms 2024-09-24 HEDIS review: brendon mooney 2024-09-24 Took amoxicillin bid for 10 days, benzonatate.
== END 2025-02-08 09:50 | disposition home or self-care (01) ==
LOC: HO.MRI 09:49
PROVIDERS: PCP General Practice; Visit Provider General Practice
DX: R42 Dizziness and giddiness (principal)
CPT/HCPCS: 70551

== ENCOUNTER → 2025-02-08 10:01 | Outpatient (BNV) | payer MEDICARE, SELFPAY | PROVIDERS: PCP General Practice; Visit Provider Radiology Diagnostic Radiology | DX: R42 Dizziness and giddiness (principal) | CPT/HCPCS: 70551 ==

== ENCOUNTER 2025-04-13 09:54 | Outpatient (REF) | payer MEDICARE, SELFPAY ==
--- OUTSIDE RECORDS SUMMARY | 2025-04-13 11:53 | XMS_ITS ---
Author Name Brandee Mckeon NP Address [address] [place] [address] Phone [phone] [facility] [facility] Care Team Providers Care [facility] Nurse Staff Name Role Phone Brandee Mckeon Unavailable [phone] SOURAV BARRERA Unavailable [phone] Unavailable Unavailable Unavailable Nickolas Strong Unavailable [phone] Unavailable Unavailable [phone] YESSY WADE Unavailable [phone] JOSE DE JESUS RING Unavailable [phone] GABI EDWARDS Unavailable MARITZA BREWER Unavailable [phone] Reason for Referral Not Available Allergies, adverse [...] 12 HOURS 2022-07-06 No Data Available Nystatin 520529 UNIT/ML Suspension TAKE 5 MLS ORALLY 4 [...] TABLET DAILY 09-09 No Data Available Nystatin 642510 UNIT/ML Suspension Mouth/Throat 5ml PO QID Swish [...] FOR NERVE PAIN 2023-11-15 No Data Available Rbdkzdcl-Akrvmqpuq-Lyoucqfl [id number] Suspension INSTILL 1 DROP INTO BOTH EYES [...] 25 mg Tab TAKE 1 TABLET BY [facility] 3 TIMES A DAY PRN for dizziness [...] 50 mg Cap TAKE 1 CAPSULE BY [facility] 2 TIMES DAILY 2024-11-02 No Data Available Diflucan 150 mg Tab Take 1 tablet PO. Ma y take 1 tablet 72 hours later if symptoms have not improved. 2025-03-30 No Data Available Sulfamethoxazole-Trimethopri m 800/160 mg Tab Take 1 tablet PO twice daily for 7 days. 2025-03-30 No Data Available Ondansetron 4 mg Tab TAKE 1 TABLET BY [facility] EVERY 8 HOURS NEEDED FOR NAUSEA OR FOR VOMITING FOR UP TO 7 DAYS 2025-01-26 No Data Available clonazePAM 0.5 mg Tab TAKE 1 TABLET (0.5 MG) BY MOUTH IF NEEDED AT BEDTIME (VERTIGO) FOR UP TO 14 DAYS. 2025-01-26 No Data Available Tobramycin-dexAMETHasone 0.3-0.1 % Suspension INSTILL 1 DROP INTO BOTH EYES FOUR TIMES A DAY USE FOR 2-3 WEEKS, THEN STOP 2025-02-02 No Data Available Problem List Problem Status [...] taking new pts.Referred to the oculoplastic surgeon. [facility] [employer] [phone], faxed and accept new patients, they called [...] or chills. No CVA tenderness. Push fluids 03/30/25Increase clear fluids. Wipe from front to back. Do not use perfumed lotions or soaps. Bactrim 800/160 BID x 7 days. Fluconazole as directed. CB is available 11/02 for acute needs. Acute bacterial bronchitis Resolved 2023-04-17 2023-08-22 2 [...] joint pain increased [facility]. Follow-up with [facility] as needed for any acute or disease education needs that may arise 11/02.what should be done when the member calls: see each individual diagnosis for contingency plan Oral yvette Resolved 2023-10-08 2023-11-18 Patient in [place] advair inhaler but was not near [...] twice daily for 5 days. #10 tablet SNz9Jfwojpdqivw-Rwk Clavulanate 875/125 mg Tab Take 1 tablet PO twice daily for 7 days #14 tablet [id number] 100 mg Cap Take 1 tablet TID daily as needed for cough. #30 capsule OTt9Vurt Q 4 hrs prnRest and hydrate09/08/24 Prednisone [...] sputum production. 4. Schedule f/u with primary DIETITIAN HELPER in 1-2 days. 09/04/24-patient seen for acute [...] modifier 95 for video, modifier 93 for [employer] [facility], ([place]/2022 Opioid dependence, uncomplicatedChronic pulmonary embolismChronic obstructive pulmonary disease, unspecifiedInterstitial pulmonary disease, unspecifiedEssential (primary) hypertensionGeneralized anxiety disorderGastro-esophageal reflux disease without esophagitis New patient, 30-44min 1 stable chronic or 2 minor; add modifier 95 for video, modifier 93 for [employer] [facility] [place] 12/12/2022 New patient, 30-44min 1 stable chronic or 2 minor; add modifier 95 for video, modifier 93 for [employer] [facility] ([place] 12/12/2022 New patient, 30-44min 1 stable chronic or 2 minor; add modifier 95 for video, modifier 93 for [employer] [facility] [place] 12/12/2022 New patient, 30-44min 1 stable chronic or 2 minor; add modifier 95 for video, modifier 93 for phone [facility] [place]20[place] New patient, 30-44min 1 stable chronic or 2 minor; add modifier 95 for video, modifier 93 for phone [facility] [place]2022 New patient, 30-44min 1 stable chronic or 2 minor; add modifier 95 for video, modifier 93 for phone [facility] [place]2022 New patient, 30-44min 1 stable chronic or 2 minor; add modifier 95 for video, modifier 93 for phone [facility] [place] 12/[place]/2022 No Data Available [facility] [place]/02/2023 Urinary tract infection, sit e not specifiedUnspecified entropion of right lower eyelidUnspecified entropion of left lower eyelidEssential (primary) hypertension No Data Available [facility] 01/02/2023 No Data Available [facility] [place]02/2023 No Data Available [facility]04[place]2023 Opioid dependence, uncomplicatedChronic pulmonary embolismChronic obstructive pulmonary disease, unspecifiedInterstitial pulmonary disease, unspecifiedEssential (primary) hypertensionGeneralized anxiety disorderGastro-esophageal reflux disease without esophagitisUrinary tract infection, site not specifiedUnspecified entropion of right lower eyelidUnspecified entropion of left lower eyelid No Data Available [facility] [place] 01/04/2023 No Data Available [facility] [place]/04[place]2023 No Data Available [facility] [place] 01/04[place]2023 No Data Available [facility] [place]/04[place]2023 No Data Available [facility] [place]04[place]2023 No Data Available [facility] [place]20[place] Urinary tract infection, sit e not specified No Data Available [facility] [place]/15[place]2023 No Data Available [facility] [place]2023 No Data Available [facility] [place]18[place]2023 Opioid dependence, uncomplicatedChronic pulmonary embolismChronic obstructive pulmonary disease, unspecifiedInterstitial pulmonary disease, unspecifiedEssential (primary) hypertensionGeneralized anxiety disorderGastro-esophageal reflux disease without esophagitisUrinary tract infection, site not specifiedUnspecified entropion of right lower eyelidUnspecified entropion of left lower eyelid No Data Available [facility] [place] 01/18/2023 No Data Available [facility] [place] 01/18/2023 No Data Available [facility] [place] 01/18/2023 No Data Available [facility] [place] 01/18/2023 No Data Available [facility] [place] 01/18/2023 No Data Available [facility] [place] 01/18[place]2023 No Data Available [facility] [place] 04[place]17/2023 Acute bronchitis due to othe r specified organismsOth bacterial agents as the cause of diseases classd elswhr No Data Available [facility] [place] 04/19/2023 Interstitial pulmonary disea se, unspecified No Data Available [facility] [place] 04/19/2023 No Data Available [facility] [place] 04[place]19[place]2023 No Data Available [facility] [place] 05/02/2023 Chronic obstructive pulmonar y disease, unspecified No Data Available [facility] [place]07[place]2023 Opioid dependence, uncomplicatedChronic pulmonary embolismChronic obstructive pulmonary disease, unspecifiedInterstitial pulmonary disease, unspecifiedEssential (primary) hypertensionGeneralized anxiety disorderGastro-esophageal reflux disease without esophagitisUnspecified entropion of right lower eyelidUnspecified entropion of left lower eyelidAcute bronchitis due to other specified organismsOth bacterial agents as the cause of diseases classd elswhr No Data Available [facility] [place] 05/07/2023 No Data Available [facility] [place]/07/2023 No Data Available [facility] [place]2023 No Data Available [facility] [place]18[place]2023 Chronic obstructive pulmonar y disease, unspecifiedAllergy, unspecified, initial encounter No Data Available [facility] [place]2023 Chronic obstructive pulmonar y disease, unspecifiedAllergy, unspecified, initial encounterAcute bronchitis due to other specified organismsOth bacterial agents as the cause of diseases classd elswhr No Data Available [facility] 06/19/2023 No Data Available [facility]/19[place]2023 No Data Available [facility]19[place]2023 No Data Available [facility] 06[place]19/20[place] Estab. patient 30-39min; chronic exacerbation, 2 stable chronic or 1 acute illness add add modifier 95 for video, (do not use for phone, instead use [id number]) [facility]/02/2023 Opioid dependence, uncomplicatedChronic pulmonary embolismChronic obstructive pulmonary disease, unspecifiedInterstitial pulmonary disease, unspecifiedAllergy, unspecified, initial encounterEssential (primary) hypertensionGeneralized anxiety disorderGastro-esophageal reflux disease without esophagitisUnspecified entropion of right lower eyelidUnspecified entropion of left lower eyelid Estab. patient 30-39min; chronic exacerbation, 2 stable chronic or 1 acute illness add add modifier 95 for video, (do not use for phone, instead use 80963-09) [facility] Estab. patient 30-39min; chronic exacerbation, 2 stable chronic or 1 acute illness add add modifier 95 for video, (do not use for phone, instead use [id number]) [facility] 09/02/20[place] Estab. patient 30-39min; chronic exacerbation, 2 stable chronic or 1 acute illness add add modifier 95 for video, (do not use for phone, instead use [id number]) [facility] ([place] 09/02/2023 Estab. patient 30-39min; chronic exacerbation, 2 stable chronic or 1 acute illness add add modifier 95 for video, (do not use for phone, instead use 17957-23) [facility] 09/02/2023 Estab. patient 30-39min; chronic exacerbation, 2 stable chronic or 1 acute illness add add modifier 95 for video, (do not use for phone, instead use 60235-55) [facility] 09[place]02/20[place] Estab. patient 30-39min; chronic exacerbation, 2 stable chronic or 1 acute illness add add modifier 95 for video, (do not use for phone, instead use 14354-60) [facility] 09/02/20[place] Estab. patient 30-39min; chronic exacerbation, 2 stable chronic or 1 acute illness add add modifier 95 for video, (do not use for phone, instead use 60243-56) [facility] [place] 09/02/2023 No Data Available [facility] [place]/04[place]2023 Essential (primary) hypertensionOther problems related to medical facilities and other health care No Data Available [facility] [place]/04[place]2023 No Data Available [facility] [place]/04/2023 No Data Available [facility] 09[place]04/2023 No Data Available [facility] 09/09/2023 Opioid dependence, uncomplicatedChronic pulmonary embolismChronic obstructive pulmonary disease, unspecifiedAllergy, unspecified, initial encounterInterstitial pulmonary disease, unspecifiedEssential (primary) hypertensionGeneralized anxiety disorderGastro-esophageal reflux disease without esophagitisUnspecified entropion of right lower eyelidUnspecified entropion of left lower eyelidOther problems related to medical facilities and other health care No Data Available [facility] [place]/09/2023 No Data Available [facility] [place] 09[place]2023 No Data Available [facility] [place]2023 No Data Available [facility] [place]/09/2023 No Data Available [facility] [place] 09[place]09/2023 No Data Available [facility] [place]/09[place]2023 No Data Available [facility] [place]09/2023 No Data Available [facility] [place]/03/2023 Essential (primary) hypertensionOther problems related to medical facilities and other health care No Data Available [facility] [place]/03[place]2023 No Data Available [facility] [place] 10[place]03[place]2023 No Data Available [facility] [place] 10/03/2023 No Data Available [facility] [place] 10/03[place]2023 No Data Available [facility] [place]/03[place]2023 No Data Available [facility] [place] 10[place]08/2023 Candidal stomatitis No Data Available [facility] [place] 10[place]11/2023 Sciatica, unspecified side No Data Available [facility] [place] 10/11/2023 No Data Available [facility] [place] 10/30/2023 Opioid dependence, uncomplicatedChronic pulmonary embolismChronic obstructive pulmonary disease, unspecifiedAllergy, unspecified, initial encounterInterstitial pulmonary disease, unspecifiedEssential (primary) hypertensionGeneralized anxiety disorderGastro-esophageal reflux disease without esophagitisUnspecified entropion of right lower eyelidUnspecified entropion of left lower eyelidOther problems related to medical facilities and other health careCandidal stomatitisSciatica, unspecified side No Data Available [facility] [place] 10[place]30/2023 No Data Available [facility] [place] 10/30/2023 No Data Available [facility] [place] 10/30/2023 No Data Available [facility] [place]/30/2023 No Data Available [facility] [place] 10[place]30[place]2023 No Data Available [facility] [place]13/2023 Chronic obstructive pulmonar y disease with (acute) exacerbationSciatica, unspecified side No Data Available [facility] [place] 11/18/2023 Chronic obstructive pulmonar y disease with (acute) exacerbationAllergy, unspecified, subsequent encounterEssential (primary) hypertensionSciatica, unspecified sideOther problems related to medical facilities and other health care No Data Available [facility] [place] 11/18/2023 No Data Available [facility] [place]/18[place]2023 No Data Available [facility] [place] 11/18/2023 No Data Available [facility] [place] 11/18/2023 No Data Available [facility] [place] 11/18[place]2023 No Data Available [facility] [place]20[place] Chronic obstructive pulmonar y disease with (acute) exacerbation No Data Available [facility] [place]/08/2024 No Data Available [facility] [place]/08/2024 No Data Available [facility] [place]08[place]2024 No Data Available [facility] [place]12/2024 Chronic obstructive pulmonar y disease, unspecifiedAllergy, unspecified, initial encounterEssential (primary) hypertensionOther problems related to medical facilities and other health care No Data Available [facility] [place] 05/12/2024 No Data Available [facility] [place]/12/2024 No Data Available [facility] [place] 05/12/2024 No Data Available [facility] [place]20[place] Chronic obstructive pulmonar y disease with (acute) exacerbation No Data Available [facility] [place]/12[place]2024 No Data Available [facility] [place] Estab. patient 10-29min; 1 minor problem; add add modifier 95 for video, modifier 93 for phone [facility] [place]04[place]2024 Other specified chronic obstructive pulmonary diseaseAllergy, unspecified, initial encounterOld myocardial infarction Estab. patient 10-29min; 1 minor problem; add add modifier 95 for video, modifier 93 for phone [facility] [place] Estab. patient 10-29min; 1 minor problem; add add modifier 95 for video, modifier 93 for phone [facility] [place]/04/20[place] Estab. patient 10-29min; 1 minor problem; add add modifier 95 for video, modifier 93 for phone [facility] [place]/04/20[place] Estab. patient 20-29min; 1 stable chronic or 2 minor; add add modifier 95 for video, modifier 93 for phone [facility] [place] 09/08/2024 Opioid use, unspecified, uncomplicatedChronic pulmonary [...] for phone [facility] [place]17[place]2024 Acute pharyngitis, unspecifiedOtalgia, bilateralCough, unspecified Estab. patient 10-29min; 1 minor problem; add add modifier 95 for video, modifier 93 for phone [facility] [place] 09/17/20[place] Estab. patient 10-29min; 1 minor problem; add add modifier 95 for video, modifier 93 for [facility] 09/17/2024 Estab. patient 10-29min; 1 minor problem; add add modifier 95 for video, modifier 93 for [facility] 09/21/2024 Acute pharyngitis, unspecifiedOtalgia, bilateralCough, unspecifiedOther problems related to medical facilities and other health care Estab. patient 10-29min; 1 minor problem; add add modifier 95 for video, modifier 93 for [facility] 09/21/2024 Estab. patient 10-29min; 1 minor problem; add add modifier 95 for video, modifier 93 for [facility] 09/24/2024 Chronic obstructive pulmonar y disease, unspecifiedAllergy, unspecified, initial encounterEssential (primary) hypertensionOther problems related to medical facilities and other health careAcute pharyngitis, unspecifiedOtalgia, bilateralCough, unspecified Estab. patient 10-29min; 1 minor problem; add add modifier 95 for video, modifier 93 for [facility] 09/24/2024 Estab. patient 10-29min; 1 minor problem; add add modifier 95 for video, modifier 93 for [facility] 03/30/2025 Urinary tract infection, sit e not specified Estab. patient 10-29min; 1 minor problem; add add modifier 95 for video, modifier 93 for [facility] 03/30/2025 Essential (primary) hyperten amanda Estab. patient 10-29min; 1 minor problem; add add modifier 95 for video, modifier 93 for [facility] 03/30/2025 Essential (primary) hyperten amanda Vital Signs Date of Collection Vitals 2022-12-12 [...] 06:13:37 Pain Scale - 8.0 {sc ore} 2025-03-30 12:57:52 BP Diastolic - 75.0 mm[Hg]BP Systolic - 124.0 mm[Hg]Heart Rate - 74.0 /min Social History Social History Social History Observation Description Effec tive Time Current Smoking Status Former smoker 2025-03-23 3 Sex Female History of Procedures Procedures Service Procedure code Service date Servicing provider Phone# New patient, 30-44min 1 stable chronic or 2 minor; add modifier 95 for video, modifier 93 for phone [id number] 2022-12-12 No Data Available No Data Available [...] No Data Availa ble No Data Available [id number] 2023-01-02 No Data Available No Data Available SBP >= 140 3077F 2023-01-02 No Data Available No Data Available DBP >=90 3080F 2023-01-02 No Data Available No Data Available No Data Available [id number] 2023-01-04 No Data Available No Data Available [...] No Data Availa ble No Data Available 11-28 No Data Available No Data Available No Data Available [id number] 2023-06-19 No Data Available No Data Available [...] (do not use for phone, instead use [id number]) [id number] 2023-09-02 No Data Available No Data Availa [...] Available No Data Available No Data Available [id number] 2023-09-04 No Data Available No Data Available Medication List Documented (1159F) 1159F 2023-09-04 No Data Available No Data Rox ilable SBP >= 140 3077F 2023-09-04 No Data Available No Data Available DBP >=90 3080F 2023-09-04 No Data Available No Data Available No Data Available [id number] 2023-09-09 No Data Available No Data Available [...] No Data Rox ilable No Data Available [id number] 2023-10-30 No Data Available No Data Available [...] 95 for video, modifier 93 for phone [id number] 2024-09-04 No Data Available No Data Availa [...] 95 for video, modifier 93 for phone [id number] 2024-09-08 No Data Available No Data Availa [...] 95 for video, modifier 93 for phone [id number] 2024-09-17 No Data Available No Data Availa ble Pain Assessment - Pain Documented on a Pain Scale (1125F) 1125F 2024-09-17 No Data Available No Data Rox ilable Medication List Documented (1159F) 1159F 2024-09-17 No Data Available No Data Rox ilable Estab. patient 10-29min; 1 minor problem; add add modifier 95 for video, modifier 93 for phone [id number] 2024-09-21 No Data Available No Data Availa ble Medication List Documented (1159F) 1159F 2024-09-21 No Data Available No Data Rox ilable Estab. patient 10-29min; 1 minor problem; add add modifier 95 for video, modifier 93 for phone [id number] 2024-09-24 No Data Available No Data Availa ble Medication List Documented (1159F) 1159F 2024-09-24 No Data Available No Data Rox ilable Estab. patient 10-29min; 1 minor problem; add add modifier 95 for video, modifier 93 for phone [id number] 2025-03-30 No Data Available No Data Availa ble SBP < 130 (3074F) 3074F 2025-03-30 No Data Available No Data Available DBP <80 (3078F) 3078F 2025-03-30 No Data Available No Data Available Functional Status Functional Category Effective Dates ADL: [...] sputum production. 4. Schedule f/u with primary DIETITIAN HELPER in 1-2 days. Interstitial pulmonary disease, unspecifiedAlbuterol [...] sputum production. 4. Schedule f/u with primary DIETITIAN HELPER in 1-2 days. Recently seen pulmo.Interstitial pulmonary [...] sputum production. 4. Schedule f/u with primary DIETITIAN HELPER in 1-2 days. Essential hypertensionLisinopril Recommend low [...] taking new pts.Referred to the oculoplastic surgeon. Only [employer]. [phone], faxed and accept new patients, they called [...] sputum production. 4. Schedule f/u with primary DIETITIAN HELPER in 1-2 days. Nasal discharge, PND, drips in [place]. Please use nasal rinse, hand picker Dymista. Continue with mucinex, humidifier. Call [...] sputum production. 4. Schedule f/u with primary DIETITIAN HELPER in 1-2 days. Recently seen pulmo. 04/19/23 [...] air 95%. Neb twice daily. Finishing doxycycline. [place] back to normal Interstitial pulmonary disease, unspecifiedAlbuterol [...] taking new pts.Referred to the oculoplastic surgeon. Only [employer]. [phone], faxed and accept new patients, they called [...] sputum production. 4. Schedule f/u with primary DIETITIAN HELPER in 1-2 days. Recently seen pulmo. 04/19/23 [...] air 95%. Neb twice daily. Finishing doxycycline. [place] back to normal 06/19/23 productive cough with thick yellow sputum, headache, runny nose, post nasal drip, sore throat, SOB. O2 sat 94-95%. Baseline, taking doxy and medro dosepak. Take with food to decrease chance to upset stomach. call anytime please if fail to continue to improve.Acute bacterial rrdvcdxpyl47/29/23:- Cont. with Nebulizer q2-3h PRN - Promethazine-DM [...] call CBContinue to see PCP. Follow-up with [facility] as needed for any acute or [...] sputum production. 4. Schedule f/u with primary DIETITIAN HELPER in 1-2 days. Recently seen pulmo. 04/19/23 [...] air 95%. Neb twice daily. Finishing doxycycline. [place] back to normal 06/19/23 productive cough with [...] taking new pts.Referred to the oculoplastic surgeon. Only [facility] [employer] [facility]. [phone], faxed and accept new patients, they called [...] joint pain increased [facility]. Follow[facility]up with [facility] as needed for any acute or [...] sputum production. 4. Schedule f/u with primary DIETITIAN HELPER in 1-2 days. Recently seen pulmo. 04/19/23 [...] air 95%. Neb twice daily. Finishing doxycycline. [place] back to normal 06/19/23 productive cough with [...] taking new pts.Referred to the oculoplastic surgeon. Only [employer]. [phone], faxed and accept new patients, they called [...] call CBContinue to see PCP. Follow-up with [facility] as needed for any acute or [...] sputum production. 4. Schedule f/u with primary DIETITIAN HELPER in 1-2 days. Recently seen pulmo. 04/19/23 [...] air 95%. Neb twice daily. Finishing doxycycline. [place] back to normal 06/19/23 productive cough with [...] call CBContinue to see PCP. Follow-up with [facility] as needed for any acute or [...] another course of steroid sandhya, has not hand picker yet, and does not know the dose. [place] that as soon as prednisone is stopped, [...] speak to pulm. Please talk to your crotch piece baster for advice. She had a lot of [...] sputum production. 4. Schedule f/u with primary DIETITIAN HELPER in 1-2 days. Recently seen pulmo. 04/19/23 [...] air 95%. Neb twice daily. Finishing doxycycline. [place] back to normal 06/19/23 productive cough with [...] stated will make appointment with pulmonology to yiuswfx13/22/24 Taking all these RxNew predniSONE 20 mg Tab Take 1 tablet twice daily New levoFLOXacin 500 mg Tab 1 tablet orally daily x7Szdjnw Ipratropium-Albuterol 0.5-2.5 (3) MG/3ML Solution Inhalation USE [...] sputum production. 4. Schedule f/u with primary DIETITIAN HELPER in 1-2 days. 09/04/24-patient seen for acute [...] taking new pts.Referred to the oculoplastic surgeon. Only [employer]. [phone], faxed and accept new patients, they called [...] twice daily for 5 days. #10 tablet CVh1Gaqgsazhxxs-Gyb Clavulanate 875/125 mg Tab Take 1 tablet PO twice daily for 7 days #14 tablet SKs1Cyitwgcfowo 100 mg Cap Take 1 tablet TID daily as needed for cough. #30 capsule ARd0Lnck Q 4 hrs prnRest and hydrate09/08/24 Prednisone [...] sputum production. 4. Schedule f/u with primary DIETITIAN HELPER in 1-2 days. 09/04/24-patient seen for acute [...] fever, chills, increased SOB from baseline COPD. 2025-03-30 12:57:52 Follow up plan for a cute symptoms: CB is available 11/02 for acute needs.UTI (urinary tract infection) Plan of Care Date of Service Plans [...] Assessed (1170F)Continue to see PCP. Follow-up with [facility] as [...] Tab Take 1 tablet daily. #30 tablet WVt1Itsfx (patient, parent, or guardian); 11-20 minutes of medical discussion (no modifier 95)Continue to see PCP. Follow-up with [facility] as needed for any acute or disease education needs that may arise 24/7.Remember toContinue seeing providers as recommenedTake all medications [...] Tab Take 1 tablet daily. #90 tablet LLi5Abw [facility] Covid-19 At Home Test Kit Kit In Vitro test one daily #4 each KYf5Lhdpe (patient, parent, or guardian); 11-20 minutes of [...] Saturday with primary DOMENICO. 2023-04-19 11:20:39 New Dymista 137-50 M CG/ACT Suspension Nasal 1 spray intranasally 2 times per day in each nostril #1 each GRk0Gpackn Ipratropium-Albuterol 0.5-2.5 (3) MG/3ML Solution Inhalation USE [...] sputum production. 4. Schedule f/u with primary DIETITIAN HELPER in 1-2 days. Recently seen pulmo. 04/19/23 [...] TID as needed for cough. #30 capsule PHw6zTp New Montelukast Sodium 10 mg Tab 1 tablet orally QD for allergies and to prevent bronchospasm #30 tablet WWu9nOk New Doxycycline Hyclate 100 mg Tab Take 1 tablet PO twice daily for 7 days. #14 tablet BZl1gYc New Medrol 4 mg Tab Therapy Pack [...] sputum production. 4. Schedule f/u with primary DIETITIAN HELPER in 1-2 days. Recently seen pulmo. 04/19/23 [...] air 95%. Neb twice daily. Finishing doxycycline. [place] back to normal 2023-06-19 06:16:30 Phone (patient, [...] documented (1126F)Continue to see PCP. Follow-up with [facility] as [...] sputum production. 4. Schedule f/u with primary DIETITIAN HELPER in 1-2 days. Recently seen pulmo. 04/19/23 [...] air 95%. Neb twice daily. Finishing doxycycline. [place] back to normal 06/19/23 productive cough with [...] taking new pts.Referred to the oculoplastic surgeon. Only [employer]. [phone], faxed and accept new patients, they called [...] Tab Take 1 tablet daily. #90 tablet BNq4Ffnaf (patient, parent, or guardian); 5-10 minutes of [...] 3 times per day PRN #20 tablet LVe8Xmz Medrol 4 mg Tab Therapy Pack take as directed #1 packet JLv9Typmj (patient, parent, or guardian); 5-10 minutes of medical discussion (no modifier 95)Continue to see PCP. Follow-up with [facility] as needed for any acute or disease education needs that may arise 11/02. 2023-10-30 13:39:59 New Prednisone 40 mg 1 daily x 5 days #5 tablet YPy3Daxyc (patient, parent, or guardian); 5-10 minutes of medical discussion (no modifier 95)Continue to see PCP. Follow-up with [facility] as needed for any acute or disease education needs that may arise 11/02. 2023-11-13 07:56:34 New Doxycycline Hycl ate 100 mg Tab Take 1 tablet PO twice daily for 10 days. #20 tablet EAk7Xph Benzonatate 100 mg Cap Take 1 tablet twice daily as needed for cough. #20 capsule HAv2Dms predniSONE 20 mg Tab Take 2 tablet once daily for 5 days. #10 tablet CCo9Tls Promethazine-DM 6.25/15 mg/5ML Syrup 5 ml orally every 4 hours as needed #150 milliliter FAq7Hjwfo (patient, parent, or guardian); 5-10 minutes of [...] twice daily for 5 days. #10 tablet XWw9Jluunvphbvo-Lwc Clavulanate 875/125 mg Tab Take 1 tablet PO twice daily for 7 days #14 tablet LJj3Kzwlqbyjoos 100 mg Cap Take 1 tablet TID daily as needed for cough. #30 capsule XPv6Zidf Q 4 hrs prnRest and hydrate 2024-09-04 [...] sputum production. 4. Schedule f/u with primary DIETITIAN HELPER in 1-2 days. 05/12/24 Taking all these RxNew predniSONE 20 mg Tab Take 1 tablet twice daily New levoFLOXacin 500 mg Tab 1 tablet orally daily o4Tlzoet Ipratropium-Albuterol 0.5-2.5 (3) MG/3ML Solution Inhalation USE [...] handihaler device orally once daily #30 capsule RRf4Hriusefdug Status Assessed (1170F)Advance Care Directive Advance care [...] /.Follow up scheduled with DOMENICO on 09/21/2024. 2024-09-21 [...] joint pain increased [facility]. [facility] with [facility] as needed for any acute or [...] for phoneContinue to see PCP. [facility] or disease education needs that may arise 11/02.Call if you have any questions, comments, or concerns.Keep taking your medications as prescribed. 2025-03-30 12:57:52 Televideo 10-29min; 1 minor problem; add add modifier 95 for video, modifier 93 for phoneContinue to see PCP. [facility] or disease education needs that may arise 11/02.03/30/25Increase clear fluids. Wipe from front to back. Do not use perfumed lotions or soaps. Bactrim 800/160 BID x 7 days. Fluconazole as directed. CB is available 11/02 for acute needs. Goals Date Goal 2022-12-12 Continue taking medi [...] referral 2023-11-18 Recommended to shivani Vela to treztri or trilogy for better COPD control, she [...] 500 mg Tab 1 tablet orally daily v5Gpwcfx Ipratropium-Albuterol 0.5-2.5 (3) MG/3ML Solution Inhalation USE [...] specialists as directed. Health Concerns Date Concern 2025-03-30 Patient/Guardian agr eelinda to visit via telehealth.Visit completed via:[ ] audio and video; [x] audio only 2025-03-30 Concerns for today's visit: UTISummary: Member reports five days of foul smelling urine, cloudy/dark urine, dysuria, lower abd pain, retention/frequency. She denies flank pain, fever, N/V/D. She has not tried any OTC meds. RN note reviewed.
--- OUTSIDE RECORDS SUMMARY | 2025-04-13 11:54 | XMS_ITS | Encounter Summary ---
Author Organization [employer] Address [address] [place] [address] Care Team Providers Care Batter Out Name Role Phone Ashanti Meyer MD Primary Care Provider [phone] Reason for Visit * Reason Comments Med Refill Encounter Details Date Type Department Care Team ([facility] st Contact Info) Description 01/12/2025 Refill [facility] [address] [place], [place] [id number] Ashanti Meyer MD [address] [place] [address] Social History Tobacco Use Types Packs/Day Years [...] documented as of this encounter Care Teams Batter Out Relationship Specialty Start Date End Date Ashanti Meyer MD [address] [place] [address] PCP - General Family Medicine 11/19/23 documented as of this encounter
--- OUTSIDE RECORDS SUMMARY | 2025-04-13 11:54 | XMS_ITS | Clinical Summary ---
Author Organization [employer] Address [address] [place] [address] 7t [place] [address] Care Team Providers Care Welt Stitcher Name Role Phone Ashanti Meyer MD Primary Care Provider [phone] Allergies Active Allergy Reactions Criticality Noted Date Comments Ibuprofen Rash Low 08/03/2010 Morphine 07/16/2012 Other reaction(s): Ibuprofen allergy Pt. state allergy to dose >800 Medications Buprenorphine HCl-Naloxone HCl (Suboxone) 8-[address] 2 Film under the tongue 1 (one) time each day. Active promethazine-d extromethorpha n (Phenergan-DM) 6.25-15 MG/5ML syrup TAKE 5 ML ORALLY EVERY 4 HOURS NEEDED 118 mL 3 11/15/19 24 Active Trelegy Ellipta 200-62.5-25 MCG/ACT aerosol powder Inhale 1 puff Once per day. 01/24/20 24 Active benzonatate (Tessalon) 100 MG capsule Take 1 capsule (100 mg) by mouth if needed in the morning, at noon, and at bedtime for cough. Do not crush or chew. 30 capsule 3 02/07/20 24 Active hydrOXYzine pamoate (Vistaril) 25 MG capsuleIndicat ions:Anxiety TAKE 1 CAPSULE BY MOUTH TWICE A DAY NEEDED FOR ANXIETY 180 capsule 1 08/24/19 25 Active lisinopril 40 MG tablet TAKE 1 TABLET BY MOUTH EVERY DAY IN THE MORNING 90 tablet 3 09/08/19 25 Active ipratropium-al buterol (Duo-Neb) 0.5-2.5 mg/3 mL nebulizer solution TAKE 3 ML BY NEBULIZATION ROUTE IN THE MORNING, AT NOON AND BEDTIME NEEDED FOR WHEEZING 90 mL 6 09/08/19 25 Active loratadine (Claritin) 10 MG tabletIndicati ons:Middle ear effusion, right Take 1 tablet (10 mg) by mouth Once per day. 30 tablet 11 09/26/19 25 026 Active omeprazole (PriLOSEC) [address] capsule TAKE 1 CAPSULE BY MOUTH EVERY DAY BEFORE A MEAL 90 capsule 3 10/07/19 25 Active Calcium Carb-Cholecalc iferol (Calcium + Vitamin D3) 600-10 MG-MCG tablet Take 1 tablet by mouth 2 times daily. 180 tablet 3 10/29/19 25 Active fluticasone (Flonase) 50 MCG/ACT nasal spray USE 1-2 SPRAYS IN EACH NOSTRIL EVERY DAY NEEDED 48 mL 1 11/03/19 25 Active amLODIPine (Norvasc) 5 MG tablet TAKE 1 TABLET (5 MG) BY MOUTH ONCE PER DAY. 90 tablet 3 11/12/19 25 Active montelukast (Singulair) 10 MG tablet TAKE 1 TABLET BY MOUTH EVERY DAY IN THE EVENING 90 tablet 3 11/12/19 25 Active Ohtuvayre 3 MG/2.5ML suspension 09/30/19 25 Active Glucosamine 500 MG capsule Take 1 capsule (500 mg) by mouth Once per day. 90 capsule 3 11/12/19 25 Active Spiriva HandiHaler [address] 1 capsule (18 mcg) into inhaler and inhale in the morning. INHALE THE CONTENTS OF 1 CAPSULE USING HANDIHALER DEVICE ORALLY ONCE DAILY 30 capsule 3 01/12/20 25 Active clonazePAM (KlonoPIN) 0.5 MG tablet Take 1 tablet (0.5 mg) by mouth if needed at bedtime (vertigo) for up to 14 days. 14 tablet 01/27/20 25 Active Ashish-24 300 MG 24 hr capsule Take 2 capsules by mouth Once per day. 01/19/20 25 Active tobramycin-dex AMETHasone (Tobradex) ophthalmic suspension INSTILL 1 DROP INTO BOTH EYES FOUR TIMES A DAY USE FOR 2-3 WEEKS, THEN STOP 02/03/20 25 Active albuterol 108 (90 Base) MCG/ACT inhaler Inhale 2 puffs every 4 (four) hours if needed for wheezing. 18 g 11 03/01/20 25 Active apixaban (Eliquis) 5 MG tablet TAKE 1 TABLET BY MOUTH TWICE A DAY 180 tablet 1 04/12/20 25 Active apixaban (Eliquis) 5 MG tablet TAKE 1 TABLET BY MOUTH TWICE A DAY 180 tablet 01/12/20 25 025 Discontinued acetaminophen (Tylenol 8 Hour) 650 MG ER tablet TAKE 1 TABLET (650 MG) BY MOUTH EVERY 8 (EIGHT) HOURS IF NEEDED FOR MILD PAIN. DO NOT CRUSH, CHEW, OR SPLIT. 90 tablet 02/25/20 25 025 Active Problems Problem Noted Date Diagnosed Date Vertigo 01/26/2025 Overview (01/26/2025): Likely BPPV, based on response to Avtar maneuver Assessment & Plan (01/26/2025 10:51 AM EDT): Suspect peripheral vertigo as causative agent of patient's symptoms Discontinue Meclizine as it is not helpful Trial Klonopin 0.5mg as night as needed Take Zofran for nausea as needed Continue repositioning maneuvers in bed Formal vestibular therapy referral placed Brain MRI ordered, and to be scheduled if symptoms have not improved after these treatments (medications and vestibular rehab) Acute pain of both shoulders 11/11/2024 Assessment & Plan (11/11/2024 3:53 PM EDT): Likely OA with flare of pain after injections. Patient with limited range of motion and pain interfering with sleep. She prioritizes being alert, and does not want medications with a side effect of being drowsy. She declines further Celebrex challenge. - can continue prn Ibuprofen, added with Tylenol every 8 hours for pain relief - consider glucosamine, prescription sent - trigger point injections discussed for muscular tension - consider xrays and ortho referral as next step, pt would like to to see Dr Roberts at [facility] Osteopenia with high risk of fracture 09/25/2024 [...] September, Never before. Treated with Prednisone by [facility] provider, symptoms went away completely only to [...] if no improvement. Pt agreeable with plan Ex-smoker for less than 1 year 11/15/2023 Hypoxia 11/15/2023 Palpitations 11/15/2023 Pulmonary nodules 11/15/2023 Urine incontinence 09/20/2023 Entropion of both lower eyelids 01/02/2023 ROSANNA (generalized anxiety disorder) 12/12/2022 GERD (gastroesophageal reflux disease) 3 Interstitial pulmonary disease, unspecified 11/20 Opioid use, unspecified, uncomplicated 3 Buprenorphine dependence 07/27/2015 Pulmonary thromboembolism 07/27/2015 Anxiety 02/02/2013 Depressive disorder 04/03/2012 Hypertension 04/03/2012 Assessment & Plan (02/25/2024 9:00 PM EDT): Elevated BP today ,possible reactive -advised to monitor BP at home and bring readings to PCP at next apt Resolved Problems Problem Noted Date Diagnosed Date Resolved Date Encounter to establish care with new doctor 11/19/2023 01/26/2025 Acidosis, lactic 11/15/2023 11/11/2024 Pneumonia due to infectious organism 07/13/2022 09/25/2024 Shortness of breath 07/03/2022 01/27/20 25 Benign essential hypertension 07/27/2015 01/26/2025 Tobacco abuse 02/02/2013 03/01/2025 Severe chronic obstructive pulmonary disease 3 09/25/2024 [...] of 3 weeks of steroid taper -resume [facility] -I called her pharmacy and confirmed pt can grain picker med -refilled theophyline for another 30 days until can get px from court recording monitor -Complete ATB tomorrow -pt recently on Quinolones [...] for CT lung ca screening by her court recording monitor -states for this month schedule already -f [...] Encounters Date Type Department Care Team Description 04/12/2025 Refill [facility] [address] [place] [address] Pilar Guzman MD 04/12/2025 Refill [facility] [address] [place] [address] Ashanti Meyer MD 04/11/2025 Refill [facility] [address] [place] [address] Pilar Vaca MD 03/21/2025 Refill [facility] [address] [place] [address] Pilar Guzman MD 03/01/2025 2:00 PM EDT Office Visit [facility] [address] [place] [address] Ashanti Meyer MD Other emphysema (CMS/HCC) (Primary Dx); Ex-smoker for less than 1 year; Primary hypertension; Interstitial pulmonary disease, unspecified (CMS/HCC); Spasm of left trapezius muscle 03/01/2025 Travel 02/26/2025 Telephone [facility] [address] [place] [address] Ashanti Meyer MD Chart Prep 02/23/2025 Refill [facility] [address] [place] [address] Ashanti Meyer MD 01/26/2025 9:15 AM EDT Procedure Visit [facility] [address] [place] [address] Ashanti Meyer MD Acute pain of both shoulders (Primary Dx); Other emphysema (CMS/HCC); Primary hypertension; Osteopenia with high risk of fracture; Vertigo 01/26/2025 Travel 01/25/2025 Telephone [facility] [address] [place] [address] Ashanti Meyer MD Chart prep 01/12/2025 Refill [facility] [address] [place] [address] Ashanti Meyer MD 01/11/2025 Refill [facility] [address] [place] [address] Ashanti Meyer MD 01/11/2025 Refill [facility] [address] [place] [address] Ashanti Meyer MD from Last 3 Months Immunizations Immunization Administration Dates Next Due Influenza injectable quadriv [...] Access Q2 Not on file 08/13/2024 Comments No Sex and Gender Information Value Date Recorded Sex Assigned at Female 05/21/2022 10:20 AM EDT Legal Sex Female 10:20 AM EDT Gender Identity Female 05/21/2022 10:20 AM EDT Sexual Orientation Straight 05/21/2022 10 :20 AM EDT Last Filed Vital Signs Vital Sign Reading Time Taken Comments Blood Pressure 128/78 03/01/2025 2:03 PM EDT Pulse 95 03/01/2025 2:03 PM EDT Temperature 36.3 C (97.3 F) 03/01/2025 2:03 PM EDT Respiratory Rate 19 03/01/2025 2:03 PM EDT Oxygen Saturation 96% 03/01/2025 2:03 PM EDT Inhaled Oxygen Concentration - - Weight 68.5 kg (151 lb) 03/01/2025 2:03 PM EDT Height 160 cm (5' 3 ) 03/01/2025 2:03 PM EDT Body Mass Index 26.75 03/01/2025 2:03 PM EDT Plan of Treatment Health Maintenance Due Date Last Done Comments CT Colonography 1960 Colonoscopy 1960 FIT DNA/Cologuard 1960 FIT 1960 FOBT 1960 Sigmoidoscopy 1960 Hepatitis C Screening 1976 Zoster Vaccines (1 of 2) 2008 RSV Patients and Patients Aged 60 years or older (1 - Risk 60-74 years 1-dose series) 2018 Mammogram 02/10/2023 02/10/2021, 07/13/2019 Influenza Vaccine (#1) 2025 , 10/03/2023, 05/28/2019, Additional history exists COVID-19 Vaccine ( - season) 2025 09/25/2024, 11/21/2020, 10/24/2020 Depression Monitoring 03/28/2025 09/25/2024, 025 SDOH Screening 08/13/2025 08/13/2024 Alcohol/Substance Use Screening 03/01/2026 03/01/2025 Tobacco Screening 03/01/2026 03/01/2025 Colorectal Cancer Screening 10/20/2026 Postponed from 1960 (Other Medical Reasons) Lipid Panel 12/06/2026 12/06/2021 DTaP/Tdap/Td Vaccines (4 - Td or Tdap) 08/07/2028 08/07/2018, 06/06/2017, 01/20/2002, Additional history exists Pneumococcal Vaccine: 50+ Years Completed 10/03/2023 HIB Vaccines Aged Out No longer eligi [...] patient's age to complete this topic Meningococcal B Vaccine Aged Out No l onger eligible based on patient's age to complete [...] Procedure Name Priority Date/Time Associated Diagnosis Comments GENERAL Routine 03/01/2025 2:31 PM EDT Spasm of left trapezius muscle MR BRAIN WO CONTRAST Routine 02/08/2025 9:45 AM EDT Vertigo GENERAL Routine 01/26/2025 9:45 AM EDT Acute pain of both shoulders LIPID PANEL, STANDARD Routine 12/06/2021 11:48 AM EDT MAMMOGRAM GENERIC Routine 02/10/2021 11: 00 AM EDT from Last 3 Months or Most Recently Relevant to Health Maintenance Results * Trigger Point Injections (03/01/2025 2:31 PM EDT) Narrative Ashanti Meyer MD - 03/01/2025 2:31 PM EDT Ashanti Meyer MD 03/01/2025 2:39 PM Trigger Point Injections Date/Time: 03/01/2025 2:31 PM Performed by: Ashanti Meyer MD Authorized by: Ashanti Meyer MD Consent: Consent obtained: Verbal Consent given by: Patient Procedure risks and benefits discussed: Yes Patient questions answered: Yes Patient agrees, verbalizes understanding, and wants to proceed: Yes [place] protocol: Procedure explained and questions answered to patient or proxy's satisfaction: yes Relevant documents present and verified: yes Patient identity confirmed: Verbally with patient Indications: Indications: L trapezius muscle spasm Pre-procedure details: Procedure prep: 70% alcohol towelette. Sedation: Sedation type: None Anesthesia: Anesthesia method: None Procedure specific details: Points of maximal tenderness and muscle triggering palpated on the Left trapezius muscles, seven points in total on the Left side. 0.3-0.5cc of lidocaine 2% without epi was injected into each point in a stellate manner. Post-procedure details: Procedure completion: Tolerated well, no immediate complications us Ashanti Meyer MD IN CLINIC/BEDSIDE ORDERABLES F inal Result * MR Brain w/o Contrast (02/08/2025 9:45 AM EDT) Anatomical Region Laterality Modality Brain Magnetic Resonan ce 02/08/2025 9:45 AM EDT Narrative 02/08/2025 11:11 AM EDT [address] [address] Magnetic Resonance Report Signed Patient: Sofy Nguyen MR#: [id number] : 1960 Acct:[id number] Age/Sex: 64 / F ADM Date: 02/08/25 Loc: HO.MRI Attending Dr: Ashanti Meyer MD Ordering Physician: Ashanti Meyer Date of Service: 02/08/25 Procedure(s): MR head/brain wo con Accession Number(s): [id number] cc: Ashanti Meyer EXAMINATION: MR BRAIN WITHOUT IV CONTRAST HISTORY: vertigo, persistent for 7 days with CASTRO TECHNIQUE: Sagittal T1, and axial T1, FLAIR, T2, gradient echo, and diffusion weighted MR images of the brain were obtained. COMPARISON: There are no prior studies available for comparison. FINDINGS: The pituitary is normal in size. The cerebellar tonsils are normally located. There are scattered periventricular and subcortical white matter hyperintensities on the FLAIR and T2-weighted images which are nonspecific, but can be seen in the setting of small vessel ischemic disease. There is no mass effect or midline shift. No intra or extra-axial fluid collections are identified. There are no foci of restricted diffusion. Normal vascular flow voids are noted in the basilar and carotid arteries. There is fluid in the right sphenoid sinus. MR/MR head/brain wo con IMPRESSION: 1. Findings suggestive of small vessel ischemic disease of the white matter. There is no evidence of an acute infarct. 2. Fluid in the right sphenoid sinus, compatible with sinusitis. Electronically signed by: Leonardo Barbour MD 02/08/2025 11:07 AM EDT Dictated By: Leonardo Barbour MD Signed By: <Electronically signed by Leonardo Barbour MD in OV> 02/08/25 1107 DD/ 0945 TD/TT: 02/08/25 1030 Diesel Engine Fitter: Procedure Note Donotuseinterpreter, Image - 02/08/2025 [place] [id number] Magnetic Resonance Report Signed Patient: Sofy Nguyen RMR#: [id number] : 1960cct:[id number] Age/Sex: 64 / FADM Date: 02/08/25 Loc: HO.MRI Attending Dr: Ashanti Meyer MD Ordering Physician: Ashanti Meyer Date of Service: 02/08/25 Procedure(s): MR head/brain wo con Accession Number(s): [id number] cc: Ashanti Meyer EXAMINATION: MR BRAIN WITHOUT IV CONTRAST HISTORY: vertigo, persistent for 7 days with CASTRO TECHNIQUE: Sagittal T1, and axial T1, FLAIR, T2, gradient echo, and diffusion weighted MR images of the brain were obtained. COMPARISON: There are no prior studies available for comparison. FINDINGS: The pituitary is normal in size. The cerebellar tonsils are normally located. There are scattered periventricular and subcortical white matter hyperintensities on the FLAIR and T2-weighted images which are nonspecific, but can be seen in the setting of small vessel ischemic disease. There is no mass effect or midline shift. No intra or extra-axial fluid collections are identified. There are no foci of restricted diffusion. Normal vascular flow voids are noted in the basilar and carotid arteries. There is fluid in the right sphenoid sinus. MR/MR head/brain wo con IMPRESSION: 1. Findings suggestive of small vessel ischemic disease of the white matter. There is no evidence of an acute infarct. 2. Fluid in the right sphenoid sinus, compatible with sinusitis. Electronically signed by: Leonardo Barbour MD 02/08/2025 11:07 AM EDT Dictated By: Leonardo Barbour MD Signed By: <Electronically signed by Leonardo Barbour MD in OV> 02/08/25 1107 DD/ 0945 TD/TT: 02/08/25 1030 Diesel Engine Fitter: us Ashanti Meyer MD IMG MRI PROCEDURES Final Resul t * Trigger Point (01/26/2025 9:45 AM EDT) Narrative Ashanti Meyer MD - 01/26/2025 9:45 AM EDT Ashanti Meyer MD 01/26/2025 10:53 AM Trigger Point Date/Time: 01/26/2025 9:45 AM Performed by: Ashanti Meyer MD Authorized by: Ashanti Meyer MD Confirmed correct patient, procedure, site, and patient consented: Yes Consent: Consent obtained: Written Consent given by: Patient Procedure risks and benefits discussed: Yes Patient questions answered: Yes Patient agrees, verbalizes understanding, and wants to proceed: Yes Instructions and paperwork completed: Yes [place] protocol: Procedure explained and questions answered to patient or proxy's satisfaction: yes Relevant documents present and verified: yes Patient identity confirmed: Verbally with patient Indications: Indications: Muscle spasms L trapezius muscle Pre-procedure details: Procedure prep: alcohol 70% Sedation: Sedation type: None Anesthesia: Anesthesia method: None Procedure specific details: Points of maximal tenderness and muscle triggering palpated on the Left trapezius muscle, six points in total on the Left side. 0.3-0.5cc of lidocaine 2% without epi was injected into each point in a stellate manner. Post-procedure details: Procedure completion: Tolerated well, no immediate complications Ashanti Meyer MD IN CLINIC/BEDSIDE ORDERABLES F inal Result * (ABNORMAL) LIPID PANEL, STANDARD (12/06/2021 11:48 AM EDT) Chol/HDLC Ratio 4.3 <5.0 (calc) [facility] Cholesterol, Total 217(H) <200 mg/dL [facility] HDL Cholesterol 51 > OR = 50 mg/dL [facility] LDL Cholesterol 146(H) mg/dL (calc) [facility] Comment: Reference range: <100 Desirable range <100 mg/dL for primary prevention; <70 mg/dL for patients with CHD or diabetic patients with > or = 2 CHD risk factors. LDL-C is now calculated using the Jaime calculation, which is a validated novel method providing better accuracy than the Friedewald equation in the estimation of LDL-C. Vinny SS et al. BASHIR. 2013;310(19): 7500-4742 (http://education.We Cluster.The News Funnel/faq/ZSS146) Non-HDL Cholesterol 166(H) <130 mg/dL (calc) [facility] Comment: For patients with diabetes plus 1 major ASCVD risk factor, treating to a non-HDL-C goal of <100 mg/dL (LDL-C of <70 mg/dL) is considered a therapeutic option. Triglycerides 96 <150 mg/dL [facility] 12/06/2021 11:4 8 AM EDT Margaux Pena MD LAB BLOOD ORDERABLES Final Re sult [facility] [address] * Mammography Report 1 (02/10/2021 11:00 AM EDT) Anatomical Region Laterality Modality Breast Bilateral Mammography 02/10/2021 11:0 0 AM EDT Narrative 02/10/2021 2:10 PM EDT Refer to the Notes tab for result details [facility] Procedure: Mammography Report 1 Procedure Note Provider, MD Rhonda - 10/14/2022 Refer to the Notes tab for result details [facility] Procedure: Mammography Report 1 Margaux Pena MD IMG BI PROCEDURES Final Resul t from Last 3 Months or Most Recently Relevant to Health Maintenance Insurance [facility] STANDARD [facility] [place] [address] [place] [address] [place] [address] [place] [address] Care Teams Welt Stitcher Relationship Specialty Start Date End Date Ashanti Meyer MD [address] [place] [address] [phone] PCP - General Family Medicine 11/19/23
--- OUTSIDE RECORDS SUMMARY | 2025-04-13 11:54 | XMS_ITS | Encounter Summary ---
Author Organization [employer] Address [address] [facility] 7t [place] [address] Care Team Providers Care Pacu Nurse Name Role Phone Ashanti Meyer MD Primary Care Provider Encounter Details Date Type Department Care Team ([facility] st Contact Info) Description 10/28/2024 Orders Only [facility] [address] [place], [place] [phone] Ashanti Meyer MD [address] [place], [place] [phone] Social History Tobacco Use Types Packs/Day Years [...] documented as of this encounter Care Teams Pacu Nurse Relationship Specialty Start Date End Date Ashanti Meyer MD [address] [place] [phone] PCP - General Family Medicine 11/19/23 documented as of this encounter
--- OUTSIDE RECORDS SUMMARY | 2025-04-13 11:54 | XMS_ITS | Encounter Summary ---
Author Organization [employer] Address [address] [facility] [address]t [place] [address] Care Team Providers Care Commercial Driver Name Role Phone Ashanti Meyer MD Primary Care Provider [phone] Reason for Visit * Reason Comments Med Change Request Encounter Details Date Type Department Care Team ([facility] st Contact Info) Description 12/16/2024 Refill [facility] [address] [place], [place] [phone] Ashanti Meyer MD [address] [place], [place] [phone] Social History Tobacco Use Types Packs/Day Years [...] encounter Miscellaneous Notes * Telephone Encounter - Ashanti Meyer MD - 01/04/2025 10:09 AM EDT Please generate PA for theophylline 300mg ER capsules take 2 daily because 600mg ER is on backorderand cannot be obtained locally without known return date documented in this encounter Plan of Treatment Not on file documented as of this encounter Visit Diagnoses Not on filedocumented in this encounter Additional Health Concerns Assessment Noted Time PHQ-9 Depression Total Score: 14 09/25/ 025 10:15 AM EST documented as of this encounter Care Teams Commercial Driver Relationship Specialty Start Date End Date Ashanti Meyer MD [address] [place] [phone] PCP - General Family Medicine 11/19/23 documented as of this encounter
--- OUTSIDE RECORDS SUMMARY | 2025-04-13 11:54 | XMS_ITS | Encounter Summary ---
Author Organization [email or web address] Address [address] [facility] 7 [place] [address] Care Team Providers Care Agent Licensing Clerk Name Role Phone Margaux Pena MD Primary Care Provider [phone] Ashanti Meyer MD Primary Care Provider [phone] Reason for Visit * Reason Onset Date Comments Durable Medical Equipment 09/17/2023 Encounter Details Date Type Department Care Team ([facility] Contact Info) Description 09/17/2023 Telephone [facility] [address] [place], [place] [phone] Margaux Pena MD [address] [place] [address] Durable Medical Equipment Social History Tobacco Use [...] 3:47 PM EST Rx generated faxed to [facility] as requested * Telephone Encounter - Ayaka Victor LPN - 09/18/2023 9:31 AM EST Please review message below and advise. If agreed please provide DX * Telephone Encounter - Gillian Mack - 09/17/2023 1:37 PM EST Jeevan tucker with [facility] requesting DME supplies to be sent to fax [phone] -shower chair -disposable briefs with moderate absorbency with refills documented in this encounter Plan of Treatment Not on file documented as of this encounter Visit Diagnoses Not on filedocumented in this encounter Care Teams Agent Licensing Clerk Relationship Specialty Start Date End Date Margaux Pena MD [address] [place] [address] [phone] PCP - General Family Medicine 01/20/13 11/18/23 Ashanti Meyer MD [address] [place] [phone] PCP - General Family Medicine 11/19/23 documented as of this encounter
--- OUTSIDE RECORDS SUMMARY | 2025-04-13 11:54 | XMS_ITS | Encounter Summary ---
Author Organization [employer] Address [address] [facility] 7t [place] [address] Care Team Providers Care Cyber Threat Analyst Name Role Phone Ashanti Meyer MD Primary Care Provider [phone] Encounter Details Date Type Department Care Team ([facility] st Contact Info) Description 12/16/2024 Orders Only [facility] [address] [place], [place] [phone] Ashanti Meyer MD [address] [place], [place] [phone] Social History Tobacco Use Types Packs/Day Years [...] documented as of this encounter Care Teams Cyber Threat Analyst Relationship Specialty Start Date End Date Ashanti Meyer MD [address] [place] [phone] PCP - General Family Medicine 11/19/23 documented as of this encounter
--- OUTSIDE RECORDS SUMMARY | 2025-04-13 11:54 | XMS_ITS | Encounter Summary ---
Author Organization [employer] Address [address] [place] [address] [place] [address] Care Team Providers Care Clubhouse Attendant Name Role Phone Margaux Pena MD Primary Care Provider [phone] Ashanti Meyer MD Primary Care Provider [phone] Reason for Visit * Reason Comments Med Change Request Encounter Details Date Type Department Care Team ([facility] Contact Info) Description 10/25/2022 Refill [facility] MED & PEDS [address] [place], [place] [phone] Margaux Pena MD 505 [place] [address] Social History Tobacco Use Types Packs/Day Years [...] on filedocumented in this encounter Care Teams Clubhouse Attendant Relationship Specialty Start Date End Date Margaux Pena MD [address] [place] [address] PCP - General Family Medicine 01/20/13 11/18/23 Ashanti Meyer MD [address] [place] [address] PCP - General Family Medicine 11/19/23 documented as of this encounter
--- OUTSIDE RECORDS SUMMARY | 2025-04-13 11:54 | XMS_ITS | Encounter Summary ---
Author Organization [employer] Address 75 [facility] 7 [place] [address] Care Team Providers Care Uncrater Name Role Phone Ashanti Meyer MD Primary Care Provider [phone] Reason for Visit * Reason Onset Date Comments Med request 10/13/2024 Encounter Details Date Type Department Care Team ([facility] Contact Info) Description 10/13/2024 Telephone [facility] MEDICINE 230 [place], [place] [phone] Ashanti Meyre MD 230 [place], [place] [phone] Med request Social History Tobacco Use Types [...] documented as of this encounter Care Teams Uncrater Relationship Specialty Start Date End Date Ashanti Meyer MD [address] [place] [address] PCP - General Family Medicine 11/19/23 documented as of this encounter
--- OUTSIDE RECORDS SUMMARY | 2025-04-13 11:54 | XMS_ITS | Encounter Summary ---
Author Organization [employer] Address [address] [place] [address] [place] [address] Care Team Providers Care Master Esthetician Name Role Phone Margaux Pena MD Primary Care Provider [phone] Ashanti Meyer MD Primary Care Provider [phone] Reason for Visit * Reason Comments Med Refill Encounter Details Date Type Department Care Team ([facility] st Contact Info) Description 04/07/2023 Refill [facility] CHC MED & PEDS 505 [place], [place] [phone] Margaux Pena MD 505 [place] [address] Social History Tobacco Use Types Packs/Day Years [...] on filedocumented in this encounter Care Teams Master Esthetician Relationship Specialty Start Date End Date Margaux Pena MD 505 [place] [address] PCP - General Family Medicine 01/20/13 11/18/23 Ashanti Meyer MD 230 [place] [address] PCP - General Family Medicine 11/19/23 documented as of this encounter
--- OUTSIDE RECORDS SUMMARY | 2025-04-13 11:54 | XMS_ITS | Encounter Summary ---
Author Organization [employer] Address 75 [facility] 7t [place] [address] Care Team Providers Care Assistant Professor Of Education Name Role Phone Ashanti Meyer MD Primary Care Provider Reason for Visit * Reason Comments Med Refill Encounter Details Date Type Department Care Team ([facility] st Contact Info) Description 04/12/2025 Refill [facility] MEDICINE 230 [place], [place] [phone] Ashanti Meyer MD 230 [place], [place] [phone] Social History Tobacco Use Types Packs/Day Years [...] documented as of this encounter Care Teams Assistant Professor Of Education Relationship Specialty Start Date End Date Ashanti Meyer MD [address] [place] [address] PCP - General Family Medicine 11/19/23 documented as of this encounter
--- OUTSIDE RECORDS SUMMARY | 2025-04-13 11:54 | XMS_ITS | Encounter Summary ---
Author Organization [employer] Address [address] [place] [address] Care Team Providers Care Shaping Machine Tender Name Role Phone Margaux Pena MD Primary Care Provider [phone] Ashanti Meyer MD Primary Care Provider [phone] Reason for Visit * Reason Comments Med Refill Encounter Details Date Type Department Care Team ([facility] st Contact Info) Description 10/08/2023 Refill [facility] CHC MED & PEDS 505 [place], [place] [phone] Margaux Pena MD 505 [place] [address] Social History Tobacco Use Types Packs/Day Years [...] on filedocumented in this encounter Care Teams Shaping Machine Tender Relationship Specialty Start Date End Date Margaux Pena MD [address] [place] [address] PCP - General Family Medicine 01/20/13 11/18/23 Ashanti Meyer MD [address] [place] [address] PCP - General Family Medicine 11/19/23 documented as of this encounter
--- OUTSIDE RECORDS SUMMARY | 2025-04-13 11:54 | XMS_ITS | Encounter Summary ---
Author Organization [employer] Address 75 [facility] 7t [place] [address] Care Team Providers Care Belly Dancer Name Role Phone Ashanti Meyer MD Primary Care Provider [phone] Reason for Visit * Reason Onset Date Comments Med Refill 01/04/2025 Encounter Details Date Type Department Care Team ([facility] st Contact Info) Description 01/04/2025 Refill [facility] CHC MED & PEDS [address] [place], [place] [phone] Ashanti Meyer MD 230 [place] [address] Social History Tobacco Use Types Packs/Day Years [...] documented as of this encounter Care Teams Belly Dancer Relationship Specialty Start Date End Date Ashanti Meyer MD 230 [place] [address] PCP - General Family Medicine 11/19/23 documented as of this encounter
--- OUTSIDE RECORDS SUMMARY | 2025-04-13 11:54 | XMS_ITS | Encounter Summary ---
Author Organization [employer] Address 75 [facility] 7t [place] [address] Care Team Providers Care Loading Dock Helper Name Role Phone Ashanti Meyer MD Primary Care Provider [phone] Reason for Visit * Reason Comments Med Refill Encounter Details Date Type Department Care Team ([facility] st Contact Info) Description 03/21/2025 Refill [facility] MEDICINE 230 [place], [place] [phone] Pilar Guzman MD 230 [place], [place] [phone] Social History Tobacco Use Types Packs/Day Years [...] documented as of this encounter Care Teams Loading Dock Helper Relationship Specialty Start Date End Date Ashanti Meyer MD 230 [place] [address] PCP - General Family Medicine 11/19/23 documented as of this encounter
--- OUTSIDE RECORDS SUMMARY | 2025-04-13 11:54 | XMS_ITS | Encounter Summary ---
Author Organization [employer] Address 75 [facility] 7t [place] [address] Care Team Providers Care Elevator Operator Name Role Phone Ashanti Meyer MD Primary Care Provider [phone] Reason for Visit * Reason Comments Med Refill Encounter Details Date Type Department Care Team ([facility] st Contact Info) Description 04/11/2025 Refill [facility] MEDICINE 230 [place], [place] [phone] Pilar Vaca MD 230 [place], [place] [phone] Social History Tobacco Use Types Packs/Day Years [...] documented as of this encounter Care Teams Elevator Operator Relationship Specialty Start Date End Date Ashanti Meyer MD 230 [place] [address] PCP - General Family Medicine 11/19/23 documented as of this encounter
--- OUTSIDE RECORDS SUMMARY | 2025-04-13 11:54 | XMS_ITS | Encounter Summary ---
Author Organization [employer] Address 75 [facility] 7t [place] [address] Care Team Providers Care Battery Assembler Plastic Name Role Phone Ashanti Meyer MD Primary Care Provider [phone] Reason for Visit * Reason Comments Med Refill Encounter Details Date Type Department Care Team ([facility] st Contact Info) Description 04/12/2025 Refill [facility] MEDICINE 230 [place], [place] [phone] Pilar Guzman MD 230 [place], [place] [phone] Social History Tobacco Use Types Packs/Day Years [...] documented as of this encounter Care Teams Battery Assembler Plastic Relationship Specialty Start Date End Date Ashanti Meyer MD 230 [place] [address] PCP - General Family Medicine 11/19/23 documented as of this encounter
--- OUTSIDE RECORDS SUMMARY | 2025-04-13 11:54 | XMS_ITS | Encounter Summary ---
Author Organization [employer] Address 75 [facility] 7t [place] [address] Care Team Providers Care Windmill Mechanic Name Role Phone Ashanti Meyer MD Primary Care Provider [phone] Reason for Visit * Reason Comments Med Refill Encounter Details Date Type Department Care Team ([facility] st Contact Info) Description 07/07/2024 Refill [facility] MED & PEDS [address] [place], [place] [phone] Ashanti Meyer MD 230 [place] [address] Pain Social History Tobacco Use Types Packs/Day [...] documented as of this encounter Care Teams Windmill Mechanic Relationship Specialty Start Date End Date Ashanti Meyer MD [address] [place] [address] PCP - General Family Medicine 11/19/23 documented as of this encounter
--- OUTSIDE RECORDS SUMMARY | 2025-04-13 11:54 | XMS_ITS | Encounter Summary ---
Author Organization [employer] Address 75 [facility] 7 [place] [address] Care Team Providers Care Typing Section Chief Name Role Phone Ashanti Meyer MD Primary Care Provider [phone] Reason for Visit * Reason Onset Date Comments Med Refill 09/08/2024 Encounter Details Date Type Department Care Team ([facility] st Contact Info) Description 09/08/2024 Telephone [facility] MEDICINE 230 [place], [place] [phone] Ashanti Meyer MD 230 [place], [place] [phone] Med Refill Social History Tobacco Use Types [...] solution 3 mL To be sent to: [facility]/pharmacy #[address] [place] [address] documented in this encounter Plan of Treatment Not on file documented as of this encounter Visit Diagnoses Not on filedocumented in this encounter Additional Health Concerns Assessment Noted Time PHQ-9 Depression Total Score: 10 024 1:47 PM EDT documented as of this encounter Care Teams Typing Section Chief Relationship Specialty Start Date End Date Ashanti Meyer MD 230 [place] [address] PCP - General Family Medicine 11/19/23 documented as of this encounter
--- OUTSIDE RECORDS SUMMARY | 2025-04-13 11:54 | XMS_ITS | Encounter Summary ---
Author Organization [employer] Address [address] [place] [address] [place] [address] Care Team Providers Care Credit Review Officer Name Role Phone Margaux Pena MD Primary Care Provider [phone] Ashanti Meyer MD Primary Care Provider [phone] Reason for Visit * Reason Comments Med Refill Encounter Details Date Type Department Care Team ([facility] st Contact Info) Description 04/05/2023 Refill [facility] CHC MED & PEDS 505 [place], [place] [phone] Margaux Pena MD 505 [place] [address] Social History Tobacco Use Types Packs/Day Years [...] on filedocumented in this encounter Care Teams Credit Review Officer Relationship Specialty Start Date End Date Margaux Pena MD 505 [place] [address] PCP - General Family Medicine 01/20/13 11/18/23 Ashanti Meyer MD 230 [place] [address] PCP - General Family Medicine 11/19/23 documented as of this encounter
--- OUTSIDE RECORDS SUMMARY | 2025-04-13 11:54 | XMS_ITS | Encounter Summary ---
Author Organization [employer] Address 75 [facility] 7t [place] [address] Care Team Providers Care Home Aide Name Role Phone Ashanti Meyer MD Primary Care Provider [phone] Reason for Visit * Reason Comments Med Refill Encounter Details Date Type Department Care Team ([facility] Contact Info) Description 03/07/2024 Refill [facility] CHC MED & PEDS 505 [place], [place] [phone] Margaux Pena MD 505 [place] [address] Social History Tobacco Use Types Packs/Day Years [...] documented as of this encounter Care Teams Home Aide Relationship Specialty Start Date End Date Ashanti Meyer MD [address] [place] [address] PCP - General Family Medicine 11/19/23 documented as of this encounter
--- OUTSIDE RECORDS SUMMARY | 2025-04-13 11:54 | XMS_ITS | Encounter Summary ---
Author Organization [employer] Address [address] [place] [address] 7t [place] [address] Care Team Providers Care Soft Metals Hand Engraver Name Role Phone Margaux Pena MD Primary Care Provider [phone] Ashanti Meyer MD Primary Care Provider [phone] Encounter Details Date Type Department Care Team ([facility] st Contact Info) Description 08/16/2022 Orders Only [facility] MEDICINE 230 [place], [place] [phone] Lorena Hardin LPN Social History Tobacco Use [...] on filedocumented in this encounter Care Teams Soft Metals Hand Engraver Relationship Specialty Start Date End Date Margaux Pena MD 505 [place] [address] PCP - General Family Medicine 01/20/13 11/18/23 Ashanti Meyer MD 230 [place] [address] PCP - General Family Medicine 11/19/23 documented as of this encounter
--- OUTSIDE RECORDS SUMMARY | 2025-04-13 11:54 | XMS_ITS | Encounter Summary ---
Author Organization [employer] Address 75 [facility] 7t [place] [address] Care Team Providers Care Marine Fisheries Technician Name Role Phone Ashanti Meyer MD Primary Care Provider [phone] Encounter Details Date Type Department Care Team ([facility] st Contact Info) Description 01/04/2025 Orders Only [facility] MEDICINE 230 [place], [place] [phone] Ashanti Meyer MD 230 [place], [place] [phone] Social History Tobacco Use Types Packs/Day Years [...] documented as of this encounter Care Teams Marine Fisheries Technician Relationship Specialty Start Date End Date Ashanti Meyer MD [address] [place] [address] PCP - General Family Medicine 11/19/23 documented as of this encounter
--- OUTSIDE RECORDS SUMMARY | 2025-04-13 11:54 | XMS_ITS | Encounter Summary ---
Author Organization [employer] Address [address] [place] [address] 7 [place] [address] Care Team Providers Care Senior Talent Acquisition Specialist Name Role Phone Margaux Pena MD Primary Care Provider [phone] Ashanti Meyer MD Primary Care Provider [phone] Reason for Visit * Reason Comments Med Refill Encounter Details Date Type Department Care Team ([facility] st Contact Info) Description 01/18/2023 Refill [facility] CHC MED & PEDS 505 [place], [place] [phone] Ann-Marie Chirinos MD 505 [place] [address] Anxiety Social History Tobacco Use Types Packs/Day [...] unspecified documented in this encounter Care Teams Senior Talent Acquisition Specialist Relationship Specialty Start Date End Date Margaux Pena MD 505 [place] [address] PCP - General Family Medicine 01/20/13 11/18/23 Ashanti Meyer MD 230 [place] [address] PCP - General Family Medicine 11/19/23 documented as of this encounter
--- OUTSIDE RECORDS SUMMARY | 2025-04-13 11:54 | XMS_ITS | Encounter Summary ---
Author Organization [employer] Address 75 [facility] 7t [place] [address] Care Team Providers Care Pension Manager Name Role Phone Ashanti Meyer MD Primary Care Provider [phone] Reason for Visit * Reason Comments Med Change Request Encounter Details Date Type Department Care Team ([facility] st Contact Info) Description 12/15/2024 Refill [facility] MEDICINE 230 [place], [place] [phone] Ashanti Meyer MD 230 [place], [place] [phone] Social History Tobacco Use Types Packs/Day Years [...] Encounter - Ashanti Meyer MD - 01/04/2025 10:21 AM EDT Called and spoke to pharmacist at [facility], she says that 600mg ER is on backorder and is not available,and that 300mg ER requires a PA. I requested PA team to generate a PA for the 300mg ER documented in this encounter Plan of Treatment Not on file documented as of this encounter Visit Diagnoses Not on filedocumented in this encounter Additional Health Concerns Assessment Noted Time PHQ-9 Depression Total Score: 14 025 10:15 AM EST documented as of this encounter Care Teams Pension Manager Relationship Specialty Start Date End Date Ashanti Meyer MD [address] [place] [address] PCP - General Family Medicine 11/19/23 documented as of this encounter
--- OUTSIDE RECORDS SUMMARY | 2025-04-13 11:54 | XMS_ITS | Encounter Summary ---
Author Organization [employer] Address 75 [facility] 7t [place] [address] Care Team Providers Care Zig Zag Spring Machine Operator Name Role Phone Ashanti Meyer MD Primary Care Provider [phone] Reason for Visit * Reason Comments Med Change Request Encounter Details Date Type Department Care Team ([facility] st Contact Info) Description 01/05/2025 Refill [facility] MEDICINE 230 [place], [place] [phone] Ashanti Meyer MD 230 [place], [place] [phone] Social History Tobacco Use Types Packs/Day Years [...] documented as of this encounter Care Teams Zig Zag Spring Machine Operator Relationship Specialty Start Date End Date Ashanti Meyer MD [address] [place] [address] PCP - General Family Medicine 11/19/23 documented as of this encounter
== END 2025-04-13 09:55 | disposition home or self-care (01) ==
LOC: HO.CT 09:54
PROVIDERS: Visit Provider Internal Medicine Pulmonary Disease
DX: Z12.2 Encounter for screening for malignant neoplasm of respiratory organs (principal); Z87.891 Personal history of nicotine dependence
CPT/HCPCS: 71271

== ENCOUNTER → 2025-04-13 09:56 | Outpatient (BNV) | payer MEDICARE, SELFPAY | PROVIDERS: Visit Provider Radiology Diagnostic Radiology | DX: Z87.891 Personal history of nicotine dependence (principal) | CPT/HCPCS: 71271 ==

== ENCOUNTER 2025-05-17 14:06 | Outpatient (AMB) | payer MEDICARE, SELFPAY ==
[2025-05-17 14:07] VITALS: BP 110/72; PULSE 110; O2SAT 96; BMI 26.9
--- NOTE | 2025-05-17 14:07 | A.OFFVIS_ITS ---
Vital Signs 05/17/25 14:07 Height 5 ft 3 in Weight 152 lb 1.903 oz BMI 26.9 BP 110/72 Blood Pressure Location Rt brachial Position Sitting Pulse 110 H Pulse Source Pulse Oximeter Pulse Oximetry (%) 96 Oxygen Delivery Method Room Air Intake Visit Reasons: COPD Allergies morphine (MORPHINE) Allergy (Intermediate, Verified 05/17/25 14:12) VOMITING, ITCHING ibuprofen Adverse Reaction (Unknown, Verified 05/17/25 14:12) Unknown HPI HPI COPD: Details: 64-year-old lady,? former 30+ pack-year smoker, quit 2019, followed for severe COPD.? She continues on Trelegy, DuoNebs, Ohtuvayre, and albuterol MDI, and theophylline 600 with reasonable control of her symptoms. She does complain of recent upper respiratory infection, still somewhat symptomatic with chest tightness and mild dyspnea, but no cough. [facility] Medical History (Updated 05/21/24 @ 10:53 by Samuel Sanchez MD) Sinus tachycardia Pulmonary embolism Hypertension Ex-smoker for less than 1 year COPD exacerbation Family History Mother CAD (coronary artery disease) Sister Cardiomyopathy Brother Cardiomyopathy Pacemaker Heart attack Social History Household Members: None Housing: Apartment Do you presently have visiting nurse or other home services: No Alcohol intake: never Patient Tobacco Use Status: Former Tobacco user Tobacco use type: Cigarette Years Smoked: 2019 Second Hand Smoke Exposure: No Substance Use Type: Former Substance User Advance Directives Date on File: 07/05/22 service: No Current occupational status: retired Review of Systems Const Denies daytime sleepiness, Denies excessive sweating, Denies fatigue, Denies fever(s), Denies lethargy, Denies malaise, Denies night sweats, Denies snoring and Denies weight loss Eyes Denies blurry vision and Denies itchy eyes ENT Denies nasal congestion, Denies post nasal drip, Denies sinus pain, Denies sinus pressure and Denies other ( Thrush) Card Denies chest pain, Denies pedal edema, Denies dyspnea, Denies orthopnea and Denies paroxysmal nocturnal dyspnea Resp Denies cough, Denies hemoptysis, Denies excessive phlegm production, Denies dyspnea, Denies snoring and Denies wheezing GI Denies abdominal pain and Denies heartburn Musc Denies myalgias, Denies arthralgias and Denies joint swelling Skin/Breast Denies rash Neuro Denies memory loss and Denies seizure-like activity Psych Denies abnormal sleep pattern, Denies anxiety and Denies memory loss Endo Denies excessive sweating, Denies fatigue and Denies heat intolerance Roger/Lymph Denies easy bruising Aller/Immun Denies itchy eyes, Denies seasonal rhinorrhea and Denies wheezing Physical Exam Vital Signs: Last Vital Signs Pulse 110 H 05/17/25 14:07 BP 110/72 05/17/25 14:07 Pulse Ox 96 05/17/25 14:07 Oxygen Delivery Method Room Air 05/17/25 14:07 BMI result Body Mass Index 26.9 Const General: no acute distress and alert Nutritional Appearance: not obese Orientation/consciousness: Other orientation findings ( oriented) HEENT Head: Yes atraumatic Eyes General: appearance normal, both eyes and all related structures Sclerae: sclerae normal EOM: EOMs intact bilaterally Neck Neck: Yes supple Lymphatic: no lymphadenopathy noted Resp Effort & Inspection: normal respiratory effort and no use of accessory muscles Auscultation: clear to auscultation bilaterally Cardio Rate: regular rate Rhythm: regular rhythm Heart sounds: no gallops, no murmurs and no rubs Skin General skin exam: other ( warm) Extrem General: No clubbing, No cyanosis and No edema Assessment & Plan Assessment & Plan (1) COPD exacerbation: Code(s): J44.1 - Chronic obstructive pulmonary disease with (acute) exacerbation Category: Medical Plan: Baseline well controlled current regimen of Trelegy, duo nebs, theophylline 6, and albuterol MDI. Continue current regimen. Now at the tail end of exacerbation secondary to URI, will treat with a brief course of prednisone. (2) Personal history of nicotine dependence: Code(s): Z87.891 - Personal history of nicotine dependence Category: Medical Plan: Results of lung cancer screening CT chest from March of 2025 reviewed, no worrisome nodules noted. Continue with yearly screening. Medications: New prednisone 40 mg (2 x 20 mg) PO DAILY 6 tabs 0RF Coding Level of Care Code Est Pt Level 4 (92010) Diagnoses COPD exacerbation J44.1 Personal history of nicotine dependence Z87.891
--- OUTSIDE RECORDS SUMMARY | 2025-05-17 17:45 | XMS_ITS | Encounter Summary ---
Author Organization [employer] Address [address] [place] [address] 7 [place] [address] Care Team Providers Care Loading Machine Tool Setter Name Role Phone Margaux Pena MD Primary Care Provider [phone] Ashanti Meyer MD Primary Care Provider [phone] Reason for Visit * Reason Comments Med Refill Encounter Details Date Type Department Care Team (Late st Contact Info) Description 01/18/[address] [facility] CHC MED & PEDS 505 [place], [place] [phone] Ann-Marie Chirinos MD 505 [place], [place] [phone] Anxiety Social History Tobacco Use Types Packs/Day [...] Care Team (Late st Contact Info) Description 07/27/2025 11:30 AM EST Office Visit [facility] MEDICINE 230 [place], [place] [phone] Ashanti Meyer MD 230 [place], [place] [phone] documented as of this encounter Visit Diagnoses Diagnosis Anxiety Anxiety state, unspecified documented in this encounter Care Teams Loading Machine Tool Setter Relationship Specialty Start Date End Date Margaux Pena MD [address] [place] [address] PCP - General Family Medicine 01/20/13 11/18/23 Ashanti Meyer MD [address] [place] [address] PCP - General Family Medicine 11/19/23 documented as of this encounter
--- OUTSIDE RECORDS SUMMARY | 2025-05-17 17:45 | XMS_ITS | Encounter Summary ---
Author Organization [employer] Address [address] [place] [address] [place] [address] Care Team Providers Care Advice Clerk Name Role Phone Margaux Pena MD Primary Care Provider [phone] Ashanti Meyer MD Primary Care Provider [phone] Reason for Visit * Reason Comments Med Change Request Encounter Details Date Type Department Care Team ([facility] Contact Info) Description 10/25/2022 Refill [facility] [address] [place], [place] [phone] Margaux Pena MD [address] [place] [address] Social History Tobacco Use Types Packs/Day Years [...] Upcoming Encounters Date Type Department Care Team ([facility] Contact Info) Description 07/27/2025 11:30 AM EST Office Visit [facility] [address] [place] [address] Ashanti Meyer MD [address] [place] [address] documented as of this encounter Visit Diagnoses Not on filedocumented in this encounter Care Teams Advice Clerk Relationship Specialty Start Date End Date Margaux Pena MD [address] [place] [phone] PCP - General Family Medicine 01/20/13 11/18/23 Ashanti Meyer MD [address] [place] [address] PCP - General Family Medicine 11/19/23 documented as of this encounter
--- OUTSIDE RECORDS SUMMARY | 2025-05-17 17:45 | XMS_ITS | Encounter Summary ---
Author Organization [employer] Address [address] [place] [address] 7 [place] [address] Care Team Providers Care Quilter Fixer Name Role Phone Margaux Pena MD Primary Care Provider [phone] Ashanti Meyer MD Primary Care Provider [phone] Encounter Details Date Type Department Care Team (Late st Contact Info) Description 08/16/2022 Orders Only [facility] [address] [place] [phone] Lorena Hardin LPN Social History Tobacco Use [...] Description 07/27/2025 11:30 AM EST Office Visit [facility] [address] [place] [address] Ashanti Meyer MD [address] [place] [address] [phone] documented as of this encounter Visit Diagnoses Not on filedocumented in this encounter Care Teams Quilter Fixer Relationship Specialty Start Date End Date Margaux Pena MD [address] [place] [address] PCP - General Family Medicine 01/20/13 11/18/23 Ashanti Meyer MD [address] [place] [address] PCP - General Family Medicine 11/19/23 documented as of this encounter
--- OUTSIDE RECORDS SUMMARY | 2025-05-17 17:45 | XMS_ITS | Encounter Summary ---
Author Organization [employer] Address [address] [facility] 7t [place] [address] Care Team Providers Care Oil Well Driller Name Role Phone Ashanti Meyer MD Primary Care Provider [phone] Encounter Details Date Type Department Care Team ([facility] st Contact Info) Description 10/28/2024 Orders Only [facility] 230 [place], [place] [phone] Ashanti Meyer MD 230 [place], [place] [phone] Social History Tobacco Use Types Packs/Day Years [...] Description 07/27/2025 11:30 AM EST Office Visit [facility] [address] [place] [phone] Ashanti Meyer MD [address] [place] [phone] documented as of this encounter Visit Diagnoses Not on filedocumented in this encounter Additional Health Concerns Assessment Noted Time PHQ-9 Depression Total Score: 14 025 10:15 AM EST documented as of this encounter Care Teams Oil Well Driller Relationship Specialty Start Date End Date Ashanti Meyer MD [address] [place] [phone] PCP - General Family Medicine 11/19/23 documented as of this encounter
--- OUTSIDE RECORDS SUMMARY | 2025-05-17 17:45 | XMS_ITS | Encounter Summary ---
Author Organization [employer] Address [address] [place] [address] Care Team Providers Care Bike Shop Manager Name Role Phone Margaux Pena MD Primary Care Provider [phone] Ashanti Meyer MD Primary Care Provider [phone] Reason for Visit * Reason Comments Med Refill Encounter Details Date Type Department Care Team ([facility] st Contact Info) Description 10/08/2023 Refill [facility] & PEDS [address] [place], [place] [phone] Margaux Pena MD 505 [place] [address] Social History Tobacco Use Types Packs/Day Years [...] Description 07/27/2025 11:30 AM EST Office Visit [facility] [address] [place] [address] [phone] Ashanti Meyer MD [address] [place] [phone] documented as of this encounter Visit Diagnoses Not on filedocumented in this encounter Care Teams Bike Shop Manager Relationship Specialty Start Date End Date Margaux Pena MD 505 [place] [address] PCP - General Family Medicine 01/20/13 11/18/23 Ashanti Meyer MD [address] [place] [address] [phone] PCP - General Family Medicine 11/19/23 documented as of this encounter
--- OUTSIDE RECORDS SUMMARY | 2025-05-17 17:45 | XMS_ITS | Encounter Summary ---
Author Organization [employer] Address 75 [facility] 7 [place] [address] Care Team Providers Care Quality Improvement Specialist Name Role Phone Margaux Pena MD Primary Care Provider [phone] Ashanti Meyer MD Primary Care Provider [phone] Reason for Visit * Reason Onset Date Comments Durable Medical Equipment 09/17/2023 Encounter Details Date Type Department Care Team ([facility] Contact Info) Description 09/17/2023 Telephone [facility] & [facility] 505 [place], [place] [phone] Margaux Pena MD 505 [place] [address] Durable Medical Equipment Social History Tobacco Use [...] 3:47 PM EST Rx generated faxed to [facility] as requested * Telephone Encounter - Ayaka Victor LPN - 09/18/2023 9:31 AM EST Please review message below and advise. If agreed please provide DX * Telephone Encounter - Gillian Mack - 09/17/2023 1:37 PM EST Jeevan tucker with [facility] requesting DME supplies to be sent to fax [phone] -shower chair -disposable briefs with moderate absorbency with refills documented in this encounter Plan of Treatment Upcoming Encounters Date Type Department Care Team (Late st Contact Info) Description 07/27/2025 11:30 AM EST Office Visit [facility] 230 [place], [place] [phone] Ashanti Meyer MD 230 [place] [address] documented as of this encounter Visit Diagnoses Not on filedocumented in this encounter Care Teams Quality Improvement Specialist Relationship Specialty Start Date End Date Margaux Pena MD [address] [place] [address] PCP - General Family Medicine 01/20/13 11/18/23 Ashanti Meyer MD [address] [place] [address] PCP - General Family Medicine 11/19/23 documented as of this encounter
--- OUTSIDE RECORDS SUMMARY | 2025-05-17 17:45 | XMS_ITS | Encounter Summary ---
Author Organization [employer] Address 75 [facility] 7t [place] [address] Care Team Providers Care Certified Emergency Vehicle Technician Name Role Phone Ashanti Meyer MD Primary Care Provider [phone] Encounter Details Date Type Department Care Team ([facility] st Contact Info) Description 05/11/2025 Telephone [facility] [address] [place], [place] [phone] Ashanti Meyer MD [address] [place], [place] [phone] Social History Tobacco Use Types Packs/Day Years [...] encounter Miscellaneous Notes * Telephone Encounter - Kalyani Wills [place] - 05/13/2025 10:22 AM EDT Spoke with pt and informed of message below. * Telephone Encounter - Kalyani Wills [place] - 05/11/2025 1:29 PM EDT Spoke with pt to schedule a follow up appointment with provider, pt is requesting a refill on her allergy medication, please advise. documented in this encounter Plan of Treatment Upcoming Encounters Date Type Department Care Team (Late st Contact Info) Description 07/27/2025 11:30 AM EST Office Visit [facility] [address] [place] [address] Ashanti Meyer MD [address] [place] [address] documented as of this encounter Visit Diagnoses Not on filedocumented in this encounter Additional Health Concerns Assessment Noted Time PHQ-9 Depression Total Score: 14 025 10:15 AM EST documented as of this encounter Care Teams Certified Emergency Vehicle Technician Relationship Specialty Start Date End Date Ashanti Meyer MD [address] [place] [address] PCP - General Family Medicine 11/19/23 documented as of this encounter
--- OUTSIDE RECORDS SUMMARY | 2025-05-17 17:45 | XMS_ITS | Encounter Summary ---
Author Organization [employer] Address [address] [place] [address] [place] [address] Care Team Providers Care Drum Loader And Unloader Name Role Phone Margaux Pena MD Primary Care Provider [phone] Ashanti Meyer MD Primary Care Provider [phone] Reason for Visit * Reason Comments Med Refill Encounter Details Date Type Department Care Team (Late st Contact Info) Description 04/05/2023 Refill [facility]S 505 [place], [place] [phone] Margaux Pena MD 505 [place], [place] [phone] Social History Tobacco Use Types Packs/Day Years [...] Description 07/27/2025 11:30 AM EST Office Visit [facility] [address] [place], [place] [phone] Ashanti Meyer MD 230 [place], [place] [phone] documented as of this encounter Visit Diagnoses Not on filedocumented in this encounter Care Teams Drum Loader And Unloader Relationship Specialty Start Date End Date Margaux Pena MD [address] [place] [phone] PCP - General Family Medicine 01/20/13 11/18/23 Ashanti Meyer MD [address] [place] [address] PCP - General Family Medicine 11/19/23 documented as of this encounter
--- OUTSIDE RECORDS SUMMARY | 2025-05-17 17:45 | XMS_ITS ---
Author Name Brandee Mckeon NP Address [address] [place] [address] Phone [phone] [facility] Care Team Providers Care Special Population Paraprofessional Name Role Phone Brandee Mckeon Unavailable [phone] SOURAV BARRERA Unavailable [phone] Carlie Anthony Unavailable [phone] Nickolas Strong Unavailable [phone] Unavailable Unavailable [phone] YESSY WADE Unavailable [phone] JOSE DE JESUS RING Unavailable [phone] GABI EDWARDS Unavailable MARITZA BREWER Unavailable [phone] Reason for Referral Not Available Allergies, adverse reactions, alerts Allergen Type Reaction Severity Status Onset Date Morphine Allergy to substance (disorder) Unknown Active N/A Doxycycline Hyclate Allergy to substance (disorder) Severe side effects. Mild Active N/A History of medication use Medication [...] 12 HOURS 2022-07-06 No Data Available Nystatin 838414 UNIT/ML Suspension TAKE 5 MLS ORALLY 4 TIMES A DAY SWISH AND SWALLOW 2022-07-06 No Data Available Lisinopril 40 mg Tab TAKE 1 TABLET BY MO UT EVERY DAY IN THE MORNING 2022-04-23 No [...] TABLET DAILY 09-09 No Data Available Nystatin 742198 UNIT/ML Suspension Mouth/Throat 5ml PO QID Swish [...] FOR NERVE PAIN 2023-11-15 No Data Available Sjhcyxku-Hytdctehk-Beheyotl 3.5-96089-5.1 Suspension INSTILL 1 DROP INTO BOTH EYES FOUR TIMES A DAY USE FOR 2 WEEKS 2024-04-08 2024-05-13 Trelegy Ellipta 200-62.5-25 MCG/ACT Aerosol Powder Breath Activated INHALE 1 PUFF DAILY 2023-12-13 No Data Available levoFLOXacin 500 mg Tab TAKE 1 TABLET (5 00 MG) BY MOUTH ONCE DAILY FOR 5 DAYS. 2024-02-21 No Data Available predniSONE 10 mg Tab Take 3 tablets sarah y for 3 days, 2 tablet daily for 3 days, and 1 tablet daily for 3 days, then stop 2024-09-04 No Data Available Doxycycline Hyclate 100 [...] have not improved. 2025-03-30 No Data Available Ondansetron 4 mg Tab TAKE 1 TABLET BY MO UTH EVERY 8 HOURS NEEDED FOR NAUSEA OR [...] WEEKS, THEN STOP 2025-02-02 No Data Available Benzonatate 100 mg Cap Take 1 tablet twi ce daily as needed for cough. 2025-04-28 No Data Available Problem List Problem Status [...] taking new pts.Referred to the oculoplastic surgeon. [facility]. [phone], faxed and accept new patients, they called [...] twice daily for 5 days. #10 tablet INb3Wvxieevgqid-Sij Clavulanate 875/125 mg Tab Take 1 tablet PO twice daily for 7 days #14 tablet ZAw4Kfdizeiiczs 100 mg Cap Take 1 tablet TID daily as needed for cough. #30 capsule APd5Msps Q 4 hrs prnRest and hydrate09/08/24 Prednisone taper and doxycycline received, taking, and improving. Sore throat, cough slowed down. Continue with medication prescribed. Mild SOB, no fever, no chills. Steam, fluids, mucinex. 04/27/25+ flair Continue nebs Q 4 hrs prnStart doxy and prednisone. Notify for worsening wqyncskf36/14/25: Symptoms are improved but her breathing is not at baseline. She went outside to walk her dog and she was very out of breath which is not typical for her. Feels like she is starting to feel better but then feels worse. Continues to have productive cough with sputum. She has completed the azithromycin and the Prednisone burst x5 days. She completed the burst on Saturday. Has pulmonology follow up on 05/12. Denies fever, chest pain, SOB. Confirmed she is still on Eiliquis, less likely PE. 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 Will rx prednisone taper, has required in the past. Discussed that Covid has been ciruculating but due to her duration of symptoms, would not be a candidate for treatment, so having a positive or negative test would not change treatment plan. Monitor for red flag symptoms: fever, chest pain, worsening SOB - may need sooner in person evaluation either by PCP, UC or ER pending her symptoms and severity. COPD (chronic obstructive pulmonary disease) with chronic [...] sputum production. 4. Schedule f/u with primary [facility] in 1-2 days. 09/04/24-patient seen for acute [...] SOB. Acute pharyngitisAcute pain of both earsCough Resolved 2024-09-17 2025-05-04 Acute encounte r 09/17/24:Reports she woke up [...] 95 for video, modifier 93 for phone [facility] [place] Opioid dependence, uncomplicatedChronic pulmonary embolismChronic obstructive pulmonary disease, unspecifiedInterstitial pulmonary disease, unspecifiedEssential (primary) hypertensionGeneralized anxiety disorderGastro-esophageal reflux disease without esophagitis New patient, 30-44min 1 stable chronic or 2 minor; add modifier 95 for video, modifier 93 for phone [facility] [place]2022 New patient, 30-44min 1 stable chronic or 2 minor; add modifier 95 for video, modifier 93 for phone [facility] [place]20[place] New patient, 30-44min 1 stable chronic or 2 minor; add modifier 95 for video, modifier 93 for phone [facility] [place]20[place] New patient, 30-44min 1 stable chronic or 2 minor; add modifier 95 for video, modifier 93 for phone [facility] [place]2022 New patient, 30-44min 1 stable chronic or 2 minor; add modifier 95 for video, modifier 93 for phone [facility] [place]2022 New patient, 30-44min 1 stable chronic or 2 minor; add modifier 95 for video, modifier 93 for phone [facility] [place]/2022 New patient, 30-44min 1 stable chronic or 2 minor; add modifier 95 for video, modifier 93 for phone [facility] [place] 12/12/2022 No Data Available [facility] [place] Urinary tract infection, sit e not specifiedUnspecified entropion of right lower eyelidUnspecified entropion of left lower eyelidEssential (primary) hypertension No Data Available [facility] [place]20[place] No Data Available [facility] No Data Available [facility]2023 Opioid dependence, uncomplicatedChronic pulmonary embolismChronic obstructive pulmonary disease, unspecifiedInterstitial pulmonary disease, unspecifiedEssential (primary) hypertensionGeneralized anxiety disorderGastro-esophageal reflux disease without esophagitisUrinary tract infection, site not specifiedUnspecified entropion of right lower eyelidUnspecified entropion of left lower eyelid No Data Available [facility] [place]/04/2023 No Data Available [facility] [place]/04[place]2023 No Data Available [facility] [place]/04[place]2023 No Data Available [facility] [place]/04[place]2023 No Data Available [facility] [place]/04[place]2023 No Data Available [facility] [place]/15/2023 Urinary tract infection, sit e not specified No Data Available [facility] [place]2023 No Data Available [facility] [place] 01[place]15[place]2023 No Data Available [facility] [place]18[place]2023 Opioid dependence, uncomplicatedChronic pulmonary embolismChronic obstructive pulmonary disease, unspecifiedInterstitial pulmonary disease, unspecifiedEssential (primary) hypertensionGeneralized anxiety disorderGastro-esophageal reflux disease without esophagitisUrinary tract infection, site not specifiedUnspecified entropion of right lower eyelidUnspecified entropion of left lower eyelid No Data Available [facility] [place] 01/18/2023 No Data Available [facility] [place] 01/18[place]2023 No Data Available [facility] [place] 01/18[place]2023 No Data Available [facility] [place] 01/18/2023 No Data Available [facility] [place] 01/18/2023 No Data Available [facility] [place] 01/18/2023 No Data Available [facility] [place] 04[place]17[place]2023 Acute bronchitis due to othe r specified organismsOth bacterial agents as the cause of diseases classd elswhr No Data Available [facility] [place] 04/19/2023 Interstitial pulmonary disea se, unspecified No Data Available [facility] [place] 04[place]19[place]2023 No Data Available [facility] [place] 04[place]19[place]2023 No Data Available [facility] [place] 05[place]2023 Chronic obstructive pulmonar y disease, unspecified No Data Available [facility] [place]07/2023 Opioid dependence, uncomplicatedChronic pulmonary embolismChronic obstructive pulmonary disease, unspecifiedInterstitial pulmonary disease, unspecifiedEssential (primary) hypertensionGeneralized anxiety disorderGastro-esophageal reflux disease without esophagitisUnspecified entropion of right lower eyelidUnspecified entropion of left lower eyelidAcute bronchitis due to other specified organismsOth bacterial agents as the cause of diseases classd elswhr No Data Available [facility] [place]20[place] No Data Available [facility] [place]20[place] No Data Available [facility] [place] 05[place]20[place] No Data Available [facility] [place] 06[place]18[place]2023 Chronic obstructive pulmonar y disease, unspecifiedAllergy, unspecified, initial encounter No Data Available [facility] [place] 06[place]19[place]2023 Chronic obstructive pulmonar y disease, unspecifiedAllergy, unspecified, initial encounterAcute bronchitis due to other specified organismsOth bacterial agents as the cause of diseases classd elswhr No Data Available [facility] 06[place]19[place]2023 No Data Available [facility] [place] No Data Available [facility] No Data Available [facility] [place]19[place]20[place] Estab. patient 30-39min; chronic exacerbation, 2 stable chronic or 1 acute illness add add modifier 95 for video, (do not use for phone, instead use [id number]) [facility]2023 Opioid dependence, uncomplicatedChronic pulmonary embolismChronic obstructive pulmonary disease, unspecifiedInterstitial pulmonary disease, unspecifiedAllergy, unspecified, initial encounterEssential (primary) hypertensionGeneralized anxiety disorderGastro-esophageal reflux disease without esophagitisUnspecified entropion of right lower eyelidUnspecified entropion of left lower eyelid Estab. patient 30-39min; chronic exacerbation, 2 stable chronic or 1 acute illness add add modifier 95 for video, (do not use for phone, instead use 40364-95) [facility] Estab. patient 30-39min; chronic exacerbation, 2 stable chronic or 1 acute illness add add modifier 95 for video, (do not use for phone, instead use 84630-97) [facility] [place] 09[place]02[place]20[place] Estab. patient 30-39min; chronic exacerbation, 2 stable chronic or 1 acute illness add add modifier 95 for video, (do not use for phone, instead use 35559-86) [facility] [place] 09[place]20[place] Estab. patient 30-39min; chronic exacerbation, 2 stable chronic or 1 acute illness add add modifier 95 for video, (do not use for phone, instead use [id number]) [facility] [place]20[place] Estab. patient 30-39min; chronic exacerbation, 2 stable chronic or 1 acute illness add add modifier 95 for video, (do not use for phone, instead use 12204-09) [facility] [place]20[place] Estab. patient 30-39min; chronic exacerbation, 2 stable chronic or 1 acute illness add add modifier 95 for video, (do not use for phone, instead use 21666-69) [facility] [place] 09[place]20[place] Estab. patient 30-39min; chronic exacerbation, 2 stable chronic or 1 acute illness add add modifier 95 for video, (do not use for phone, instead use 23836-81) [facility] [place] 09/02/2023 No Data Available [facility] [place]/04/2023 Essential (primary) hypertensionOther problems related to medical facilities and other health care No Data Available [facility] [place] 09/04/2023 No Data Available [facility] [place] 09[place]04[place]2023 No Data Available [facility] [place] 09[place]04[place]20[place] No Data Available [facility] [place]2023 Opioid dependence, uncomplicatedChronic pulmonary embolismChronic obstructive pulmonary disease, unspecifiedAllergy, unspecified, initial encounterInterstitial pulmonary disease, unspecifiedEssential (primary) hypertensionGeneralized anxiety disorderGastro-esophageal reflux disease without esophagitisUnspecified entropion of right lower eyelidUnspecified entropion of left lower eyelidOther problems related to medical facilities and other health care No Data Available [facility] [place]/09/2023 No Data [...] disease with (acute) exacerbation No Data Available [facility] [place]20[place] No Data Available [facility] [place]20[place] Estab. patient 10-29min; 1 minor problem; add add modifier 95 for video, modifier 93 for phone [facility] [place] 09/04/2024 Other specified chronic obstructive pulmonary diseaseAllergy, unspecified, initial encounterOld myocardial infarction Estab. patient 10-29min; 1 minor problem; add add modifier 95 for video, modifier 93 for phone [facility] [place] 09/04/20[place] Estab. patient 10-29min; 1 minor problem; add add modifier 95 for video, modifier 93 for phone [facility] [place] 09/04/2024 Estab. patient 10-29min; 1 minor problem; add add modifier 95 for video, modifier 93 for phone [facility] [place] 09/04/2024 Estab. patient 20-29min; 1 stable chronic or 2 minor; add add modifier 95 for video, modifier 93 for phone [facility] [place] 09/08/2024 Opioid use, unspecified, uncomplicatedChronic pulmonary [...] 95 for video, modifier 93 for phone [facility] [place] 09/08/20[place] Estab. patient 20-29min; 1 stable chronic or 2 minor; add add modifier 95 for video, modifier 93 for phone [facility] [place] 09/08/2024 Estab. patient 20-29min; 1 stable chronic or 2 minor; add add modifier 95 for video, modifier 93 for phone [facility] [place] 09/08/2024 Estab. patient 20-29min; 1 stable chronic or 2 minor; add add modifier 95 for video, modifier 93 for phone [facility] [place] 09[place]08[place] Estab. patient [...] [facility] [place] Estab. patient 10-29min; 1 minor [...] for phone [facility] [place] 09/21/2024 Acute pharyngitis, unspecifiedOtalgia, bilateralCough, unspecifiedOther problems related to medical facilities and other health care Estab. patient 10-29min; 1 minor problem; add add modifier 95 for video, modifier 93 for phone [facility] [place] 09/21/2024 Estab. patient 10-29min; 1 minor problem; add add modifier 95 for video, modifier 93 for phone [facility] [place] 09/24/2024 Chronic obstructive pulmonar y disease, unspecifiedAllergy, unspecified, initial encounterEssential (primary) hypertensionOther problems related to medical facilities and other health careAcute pharyngitis, unspecifiedOtalgia, bilateralCough, unspecified Estab. patient 10-29min; 1 minor problem; add add modifier 95 for video, modifier 93 for phone [facility] [place] 09/24/20[place] Estab. patient 10-29min; 1 minor problem; add add modifier 95 for video, modifier 93 for phone [facility] [place] 03/30/2025 Urinary tract infection, sit e not specified Estab. patient 10-29min; 1 minor problem; add add modifier 95 for video, modifier 93 for phone [facility] [place] 03/30/2025 Estab. patient 10-29min; 1 minor problem; add add modifier 95 for video, modifier 93 for [facility] [place] 03/30/2025 Estab. patient 10-29min; 1 minor problem; add add modifier 95 for video, modifier 93 for phone [facility] [place] 04/27/2025 Chronic obstructive pulmonar y disease with (acute) exacerbation Estab. patient 10-29min; 1 minor problem; add add modifier 95 for video, modifier 93 for phone [facility] [place] 04/27/2025 Estab. patient 10-29min; 1 minor problem; add add modifier 95 for video, modifier 93 for [facility] [place] 04/27/2025 Estab. patient 10-29min; 1 minor problem; add add modifier 95 for video, modifier 93 for [facility], ([place]) 05/04/2025 Chronic obstructive pulmonar y disease with (acute) exacerbationOther problems related to medical facilities and other health care Vital Signs Date of Collection Vitals 2022-12-12 [...] - 124.0 mm[Hg]Heart Rate - 74.0 /min 2025-04-27 09:45:13 BP Diastolic - 88.0 mm[Hg]BP Systolic - 136.0 mm[Hg]Heart Rate - 109.0 /minO2 % BldC Oximetry - 94.0 % Social History Social History Social History Observation Description Effec tive Time Current Smoking Status Former smoker 2025-04-22 5 Sex Female History of Procedures Procedures Service Procedure code Service date Servicing provider Phone# New patient, 30-44min 1 stable chronic or 2 minor; add modifier 95 for video, modifier 93 for phone [id number] 2022-12-12 No Data Available No Data Available [...] No Data Availa ble No Data Available [id number] 2023-01-02 No Data Available No Data Available SBP >= 140 3077F 2023-01-02 No Data Available No Data Available DBP >=90 3080F 2023-01-02 No Data Available No Data Available No Data Available [id number] 2023-01-04 No Data Available No Data Available [...] No Data Availa ble No Data Available [id number] 2023-01-15 No Data Available No Data Available [...] 1159F 2023-01-18 No Data Available No Data Rxo ilable Advance Care Directive Advance care planning [...] Available No Data Available No Data Available [id number] 2023-06-19 No Data Available No Data Available [...] (do not use for phone, instead use [id number]) [id number] 2023-09-02 No Data Available No Data Availa [...] Available No Data Available No Data Available [id number] 2023-09-04 No Data Available No Data Available Medication List Documented (1159F) 1159F 2023-09-04 No Data Available No Data Rox ilable SBP >= 140 3077F 2023-09-04 No Data Available No Data Available DBP >=90 3080F 2023-09-04 No Data Available No Data Available No Data Available [id number] 2023-09-09 No Data Available No Data Available [...] 95 for video, modifier 93 for phone [id number] 2024-09-04 No Data Available No Data Availa [...] 95 for video, modifier 93 for phone [id number] 2024-09-08 No Data Available No Data Availa [...] 95 for video, modifier 93 for phone [id number] 2024-09-17 No Data Available No Data Availa ble Pain Assessment - Pain Documented on a Pain Scale (1125F) 1125F 2024-09-17 No Data Available No Data Rox ilable Medication List Documented (1159F) 1159F 2024-09-17 No Data Available No Data Rox ilable Estab. patient 10-29min; 1 minor problem; add add modifier 95 for video, modifier 93 for phone [id number] 2024-09-21 No Data Available No Data Availa ble Medication List Documented (1159F) 1159F 2024-09-21 No Data Available No Data Rox ilable Estab. patient 10-29min; 1 minor problem; add add modifier 95 for video, modifier 93 for phone [id number] 2024-09-24 No Data Available No Data Availa ble Medication List Documented (1159F) 1159F 2024-09-24 No Data Available No Data Rox ilable Estab. patient 10-29min; 1 minor problem; add add modifier 95 for video, modifier 93 for phone [id number] 2025-03-30 No Data Available No Data Availa ble SBP < 130 (3074F) 3074F 2025-03-30 No Data Available No Data Available DBP <80 (3078F) 3078F 2025-03-30 No Data Available No Data Available Estab. patient 10-29min; 1 minor problem; add add modifier 95 for video, modifier 93 for phone [id number] 2025-04-27 No Data Available No Data Availa ble SBP 130-139 (3075F) 3075F 2025-04-27 No Data Availabl e No Data Available DBP 80-89 (3079F) 3079F 2025-04-27 No Data Available No Data Available Estab. patient 10-29min; 1 minor problem; add add modifier 95 for video, modifier 93 for phone [id number] 2025-05-04 No Data Available No Data Availa ble Functional Status Functional Category Effective Dates ADL: [...] sputum production. 4. Schedule f/u with primary [facility]MI[facility] in 1-2 days. Interstitial pulmonary disease, unspecifiedAlbuterol [...] sputum production. 4. Schedule f/u with primary CHEMI[facility] in 1-2 days. Recently seen pulmo.Interstitial pulmonary [...] sputum production. 4. Schedule f/u with primary CHEMI[facility] in 1-2 days. Essential hypertensionLisinopril Recommend low [...] taking new pts.Referred to the oculoplastic surgeon. [facility]. [phone], faxed and accept new patients, they called they are also out of network. Will continue to try. 2023-04-17 09:54:25 Follow up plan for andrew campos symptoms:Acute bacterial bronchitis 2023-04-19 11:20:39 Interstitial pulmona [...] sputum production. 4. Schedule f/u with primary CHEMI[facility]ERO[facility] in 1-2 days. Nasal discharge, PND, drips in [place]. Please use nasal rinse, scrap picker Dymista. Continue with mucinex, humidifier. Call [...] sputum production. 4. Schedule f/u with primary [facility]MI[facility] in 1-2 days. Recently seen pulmo. 04/19/23 [...] air 95%. Neb twice daily. Finishing doxycycline. [place] back to normal Interstitial pulmonary disease, unspecifiedAlbuterol [...] taking new pts.Referred to the oculoplastic surgeon. [facility]. [phone], faxed and accept new patients, they called [...] sputum production. 4. Schedule f/u with primary CHEMI[facility]EROIDS in 1-2 days. Recently seen pulmo. 04/19/23 [...] air 95%. Neb twice daily. Finishing doxycycline. [place] back to normal 06/19/23 productive cough with thick yellow sputum, headache, runny nose, post nasal drip, sore throat, SOB. O2 sat 94-95%. Baseline, taking doxy and medro dosepak. Take with food to decrease chance to upset stomach. call anytime please if fail to continue to improve.Acute bacterial kiieamxbop19/29/23:- Cont. with Nebulizer q2-3h PRN - Promethazine-DM [...] Follow up scheduled Saturday afternoon with primary DOMENIOC.Albuterol Inhaler, Fluticasone, Ipratropium-Albuterol via Nebulizer, Symbicort, Theophylline, SpirivaFormer Smoker Avoid allergens and triggersContinue to follow up with Pulmonology and PCP. Contingency plan:1. Start antibiotic(Azithromycin, doxycycline, or levaquin), prednisone 40 mg *5 days 2. Increase Neb treatments/MDI use to q4h x3 days3. Call CB at the first sign of SOB or increased cough and sputum production. 4. Schedule f/u with primary [facility]MI[facility] in 1-2 days. Recently seen pulmo. 04/19/23 [...] air 95%. Neb twice daily. Finishing doxycycline. [place] back to normal 06/19/23 productive cough with [...] stable. Refill, please inform PCP with change. 10/17/23 BP slightly elevated to 150s, on oral [...] taking new pts.Referred to the oculoplastic surgeon. [facility]. [phone], faxed and accept new patients, they called [...] joint pain increased [facility]. Follow-up with [facility] as needed for any acute or disease [...] joint pain increased [facility]. Follow[facility] with [facility] as needed for any acute or disease education needs that may arise 11/02.what should be done when the member calls: see each individual diagnosis for contingency plan 2023-10-08 10:43:06 Follow up plan for andrew campos symptoms:Oral yvette 2023-10-11 07:46:36 Sciatic leg painRx [...] sputum production. 4. Schedule f/u with primary CHEMIST STEROIDS in 1-2 days. Recently seen pulmo. 04/19/23 [...] air 95%. Neb twice daily. Finishing doxycycline. [place] back to normal 06/19/23 productive cough with [...] taking new pts.Referred to the oculoplastic surgeon. [facility] [employer]. [phone], faxed and accept new patients, they called [...] sputum production. 4. Schedule f/u with primary CHEMIST STEROIDS in 1-2 days. Recently seen pulmo. 04/19/23 [...] air 95%. Neb twice daily. Finishing doxycycline. [place] back to normal 06/19/23 productive cough with [...] another course of steroid sandhya, has not scrap picker yet, and does not know the dose. [place] that as soon as prednisone is stopped, pain returned. Recommended PT, member stated PCP have ordered it. Pain today in left leg -11/28.COPD exacerbationRx Doxycycline, Benzonatate and Promethazine DM Discussed how to take medicationDiscussed treatment options with patient and the Doxycycline works the best for herContinue nebulizer treatments every 4-6 hours Has f/u appt with PCP 11/15/23f/u with LAWRENCE Rollins 11/17/ Recommended to change Symbicort to treztri or trilogy for better COPD control. member offered to have symbicort changed, stated wish to speak to pulm. Please talk to your soiled linen distributor for advice. She had a lot of [...] sputum production. 4. Schedule f/u with primary CHEMIST STEROIDS in 1-2 days. Recently seen pulmo. 04/19/23 [...] air 95%. Neb twice daily. Finishing doxycycline. [place] back to normal 06/19/23 productive cough with [...] stated will make appointment with pulmonology to maxaawq40/22/24 Taking all these RxNew predniSONE 20 mg Tab Take 1 tablet twice daily New levoFLOXacin 500 mg Tab 1 tablet orally daily n4Rtpgvd Ipratropium-Albuterol 0.5-2.5 (3) MG/3ML Solution Inhalation USE [...] call CBContinue to see PCP. Follow-up with [facility] as needed for any acute or disease [...] sputum production. 4. Schedule f/u with primary CHEMIST STEROIDS in 1-2 days. 09/04/24-patient seen for acute [...] taking new pts.Referred to the oculoplastic surgeon. [facility] [employer]. [phone], faxed and accept new patients, they called [...] call CBContinue to see PCP. Follow-up with [facility] as needed for any acute or [...] twice daily for 5 days. #10 tablet ICr0Ssavhjvtgiz-Phw Clavulanate 875/125 mg Tab Take 1 tablet PO twice daily for 7 days #14 tablet IRp1Zpcfjooshwu 100 mg Cap Take 1 tablet TID daily as needed for cough. #30 capsule BBh3Acxn Q 4 hrs prnRest and hydrate09/08/24 Prednisone [...] sputum production. 4. Schedule f/u with primary CHEMIST STEROIDS in 1-2 days. 09/04/24-patient seen for acute [...] call CBContinue to see PCP. Follow-up with [facility] as needed for any acute or disease [...] 11/02 for acute needs.UTI (urinary tract infection) 2025-04-27 09:45:13 COPD exacerbation 2025-05-04 07:03:25 COPD exacerbationOth er problems related to medical facilities and other health care Plan of Care Date of Service Plans [...] Assessed (1170F)Continue to see PCP. Follow-up with [facility] as [...] Tab Take 1 tablet daily. #30 tablet HFn5Zticp (patient, parent, or guardian); 11-20 minutes of [...] assist where needed. 2023-01-15 09:01:07 Phone (patient, reginald nt, or guardian); 5-10 minutes of medical [...] Tab Take 1 tablet daily. #90 tablet PSa6Nin [facility] Covid-19 At Home Test Kit Kit In Vitro test one daily #4 each PFl0Eadvv (patient, parent, or guardian); 11-20 minutes of [...] up scheduled Saturday afternoon with primary DOMENICO. 2023-04-19 11:20:39 Doron Ellington 137-50 M CG/ACT Suspension Nasal 1 spray intranasally 2 times per day in each nostril #1 each AMz4Heefke Ipratropium-Albuterol 0.5-2.5 (3) MG/3ML Solution Inhalation USE 1 VIAL VIA NEBULIZER 4 TIMES A DAY #90 milliliter RFx0 Do NOT substitute - OTONIEL.Phone (patient, parent, or guardian); 5-10 minutes of medical discussion (no modifier 95)Continue to see PCP. Follow-up with [facility] as needed for any acute or disease education needs that may arise 11/02. 2023-05-02 08:11:53 Phone (patient, reginald varghese, or guardian); 5-10 minutes of medical discussion (no modifier 95)Continue to see PCP. Follow-up with [facility] as needed for any acute or disease [...] sputum production. 4. Schedule f/u with primary CHEMIST STEROIDS in 1-2 days. Recently seen pulmo. 04/19/23 [...] TID as needed for cough. #30 capsule DRs0eOe New Montelukast Sodium 10 mg Tab 1 tablet orally QD for allergies and to prevent bronchospasm #30 tablet WSn9jWf New Doxycycline Hyclate 100 mg Tab Take 1 tablet PO twice daily for 7 days. #14 tablet XGv5qQb New Medrol 4 mg Tab Therapy Pack [...] sputum production. 4. Schedule f/u with primary CHEMIST STEROIDS in 1-2 days. Recently seen pulmo. 04/19/23 [...] air 95%. Neb twice daily. Finishing doxycycline. [place] back to normal 2023-06-19 06:16:30 Phone (patient, [...] sputum production. 4. Schedule f/u with primary CHEMIST STEROIDS in 1-2 days. Recently seen pulmo. 04/19/23 [...] air 95%. Neb twice daily. Finishing doxycycline. [place] back to normal 06/19/23 productive cough with [...] taking new pts.Referred to the oculoplastic surgeon. [facility] [employer]. [phone], faxed and accept new patients, they called [...] Tab Take 1 tablet daily. #90 tablet ZNh5Lfozy (patient, parent, or guardian); 5-10 minutes of [...] 3 times per day PRN #20 tablet DLk3Cnh Medrol 4 mg Tab Therapy Pack take as directed #1 packet IFc8Sloif (patient, parent, or guardian); 5-10 minutes of medical discussion (no modifier 95)Continue to see PCP. Follow-up with [facility] as needed for any acute or disease education needs that may arise 11/02. 2023-10-30 13:39:59 New Prednisone 40 mg 1 daily x 5 days #5 tablet TTv3Lwolz (patient, parent, or guardian); 5-10 minutes of medical discussion (no modifier 95)Continue to see PCP. Follow-up with [facility] as needed for any acute or disease education needs that may arise 11/02. 2023-11-13 07:56:34 New Doxycycline Hycl ate 100 mg Tab Take 1 tablet PO twice daily for 10 days. #20 tablet SYp0Mxu Benzonatate 100 mg Cap Take 1 tablet twice daily as needed for cough. #20 capsule AYe7Aqp predniSONE 20 mg Tab Take 2 tablet once daily for 5 days. #10 tablet DVo0Ypa Promethazine-DM 6.25/15 mg/5ML Syrup 5 ml orally every 4 hours as needed #150 milliliter JWq9Fqbqm (patient, parent, or guardian); 5-10 minutes of [...] twice daily for 5 days. #10 tablet VCm1Ftqptdlmlmc-Uyq Clavulanate 875/125 mg Tab Take 1 tablet PO twice daily for 7 days #14 tablet PTh2Mcfkvuauqny 100 mg Cap Take 1 tablet TID daily as needed for cough. #30 capsule BFv5Hztr Q 4 hrs prnRest and hydrate 2024-09-04 [...] sputum production. 4. Schedule f/u with primary CHEMIST STEROIDS in 1-2 days. 05/12/24 Taking all these RxNew predniSONE 20 mg Tab Take 1 tablet twice daily New levoFLOXacin 500 mg Tab 1 tablet orally daily v5Vyoqli Ipratropium-Albuterol 0.5-2.5 (3) MG/3ML Solution Inhalation USE [...] handihaler device orally once daily #30 capsule VYg4Niaphxybyz Status Assessed (1170F)Advance Care Directive Advance care [...] Scale (1125F)Continue to see PCP. Follow-up with [facility] as needed for any acute or [...] for phoneContinue to see PCP. Follow-up with [facility] as needed for any acute or [...] joint pain increased [facility]. [facility] as needed for any acute or disease [...] CB is available 11/02 for acute needs. 2025-04-27 09:45:13 Televideo 10-29min; 1 minor problem; add add modifier 95 for video, modifier 93 for phoneContinue to see PCP. Follow-up with [facility] as needed for any acute or disease education needs that may arise 11/02.04/27/25+ flair Continue nebs Q 4 hrs prnStart doxy and prednisone. Notify for worsening symptoms 2025-05-04 07:03:25 Estab. patient 10-29 min; 1 minor problem; add add modifier 95 for video, modifier 93 for phoneContinue to see PCP. Follow-up with [facility] as needed for any acute or disease education needs that may arise 11/02.predniSONE 20 mg Tab Take 1 tablet twice daily for 5 days. #10 tablet PFt3Tomtwinupei-Lvn Clavulanate 875/125 mg Tab Take 1 tablet PO twice daily for 7 days #14 tablet CJd2Nhzjzudtoux 100 mg Cap Take 1 tablet TID daily as needed for cough. #30 capsule JTl3Kyvy Q 4 hrs prnRest and hydrate09/08/24 Prednisone taper and doxycycline received, taking, and improving. Sore throat, cough slowed down. Continue with medication prescribed. Mild SOB, no fever, no chills. Steam, fluids, mucinex. 04/27/25+ flair Continue nebs Q 4 hrs prnStart doxy and prednisone. Notify for worsening /14/25: Symptoms are improved but her breathing is not at baseline. She went outside to walk her dog and she was very out of breath which is not typical for her. Feels like she is starting to feel better but then feels worse. Continues to have productive cough with sputum. She has completed the azithromycin and the Prednisone burst x5 days. She completed the burst on Saturday. Has pulmonology follow up on 05/12. Denies fever, chest pain, SOB. Confirmed she is still on Eiliquis, less likely PE. 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 Will rx prednisone taper, has required in the past. Discussed that Covid has been ciruculating but due to her duration of symptoms, would not be a candidate for treatment, so having a positive or negative test would not change treatment plan. Monitor for red flag symptoms: fever, chest pain, worsening SOB - may need sooner in person evaluation either by PCP, UC or ER pending her symptoms and severity..When member to call: 1. If bp is elevated sbp>150; dbp>90 or symptomatic-h/a, dizziness, cp, sob. 2. if there is a fall 3. if BS >300 or BS<90 or symptomatic; i.e., dizzy, off balance , shaky, general weakness. 4. if UTI symptoms arise-urinary frequency, dysuria, low abd pain. 5. if pain in knees increases/ or joint pain increased [facility]. Follow-up with [facility] as needed for any acute or disease education needs that may arise 11/02.what should be done when the member calls: see each individual diagnosis for contingency plan Goals Date Goal 2022-12-12 Continue taking medi [...] referral 2023-11-18 Recommended to shivani Vela to trezi or trilogy for better COPD control, she [...] 500 mg Tab 1 tablet orally daily h2Qnreof Ipratropium-Albuterol 0.5-2.5 (3) MG/3ML Solution Inhalation USE [...] specialists as directed. Health Concerns Date Concern 2025-05-04 Patient/Guardian caroline fletcher to visit via telehealth.Visit completed via:[ ] audio and video; [x] audio only 2025-05-04 Concerns for today's visit:No acute concerns or needs 2025-05-04 Most recent hospital stay or ER visit:No ER visits or hospitalizations documented in [facility] in 90 days.Member denies ER visits or hospitalizations in last 90 days. 2025-05-04 Open HEDIS Measures: No open measures
--- OUTSIDE RECORDS SUMMARY | 2025-05-17 17:45 | XMS_ITS | Encounter Summary ---
Author Organization [employer] Address [address] [place] [address] Care Team Providers Care Software Writer Name Role Phone Ashanti Meyer MD Primary Care Provider [phone] Reason for Visit * Reason Comments Med Refill Encounter Details Date Type Department Care Team ([facility] st Contact Info) Description 03/21/2025 Refill [facility] [address] [place], [place] [phone] Pilar Guzman MD [address] [place], [place] [phone] Social History Tobacco Use Types Packs/Day Years [...] Description 07/27/2025 11:30 AM EST Office Visit [facility] [address] [place] [address] Ashanti Meyer MD [address] [place] [address] documented as of this encounter Visit Diagnoses Not on filedocumented in this encounter Additional Health Concerns Assessment Noted Time PHQ-9 Depression Total Score: 14 025 10:15 AM EST documented as of this encounter Care Teams Software Writer Relationship Specialty Start Date End Date Ashanit Meyer MD [address] [place] [phone] PCP - General Family Medicine 11/19/23 documented as of this encounter
--- OUTSIDE RECORDS SUMMARY | 2025-05-17 17:45 | XMS_ITS | Encounter Summary ---
Author Organization [employer] Address [address] [place] [address] [place] [address] Care Team Providers Care Package Center Supervisor Name Role Phone Margaux Pena MD Primary Care Provider Ashanti Meyer MD Primary Care Provider [phone] Reason for Visit * Reason Comments Med Refill Encounter Details Date Type Department Care Team (Late st Contact Info) Description 04/07/2023 Refill [facility] [address] [place], [place] [phone] Margaux Pena MD [address] [place], [place] [phone] Social History Tobacco Use Types Packs/Day Years [...] Description 07/27/2025 11:30 AM EST Office Visit [facility] [address] [place], [place] [phone] Ashanti Meyer MD [address] [place], [place] [phone] documented as of this encounter Visit Diagnoses Not on filedocumented in this encounter Care Teams Package Center Supervisor Relationship Specialty Start Date End Date Margaux Pena MD [address] [place] [id number] PCP - General Family Medicine 01/20/13 11/18/23 Ashanti Meyer MD [address] [place] [id number] PCP - General Family Medicine 11/19/23 documented as of this encounter
--- OUTSIDE RECORDS SUMMARY | 2025-05-17 17:46 | XMS_ITS | Encounter Summary ---
Author Organization [employer] Address [address] [facility] [address] [place] [address] Care Team Providers Care Physics Faculty Member Name Role Phone Ashanti Meyer MD Primary Care Provider [phone] Reason for Visit * Reason Comments Med Refill Encounter Details Date Type Department Care Team ([facility] st Contact Info) Description 04/12/2025 Refill [facility] [address] [place], [place] [phone] Pilar Guzman MD [address] [place], [place] [phone] Social History Tobacco Use Types Packs/Day Years [...] Description 07/27/2025 11:30 AM EST Office Visit [facility] [address] [place] [address] Ashanti Meyer MD [address] [place] [address] documented as of this encounter Visit Diagnoses Not on filedocumented in this encounter Additional Health Concerns Assessment Noted Time PHQ-9 Depression Total Score: 14 025 10:15 AM EST documented as of this encounter Care Teams Physics Faculty Member Relationship Specialty Start Date End Date Ashanti Meyer MD [address] [place] [id number] PCP - General Family Medicine 11/19/23 documented as of this encounter
--- OUTSIDE RECORDS SUMMARY | 2025-05-17 17:46 | XMS_ITS | Encounter Summary ---
Author Organization [employer] Address [address] [facility] [address] [place] [address] Care Team Providers Care Horse Trekking Guide Name Role Phone Ashanti Meyer MD Primary Care Provider [phone] Encounter Details Date Type Department Care Team ([facility] st Contact Info) Description 12/16/2024 Orders Only [facility] [address] [place], [place] [phone] Ashanti Meyer MD [address] [place], [place] [phone] Social History Tobacco Use Types Packs/Day Years [...] Description 07/27/2025 11:30 AM EST Office Visit [facility] [address] [place] [phone] Ashanti Meyer MD [address] [place] [address] documented as of this encounter Visit Diagnoses Not on filedocumented in this encounter Additional Health Concerns Assessment Noted Time PHQ-9 Depression Total Score: 14 025 10:15 AM EST documented as of this encounter Care Teams Horse Trekking Guide Relationship Specialty Start Date End Date Ashanti Meyer MD [address] [place] [id number] PCP - General Family Medicine 11/19/23 documented as of this encounter
--- OUTSIDE RECORDS SUMMARY | 2025-05-17 17:46 | XMS_ITS | Encounter Summary ---
Author Organization [employer] Address [address] [facility] [address] [place] [address] Care Team Providers Care Store Sales Consultant Name Role Phone Ashanti Meyer MD Primary Care Provider [phone] Reason for Visit * Reason Onset Date Comments Med request 10/13/2024 Encounter Details Date Type Department Care Team ([facility] Contact Info) Description 10/13/[address] [facility] [address] [place], [place] [phone] Ashanti Meyer MD [address] [place], [place] [phone] Med request Social History Tobacco Use Types [...] Description 07/27/2025 11:30 AM EST Office [address] [facility] [address] [place] [address] Ashanti Meyer MD [address] [place] [address] documented as of this encounter Visit Diagnoses Not on filedocumented in this encounter Additional Health Concerns Assessment Noted Time PHQ-9 Depression Total Score: 14 025 10:15 AM EST documented as of this encounter Care Teams Store Sales Consultant Relationship Specialty Start Date End Date Ashanti Meyer MD [address] [place] [phone] PCP - General Family Medicine 11/19/23 documented as of this encounter
--- OUTSIDE RECORDS SUMMARY | 2025-05-17 17:46 | XMS_ITS | Clinical Summary ---
Author Organization [employer] Address [address] [place] [address] 7t [place] [address] Care Team Providers Care Baker Apprentice Name Role Phone Ashanti Meyer MD Primary Care Provider [phone] Allergies Active Allergy Reactions Criticality Noted Date Comments Ibuprofen Rash Low 08/03/2010 Morphine 07/16/2012 Other reaction(s): Ibuprofen allergy Pt. state allergy to dose >800 Medications Buprenorphine HCl-Naloxone HCl (Suboxone) 8-[address] 2 Film under the tongue 1 (one) time each day. Active promethazine- dextromethorp miller (Phenergan-DM ) 6.25-15 MG/5ML syrup TAKE 5 ML ORALLY EVERY 4 HOURS NEEDED 118 mL 3 11/15/19 24 Active Trelegy Ellipta 200-62.5-25 MCG/ACT aerosol powder Inhale 1 puff Once per day. 01/24/20 24 Active lisinopril 40 MG tablet TAKE 1 TABLET BY MOUTH EVERY DAY IN THE MORNING 90 tablet 3 09/08/19 25 Active ipratropium-a lbuterol (Duo-Neb) 0.5-2.5 mg/3 mL nebulizer solution TAKE 3 ML BY NEBULIZATION ROUTE IN THE MORNING, AT NOON AND BEDTIME NEEDED FOR WHEEZING 90 mL 6 09/08/19 25 Active omeprazole (PriLOSEC) [address] capsule TAKE 1 CAPSULE BY MOUTH EVERY DAY BEFORE A MEAL 90 capsule 3 10/07/19 25 Active Calcium Carb-Cholecal ciferol (Calcium + Vitamin D3) 600-10 MG-MCG tablet Take 1 tablet by mouth 2 times daily. 180 tablet 3 10/29/19 25 Active amLODIPine (Norvasc) 5 MG tablet TAKE 1 TABLET (5 MG) BY MOUTH ONCE PER DAY. 90 tablet 3 11/12/19 25 Active Ohtuvayre 3 MG/2.5ML suspension 09/30/19 Active Glucosamine 500 MG capsule Take 1 [...] capsules by mouth Once per day. 01/19/20 Active tobramycin-de xAMETHasone (Tobradex) ophthalmic suspension INSTILL 1 DROP INTO [...] DAY 180 tablet 1 04/12/20 25 Active fluticasone (Flonase) 50 MCG/ACT nasal spray Administer 1 spray into each nostril Once per day. Shake gently. Before first use, prime pump. After use, clean tip and replace cap. 48 mL 3 05/12/20 25 Active loratadine (Claritin) 10 MG tabletIndicat ions:Middle ear effusion, right Take 1 tablet (10 mg) by mouth Once per day. 90 tablet 3 05/12/20 25 026 Active montelukast (Singulair) 10 MG tablet TAKE 1 TABLET BY MOUTH EVERY DAY IN THE EVENING 90 tablet 3 05/12/20 25 Active benzonatate (Tessalon) 100 MG capsule Take 1 capsule (100 mg) by mouth if needed in the morning, at noon, and at bedtime for cough. Do not crush or chew. 30 capsule 3 02/07/20 24 025 Discontinued(T herapy completed) hydrOXYzine pamoate (Vistaril) 25 MG capsuleIndica tions:Anxiety TAKE 1 CAPSULE BY MOUTH TWICE A DAY NEEDED FOR ANXIETY 180 capsule 1 08/24/19 025 Discontinued(T herapy completed) loratadine (Claritin) 10 MG tabletIndicat ions:Middle ear effusion, right Take 1 tablet (10 mg) by mouth Once per day. 30 tablet 11 09/26/19 025 Discontinued(R eorder (will not trigger notification to Pharmacy)) fluticasone (Flonase) 50 MCG/ACT nasal spray USE 1-2 SPRAYS IN EACH NOSTRIL EVERY DAY NEEDED 48 mL 1 11/03/19 025 Discontinued(R eorder (will not trigger notification to Pharmacy)) montelukast (Singulair) 10 MG tablet TAKE 1 TABLET BY MOUTH EVERY DAY IN THE EVENING 90 tablet 3 11/12/19 025 Discontinued(R eorder (will not trigger notification to Pharmacy)) acetaminophen (Tylenol 8 Hour) 650 MG ER tablet TAKE 1 TABLET (650 MG) BY MOUTH EVERY 8 (EIGHT) HOURS IF NEEDED FOR MILD PAIN. DO NOT CRUSH, CHEW, OR SPLIT. 90 tablet 1 04/13/20 Active Problems Problem Noted Date Diagnosed Date Keratoconjunct sicca, not specified as Sjogren's , unsp eye 04/23/2025 Vertigo 01/26/2025 Overview (01/26/2025): Likely BPPV, based [...] like to to see Dr Roberts at [facility] Osteopenia with high risk of fracture 09/25/2024 [...] September, Never before. Treated with Prednisone by [facility] provider, symptoms went away completely only to [...] Opioid use, unspecified, uncomplicated 3 Buprenorphine dependence ([facility]) 07/27/2015 Pulmonary thromboembolism ([facility]) 07/27/2015 Anxiety 02/02/2013 Depressive disorder 04/03/2012 Hypertension [...] Tobacco abuse 02/02/2013 03/01/2025 Severe chronic obstructive p ulmonary disease (CMS/HCC) 09/24/2012 09/25/2024 Assessment & Plan (02/25/2024 9:00 PM [...] called her pharmacy and confirmed pt can fiber picker med -refilled theophyline for another 30 days until can get px from trouble lineman -Complete ATB tomorrow -pt recently on Quinolones [...] for CT lung ca screening by her trouble lineman -states for this month schedule already -f [...] Encounters Date Type Department Care Team Description 05/12/2025 Orders Only [facility] [address] [place] [address] Ashanti Meyer MD Middle ear effusion, right 05/11/2025 Telephone [facility] [address] [place] [address] Ashanti Meyer MD 04/12/2025 Refill [facility] [address] [place] [address] Pilar Guzman MD 04/12/2025 Refill [facility] [address] [place] [address] Ashanti Meyer MD 04/11/2025 Refill [facility] [address] [place] [address] Pilar Vaca MD 03/21/2025 Refill [facility] [address] [place] [address] Pilar Guzman MD 03/01/2025 2:00 PM EDT Office Visit [facility] [address] [place] [address] Ashanti Meyer MD Other emphysema (CMS/HCC) (Primary Dx); Ex-smoker for less than 1 year; Primary hypertension; Interstitial pulmonary disease, unspecified (CMS/HCC); Spasm of left trapezius muscle 03/01/2025 Travel 02/26/2025 Telephone [facility] [address] [place] [address] Ashanti Meyer MD Chart Prep 02/23/2025 Refill [facility] [address] [place] [address] Ashanti Meyer MD from Last 3 Months [...] 03/01/2025 2:03 PM EDT Plan of Treatment Upcoming Encounters Date Type Department Care Team (Late st Contact Info) Description 07/27/2025 11:30 AM EST Office Visit [facility] [address] [place] [address] Ashanti Meyer MD [address] [place] [address] Health Maintenance Due Date Last Done Comments [...] 05/28/2019, Additional history exists COVID-19 Vaccine ( season) 2025 09/25/2024, 11/21/2020, 10/24/2020 Depression Monitoring [...] PM EDT Spasm of left trapezius muscle LIPID PANEL, STANDARD Routine 12/06/2021 11:48 AM EDT MAMMOGRAM GENERIC Routine 02/10/2021 11: 00 AM EDT from Last 3 Months or Most Recently Relevant to Health Maintenance Results * Trigger Point Injections (03/01/2025 2:31 PM EDT) Ashanti Plata MD - 03/01/2025 2:31 PM EDT Ashanti Meyer MD 03/01/2025 2:39 PM Trigger Point Injections Date/Time: 03/01/2025 2:31 PM Performed by: Ashanti Meyer MD Authorized by: Ashanti Meyer MD Consent: Consent obtained: Verbal Consent given by: Patient Procedure risks and benefits discussed: Yes Patient questions answered: Yes Patient agrees, verbalizes understanding, and wants to proceed: Yes [place] protocol: Procedure explained and questions answered to [...] factors. LDL-C is now calculated using the Vinny-Martin calculation, which is a validated novel method providing better accuracy than the Friedewald equation in the estimation of LDL-C. Vinny SS et al. BASHIR. 2013;310(19): 7908-1461 (http://[employer].Chartbeat/faq/CUY677) Non-HDL Cholesterol 166(H) <130 mg/dL (calc) [facility] Comment: For patients with diabetes plus 1 major ASCVD risk factor, treating to a non-HDL-C goal of <100 mg/dL (LDL-C of <70 mg/dL) is considered a therapeutic option. Triglycerides 96 <150 mg/dL [facility] 12/06/2021 11:4 8 AM EDT us Margaux Pena MD LAB BLOOD ORDERABLES Final Re sult [facility] [address] * Mammography Report 1 (02/10/2021 11:00 AM EDT) Anatomical Region Laterality Modality Breast Bilateral Mammography 02/10/2021 11:0 0 AM EDT Narrative 02/10/2021 2:10 PM EDT Refer to the Notes tab for result details [facility] Procedure: Mammography Report 1 Procedure Note ProviderRhonda MD - 10/14/2022 Refer to the Notes tab for result details [facility] Procedure: Mammography Report 1 us Margaux Pena MD IMG BI PROCEDURES Final Resul t from Last 3 Months or Most Recently Relevant to Health Maintenance Insurance [facility] STANDARD [facility] DUAL COMPLETE [place] Care Teams Baker Apprentice Relationship Specialty Start Date End Date Ashanti Meyer MD [address] [place] [phone] PCP - General Family Medicine 11/19/23
--- OUTSIDE RECORDS SUMMARY | 2025-05-17 17:46 | XMS_ITS | Encounter Summary ---
Author Organization [employer] Address [address] [facility] 7t [place] [address] Care Team Providers Care Smokehouse Operator Name Role Phone Ashanti Meyer MD Primary Care Provider [phone] Reason for Visit * Reason Onset Date Comments Med Refill 01/04/2025 Encounter Details Date Type Department Care Team ([facility] st Contact Info) Description 01/04/2025 Refill [facility] PEDS [address] [place], [place] [phone] Ashanti Meyer MD [address] [place] [address] Social History Tobacco Use Types Packs/Day Years [...] Description 07/27/2025 11:30 AM EST Office Visit [facility] [address] [place] [address] Ashanti Meyer MD [address] [place] [address] documented as of this encounter Visit Diagnoses Not on filedocumented in this encounter Additional Health Concerns Assessment Noted Time PHQ-9 Depression Total Score: 14 025 10:15 AM EST documented as of this encounter Care Teams Smokehouse Operator Relationship Specialty Start Date End Date Ashanti Meyer MD [address] [place] [address] PCP - General Family Medicine 11/19/23 documented as of this encounter
--- OUTSIDE RECORDS SUMMARY | 2025-05-17 17:46 | XMS_ITS | Encounter Summary ---
Author Organization [employer] Address [address] [facility] 7t [place] [address] Care Team Providers Care Residential Program Director Name Role Phone Ashanti Meyer MD Primary Care Provider [phone] Reason for Visit * Reason Comments Med Change Request Encounter Details Date Type Department Care Team ([facility] st Contact Info) Description 01/05/2025 Refill [facility] [address] [place], [place] [phone] Ashanti Meyer MD [address] [place], [place] [phone] Social History Tobacco Use Types Packs/Day Years [...] Description 07/27/2025 11:30 AM EST Office Visit [facility] [address] [place] [address] Ashanti Meyer MD [address] [place] [address] documented as of this encounter Visit Diagnoses Not on filedocumented in this encounter Additional Health Concerns Assessment Noted Time PHQ-9 Depression Total Score: 14 025 10:15 AM EST documented as of this encounter Care Teams Residential Program Director Relationship Specialty Start Date End Date Ashanti Meyer MD [address] [place] [address] PCP - General Family Medicine 11/19/23 documented as of this encounter
--- OUTSIDE RECORDS SUMMARY | 2025-05-17 17:46 | XMS_ITS | Encounter Summary ---
Author Organization [employer] Address [address] [facility] 7t [place] [address] Care Team Providers Care Medical Physics Teacher Name Role Phone Ashanti Meyer MD Primary Care Provider [phone] Reason for Visit * Reason Comments Med Change Request Encounter Details Date Type Department Care Team ([facility] st Contact Info) Description 12/15/2024 Refill [facility] [address] [place], [place] [phone] Ashanti Meyer MD [address] [place], [place] [phone] Social History Tobacco Use Types Packs/Day Years [...] EDT Called and spoke to pharmacist at [facility], she says that 600mg ER is [...] [facility] [address] [place] [address] Ashanti Meyer MD [address] [place] [address] documented as of this encounter Visit Diagnoses Not on filedocumented in this encounter Additional Health Concerns Assessment Noted Time PHQ-9 Depression Total Score: 14 025 10:15 AM EST documented as of this encounter Care Teams Medical Physics Teacher Relationship Specialty Start Date End Date Ashanti Meyer MD [address] [place] [address] PCP - General Family Medicine 11/19/23 documented as of this encounter
--- OUTSIDE RECORDS SUMMARY | 2025-05-17 17:46 | XMS_ITS | Encounter Summary ---
Author Organization [employer] Address [address] [facility] 7t [place] [address] Care Team Providers Care End Packer Name Role Phone Ashanti Meyer MD Primary Care Provider [phone] Encounter Details Date Type Department Care Team ([facility] st Contact Info) Description 05/12/2025 Orders Only [facility] [address] [place], [place] [phone] Ashanti Meyer MD [address] [place], [place] [phone] Middle ear effusion, right Social History Tobacco Use Types Packs/Day Years [...] Description 07/27/2025 11:30 AM EST Office Visit [facility] [address] [place] [address] Ashanti Meyer MD [address] [place] [address] documented as of this encounter Visit Diagnoses Diagnosis Middle ear effusion, right documented in this encounter Additional Health Concerns Assessment Noted Time PHQ-9 Depression Total Score: 14 025 10:15 AM EST documented as of this encounter Care Teams End Packer Relationship Specialty Start Date End Date Ashanti Meyer MD [address] [place] [phone] PCP - General Family Medicine 11/19/23 documented as of this encounter
--- OUTSIDE RECORDS SUMMARY | 2025-05-17 17:46 | XMS_ITS | Encounter Summary ---
Author Organization [employer] Address [address] [facility] 7t [place] [address] Care Team Providers Care Braille Typist Name Role Phone Ashanti Meyer MD Primary Care Provider [phone] Reason for Visit * Reason Comments Med Refill Encounter Details Date Type Department Care Team ([facility] Contact Info) Description 03/07/2024 Refill [facility] MED & PEDS [address] [place], [place] [phone] Margaux Pena MD [address] [place] [address] Social History Tobacco Use Types Packs/Day Years [...] Description 07/27/2025 11:30 AM EST Office Visit [facility] [address] [place] [address] Ashanti Meyer MD [address] [place] [address] documented as of this encounter Visit Diagnoses Not on filedocumented in this encounter Additional Health Concerns Assessment Noted Time PHQ-9 Depression Total Score: 10 024 1:47 PM EDT documented as of this encounter Care Teams Braille Typist Relationship Specialty Start Date End Date Ashanti Meyer MD [address] [place] [address] PCP - General Family Medicine 11/19/23 documented as of this encounter
--- OUTSIDE RECORDS SUMMARY | 2025-05-17 17:46 | XMS_ITS | Encounter Summary ---
Author Organization [employer] Address [address] [facility] 7t [place] [address] Care Team Providers Care Pull Through Hooker Name Role Phone Ashanti Meyer MD Primary Care Provider [phone] Encounter Details Date Type Department Care Team ([facility] st Contact Info) Description 01/04/2025 Orders Only [facility] MED[facility]INE [address] [place], [place] [phone] Ashanti Meyer MD [address] [place], [place] [phone] Social History Tobacco Use Types Packs/Day Years [...] Description 07/27/2025 11:30 AM EST Office Visit [facility] [address] [place] [address] Ashanti Meyer MD [address] [place] [address] documented as of this encounter Visit Diagnoses Not on filedocumented in this encounter Additional Health Concerns Assessment Noted Time PHQ-9 Depression Total Score: 14 025 10:15 AM EST documented as of this encounter Care Teams Pull Through Hooker Relationship Specialty Start Date End Date Ashanti Meyer MD [address] [place] [address] PCP - General Family Medicine 11/19/23 documented as of this encounter
--- OUTSIDE RECORDS SUMMARY | 2025-05-17 17:46 | XMS_ITS | Encounter Summary ---
Author Organization [employer] Address [address] [facility] 7t [place] [address] Care Team Providers Care Picture Enlarger Name Role Phone Ashanti Meyer MD Primary Care Provider Reason for Visit * Reason Comments Med Refill Encounter Details Date Type Department Care Team ([facility] st Contact Info) Description 01/12/2025 Refill [facility] MED & PEDS [address] [place], [place] [phone] Ashanti Meyer MD [address] [place] [address] Social History Tobacco Use Types Packs/Day Years [...] Description 07/27/2025 11:30 AM EST Office Visit [facility] [address] [place] [address] Ashanti Meyer MD [address] [place] [address] documented as of this encounter Visit Diagnoses Not on filedocumented in this encounter Additional Health Concerns Assessment Noted Time PHQ-9 Depression Total Score: 14 025 10:15 AM EST documented as of this encounter Care Teams Picture Enlarger Relationship Specialty Start Date End Date Ashanti Meyer MD [address] [place] [address] PCP - General Family Medicine 11/19/23 documented as of this encounter
--- OUTSIDE RECORDS SUMMARY | 2025-05-17 17:46 | XMS_ITS | Encounter Summary ---
Author Organization [employer] Address [address] [facility] 7 [place] [address] Care Team Providers Care Seam Rubber Name Role Phone Ashanti Meyer MD Primary Care Provider [phone] Reason for Visit * Reason Onset Date Comments Med Refill 09/08/2024 Encounter Details Date Type Department Care Team ([facility] st Contact Info) Description 09/08/2024 Telephone [facility] [address] [place], [place] [phone] Ashanti Meyer MD [address] [place], [place] [phone] Med Refill Social History Tobacco Use Types [...] solution 3 mL To be sent to: [facility]/pharmacy [address] [place] [address] documented in this encounter Plan of Treatment Upcoming Encounters Date Type Department Care Team (Late st Contact Info) Description 07/27/2025 11:30 AM EST Office Visit [facility] [address] [place] [address] Ashanti Meyer MD [address] [place] [address] documented as of this encounter Visit Diagnoses Not on filedocumented in this encounter Additional Health Concerns Assessment Noted Time PHQ-9 Depression Total Score: 10 024 1:47 PM EDT documented as of this encounter Care Teams Seam Rubber Relationship Specialty Start Date End Date Ashanti Meyer MD [address] [place] [address] PCP - General Family Medicine 11/19/23 documented as of this encounter
--- OUTSIDE RECORDS SUMMARY | 2025-05-17 17:46 | XMS_ITS | Encounter Summary ---
Author Organization [employer] Address [address] [facility] 7t [place] [address] Care Team Providers Care Medical Accounting Clerk Name Role Phone Ashanti Meyer MD Primary Care Provider [phone] Reason for Visit * Reason Comments Med Refill Encounter Details Date Type Department Care Team ([facility] st Contact Info) Description 07/07/[address] [facility] & PEDS [address] [place], [place] [phone] Ashanti Meyer MD [address] [place] [address] Pain Social History Tobacco Use Types Packs/Day [...] Description 07/27/2025 11:30 AM EST Office Visit [facility] MED[facility]INE [address] [place] [phone] Ashanti Meyer MD [address] [place] [address] documented as of this encounter Visit Diagnoses Diagnosis Pain Generalized pain documented in this encounter Additional Health Concerns Assessment Noted Time PHQ-9 Depression Total Score: 10 024 1:47 PM EDT documented as of this encounter Care Teams Medical Accounting Clerk Relationship Specialty Start Date End Date Ashanti Meyer MD [address] [place] [address] PCP - General Family Medicine 11/19/23 documented as of this encounter
--- OUTSIDE RECORDS SUMMARY | 2025-05-17 17:46 | XMS_ITS | Encounter Summary ---
Author Organization [employer] Address [address] [facility] 7t [place] [address] Care Team Providers Care Repairer Typewriter Name Role Phone Ashanti Meyer MD Primary Care Provider [phone] Reason for Visit * Reason Comments Med Change Request Encounter Details Date Type Department Care Team ([facility] st Contact Info) Description 12/16/2024 Refill [facility] [address] [place], [place] [phone] Ashanti Meyer MD [address] [place], [place] [phone] Social History Tobacco Use Types Packs/Day Years [...] 11:30 AM EST Office Visit [facility] MED[facility]INE [address] [place] [address] Ashanti Meyer MD [address] [place] [address] documented as of this encounter Visit Diagnoses Not on filedocumented in this encounter Additional Health Concerns Assessment Noted Time PHQ-9 Depression Total Score: 14 025 10:15 AM EST documented as of this encounter Care Teams Repairer Typewriter Relationship Specialty Start Date End Date Ashanti Meyer MD [address] [place] [address] PCP - General Family Medicine 11/19/23 documented as of this encounter
== END 2025-05-17 14:18 | disposition home or self-care (01) ==
LOC: HO.HPS 14:06
PROVIDERS: PCP General Practice; Visit Provider Internal Medicine Pulmonary Disease
DX: J44.1 Chronic obstructive pulmonary disease with (acute) exacerbation (principal); Z87.891 Personal history of nicotine dependence
CPT/HCPCS: 99214

== ENCOUNTER → 2025-05-17 14:06 | Outpatient (BNVA) | payer MEDICARE, SELFPAY | PROVIDERS: PCP General Practice; Visit Provider Internal Medicine Pulmonary Disease | DX: J44.1 Chronic obstructive pulmonary disease with (acute) exacerbation (principal); Z87.891 Personal history of nicotine dependence; Z79.899 Other long term (current) drug therapy | CPT/HCPCS: 99212 ==

== ENCOUNTER → 2025-07-16 10:27 | Outpatient (REF) | payer MEDICARE, SELFPAY ==
--- NOTE | 2025-07-16 10:31 | ECG_ITS ---
Test Reason : preop Blood Pressure : */* mmHG Vent. Rate : 93 BPM Atrial Rate : 93 BPM P-R Int : 172 ms QRS Dur : 122 ms QT Int : 388 ms P-R-T Axes : 77 245 48 degrees QTcB Int : 482 ms Normal sinus rhythm Right atrial enlargement Right bundle branch block Abnormal ECG When compared with ECG of 21-Aug-2023 16:53, No significant change was found Referred By: Lele Maddox Electronically Signed By: CHAUNCEY MUNOZ MD
--- OUTSIDE RECORDS SUMMARY | 2025-07-16 10:31 | XMS_ITS ---
Author Name Brandee Mckeon NP Address [address] [place] [address] Phone [phone] [facility] Care Team Providers Care Photo Equipment Technician Name Role Phone Brandee Mckeon Unavailable [phone] SOURAV BARRERA Unavailable [phone] Carlie Anthony Unavailable [phone] Nickolas Strong Unavailable [phone] Unavailable Unavailable [phone] YESSY WADE Unavailable [phone] JOSE DE JESUS RING Unavailable [phone] GABI EDWARDS Unavailable MARITZA BREWER Unavailable [phone] Reason for Referral Not Available Allergies, adverse [...] 12 HOURS 2022-07-06 No Data Available Nystatin 875988 UNIT/ML Suspension TAKE 5 MLS ORALLY 4 [...] TABLET DAILY 09-09 No Data Available Nystatin 099942 UNIT/ML Suspension Mouth/Throat 5ml PO QID Swish [...] FOR NERVE PAIN 2023-11-15 No Data Available Jrcloisb-Xoesdnuny-Oosesojq 3.5-39223-1.1 Suspension INSTILL 1 DROP INTO BOTH EYES [...] needed for cough. 2025-04-28 No Data Available Azithromycin 250 mg Tab Take 2 tablets P O on day 1, then 1 tablet PO on days 2-5 2025-06-20 No Data Available predniSONE 20 mg Tab Take 2 tabs PO sarah y for 5 days 2025-06-20 No Data Available Promethazine-DM 6.25/15 mg/5 ML Syrup take 5 milliliters by mouth every 6 hours if needed 2025-06-20 No Data Available Baclofen 5 mg Tab 1 tablets orally 3 t imes per day x 7 days 2025-07-12 No Data Available Diclofenac Sodium 1 % Gel 4 grams topica lly to affected area 4 times per day PRN 2025-07-12 No Data Available Problem List Problem Status [...] taking new pts.Referred to the oculoplastic surgeon. [facility]. [phone], faxed and accept new patients, they called [...] Oral yvette Resolved 2023-10-08 2023-11-18 Patient in g advair inhaler but was not near a [...] improvement or any questions/concerns 09/08/24 No pain. 07/12/25-Sciatica: left hip radiating to ankle. -Rx provided for Baclofen 5 mg Tab 1 tablets orally 3 times per day x 7 days.New Diclofenac Sodium 1 % Gel 4 grams topically to affected area 4 times per day PRN -Avoid Prednisone and member was on prednisone couple weeks ago. -Educated about symptoms management, stretch and rest. -Advised to call CB if symptoms worsened. COPD exacerbation Active 2023-11-13 N/A predniS ONE 20 mg Tab Take 1 tablet twice daily for 5 days. #10 tablet RPd3Jzwtxjrprbu-Dce Clavulanate 875/125 mg Tab Take 1 tablet PO twice daily for 7 days #14 tablet [id number] 100 mg Cap Take 1 tablet TID daily as needed for cough. #30 capsule [id number] Q 4 hrs prnRest and hydrate09/08/24 Prednisone taper and doxycycline received, taking, and improving. Sore throat, cough slowed down. Continue with medication prescribed. Mild SOB, no fever, no chills. Steam, fluids, mucinex. 04/27/25+ flair Continue nebs Q 4 hrs prnStart doxy and prednisone. Notify for worsening sgazmqty04/14/25: Symptoms are improved but her breathing is [...] sputum production. 4. Schedule f/u with primary [facility] in 1-2 days. 09/04/24-patient seen for acute [...] modifier 95 for video, modifier 93 for [employer] [facility]/12/2022 Opioid dependence, uncomplicatedChronic pulmonary embolismChronic obstructive pulmonary disease, unspecifiedInterstitial pulmonary disease, unspecifiedEssential (primary) hypertensionGeneralized anxiety disorderGastro-esophageal reflux disease without esophagitis New patient, 30-44min 1 stable chronic or 2 minor; add modifier 95 for video, modifier 93 for [employer] [facility] [place] 12/12/2022 New patient, 30-44min 1 stable chronic or 2 minor; add modifier 95 for video, modifier 93 for [employer] [facility] [place] 12/12/2022 New patient, 30-44min 1 stable chronic or 2 minor; add modifier 95 for video, modifier 93 for [employer] [facility] [place] 12/12/2022 New patient, 30-44min 1 stable chronic or 2 minor; add modifier 95 for video, modifier 93 for phone [facility] [place]12[place]2022 New patient, 30-44min 1 stable chronic or 2 minor; add modifier 95 for video, modifier 93 for phone [facility] [place]/12/2022 New patient, 30-44min 1 stable chronic or 2 minor; add modifier 95 for video, modifier 93 for phone [facility] [place] 12[place]/2022 New patient, 30-44min 1 stable chronic or 2 minor; add modifier 95 for video, modifier 93 for phone [facility] [place] 12/12/2022 No Data Available [facility] [place] [place] Urinary tract infection, sit e not specifiedUnspecified entropion of right lower eyelidUnspecified entropion of left lower eyelidEssential (primary) hypertension No Data Available [facility] [place] 01/02/2023 No Data Available [facility] [place]02[place]2023 No Data Available [facility] [place] 01/04/2023 Opioid dependence, uncomplicatedChronic pulmonary embolismChronic obstructive pulmonary disease, unspecifiedInterstitial pulmonary disease, unspecifiedEssential (primary) hypertensionGeneralized anxiety disorderGastro-esophageal reflux disease without esophagitisUrinary tract infection, site not specifiedUnspecified entropion of right lower eyelidUnspecified entropion of left lower eyelid No Data Available [facility] [place] 01/04/2023 No Data Available [facility] [place] 01/04/2023 No Data Available [facility] [place]/04/2023 No Data Available [facility] [place]/04/2023 No Data Available [facility] [place]/04/2023 No Data Available [facility] [place] 01/15/2023 Urinary tract infection, sit e not specified No Data Available [facility] [place] 01/15/2023 No Data Available [facility] [place] 01/15/2023 No Data Available [facility] [place] 01/18/2023 Opioid dependence, uncomplicatedChronic [...] Data Available [facility] [place] 04/17/2023 Acute bronchitis due to othe r specified organismsOth bacterial agents as the cause of diseases classd elswhr No Data Available [facility] [place] 04/19/2023 Interstitial pulmonary disea se, unspecified No Data Available [facility] [place] 04/19/2023 No Data Available [facility] [place] 04/19/2023 No Data Available [facility] [place] 05/02/2023 Chronic obstructive pulmonar y disease, unspecified No Data Available [facility] [place] 05/07/2023 Opioid dependence, uncomplicatedChronic pulmonary [...] Data Available [facility] [place] 06/18/2023 Chronic obstructive pulmonar y disease, unspecifiedAllergy, unspecified, initial encounter No Data Available [facility] [place] 06/19/2023 Chronic obstructive pulmonar y disease, unspecifiedAllergy, unspecified, initial encounterAcute bronchitis due to other specified organismsOth bacterial agents as the cause of diseases classd elswhr No Data Available [facility] 06/19/2023 No Data Available [facility] 06/19[place]2023 No Data Available [facility] 06/19[place]2023 No Data Available [facility] 06/19/2023 Estab. patient 30-39min; chronic exacerbation, 2 stable chronic or 1 acute illness add add modifier 95 for video, (do not use for phone, instead use [id number]) [facility] 09/02/2023 Opioid dependence, uncomplicatedChronic pulmonary embolismChronic obstructive pulmonary disease, unspecifiedInterstitial pulmonary disease, unspecifiedAllergy, unspecified, initial encounterEssential (primary) hypertensionGeneralized anxiety disorderGastro-esophageal reflux disease without esophagitisUnspecified entropion of right lower eyelidUnspecified entropion of left lower eyelid Estab. patient 30-39min; chronic exacerbation, 2 stable chronic or 1 acute illness add add modifier 95 for video, (do not use for phone, instead use [id number]) [facility] 09/02/20[place] Estab. patient 30-39min; chronic exacerbation, 2 stable chronic or 1 acute illness add add modifier 95 for video, (do not use for phone, instead use 81114-92) [facility] 09/02/20[place] Estab. patient 30-39min; chronic exacerbation, 2 stable chronic or 1 acute illness add add modifier 95 for video, (do not use for phone, instead use [id number]) [facility] [place] 09/02/20[place] Estab. patient 30-39min; chronic exacerbation, 2 stable chronic or 1 acute illness add add modifier 95 for video, (do not use for phone, instead use 20022-85) [facility] 09/02/20[place] Estab. patient 30-39min; chronic exacerbation, 2 stable chronic or 1 acute illness add add modifier 95 for video, (do not use for phone, instead use [id number]) [facility] 09/02/20[place] Estab. patient 30-39min; chronic exacerbation, 2 stable chronic or 1 acute illness add add modifier 95 for video, (do not use for phone, instead use 40100-87) [facility] 09/02/2023 Estab. patient 30-39min; chronic exacerbation, 2 stable chronic or 1 acute illness add add modifier 95 for video, (do not use for phone, instead use 89402-21) [facility] [place] 09/02/2023 No Data Available [facility] [place] 09/04/2023 Essential (primary) hypertensionOther problems related to medical facilities and other health care No Data Available [facility] [place] 09/04/[address] [facility] [place] 09/04[place] [facility] [place] 09[place] [facility] [place]09/2023 Opioid dependence, uncomplicatedChronic pulmonary embolismChronic obstructive pulmonary disease, unspecifiedAllergy, unspecified, initial encounterInterstitial pulmonary disease, unspecifiedEssential (primary) hypertensionGeneralized anxiety disorderGastro-esophageal reflux disease without esophagitisUnspecified entropion of right lower eyelidUnspecified entropion of left lower eyelidOther problems related to medical facilities and other health care No Data Available [facility] [place] 09/09/2023 No Data Available [facility] [place] 09/09/2023 No Data Available [facility] [place] 09/09/2023 No Data Available [facility] [place] 09/09/2023 No Data Available [facility] [place] 09[facility]09/2023 No Data Available [facility] [place] 09/09/2023 No Data Available [facility] [place] 09/09/2023 No Data Available [facility] [place] 10/03/2023 Essential (primary) hypertensionOther [...] [facility] [place] 10[place]03/2023 No Data Available [facility] [place]/03/2023 No Data Available [facility] [place] 10/08/2023 Candidal stomatitis No Data Available [facility] [place] 10/11/2023 Sciatica, unspecified side No Data Available [facility] [place] 10/11/2023 No Data Available [facility] [place] 10/30/2023 Opioid dependence, [...] and other health care No Data Available [facility] [place] 11/18/2023 No Data Available [facility] [place] 11/18/2023 No Data Available [facility] [place] 11/18/2023 No Data Available [facility] [place] 11/18/2023 No Data Available [facility] [place]/18/2023 No Data Available [facility] [place] 05/08/2024 Chronic obstructive pulmonar y disease with (acute) exacerbation No Data Available [facility] [place] 05/08/2024 No Data Available [facility] [place] 05/08/2024 No Data Available [facility] [place] 05/08/2024 No Data Available [facility] [place] 05/12/2024 Chronic obstructive pulmonar y disease, unspecifiedAllergy, unspecified, initial encounterEssential (primary) hypertensionOther problems related to medical facilities and other health care No Data Available [facility] [place] 05/12/2024 No Data Available [facility] [place] 05/12/2024 No Data Available [facility] [place] 05/12/2024 No Data Available [facility] [place] 07/12/2024 Chronic obstructive pulmonar y disease with (acute) exacerbation No Data Available [facility] [place]/12/20[place] No Data Available [facility] [place] 07/12/20[place] Estab. patient 10-29min; 1 minor problem; add add modifier 95 for video, modifier 93 for phone [facility] [place] 09/04/2024 Other specified chronic obstructive pulmonary diseaseAllergy, unspecified, initial encounterOld myocardial infarction Estab. patient 10-29min; 1 minor problem; add add modifier 95 for video, modifier 93 for phone [facility] [place] 09/04/20[place] Estab. patient 10-29min; 1 minor problem; add add modifier 95 for video, modifier 93 for phone [facility] [place] 09/04/20[place] Estab. patient 10-29min; 1 minor problem; add add modifier 95 for video, modifier 93 for phone [facility] [place] 09/04/2024 Estab. patient 20-29min; 1 stable chronic or 2 minor; add add modifier 95 for video, modifier 93 for phone [facility] [place] 09/08/2024 Opioid use, unspecified, [...] for phone [facility] [place] 09[place]24/20[place] Estab. patient 10-29min; 1 minor problem; add add modifier 95 for video, modifier 93 for phone [facility] 03/30/2025 Urinary tract infection, sit e not specified Estab. patient 10-29min; 1 minor problem; add add modifier 95 for video, modifier 93 for phone [facility] 03[place]30/2025 Estab. patient 10-29min; 1 minor problem; add add modifier 95 for video, modifier 93 for phone [facility] 03/30/2025 Estab. patient 10-29min; 1 minor problem; add add modifier 95 for video, modifier 93 for phone [facility] [place] 04/27/2025 Chronic obstructive pulmonar y disease with (acute) exacerbation Estab. patient 10-29min; 1 minor problem; add add modifier 95 for video, modifier 93 for phone [facility] [place] 04/27/2025 Estab. patient 10-29min; 1 minor problem; add add modifier 95 for video, modifier 93 for phone [facility] [place] 04/27/2025 Estab. patient 10-29min; 1 minor problem; add add modifier 95 for video, modifier 93 for phone [facility] [place] 05/04/2025 Chronic obstructive pulmonar y disease with (acute) exacerbationOther problems related to medical facilities and other health care Estab. patient 10-29min; 1 minor problem; add add modifier 95 for video, modifier 93 for phone [facility] [place] 06/20/2025 Chronic obstructive pulmonar y disease with (acute) exacerbation Estab. patient 10-29min; 1 minor problem; add add modifier 95 for video, modifier 93 for phone [facility] [place] 06/20/2025 Estab. patient 10-29min; 1 minor problem; add add modifier 95 for video, modifier 93 for phone [facility] [place] 06/20/2025 Estab. patient 10-29min; 1 minor problem; add add modifier 95 for video, modifier 93 for phone [facility] [employer] [facility] [place] 07/12/2025 Sciatica, unspecified side Vital Signs Date of Collection Vitals 2022-12-12 [...] /minO2 % BldC Oximetry - 94.0 % 2025-07-12 09:54:11 BP Diastolic - 94.0 mm[Hg]BP Systolic - 167.0 mm[Hg]Heart Rate - 116.0 /minO2 % BldC Oximetry - 96.0 % Social History Social History Social History Observation Description Effec tive Time Current Smoking Status Former smoker 2025-12-2 4 Sex Female History of Procedures Procedures Service Procedure code Service date Servicing provider Phone# New patient, 30-44min 1 stable chronic or 2 minor; add modifier 95 for video, modifier 93 for phone [id number] 2022-12-12 No Data Available No Data Available [...] No Data Availa ble No Data Available [id number] 2023-01-02 No Data Available No Data Available SBP >= 140 3077F 2023-01-02 No Data Available No Data Available DBP >=90 3080F 2023-01-02 No Data Available No Data Available No Data Available [id number] 2023-01-04 No Data Available No Data Available [...] No Data Availa ble No Data Available [id number] 2023-01-15 No Data Available No Data Available [...] (do not use for phone, instead use [id number]) [id number] 2023-09-02 No Data Available No Data Availa [...] Available No Data Available No Data Available [id number] 2023-09-04 No Data Available No Data Available Medication List Documented (1159F) 1159F 2023-09-04 No Data Available No Data Rox ilable SBP >= 140 3077F 2023-09-04 No Data Available No Data Available DBP >=90 3080F 2023-09-04 No Data Available No Data Available No Data Available [id number] 2023-09-09 No Data Available No Data Available [...] Available No Data Available No Data Available [id number] 2024-05-08 No Data Available No Data Available Medication List Documented (1159F) 1159F 2024-05-08 No Data Available No Data Rox ilable SBP < 130 (3074F) 3074F 2024-05-08 No Data Available No Data Available DBP 80-89 (3079F) 3079F 2024-05-08 No Data Available No Data Available No Data Available [id number] 2024-05-12 No Data Available No Data Available SBP < 130 (3074F) 3074F 2024-05-12 No Data Available No Data Available DBP 80-89 (3079F) 3079F 2024-05-12 No Data Available No Data Available Medication List Documented (1159F) 1159F 2024-05-12 No Data Available No Data Rox ilable No Data Available [id number] 2024-07-12 No Data Available No Data Available SBP >= 140 3077F 2024-07-12 No Data Available No Data Available DBP >=90 3080F 2024-07-12 No Data Available No Data Available Estab. patient 10-29min; 1 minor problem; add add modifier 95 for video, modifier 93 for phone [id number] 2024-09-04 No Data Available No Data Availa [...] 95 for video, modifier 93 for phone [id number] 2024-09-08 No Data Available No Data Availa [...] 95 for video, modifier 93 for phone [id number] 2024-09-17 No Data Available No Data Availa ble Pain Assessment - Pain Documented on a Pain Scale (1125F) 1125F 2024-09-17 No Data Available No Data Rox ilable Medication List Documented (1159F) 1159F 2024-09-17 No Data Available No Data Rox ilable Estab. patient 10-29min; 1 minor problem; add add modifier 95 for video, modifier 93 for phone [id number] 2024-09-21 No Data Available No Data Availa ble Medication List Documented (1159F) 1159F 2024-09-21 No Data Available No Data Rox ilable Estab. patient 10-29min; 1 minor problem; add add modifier 95 for video, modifier 93 for phone [id number] 2024-09-24 No Data Available No Data Availa ble Medication List Documented (1159F) 1159F 2024-09-24 No Data Available No Data Rox ilable Estab. patient 10-29min; 1 minor problem; add add modifier 95 for video, modifier 93 for phone [id number] 2025-03-30 No Data Available No Data Availa ble SBP < 130 (3074F) 3074F 2025-03-30 No Data Available No Data Available DBP <80 (3078F) 3078F 2025-03-30 No Data Available No Data Available Estab. patient 10-29min; 1 minor problem; add add modifier 95 for video, modifier 93 for phone [id number] 2025-04-27 No Data Available No Data Availa ble SBP 130-139 (3075F) 3075F 2025-04-27 No Data Availabl e No Data Available DBP 80-89 (3079F) 3079F 2025-04-27 No Data Available No Data Available Estab. patient 10-29min; 1 minor problem; add add modifier 95 for video, modifier 93 for phone [id number] 2025-05-04 No Data Available No Data Availa ble Estab. patient 10-29min; 1 minor problem; add add modifier 95 for video, modifier 93 for phone [id number] 2025-06-20 No Data Available No Data Availa ble SBP < 130 (3074F) 3074F 2025-06-20 No Data Available No Data Available DBP >=90 3080F 2025-06-20 No Data Available No Data Available Estab. patient 10-29min; 1 minor problem; add add modifier 95 for video, modifier 93 for phone [id number] 2025-07-12 No Data Available No Data Availa ble [...] sputum production. 4. Schedule f/u with primary [facility] in 1-2 days. Interstitial pulmonary disease, unspecifiedAlbuterol [...] sputum production. 4. Schedule f/u with primary [facility] in 1-2 days. Recently seen pulmo.Interstitial pulmonary [...] sputum production. 4. Schedule f/u with primary [facility] in 1-2 days. Essential hypertensionLisinopril Recommend low [...] taking new pts.Referred to the oculoplastic surgeon. [facility]. [phone], faxed and accept new patients, they called [...] sputum production. 4. Schedule f/u with primary [facility] in 1-2 days. Nasal discharge, PND, drips in [place]. Please use nasal rinse, miner pick Dymista. Continue with mucinex, humidifier. Call us [...] sputum production. 4. Schedule f/u with primary [facility] in 1-2 days. Recently seen pulmo. 04/19/23 [...] air 95%. Neb twice daily. Finishing doxycycline. [place] back to normal Interstitial pulmonary disease, unspecifiedAlbuterol [...] taking new pts.Referred to the oculoplastic surgeon. [facility]. [phone], faxed and accept new patients, they called [...] sputum production. 4. Schedule f/u with primary [facility] in 1-2 days. Recently seen pulmo. 04/19/23 [...] air 95%. Neb twice daily. Finishing doxycycline. [place] back to normal 06/19/23 productive cough with thick yellow sputum, headache, runny nose, post nasal drip, sore throat, SOB. O2 sat 94-95%. Baseline, taking doxy and medro dosepak. Take with food to decrease chance to upset stomach. call anytime please if fail to continue to improve.Acute bacterial eouoomsavk05/29/23:- Cont. with Nebulizer q2-3h PRN - Promethazine-DM [...] sputum production. 4. Schedule f/u with primary [facility] in 1-2 days. Recently seen pulmo. 04/19/23 [...] air 95%. Neb twice daily. Finishing doxycycline. [place] back to normal 06/19/23 productive cough with [...] taking new pts.Referred to the oculoplastic surgeon. [facility]. [phone], faxed and accept new patients, they called [...] plan 2023-10-08 10:43:06 Follow up plan for a andres symptoms:Oral yvette 2023-10-11 07:46:36 Sciatic leg painRx [...] sputum production. 4. Schedule f/u with primary [facility] in 1-2 days. Recently seen pulmo. 04/19/23 [...] air 95%. Neb twice daily. Finishing doxycycline. [place] back to normal 06/19/23 productive cough with [...] taking new pts.Referred to the oculoplastic surgeon. [facility]. [phone], faxed and accept new patients, they called [...] joint pain increased Please remember to call [facility] to see PCP. Follow[facility]up with [facility] [...] sputum production. 4. Schedule f/u with primary [facility] in 1-2 days. Recently seen pulmo. 04/19/23 [...] air 95%. Neb twice daily. Finishing doxycycline. [place] back to normal 06/19/23 productive cough with [...] another course of steroid sandhya, has not miner pick yet, and does not know the dose. [place] that as soon as prednisone is stopped, pain returned. Recommended PT, member stated PCP have ordered it. Pain today in left leg 4-11/28.COPD exacerbationRx Doxycycline, Benzonatate and Promethazine DM Discussed how to take medicationDiscussed treatment options with patient and the Doxycycline works the best for herContinue nebulizer treatments every 4-6 hours Has f/u appt with PCP 11/15/23f/u with [facility] 11/17/ Recommended to change Symbicort to treztri or trilogy for better COPD control. member offered to have symbicort changed, stated wish to speak to pulm. Please talk to your cocoa milling machine operator for advice. She had a lot of COPD exacerbations in the past year 2024-05-08 12:56:13 Follow up plan for a jacobye symptoms:COPD exacerbation 2024-05-12 08:56:03 COPD (chronic obstru [...] sputum production. 4. Schedule f/u with primary [facility] in 1-2 days. Recently seen pulmo. 04/19/23 [...] air 95%. Neb twice daily. Finishing doxycycline. [place] back to normal 06/19/23 productive cough with [...] stated will make appointment with pulmonology to vnyxkhp09/22/24 Taking all these RxNew predniSONE 20 mg Tab Take 1 tablet twice daily New levoFLOXacin 500 mg Tab 1 tablet orally daily [id number] Ipratropium-Albuterol 0.5-2.5 (3) MG/3ML Solution Inhalation USE [...] sputum production. 4. Schedule f/u with primary [facility] in 1-2 days. 09/04/24-patient seen for acute [...] taking new pts.Referred to the oculoplastic surgeon. [facility]. [phone], faxed and accept new patients, they called [...] twice daily for 5 days. #10 tablet LDp4Ypovjblxtzo-Nee Clavulanate 875/125 mg Tab Take 1 tablet PO twice daily for 7 days #14 tablet YAl2Nnlmihtemou 100 mg Cap Take 1 tablet TID daily as needed for cough. #30 capsule TNn0Xyzd Q 4 hrs prnRest and hydrate09/08/24 Prednisone [...] sputum production. 4. Schedule f/u with primary [facility]ER in 1-2 days. 09/04/24-patient seen for acute [...] to medical facilities and other health care 2025-07-12 09:54:11 Sciatic leg pain Plan of Care Date of Service Plans [...] Tab Take 1 tablet daily. #30 tablet NLf7Gmxsh (patient, parent, or guardian); 11-20 minutes of [...] Tab Take 1 tablet daily. #90 tablet VUy6Dxn [facility] Covid-19 At Home Test Kit Kit In Vitro test one daily #4 each PJv6Aorwo (patient, parent, or guardian); 11-20 minutes of [...] per day in each nostril #1 each GEn1Xvghns Ipratropium-Albuterol 0.5-2.5 (3) MG/3ML Solution Inhalation USE [...] sputum production. 4. Schedule f/u with primary [facility] in 1-2 days. Recently seen pulmo. 04/19/23 [...] TID as needed for cough. #30 capsule TCe7oXp New Montelukast Sodium 10 mg Tab 1 tablet orally QD for allergies and to prevent bronchospasm #30 tablet UTn8iGr New Doxycycline Hyclate 100 mg Tab Take 1 tablet PO twice daily for 7 days. #14 tablet DMn8xAy New Medrol 4 mg Tab Therapy Pack [...] sputum production. 4. Schedule f/u with primary [facility] in 1-2 days. Recently seen pulmo. 04/19/23 [...] air 95%. Neb twice daily. Finishing doxycycline. [place] back to normal 2023-06-19 06:16:30 Phone (patient, [...] sputum production. 4. Schedule f/u with primary [facility] in 1-2 days. Recently seen pulmo. 04/19/23 [...] air 95%. Neb twice daily. Finishing doxycycline. [place] back to normal 06/19/23 productive cough with [...] taking new pts.Referred to the oculoplastic surgeon. [facility]. [phone], faxed and accept new patients, they called [...] Tab Take 1 tablet daily. #90 tablet SZx6Epvly (patient, parent, or guardian); 5-10 minutes of [...] modifier 95)Continue to see PCP. Follow-up with [facility] as needed for any acute or disease [...] 3 times per day PRN #20 tablet YCv3Clh Medrol 4 mg Tab Therapy Pack take as directed #1 packet MPu1Lytjf (patient, parent, or guardian); 5-10 minutes of medical discussion (no modifier 95)Continue to see PCP. Follow-up with [facility] as needed for any acute or disease education needs that may arise 11/02. 2023-10-30 13:39:59 New Prednisone 40 mg 1 daily x 5 days #5 tablet JYl0Pvjjw (patient, parent, or guardian); 5-10 minutes of medical discussion (no modifier 95)Continue to see PCP. Follow-up with [facility] as needed for any acute or disease education needs that may arise 11/02. 2023-11-13 07:56:34 New Doxycycline Hycl ate 100 mg Tab Take 1 tablet PO twice daily for 10 days. #20 tablet GDr2Tvn Benzonatate 100 mg Cap Take 1 tablet twice daily as needed for cough. #20 capsule BGi4Qxy predniSONE 20 mg Tab Take 2 tablet once daily for 5 days. #10 tablet OBj6Kzv Promethazine-DM 6.25/15 mg/5ML Syrup 5 ml orally every 4 hours as needed #150 milliliter QJt7Sgigr (patient, parent, or guardian); 5-10 minutes of [...] twice daily for 5 days. #10 tablet YAf9Gwwgbjhpiyp-Qcx Clavulanate 875/125 mg Tab Take 1 tablet PO twice daily for 7 days #14 tablet XDu1Fdphdlpnkpx 100 mg Cap Take 1 tablet TID daily as needed for cough. #30 capsule LQz4Wmub Q 4 hrs prnRest and hydrate 2024-09-04 12:33:48 Televideo 10-29min; 1 minor problem; add add modifier 95 for video, modifier 93 for phoneContinue to see PCP. [facility] for any acute or disease education needs that may arise 11/02.Contingency plan:1. Start antibiotic(Azithromycin, doxycycline, or levaquin), prednisone 40 mg *5 days 2. Increase Neb treatments/MDI use to q4h x3 days3. Call CB at the first sign of SOB or increased cough and sputum production. 4. Schedule f/u with primary [facility] RAISER in 1-2 days. 05/12/24 Taking all these RxNew predniSONE 20 mg Tab Take 1 tablet twice daily New levoFLOXacin 500 mg Tab 1 tablet orally daily y9Skruof Ipratropium-Albuterol 0.5-2.5 (3) MG/3ML Solution Inhalation USE [...] handihaler device orally once daily #30 capsule IPj1Yvsmojrsqr Status Assessed (1170F)Advance Care Directive Advance care [...] 80-89 (3079F)Continue to see PCP. Follow-up with [facility] as [...] joint pain increased [facility]. [facility] any [...] twice daily for 5 days. #10 tablet ILi6Rlquhtedlju-Jtm Clavulanate 875/125 mg Tab Take 1 tablet PO twice daily for 7 days #14 tablet MRh8Vxsbqdognqu 100 mg Cap Take 1 tablet TID daily as needed for cough. #30 capsule RNz2Ekeg Q 4 hrs prnRest and hydrate09/08/24 Prednisone [...] has required in the past. Discussed that Shannon has been ciruculating but due to her [...] see each individual diagnosis for contingency plan 2025-06-20 08:02:00 1. [id number] - Estab. yuliya tient 10-29min; 1 minor problem; add add modifier 95 for video, modifier 93 for phonePlan for follow-up: Member to continue routine follow-up as currently scheduled with PCP/specialist Member reminded that [facility] is available 11/02 if new issues ariseAdditional follow-up details: 2025-07-12 09:54:11 Televideo 10-29min; 1 minor problem; add add modifier 95 for video, modifier 93 for phoneContinue to see PCP. [facility] for any acute or disease education needs that may arise 11/02.07/12/25-Sciatica: left hip radiating to ankle. -Rx provided for Baclofen 5 mg Tab 1 tablets orally 3 times per day x 7 days.New Diclofenac Sodium 1 % Gel 4 grams topically to affected area 4 times per day PRN -Avoid Prednisone and member was on prednisone couple weeks ago. -Educated about symptoms management, stretch and rest. -Advised to call CB if symptoms worsened. Goals Date Goal 2022-12-12 Continue taking medi [...] 500 mg Tab 1 tablet orally daily g3Kprshl Ipratropium-Albuterol 0.5-2.5 (3) MG/3ML Solution Inhalation USE [...] specialists as directed. Health Concerns Date Concern 2025-07-12 Patient/Guardian caroline eelinda to visit via telehealth.Visit completed via:[ ] audio and video; [x] audio only 2025-07-12 Concerns for today's visit: SciaticaSummary: Member complaining of L. hip sciatica pain radiating to the left ankle started 3 days ago. She reports that pain is intense and rated at 9-10/10. She reports taking 3 advil and 3 Tylenol. Member denies tingling. No swelling or redness. Denies lost of bowel or bladder controlShe denies redness and swelling in the lower extremities. Sometimes has some mild numbness. beauty sales advisor note reviewed.
[2025-07-16 10:49] LABS: MANUAL DIFF FLAG NO
[2025-07-16 11:21] LABS: Hematocrit 50.2 % (37.0-47.0); Hemoglobin 15.4 g/dl (12.0-16.0); Imm Gran Abs Auto 0.06 X10*3/uL (0.00-0.03); Imm Gran Pct Auto 0.5 % (0.0-0.4); Lymphocytes Absolute Auto 3.2 X10*3/uL (1.2-4.9); Mean Corpuscular HGB Conc 30.7 g/dl (31.0-35.0); Mean Corpuscular Hemoglobin 26.1 pg (27.0-33.0); Mean Corpuscular Volume 85.2 fL (80.0-98.0); NRBC Abs Auto 0.000 X10*3/uL (0.0-0.012); NRBC Pct Auto 0.0 /100WBC (0.0-0.2); Platelet Count 346 X10*3/uL (160-400); Red Blood Count 5.89 X10*6/uL (4.20-5.50); White Blood Count 11.2 X10*3/uL (4.8-10.8)
[2025-07-16 11:24] LABS: INTERNATIONAL NORM RATIO 1.1 (0.9-1.1); Prothrombin Time 13.8 SEC (11.2-13.5)
[2025-07-16 11:26] LABS: Partial Thromboplastin Time 36.4 SEC (26.7-34.1)
[2025-07-16 11:40] LABS: Alanine Aminotransferase 23 U/L (0-31); Albumin Level 4.6 g/dL (3.5-5.0); Alkaline Phosphatase 90 U/L (39-117); Anion Gap 14 (12-20); Aspartate Amino Transferase 19 U/L (5-31); Blood Urea Nitrogen 17 mg/dL (9-16); Calcium 9.9 mg/dL (8.4-10.2); Carbon Dioxide 29 mmol/L (22-29); Chloride 105 mmol/L (96-108); Estimated Glomerular Filt Rate > 60; Potassium 3.5 mmol/L (3.3-5.1); Sodium 144 mmol/L (135-145); Total Protein 7.0 g/dL (6.5-8.0)
== END ==
LOC: HO.CARD 10:27
PROVIDERS: Absent Provider Family Medicine; PCP General Practice
DX: Z01.818 Encounter for other preprocedural examination (principal); Z51.81 Encounter for therapeutic drug level monitoring
CPT/HCPCS: 36415; 80053; 85025; 85610; 85730; 93005

== ENCOUNTER → 2025-07-16 10:31 | Outpatient (BNV) | payer MEDICARE, SELFPAY | PROVIDERS: Absent Provider Family Medicine; PCP General Practice; Visit Provider Internal Medicine Cardiovascular Disease | DX: I45.10 Unspecified right bundle-branch block (principal); I51.7 Cardiomegaly | CPT/HCPCS: 93010 ==